=== PATIENT | female | born 1995 ===

== ENCOUNTER 2020-10-01 17:11 | Outpatient (REF) | payer MEDICAID, SELFPAY | END 2020-10-01 17:12 | disposition home or self-care (01) | LOC: HO.LAB 17:11 | PROVIDERS: Visit Provider Internal Medicine | DX: Z20.828 Contact with and (suspected) exposure to other viral communicable diseases (principal) | CPT/HCPCS: C9803; U0003 ==

== ENCOUNTER → 2020-11-07 14:59 | Outpatient (BNVA) | payer MEDICAID, SELFPAY | PROVIDERS: Visit Provider Advanced Practice Midwife | DX: O21.9 Vomiting of pregnancy, unspecified (principal); O99.619 Diseases of the digestive system complicating pregnancy, unspecified trimester; K59.00 Constipation, unspecified; Z3A.00 Weeks of gestation of pregnancy not specified | CPT/HCPCS: 99212 ==

== ENCOUNTER → 2020-11-28 10:12 | Outpatient (BNVA) | payer MEDICAID, SELFPAY | PROVIDERS: Visit Provider Advanced Practice Midwife | DX: Z13.89 Encounter for screening for other disorder (principal) | CPT/HCPCS: 99212 ==

== ENCOUNTER 2020-11-29 | Outpatient (REF) | payer MEDICAID, SELFPAY ==
[2020-11-29 18:04] LABS: MANUAL DIFF FLAG NO
[2020-11-29 18:22] LABS: Basophils Percent Auto 0.2 % (0-2); Eosinophils Absolute Auto 0.1 X10*3/uL (0.0-0.4); Eosinophils Percent Auto 0.6 % (0-4); Hematocrit 34.9 % (37-47); Hemoglobin 11.6 g/dl (12.0-16.0); Imm Gran Abs Auto 0.06 X10*3/uL (0.00-0.03); Imm Gran Pct Auto 0.4 % (0.0-0.4); Lymphocytes Absolute Auto 2.9 X10*3/uL (1.2-4.9); Lymphocytes Percent Auto 21.6 % (20-40); Mean Corpuscular HGB Conc 33.2 g/dl (31.0-35.0); Mean Corpuscular Volume 93.3 fL (80-98); Mean Platelet Volume 9.4 fL (9.4-12.3); Monocytes Absolute Auto 0.6 X10*3/uL (0.1-1.2); Monocytes Percent Auto 4.8 % (2-11); Neutrophils Absolute Auto 9.7 X10*3/uL (2.0-8.3); Neutrophils Percent Auto 72.4 % (45-73); Platelet Count 401 X10*3/uL (160-400); Red Blood Count 3.74 X10*6/uL (4.20-5.50); Red Cell Distribution Width 11.6 % (11.0-16.0); White Blood Count 13.4 X10*3/uL (4.8-10.8)
[2020-11-29 18:42] LABS: Amphetamine Screen Urine Not Detected (Not Detect); Barbiturates, Urine Not Detected (Not Detect); Benzodiazepines Screen Urine Not Detected (Not Detect); Cannabinoid Screen Urine Not Detected (Not Detect); Cocaine Screen Urine Not Detected (Not Detect); Opiate Screen Urine Not Detected (Not Detect); Phencyclidine Screen Urine Not Detected (Not Detect)
[2020-11-30 03:50] LABS: HIV AB/AG Nonreactive (Nonreactive)
[2020-11-30 03:58] LABS: Syphilis Screen Nonreactive (Nonreactive)
[2020-11-30 04:00] LABS: HBsAGNum1 0.14 S/CO (0.00-0.99); Hepatitis B Surface Antigen Negative (Negative); ~HepC Num1 0.08 S/CO (0.00-0.79); ~Hepatitis C Antibody Nonreactive (Nonreactive)
[2020-12-01 21:11] LABS: Rubella IgG Antibody 7.76 Index
== END 2020-11-29 00:01 | disposition home or self-care (01) ==
LOC: HO.LAB
PROVIDERS: Visit Provider Advanced Practice Midwife
DX: Z34.90 Encounter for supervision of normal pregnancy, unspecified, unspecified trimester (principal)
CPT/HCPCS: 80307; 85025; 86762; 86780; 86787; 86803; 87086; 87340; 87389

== ENCOUNTER → 2020-11-29 15:14 | Outpatient (BNVA) | payer MEDICAID, SELFPAY | LOC: CF 16:31 | PROVIDERS: PCP Internal Medicine; Visit Provider Advanced Practice Midwife | DX: O20.0 Threatened abortion (principal) | CPT/HCPCS: 80307; 81003; 85025; 86762; 86787; 87340; 87389; 99212 ==

== ENCOUNTER 2020-11-29 16:28 | Outpatient (REF) | payer MEDICAID, SELFPAY ==
--- NOTE | ~2020-11-29 | US_ITS ---
EXAMINATION: ULTRASOUND PELVIC, COMPLETE CLINICAL INFORMATION: . Threatened . COMPARISON: None. TECHNIQUE: Transvaginal: Used to better visualize pelvic structures Transabdominal: Not adequate for visualization Spectral Doppler and color Doppler exam was utilized. LMP: 10/03/2020. Gestational age by LMP is 8 weeks 1 day. RILEY 07/10/2021 FINDINGS: UTERUS: There is a single intrauterine gestational sac. There is a yolk sac and a pole. heart rate is 79 bpm which is slow. [place]-rump length 0.24 cm. Gestational age by this measurement is 5 weeks 6 days. RILEY 07/26/2021. This measurement is discordant with the date by LMP. The gestational sac appears large for the size of the pole. There are several subchorionic bleeds. These range in thickness from 0.4 to 0.7 cm. Color Doppler there is a focus of hypervascularity adjacent to the endometrial stripe near the lower pole gestational sac, adjacent to the subchorionic bleeds at the lower uterine segment. ADNEXA: Ovarian vascularity:Doppler demonstrates both arterial and venous vascular flow in the right and left ovary. No evidence of ovarian torsion. Right Ovary: 2.7 x 2.1 x 2.3 cm Left Ovary: 2.1 x 1.5 x 1.9 cm Cul-de-sac: No Fluid US/US OB <= 14 weeks fetus IMPRESSION: 1. There is a single intrauterine gestation. 2. There is discordant gestational age measured by this exam by crown-rump length measurement versus dating by LMP. [place]-rump length today measures 0.24 cm correlating to dating of 5 weeks 6 days, RILEY 07/26/2021. Dating by LMP is 8 weeks 1 day RILEY 07/10/2021. 3. Gestational sac appears large for the size of the fetus. 4. heart rate is slow, 79 bpm. 5. Several subchorionic bleeds around the gestational sac. This critical result was discussed with Dr Griffiths on 11/29/2020, 5:44 PM and it was ascertained that the content and urgency of the report was understood at the time of direct communication.
--- NOTE | ~2020-11-29 | US_ITS ---
EXAMINATION: ULTRASOUND PELVIC, COMPLETE CLINICAL INFORMATION: . Threatened . COMPARISON: None. TECHNIQUE: Transvaginal: Used to better visualize pelvic structures Transabdominal: Not adequate for visualization Spectral Doppler and color Doppler exam was utilized. LMP: 10/03/2020. Gestational age by LMP is 8 weeks 1 day. RILEY 07/10/2021 FINDINGS: UTERUS: There is a single intrauterine gestational sac. There is a yolk sac and a pole. heart rate is 79 bpm which is slow. [place]-rump length 0.24 cm. Gestational age by this measurement is 5 weeks 6 days. RILEY 07/26/2021. This measurement is discordant with the date by LMP. The gestational sac appears large for the size of the pole. There are several subchorionic bleeds. These range in thickness from 0.4 to 0.7 cm. Color Doppler there is a focus of hypervascularity adjacent to the endometrial stripe near the lower pole gestational sac, adjacent to the subchorionic bleeds at the lower uterine segment. ADNEXA: Ovarian vascularity:Doppler demonstrates both arterial and venous vascular flow in the right and left ovary. No evidence of ovarian torsion. Right Ovary: 2.7 x 2.1 x 2.3 cm Left Ovary: 2.1 x 1.5 x 1.9 cm Cul-de-sac: No Fluid US/US OB transvaginal IMPRESSION: 1. There is a single intrauterine gestation. 2. There is discordant gestational age measured by this exam by crown-rump length measurement versus dating by LMP. [place]-rump length today measures 0.24 cm correlating to dating of 5 weeks 6 days, RILEY 07/26/2021. Dating by LMP is 8 weeks 1 day RILEY 07/10/2021. 3. Gestational sac appears large for the size of the fetus. 4. heart rate is slow, 79 bpm. 5. Several subchorionic bleeds around the gestational sac. This critical result was discussed with Dr Griffiths on 11/29/2020, 5:44 PM and it was ascertained that the content and urgency of the report was understood at the time of direct communication.
== END 2020-11-29 16:29 | disposition home or self-care (01) ==
LOC: HO.US 16:28
PROVIDERS: PCP Internal Medicine; Visit Provider Advanced Practice Midwife
DX: O20.0 Threatened abortion (principal)
CPT/HCPCS: 76801; 76817

== ENCOUNTER → 2020-11-30 11:24 | Outpatient (BNVA) | payer MEDICAID, SELFPAY | PROVIDERS: PCP Internal Medicine; Visit Provider Advanced Practice Midwife | DX: Z13.89 Encounter for screening for other disorder (principal) | CPT/HCPCS: 99212 ==

== ENCOUNTER 2020-12-04 | Outpatient (REF) | payer MEDICAID, SELFPAY ==
[2020-12-06 15:36] LABS: C. trachomatis RNA TMA NOT DETECTED (NOT DETECTED); N. gonorrhoeae RNA TMA NOT DETECTED (NOT DETECTED)
== END 2020-12-04 00:01 | disposition home or self-care (01) ==
LOC: HO.LAB
PROVIDERS: Visit Provider Obstetrics & Gynecology
DX: O09.899 Supervision of other high risk pregnancies, unspecified trimester (principal); O02.1 Missed abortion; O41.8X90 Other specified disorders of amniotic fluid and membranes, unspecified trimester, not applicable or unspecified; O46.8X9 Other antepartum hemorrhage, unspecified trimester
CPT/HCPCS: 36415; 87491; 87591

== ENCOUNTER 2020-12-04 13:00 | Outpatient (REF) | payer MEDICAID, SELFPAY ==
--- NOTE | ~2020-12-04 | US_ITS ---
EXAMINATION: US OBSTETRICAL FOLLOW UP WITH BIOPHYSICAL PROFILE CLINICAL INFORMATION: Threatened COMPARISON: Previous exam 11/29/2020 TECHNIQUE: Transabdominal and transvaginal first trimester ultrasound was performed. Transvaginal exam was performed for better visualization of the gestational sac. Findings: There is an irregularly-shaped intrauterine gestational sac. There is a yolk sac. [place]-rump length measures 0.23 cm which is decreased from 0.24 cm on 11/29/2020 exam. There is no interval growth. No heart activity is seen. The right ovary measures 3 x 2.5 x 2 cm. There is a 2.1 x 1.5 x 1.4 cm complex right ovarian cyst with low-level internal echoes and an adjacent adnexal or paraovarian 2.7 x 2 x 3.1 cm simple cyst. The left ovary is not seen. There is no fluid in the maternal pelvis. US/US OB transvaginal IMPRESSION: Intrauterine irregularly-shaped gestational sac and yolk sac. pole is slightly decreased in size from previous exam and no heart activity is seen. Findings are consistent with spontaneous .
--- NOTE | ~2020-12-04 | US_ITS ---
EXAMINATION: US OBSTETRICAL FOLLOW UP WITH BIOPHYSICAL PROFILE CLINICAL INFORMATION: Threatened COMPARISON: Previous exam 11/29/2020 TECHNIQUE: Transabdominal and transvaginal first trimester ultrasound was performed. Transvaginal exam was performed for better visualization of the gestational sac. Findings: There is an irregularly-shaped intrauterine gestational sac. There is a yolk sac. [place]-rump length measures 0.23 cm which is decreased from 0.24 cm on 11/29/2020 exam. There is no interval growth. No heart activity is seen. The right ovary measures 3 x 2.5 x 2 cm. There is a 2.1 x 1.5 x 1.4 cm complex right ovarian cyst with low-level internal echoes and an adjacent adnexal or paraovarian 2.7 x 2 x 3.1 cm simple cyst. The left ovary is not seen. There is no fluid in the maternal pelvis. US/US OB follow up IMPRESSION: Intrauterine irregularly-shaped gestational sac and yolk sac. pole is slightly decreased in size from previous exam and no heart activity is seen. Findings are consistent with spontaneous .
== END 2020-12-04 13:01 | disposition home or self-care (01) ==
LOC: HO.US 13:00
PROVIDERS: Visit Provider Advanced Practice Midwife
DX: O46.8X9 Other antepartum hemorrhage, unspecified trimester (principal); O41.8X90 Other specified disorders of amniotic fluid and membranes, unspecified trimester, not applicable or unspecified; O09.899 Supervision of other high risk pregnancies, unspecified trimester
CPT/HCPCS: 76816; 76817; 86850; 86900; 86901; 96372; 99212

== ENCOUNTER 2020-12-19 14:03 | Outpatient (REF) | payer MEDICAID, SELFPAY ==
[2020-12-19 19:46] LABS: HCG Quantitative 1912 mIU/mL
[2020-12-20 10:14] LABS: CT PCR NOT DETECTED (Not Detect.); NG PCR NOT DETECTED (Not Detect.)
== END 2020-12-19 14:04 | disposition home or self-care (01) ==
LOC: HO.LAB 14:03
PROVIDERS: Visit Provider Obstetrics & Gynecology
DX: O02.1 Missed abortion (principal)
CPT/HCPCS: 36415; 84702; 87491; 87591; 99212

== ENCOUNTER 2020-12-19 15:32 | Outpatient (REF) | payer MEDICAID, SELFPAY ==
--- NOTE | ~2020-12-19 | US_ITS ---
EXAMINATION: ULTRASOUND PELVIS COMPLETE CLINICAL INFORMATION: Missed . COMPARISON: Ultrasound OB 12/04/2020 TECHNIQUE: Transabdominal and transvaginal ultrasound of the pelvis is performed. FINDINGS: The uterus is anteverted and anteflexed measuring 10.5 x 4.8 x 6.0 cm. No pole or gestational sac seen. There is complex echogenic material seen in the endometrial canal likely retained products of . There are large clots being passed by the patient as per history. No color flow seen in the endometrium. Endometrial canal measures 1.6 cm thick. Right ovary measures 3.4 x 1.7 x 1.9 cm and volume 5.7 mL. There is a corporal luteal cyst measuring 3.1 x 2.8 x 2.31 cm. Previously right ovary measured 3.0 x 2.5 x 2.0 cm. The left ovary measures 2.7 x 1.5 x 1.7 cm and volume 3.6 mL. US/US transvaginal IMPRESSION: 1. Complex echogenic material seen within the endometrial canal likely sequelae of retained missed products of conception. No gestational sac, pole or any heart beat seen. Thickened endometrium measuring 1.6 cm. 2. Likely small corpus luteal cyst right ovary. The left ovary is unremarkable.
--- NOTE | ~2020-12-19 | US_ITS ---
EXAMINATION: ULTRASOUND PELVIS COMPLETE CLINICAL INFORMATION: Missed . COMPARISON: Ultrasound OB 12/04/2020 TECHNIQUE: Transabdominal and transvaginal ultrasound of the pelvis is performed. FINDINGS: The uterus is anteverted and anteflexed measuring 10.5 x 4.8 x 6.0 cm. No pole or gestational sac seen. There is complex echogenic material seen in the endometrial canal likely retained products of . There are large clots being passed by the patient as per history. No color flow seen in the endometrium. Endometrial canal measures 1.6 cm thick. Right ovary measures 3.4 x 1.7 x 1.9 cm and volume 5.7 mL. There is a corporal luteal cyst measuring 3.1 x 2.8 x 2.31 cm. Previously right ovary measured 3.0 x 2.5 x 2.0 cm. The left ovary measures 2.7 x 1.5 x 1.7 cm and volume 3.6 mL. US/US pelvic complete IMPRESSION: 1. Complex echogenic material seen within the endometrial canal likely sequelae of retained missed products of conception. No gestational sac, pole or any heart beat seen. Thickened endometrium measuring 1.6 cm. 2. Likely small corpus luteal cyst right ovary. The left ovary is unremarkable.
== END 2020-12-19 15:33 | disposition home or self-care (01) ==
LOC: HO.US 15:32
PROVIDERS: Visit Provider Obstetrics & Gynecology
DX: O02.1 Missed abortion (principal)
CPT/HCPCS: 76830; 76856

== ENCOUNTER → 2020-12-20 12:26 | Outpatient (BNVA) | payer MEDICAID, SELFPAY | PROVIDERS: Visit Provider Obstetrics & Gynecology | DX: O02.1 Missed abortion (principal); R93.89 Abnormal findings on diagnostic imaging of other specified body structures | CPT/HCPCS: 99212 ==

== ENCOUNTER 2020-12-21 11:42 | Day surgery (SDC) | payer MEDICAID, SELFPAY ==
[2020-12-21] VITALS (9 sets, daily range): BP systolic 112–130; BP diastolic 60–86; PULSE 50–85; RESP 16–18; TEMP 36.3–36.7; O2SAT 99–100; BMI 37.8
--- NOTE | ~2020-12-21 | US_ITS ---
EXAMINATION: ULTRASOUND OB FOLLOW-UP. CLINICAL INFORMATION: COMPARISON: Ultrasound OB 12/04/2020 TECHNIQUE: US/US OB limited FINDINGS/IMPRESSION:
[2020-12-21 13:03] LABS: Hematocrit 36.4 % (37-47); Hemoglobin 11.8 g/dl (12.0-16.0); Mean Corpuscular HGB Conc 32.4 g/dl (31.0-35.0); Mean Corpuscular Hemoglobin 30.6 pg (27.0-33.0); Mean Corpuscular Volume 94.3 fL (80-98); Mean Platelet Volume 9.2 fL (9.4-12.3); Platelet Count 401 X10*3/uL (160-400); Red Blood Count 3.86 X10*6/uL (4.20-5.50); White Blood Count 9.4 X10*3/uL (4.8-10.8)
--- NOTE | 2020-12-21 13:12 | HO.ANESPROP2 ---
PMFSH Active Problems Active Problems: All Active Problems (Updated 12/20/20 @ 15:52 by Antonio Griffiths MD) Retained products of conception (Acute) Missed ab (Acute) (Acute) Past Medical History Medical History Anxiety Family History Family History Mother Arthritis Fibromyalgia Father Diabetes Hypertension Surgical History Surgical History History of cholecystectomy Social History Social History Household Members: Children Alcohol intake: never Smoking Status: Never smoker Use of substances other than those prescribed or required for medical reasons: No Advance Directives: Yes Advance Directives Information Provided: Yes Advance Directives on File: No Advance Directives Date on File: 12/21/20 Sexual orientation: Straight/Heterosexual Gender identity: female Meds Allergies Allergy/AdvReac Type Severity Reaction Status Date / Time No Known Allergies Allergy Verified 12/21/20 12:40 Exam Exam Date and Time: December 21, 2020 1312 Height,Weight and Vital Signs: Height 4 ft 11 in Weight 84.822 kg Last Vital Signs Temp 98.1 F 12/21/20 12:41 Pulse 70 12/21/20 12:41 Resp 16 12/21/20 12:41 BP 130/67 12/21/20 12:41 Pulse Ox 99 12/21/20 12:41 Airway Mallampati Class: II TM Dist: >3cm Neck ROM: Full Heart: RRR Lungs: CTA
--- NOTE | 2020-12-21 13:42 | MHC.SHP ---
Pre-Procedural Eval Section A The patient is an INPATIENT: No Changes since office visit: No Cold of Flu in the past 2 weeks, No New Medical Problems, No Changes in Medication and No Patient answered all questions The History & Physical has been completed within 30 days and I have reviewed it.: Yes Section B Chief Complaint: Missed , D&C with US guidance in OR Allergies: Allergies Allergy/AdvReac Type Severity Reaction Status Date / Time No Known Allergies Allergy Verified 12/21/20 12:40 Plan Diagnosis/Plan: Unchanged I have reviewed the history and physical and performed a pertinent physical examination on my patient. No changes have occurred unless specified.
[2020-12-21] MEDS: Lactated Ringers 1,000 ML 50 ML IV (14:12)
--- NOTE | 2020-12-21 14:23 | PM.OP ---
Brief Operative Note Date of Service: 12/21/20 Pre-op diagnosis: Missed Ab Post-op diagnosis: same Procedure: Suction D&C Surgeon: Antonio Griffiths MD Anesthesia: MAC Estimated blood loss (mL): 100 Pathology: other (Products of conception) Condition: stable Disposition: PACU
--- NOTE | 2020-12-21 14:26 | P.OP_ITS ---
Operative Note Operative Note Date of Service: 12/21/20 Narrative: Preop diagnosis: Missed AB Operation: suction D and C Postop diagnosis: The same EBL: Minimal Anesthesia: MAC Surgeon: Antonio Griffiths MD, FACOG [employer] Specialist: None Pathology: Products of conception Procedure: The patient was put in a dorsal distal mid position was scrubbed and draped in the usual sterile fashion. A sterile speculum was inserted inside the patient's vagina the anterior lip of the cervix was grasped with single-tooth tenaculum the cervix was dilated up to 7 mm. Under ultrasonographic guidance flexible 7. Suction tip was introduced inside the patient ran cavity till the fundus was hit then turning the suction 360 degrees around products of conception was sucked out toward the uterine cavity. The suction tip was taken out of the patient uterine cavity sharp curettings was followed in 4 quadrants of the uterus till a gritty feeling was felt. The suction tip was reintroduced under ultrasonographic guidance and intrauterine blood was sucked. The suction tip was taken out. Single-tooth tenaculum was removed hemostasis assured using pressure. The patient tolerated the procedure well and was transferred to the PACU in a stable condition.
[2020-12-21] MEDS: fentaNYL citrate/PF 100 MCG/2 ML VIAL 25 MCG IVPUSH ×4 (14:30→14:49)
[2020-12-21] MEDS: oxyCODONE HCl Immed Release 5 MG TABLET PO (15:21)
[2020-12-21] MEDS: Acetaminophen 325 MG TABLET 650 MG PO (15:21)
--- NOTE | 2020-12-21 16:15 | HO.POSTANES ---
Post Anesthesia Evaluation Post Anesthesia Evaluation Vital Signs: Vital Signs Temp Pulse Resp BP Pulse Ox 12/21/20 15:25 55 17 122/68 100 12/21/20 15:10 50 17 124/72 100 12/21/20 14:55 55 17 119/63 100 12/21/20 14:49 17 12/21/20 14:40 60 17 115/67 100 12/21/20 14:35 85 18 120/86 100 12/21/20 14:30 80 17 128/86 100 12/21/20 14:25 97.4 F 60 16 112/60 100 12/21/20 12:41 98.1 F 70 16 130/67 99 Anesthesia: General Mental Status: Awake Pain Control: Satisfactory Nausea/Vomiting: None Hydration: Adequate Anesthesia-Related Issues: No Anes. Related Issues
== END 2020-12-21 15:50 ==
LOC: HO.SSS 11:43
PROVIDERS: PCP Obstetrics & Gynecology; Visit Provider Obstetrics & Gynecology
PROC: (CPT 59820; principal; 2020-12-21 13:40)
DX: O02.1 Missed abortion (principal); Z3A.01 Less than 8 weeks gestation of pregnancy
CPT/HCPCS: 59820; 36415; 76815; 85027; 86850; 86870; 86885; 86900; 88305; J1100; J1885; J2250; J2405; J3010

== ENCOUNTER 2020-12-26 11:15 | Outpatient (REF) | payer MEDICAID, SELFPAY | END 2020-12-26 11:16 | disposition home or self-care (01) | LOC: HO.LAB 11:15 | PROVIDERS: Visit Provider Internal Medicine | DX: Z20.822 Contact with and (suspected) exposure to COVID-19 (principal) | CPT/HCPCS: 36415; C9803; U0003; U0005 ==

== ENCOUNTER → 2021-01-01 14:16 | Outpatient (BNVA) | payer MEDICAID, SELFPAY | PROVIDERS: Visit Provider Obstetrics & Gynecology ==

== ENCOUNTER 2021-01-02 15:06 | Outpatient (REF) | payer MEDICAID, SELFPAY ==
[2021-01-02 16:21] LABS: HCG Quantitative 22 mIU/mL
== END 2021-01-02 15:07 | disposition home or self-care (01) ==
LOC: HO.LAB 15:06
PROVIDERS: Visit Provider Obstetrics & Gynecology
DX: O02.1 Missed abortion (principal); Z78.9 Other specified health status
CPT/HCPCS: 36415; 84702

== ENCOUNTER → 2021-01-03 11:58 | Outpatient (BNVA) | payer MEDICAID, SELFPAY | PROVIDERS: Visit Provider Obstetrics & Gynecology ==

== ENCOUNTER 2021-01-21 14:23 | Outpatient (REF) | payer MEDICAID, SELFPAY ==
[2021-01-21 16:07] LABS: HCG Quantitative 3 mIU/mL
== END 2021-01-21 14:24 | disposition home or self-care (01) ==
LOC: HO.LAB 14:23
PROVIDERS: PCP Family Medicine; Visit Provider Obstetrics & Gynecology
DX: O02.1 Missed abortion (principal)
CPT/HCPCS: 36415; 84702

== ENCOUNTER → 2021-01-22 10:17 | Outpatient (BNVA) | payer MEDICAID, SELFPAY | PROVIDERS: Visit Provider Obstetrics & Gynecology ==

== ENCOUNTER 2021-01-28 12:32 | Outpatient (REF) | payer MEDICAID, SELFPAY ==
[2021-01-28 14:46] LABS: HCG Quantitative < 2 mIU/mL
== END 2021-01-28 12:33 | disposition home or self-care (01) ==
LOC: HO.LAB 12:32
PROVIDERS: Visit Provider Obstetrics & Gynecology
DX: O02.1 Missed abortion (principal)
CPT/HCPCS: 36415; 84702; 86850; 86870; 86885; 86900; 86901

== ENCOUNTER → 2021-01-30 12:34 | Outpatient (BNVA) | payer MEDICAID, SELFPAY | PROVIDERS: Visit Provider Obstetrics & Gynecology ==

== ENCOUNTER 2021-02-20 11:03 | Outpatient (REF) | payer MEDICAID, SELFPAY | END 2021-02-20 11:04 | disposition home or self-care (01) | LOC: HO.LAB 11:03 | PROVIDERS: Visit Provider Internal Medicine | DX: Z20.822 Contact with and (suspected) exposure to COVID-19 (principal) | CPT/HCPCS: C9803; U0003; U0005 ==

== ENCOUNTER 2021-08-12 09:43 | Outpatient (REF) | payer MEDICAID, SELFPAY ==
[2021-08-12 10:16] LABS: COVID-19 Test Negative (Negative)
== END 2021-08-12 09:44 | disposition home or self-care (01) ==
LOC: HO.LAB 09:43
PROVIDERS: Visit Provider Internal Medicine
DX: Z20.822 Contact with and (suspected) exposure to COVID-19 (principal)
CPT/HCPCS: 36415; 87635; C9803

== ENCOUNTER → 2021-10-10 12:03 | Outpatient (BNVA) | payer MEDICAID, SELFPAY | PROVIDERS: PCP Internal Medicine; Referring Provider Internal Medicine; Visit Provider Internal Medicine Gastroenterology | DX: K59.09 Other constipation (principal); E66.9 Obesity, unspecified | CPT/HCPCS: 99202 ==

== ENCOUNTER 2022-02-18 09:08 | Outpatient (REF) | payer MEDICAID, SELFPAY ==
--- NOTE | ~2022-02-18 | XR_ITS ---
EXAMINATION: XR CHEST CLINICAL INFORMATION: Screening for TB COMPARISON: Previous chest x-ray April 2012 TECHNIQUE: 2 views of the chest were obtained. FINDINGS: No significant abnormality is noted involving the heart, lungs, mediastinum, bony thorax or soft tissues. XR/XR chest 2V IMPRESSION: Unremarkable examination.
[2022-02-18 09:58] LABS: MANUAL DIFF FLAG NO
[2022-02-18 10:38] LABS: Basophils Percent Auto 0.3 % (0-2); Eosinophils Absolute Auto 0.1 X10*3/uL (0.0-0.4); Eosinophils Percent Auto 0.7 % (0-4); Hematocrit 37.6 % (37.0-47.0); Hemoglobin 12.5 g/dl (12.0-16.0); Imm Gran Abs Auto 0.02 X10*3/uL (0.00-0.03); Imm Gran Pct Auto 0.3 % (0.0-0.4); Lymphocytes Absolute Auto 1.6 X10*3/uL (1.2-4.9); Lymphocytes Percent Auto 23.1 % (20-40); Mean Corpuscular HGB Conc 33.2 g/dl (31.0-35.0); Mean Corpuscular Hemoglobin 30.8 pg (27.0-33.0); Mean Corpuscular Volume 92.6 fL (80.0-98.0); Mean Platelet Volume 9.4 fL (9.4-12.3); Monocytes Absolute Auto 0.5 X10*3/uL (0.1-1.2); Monocytes Percent Auto 7.6 % (2-11); Neutrophils Absolute Auto 4.6 x10*3/uL (2.0-8.3); Platelet Count 366 X10*3/uL (160-400); Red Blood Count 4.06 X10*6/uL (4.20-5.50); Red Cell Distribution Width 11.4 % (11.0-16.0); White Blood Count 6.7 X10*3/uL (4.8-10.8)
[2022-02-18 11:17] LABS: Ferritin 119 ng/mL (10-122); TSH reflex Free T4 0.61 uIU/mL (0.32-4.0); Vitamin D 25-OH Total 17.3 ng/mL (>30)
[2022-02-18 11:29] LABS: Folate 12.8 ng/mL (> or = 4.0); Vitamin B12 676 pg/mL (200-900)
[2022-02-20 13:45] LABS: Immunoglobulin A 237 mg/dL (47-310)
[2022-02-25 09:11] LABS: Transglutaminase Ab IgG <1.0 U/mL; Transglutaminase IgA <1.0 U/mL
== END 2022-02-18 09:09 | disposition home or self-care (01) ==
LOC: HO.LAB 09:08
PROVIDERS: Absent Provider Internal Medicine Gastroenterology; PCP Internal Medicine; Visit Provider Internal Medicine
DX: Z11.1 Encounter for screening for respiratory tuberculosis (principal); K59.09 Other constipation
CPT/HCPCS: 36415; 71046; 82306; 82607; 82728; 82746; 82784; 84443; 85025; 86364

== ENCOUNTER 2022-05-08 10:07 | Outpatient (REF) | payer MEDICAID, SELFPAY ==
--- NOTE | ~2022-05-08 | XR_ITS ---
EXAMINATION: XR ABDOMEN KUB CLINICAL INDICATION: Constipation. COMPARISON: Abdominal ultrasound 05/18/2019. TECHNIQUE: AP view of the abdomen. FINDINGS: Nonobstructive bowel gas pattern. No significant stool burden. Right upper quadrant surgical clips noted. No acute osseous abnormalities. No significant soft tissue findings. XR/XR KUB IMPRESSION: Nonobstructive bowel gas pattern. No significant stool burden.
== END 2022-05-08 10:08 | disposition home or self-care (01) ==
LOC: HO.XRAY 10:07
PROVIDERS: PCP Internal Medicine; Visit Provider Internal Medicine Gastroenterology
DX: K59.09 Other constipation (principal)
CPT/HCPCS: 74018; 99212

== ENCOUNTER → 2022-07-04 08:02 | Outpatient (BNVA) | payer MEDICAID, SELFPAY | PROVIDERS: Visit Provider Advanced Practice Midwife | DX: N92.6 Irregular menstruation, unspecified (principal) | CPT/HCPCS: 99212 ==

== ENCOUNTER 2022-10-27 14:54 | Outpatient (REF) | payer MEDICAID, SELFPAY ==
[2022-10-27 17:06] LABS: HCG Quantitative 656 mIU/mL
== END 2022-10-27 14:55 | disposition home or self-care (01) ==
LOC: HO.LAB 14:54
PROVIDERS: PCP Internal Medicine; Visit Provider Advanced Practice Midwife
DX: O26.899 Other specified pregnancy related conditions, unspecified trimester (principal); O21.9 Vomiting of pregnancy, unspecified; K59.09 Other constipation; Z32.01 Encounter for pregnancy test, result positive; Z79.899 Other long term (current) drug therapy
CPT/HCPCS: 36415; 81025; 84702; 99212

== ENCOUNTER 2022-10-29 08:03 | Outpatient (REF) | payer MEDICAID, SELFPAY ==
[2022-10-29 09:12] LABS: HCG Quantitative 1490 mIU/mL
== END 2022-10-29 08:04 | disposition home or self-care (01) ==
LOC: HO.LAB 08:03
PROVIDERS: Visit Provider Advanced Practice Midwife
DX: Z34.90 Encounter for supervision of normal pregnancy, unspecified, unspecified trimester (principal)
CPT/HCPCS: 36415; 84702

== ENCOUNTER 2022-11-03 10:01 | Outpatient (REF) | payer MEDICAID, SELFPAY | END 2022-11-03 10:02 | disposition home or self-care (01) | LOC: HO.LNP 10:01 | PROVIDERS: Visit Provider Obstetrics & Gynecology | DX: Z13.89 Encounter for screening for other disorder (principal) ==

== ENCOUNTER 2022-11-03 11:05 | Outpatient (REF) | payer MEDICAID, SELFPAY ==
--- NOTE | ~2022-11-03 | US_ITS ---
EXAMINATION: US OBSTETRICAL ULTRASOUND CLINICAL INFORMATION: Confirm viability. COMPARISON: ultrasound 12/21/2020. LMP: 09/29/2022. Gestational age by maternal dates is 5 weeks 0 days. Estimated date of delivery by maternal dates is 07/06/2023. TECHNIQUE: Post transabdominal and endovaginal scanning was performed. FINDINGS: Gestational sac is present with a yolk sac seen but no pole is identified. Based upon a gestational sac size of 0.99 cm, gestational age would be 5 weeks 5 days. MATERNAL ADNEXA: The right maternal ovary measures 2.8 x 1.2 x 1.2 cm with a 2.1 cm adnexal cyst. The left maternal ovary measures 3.7 x 1.7 x 3.0 cm. There is no significant maternal adnexal mass. No maternal pelvic ascites. US/US OB pelvic and transvaginal IMPRESSION: Gestational sac is present but a pole is not identified at this time. Correlation with beta hCG levels is recommended, as nonvisualization of a pole could be due to an early stage of . Short-term sonographic follow-up and serial beta hCG levels are recommended to assess for development of an intrauterine gestation.
[2022-11-03 14:42] LABS: HCG Quantitative 11378 mIU/mL
[2022-11-03 16:45] LABS: HCG Quantitative 11162 mIU/mL
[2022-11-03 18:27] LABS: CT PCR NOT DETECTED (Not Detect.); NG PCR NOT DETECTED (Not Detect.)
== END 2022-11-03 11:06 | disposition home or self-care (01) ==
LOC: HO.HMGCX 11:05
PROVIDERS: Absent Provider Obstetrics & Gynecology; PCP Internal Medicine; Visit Provider Advanced Practice Midwife
DX: O26.851 Spotting complicating pregnancy, first trimester (principal); O26.891 Other specified pregnancy related conditions, first trimester; Z67.91 Unspecified blood type, Rh negative; Z3A.01 Less than 8 weeks gestation of pregnancy
CPT/HCPCS: 0353U; 36415; 76801; 76817; 84702; 86850; 86900; 96372; 99212; J2790

== ENCOUNTER 2022-11-06 08:44 | Outpatient (REF) | payer MEDICAID, SELFPAY ==
[2022-11-06 09:48] LABS: HCG Quantitative 23925 mIU/mL
== END 2022-11-06 08:45 | disposition home or self-care (01) ==
LOC: HO.LAB 08:44
PROVIDERS: PCP Internal Medicine; Visit Provider Obstetrics & Gynecology
DX: O26.851 Spotting complicating pregnancy, first trimester (principal); Z3A.01 Less than 8 weeks gestation of pregnancy
CPT/HCPCS: 36415; 84702; 99212

== ENCOUNTER 2022-11-13 08:43 | Outpatient (REF) | payer MEDICAID, SELFPAY ==
[2022-11-13 14:24] LABS: CT PCR NOT DETECTED (Not Detect.); NG PCR NOT DETECTED (Not Detect.)
[2022-11-14 10:03] LABS: BV Int Neg Control Negative (Negative); BV Int Pos Control Positive (Positive)
== END 2022-11-13 08:44 | disposition home or self-care (01) ==
LOC: HO.LNP 08:43
PROVIDERS: PCP Internal Medicine; Visit Provider Obstetrics & Gynecology
DX: N76.0 Acute vaginitis (principal); B96.89 Other specified bacterial agents as the cause of diseases classified elsewhere
CPT/HCPCS: 0353U; 87480; 87510; 87660; 99212

== ENCOUNTER 2022-11-20 12:47 | Outpatient (REF) | payer MEDICAID, SELFPAY ==
--- NOTE | ~2022-11-20 | US_ITS ---
EXAMINATION: ULTRASOUND CLINICAL INFORMATION: Size and date. COMPARISON: 11/03/2022. TECHNIQUE: Transabdominal ultrasound was performed. FINDINGS: A gestational sac is present in the uterus with a yolk sac and a pole seen. The fetus was active. A normal heart rate of 165 bpm was noted. [place]-rump length was 1.22 cm corresponding to a gestational age of 7 weeks 3 days with an RILEY of 07/06/2023. Based upon the patient's LMP of 09/29/2023, gestational age and RILEY is identical. The right ovary measures 2.7 x 1.7 x 2.8 cm and contains a 1.9 x 1.4 x 2.0 cm cyst. Left ovary measures 3.5 x 1.8 x 2.1 cm and appears unremarkable. No free fluid present in the cul-de-sac. US/US OB limited IMPRESSION: Single gestation with mean gestational age best estimated at 7 weeks 3 days with an RILEY of 07/06/2023.
== END 2022-11-20 12:48 | disposition home or self-care (01) ==
LOC: HO.HMGCX 12:47
PROVIDERS: PCP Internal Medicine; Visit Provider Obstetrics & Gynecology
DX: Z34.91 Encounter for supervision of normal pregnancy, unspecified, first trimester (principal); Z3A.01 Less than 8 weeks gestation of pregnancy
CPT/HCPCS: 76815

== ENCOUNTER → 2022-11-26 09:39 | Outpatient (BNVA) | payer MEDICAID, SELFPAY | PROVIDERS: PCP Internal Medicine; Visit Provider Obstetrics & Gynecology | DX: Z34.90 Encounter for supervision of normal pregnancy, unspecified, unspecified trimester (principal); Z3A.01 Less than 8 weeks gestation of pregnancy | CPT/HCPCS: 99212 ==

== ENCOUNTER 2023-03-21 14:21 | Emergency (ER) | payer MEDICAID, SELFPAY ==
--- NOTE | ~2023-03-21 | US_ITS ---
EXAMINATION: ULTRASOUND CLINICAL INFORMATION: Severe lower abdominal pain x24 hours COMPARISON: OB ultrasound 11/20/2022 TECHNIQUE: Transabdominal ultrasound was performed. The exam was limited and measurements were not performed. FINDINGS: A single IUP is present in a transverse lie. Cardiac motion was seen and activity was observed. Gestational age calculated from the patient's first ultrasound is 24 weeks 5 days. The placenta is located anteriorly and is marginal, close to the cervix but does not cover the cervix. The cervix measures 6.1 cm in length and is closed. US/US OB limited IMPRESSION: Limited exam demonstrates viability as described above. Low lying marginal placenta without placenta previa.
[2023-03-21 14:23] VITALS: BP 126/66; PULSE 77; RESP 20; TEMP 36.4; O2SAT 100; BMI 40.2
--- NOTE | 2023-03-21 14:27 | ED.GENADULT ---
HPI - General Adult General Chief complaint: Abdominal Pain Stated complaint: nausea Time Seen by Provider: 03/21/23 14:41 Source: patient Mode of arrival: ambulatory Limitations: no limitations History of Present Illness HPI narrative: 28 yo female currently 24 weeks with LMP 09/29/22, history of anxiety, constipation, obesity who presents to the ER for evaluation of epigastric abdominal pain, nausea, decreased appetite and decreased movement for the last 2 days. She states she intermittently has lower abdominal pain/pressure when she walks. No vaginal bleeding or discharge. No fever or chills. She presents today with her 5 yo and 7yo daughters who also have abdominal pains, nausea and vomiting for the last 2 days. She used to come here for her OB care but recently moved to [facility] for her OB care. She did not call them about her pain or decreased movement. She reports prior to the last couple of days she was feeling a lot of movement but that it has decreased significantly in the last 2 days. She is anxious about this because she has history of a miscarriage in the past. She denies and vomiting, diarrhea, RUQ pain, flank pain, urinary symptoms. MD complaint: abdominal pain, decreased movement Onset (ago): day(s) (2) Location: abdomen Radiation: non-radiation Severity: moderate Quality: aching Pain Consistency: constant Relieving factors: none Exacerbating factors: none Associated symptoms: loss of appetite, malaise and nausea/vomiting Treatments prior to arrival: none Related Data Home Medications Medication Instructions Recorded Confirmed rznjvvqsse-wuaryopqsigho-qyvnulru 1 - 2 tab PO Q4H PRN Headache 09/17/22 10/27/22 50 mg-325 mg-40 mg tablet linaclotide 145 mcg capsule 1 cap PO BID 09/17/22 10/27/22 (Linzess) loratadine 10 mg tablet 1 tab PO DAILY PRN allergies 09/17/22 10/27/22 omeprazole 20 mg capsule,delayed 1 cap PO DAILY 09/17/22 10/27/22 release phentermine 37.5 mg tablet 1 tab PO QAM 09/17/22 10/27/22 Previous Rx's Medication Instructions Recorded pyridoxine (vitamin B6) 25 mg 25 mg PO TID #90 tabs 11/07/20 tablet (Vitamin B-6) sennosides 8.6 mg-docusate sodium 1 tab-cap PO BEDTIME #30 tabs 11/29/20 50 mg tablet (Colace 2-In-1) cholecalciferol (vitamin D3) 250 250 mcg PO 2XW 90 days #26 caps 03/17/22 mcg (10,000 unit) capsule lubiprostone 8 mcg capsule 16 mcg PO BID 30 days #120 caps 07/03/22 (Amitiza) bisacodyl 5 mg tablet,delayed 10 mg PO ONCE colon prep 5 days 09/15/22 release (Dulcolax (bisacodyl)) #10 tabs doxylamine succinate 25 mg tablet 25 mg PO BEDTIME PRN sleep #90 tabs 10/27/22 (Unisom (doxylamine)) psyllium husk (with sugar) 3.4 1 tbsp PO DAILY #861 grams 10/27/22 gram/12 gram oral powder (Metamucil (with sugar)) metronidazole 500 mg tablet 500 mg PO BID 7 days #14 tabs 11/13/22 terconazole 0.4 % vaginal cream 1 appful vaginal BEDTIME 7 days 11/13/22 #45 grams Allergies Allergy/AdvReac Type Severity Reaction Status Date / Time No Known Allergies Allergy Verified 03/21/23 14:26 Review of Systems Review of Systems: Yes all other systems are reviewed and are negative [facility] Past Medical History Medical History Anxiety Surgical History History of cholecystectomy Hx of dilation and curettage Family History Family History Mother Arthritis Fibromyalgia Father Diabetes Hypertension Social History Social History Household Members: Children Housing: Apartment Alcohol intake: former Patient Tobacco Use Status: Never used Tobacco Smoked in Last 30 Days: No Use of substances other than those prescribed or required for medical reasons: No Advance Directives: Yes Advance Directives on File: Yes Advance Directives Date on File: 12/21/20 Patient : Yes Sexual orientation: Straight/Heterosexual Gender identity: Female Physical Exam ED Vital Signs: Vital Signs - 24 hr 03/21/23 14:23 03/21/23 15:09 Temperature 97.5 F Pulse Rate 77 97 Respiratory Rate 20 18 Blood Pressure 126/66 123/90 H Pulse Oximetry 100 99 Oxygen Delivery Method Room Air Room Air BMI result Body Mass Index 40.2 Appearance: Alert. Oriented X3. No acute distress. Head: normocephalic, atraumatic. Eyes: Pupils equal, round and reactive to light. ENT: Pharynx normal. No tonsillar swelling or exudate. Neck: Normal inspection. Neck supple. CVS: Normal heart rate and rhythm. Pulses normal. Respiratory: No respiratory distress. Breath sounds normal. Abdomen: Gravid uterus palpable between the umbilicus and xiphoid process, +epigastric tenderness, negative Tsang's sign. normal active +BS x4 Skin: Skin warm and dry. Normal skin color. Normal skin turgor. No rashes. Extremities: No lower extremity edema. No joint swelling. Neuro/psych: Oriented X 3. No motor deficit. No sensory deficit. CN II-XII intact. Normal speech and cognition. Course Course Course Narrative: This is an RME: Additional HPI, ROS, PE not included below will be deferred to primary provider. Patient is a 28yo F currently 24 weeks followed by [facility]. Presents with 2 says of lowerr abdominal pain in suprapubic and epigastric region with associated nausea. Reports she has not felt baby move in 2 days. No vaginal bleeding or discharge, fevers, chills or abdominal trauma, suprapubic pain. PE- Plan labs, ultrasound Reevaluation(s) Reevaluation #1: awaiting call back from [facility] - signed out to Marla OBREGON who will return call from [facility] for transfer Time: 16:23 Consultations Consultation #1: OB - Dr. Griffiths Medical Decision Making Medical Decision Making MDM Narrative: 28 yo female currently 24 weeks presenting with epigastric abdominal pain, nausea, decreased appetite and decreased movement for the last 2 days. FHT 140s. VSS. no vaginal bleeding or contractions case d/w Dr. Griffiths who is recommending transfer to [facility]. patient updated on plan of care UA positive. will defer to [facility] to initiate treatment of choice Differential Diagnosis Differential Diagnoses: The differential diagnosis associated with the presentation includes viral gastroenteritis, gastritis, GERD, UTI, labor, placenta previa, anterior placenta, hever min Admission/Observation Consideration of admission/observation: Escalation of care including admission/observation considered Consult Healthcare Provider Management of the patient was discussed with: Power Line Lineman Dr. Griffiths OB recommending urgent transfer to [facility] Lab Data MDM Lab Attestation statement: I reviewed the patient's lab results. anemia, +UTI 03/21/23 15:39 03/21/23 15:39 Labs: Lab Results 03/21/23 03/21/23 03/21/23 Range/Units 15:39 15:39 15:40 WBC 9.9 (4.8-10.8) X10*3/uL RBC 3.18 L D (4.20-5.50) X10*6/uL Hgb 9.7 L D (12.0-16.0) g/dl Hct 29.9 L D (37.0-47.0) % MCV 94.0 (80.0-98.0) fL MCH 30.5 (27.0-33.0) pg MCHC 32.4 (31.0-35.0) g/dl RDW 12.4 (11.0-16.0) % Plt Count 295 (160-400) X10*3/uL MPV 9.0 L (9.4-12.3) fL Immature Gran % (Auto) 0.8 H (0.0-0.4) % Neut % (Auto) 77.5 H (45-73) % Lymph % (Auto) 16.0 L (20-40) % [place] % (Auto) 5.1 (2-11) % Eos % (Auto) 0.5 (0-4) % Baso % (Auto) 0.1 (0-2) % Lymph # (Auto) 1.6 (1.2-4.9) X10*3/uL [place] # (Auto) 0.5 (0.1-1.2) X10*3/uL Eos # (Auto) 0.1 (0.0-0.4) X10*3/uL Baso # (Auto) 0.0 (0.0-0.2) X10*3/uL Abs Immat Gran (auto) 0.08 H (0.00-0.03) X10*3/uL Absolute Neuts (auto) 7.7 (2.0-8.3) x10*3/uL Absolute Nucleated RBC 0.000 (0.0-0.012) X10*3/uL Nucleated RBC % (auto) 0.0 (0.0-0.2) /100WBC Sodium 138 (135-145) mmol/L Potassium 3.6 (3.3-5.1) mmol/L Chloride 107 (96-108) mmol/L Carbon Dioxide 24 (22-29) mmol/L Anion Gap 11 L (12-20) BUN 6 L (9-16) mg/dL Creatinine 0.51 (0.5-1.4) mg/dL Estim Creat Clear Calc 157.9 Estimated GFR > 60 Random Glucose 79 (60-115) mg/dL Calcium 9.0 (8.4-10.2) mg/dL Magnesium 1.9 (1.6-2.6) mg/dL Total Bilirubin 0.4 (0.0-1.0) mg/dL AST 14 (5-31) U/L ALT 13 (0-31) U/L Alkaline Phosphatase 88 (39-117) U/L Total Protein 6.9 (6.5-8.0) g/dL Albumin 3.3 L (3.5-5.0) g/dL Lipase 8 (8-78) U/L Urine Color Yellow Urine Appearance Clear Urine pH 7.5 (5.0-9.0) Ur Specific [place] <= 1.005 (1.005-1.025) Urine Protein Negative (Neg-Trace) mg/dL Urine Glucose (UA) Negative (Negative) mg/dL Urine Ketones Negative (Negative) mg/dL Urine Blood Negative (Negative) Urine Nitrite Negative (Negative) Ur Leukocyte Esterase Large (3+) H (Negative) Urine RBC 0-2 (0-2) /HPF Urine WBC 11-20 H (0-5) /HPF Ur Squamous Epith Cells 3-5 (0-2) /HPF Urine Bacteria 1+ (None Seen) Hyaline Casts 0-2 (0-2) /LPF Independent Interpretation I performed an independent interpretation of an: Ultrasound Interpretation: US reviewed - good movement, anterior placenta Radiology Impression Discussion of test interpretation with radiology: I have reviewed the radiologist's reading. Radiologist Impression: CLINICAL INFORMATION: Severe lower abdominal pain x24 hours COMPARISON: OB ultrasound 11/20/2022? TECHNIQUE: Transabdominal ultrasound was performed. The exam was limited and measurements were not performed.? FINDINGS: A single IUP is present in a transverse lie. Cardiac motion was seen and activity was observed. Gestational age calculated from the patient's first ultrasound is 24 weeks 5 days. The placenta is located anteriorly and is marginal, close to the cervix but does not cover the cervix. The cervix measures 6.1 cm in length and is closed. US/US OB limited IMPRESSION: Limited exam demonstrates viability as described above. Low lying marginal placenta without placenta previa. External Record Review External record reviewed: Office record, Outpatient record, Prior outpatient labs and Prior outpatient radiology Prescription Management I considered prescription management with: Antibiotic Chronic Conditions Patient?s care impacted by: Other (obesity) Critical Care Time Critical Care Time Critical Care Time: Yes Total Critical Care Time: 36 Attestation: I have personally provided critical care time exclusive of time spent on separately billable procedures. Time includes review of lab data, radiology results, discussion with consultants, and monitoring for potential decompensation. Intervention performed as documented. Discharge Plan Discharge Clinical Impression: Abdominal pain, Decreased movement, Acute UTI Patient Disposition: Xfer Acute [facility] Transfer Details: [facility] Prescriptions: No Action cholecalciferol (vitamin D3) 250 mcg (10,000 unit) capsule 250 mcg PO 2XW 90 Days Qty: 26 1RF lubiprostone [Amitiza] 8 mcg capsule 16 mcg PO BID 30 Days Qty: 120 1RF bisacodyl [Dulcolax (bisacodyl)] 5 mg tablet,delayed release (DR/EC) 10 mg PO ONCE 5 Days Qty: 10 0RF Rx Instructions: Take 2 tablets at 12 pm starting 5 days before colonoscopy phentermine 37.5 mg tablet 1 tab PO QAM hwahmclcpo-cndewnbwkmqep-pguh 50-325-40 mg tablet 1 - 2 tab PO Q4H PRN (Reason: Headache) omeprazole 20 mg capsule,delayed release(DR/EC) 1 cap PO DAILY loratadine 10 mg tablet 1 tab PO DAILY PRN (Reason: allergies) Linzess 145 mcg capsule 1 cap PO BID pyridoxine (vitamin B6) [Vitamin B-6] 25 mg tablet 25 mg PO TID Qty: 90 3RF sennosides-docusate sodium [Colace 2-In-1] 8.6-50 mg tablet 1 tab-cap PO BEDTIME Qty: 30 3RF metronidazole 500 mg tablet 500 mg PO BID 7 Days Qty: 14 0RF terconazole 0.4 % cream 1 appful vaginal BEDTIME 7 Days Qty: 45 0RF Metamucil (with sugar) 3.4 gram/12 gram powder 1 tbsp PO DAILY Qty: 861 1RF Unisom (doxylamine) 25 mg tablet 25 mg PO BEDTIME PRN (Reason: sleep) Qty: 90 0RF
[2023-03-21 15:09] VITALS: BP 123/90; PULSE 97; RESP 18; O2SAT 99
--- NOTE | 2023-03-21 15:11 | PC.NURSE ---
Alert and oriented. language interpreter used to translate. Patient stating her older daughter started with abdominal pain or wed and then her youngest daughter got sick. States she now has abdominal pain, nausea, and a headache. states headache is 19/10 pain. vss
--- NOTE | 2023-03-21 15:48 | PM.OBCN ---
OB Consult Note - [facility] Data Service Date: 03/21/23 Primary Care Provider: Farzana Diaz MD Narrative I was contacted at 15:40 regarding Marylou Snowden who is a 28 year old at 24 weeks of gestation presenting to the ER for evaluation of epigastric abdominal pain, nausea, decreased appetite and decreased movement for the last 2 days associated with intermittent lower abdominal pain/pressure . No vaginal bleeding or discharge. She denies and vomiting, diarrhea, RUQ pain, flank pain, urinary symptoms. Ultrasound done, unofficial reading showed anterior placenta, good movements, cervix closed, no official report available yet OB PMFSH Past Medical History Medical History Anxiety Family History Family History Mother Arthritis Fibromyalgia Father Diabetes Hypertension Surgical History Surgical History History of cholecystectomy Hx of dilation and curettage Social History Social History Household Members: Children Housing: Apartment Alcohol intake: former Patient Tobacco Use Status: Never used Tobacco Smoked in Last 30 Days: No Use of substances other than those prescribed or required for medical reasons: No Advance Directives: Yes Advance Directives on File: Yes Advance Directives Date on File: 12/21/20 Patient : Yes Sexual orientation: Straight/Heterosexual Gender identity: Female Meds Allergies Allergy/AdvReac Type Severity Reaction Status Date / Time No Known Allergies Allergy Verified 03/21/23 14:26 Home Medications Medication Instructions Recorded Confirmed Last Taken Type xqgyvontpi-fuupqazjqucvd-tuxkhteb 1 - 2 tab PO Q4H PRN Headache 09/17/22 10/27/22 Unknown History 50 mg-325 mg-40 mg tablet linaclotide 145 mcg capsule 1 cap PO BID 09/17/22 10/27/22 Unknown History (Linzess) loratadine 10 mg tablet 1 tab PO DAILY PRN allergies 09/17/22 10/27/22 Unknown History omeprazole 20 mg capsule,delayed 1 cap PO DAILY 09/17/22 10/27/22 Unknown History release phentermine 37.5 mg tablet 1 tab PO QAM 09/17/22 10/27/22 Unknown History OB Flowsheet OB Flowsheet & Tools Past Pregnancies Del. Date GA/Weeks Outcome Route Wt Inf Gender Labor Connie Anesthesia Location Provider Complicate 04/26/11 39 live - 6 lb 5 oz Male epidural none 11/03/15 40 live - full term 6 lb 6 oz Female epidural none 08/19/17 38 live - full term 6 lb 7 oz Female epidural none History 5 Elective abortions 0 Para 3 Spontaneous abortions 1 Hx # Term Pregnancies 3 Ectopic pregnancies 0 Hx # Pregnancies 3 Multiple births 0 OB Physical Exam Physical Exam Additional Comments: Reported by DYLAN Ellison: Gravid uterus palpable, +epigastric tenderness, negative Tsang's sign. normal active +BS x4 heart rate 140s OB Consult Results Labs 03/21/23 15:39 03/21/23 15:39 OB - CN: A/P Assessment and Plan (1) Decreased movement: Status: Acute Plan 15:41 Differential diagnosis includes but not limited to: labor, UTI, -induced hypertension/preeclampsia, gastroenteritis, cholelithiasis/cholecystitis and others. Recommended to DYLAN Ellison in the emergency transfer the patient out to [facility] since there is no maternity unit [facility], in an effort to prevent delay in diagnosis and treatment. Time Spent With Patient Time: Total time managing care of this patient today ____ minutes.
[2023-03-21 15:49] LABS: MANUAL DIFF FLAG NO
[2023-03-21 15:50] LABS: Basophils Percent Auto 0.1 % (0-2); Eosinophils Absolute Auto 0.1 X10*3/uL (0.0-0.4); Eosinophils Percent Auto 0.5 % (0-4); Hematocrit 29.9 % (37.0-47.0); Hemoglobin 9.7 g/dl (12.0-16.0); Imm Gran Abs Auto 0.08 X10*3/uL (0.00-0.03); Imm Gran Pct Auto 0.8 % (0.0-0.4); Lymphocytes Absolute Auto 1.6 X10*3/uL (1.2-4.9); Mean Corpuscular HGB Conc 32.4 g/dl (31.0-35.0); Mean Corpuscular Hemoglobin 30.5 pg (27.0-33.0); Monocytes Absolute Auto 0.5 X10*3/uL (0.1-1.2); Monocytes Percent Auto 5.1 % (2-11); Neutrophils Absolute Auto 7.7 x10*3/uL (2.0-8.3); Neutrophils Percent Auto 77.5 % (45-73); Platelet Count 295 X10*3/uL (160-400); Red Blood Count 3.18 X10*6/uL (4.20-5.50); Red Cell Distribution Width 12.4 % (11.0-16.0); White Blood Count 9.9 X10*3/uL (4.8-10.8)
[2023-03-21 15:51] LABS: Appearance Urine Clear; Color Urine Yellow; Glucose Urine UA Negative (Negative); Leukocyte Esterase Urine Large (3+) (Negative); Nitrite Urine Negative (Negative); PH 7.5 (5.0-9.0); Specific Gravity - Urine <= 1.005 (1.005-1.025); UMIC TRIGGER UACC YES; Urine Blood Negative (Negative); Urine Ketones Negative (Negative); Urine Protein Negative (Neg-Trace)
[2023-03-21 16:02] LABS: Bacteria Urine 1+ (None Seen); Hyaline Casts Urine 0-2 /LPF (0-2); RBC Urine 0-2 /HPF (0-2); UACC Culture Trigger YES
[2023-03-21 16:07] LABS: Alanine Aminotransferase 13 U/L (0-31); Albumin Level 3.3 g/dL (3.5-5.0); Alkaline Phosphatase 88 U/L (39-117); Anion Gap 11 (12-20); Aspartate Amino Transferase 14 U/L (5-31); Bilirubin Total 0.4 mg/dL (0.0-1.0); Blood Urea Nitrogen 6 mg/dL (9-16); Carbon Dioxide 24 mmol/L (22-29); Chloride 107 mmol/L (96-108); Creatinine Clr Calc Pharmacy 157.9; Estimated Glomerular Filt Rate > 60; Glucose Random 79 mg/dL (60-115); Lipase 8 U/L (8-78); Magnesium 1.9 mg/dL (1.6-2.6); Potassium 3.6 mmol/L (3.3-5.1); Sodium 138 mmol/L (135-145); Total Protein 6.9 g/dL (6.5-8.0)
--- NOTE | 2023-03-21 16:13 | PC.NURSE ---
Alert and oriented. states left sided 10/10 abdominal pain, states hx of diverticulitits but this is the worst pain he has ever had from it. Denies chest pain or sob, or headache. Denies pain with urination or blood in urine. States pain is only on left side, tender to touch.
--- NOTE | 2023-03-21 16:48 | PC.NURSE ---
Transferred by private car to [facility] for eval. Horticulture Professor reviewed discharge plan with patient who verbalized understanding and stated she knew how to get to [facility].
== END 2023-03-21 16:50 | disposition short-term general hospital (02) ==
PROVIDERS: Physician Assistant; Emergency Provider Emergency Medicine; PCP Internal Medicine
DX: O36.8120 Decreased fetal movements, second trimester, not applicable or unspecified (principal); O23.42 Unspecified infection of urinary tract in pregnancy, second trimester; N39.0 Urinary tract infection, site not specified; O26.892 Other specified pregnancy related conditions, second trimester; R10.13 Epigastric pain; Z3A.24 24 weeks gestation of pregnancy
CPT/HCPCS: 36415; 76815; 80053; 81001; 83690; 83735; 84702; 85025; 87086; 99284; 99285

== ENCOUNTER 2023-09-18 18:36 | Emergency (ER) | payer MEDICAID, SELFPAY ==
--- NOTE | 2023-09-18 19:11 | ED_ITS ---
HPI - General Adult General Chief complaint: Upper Respiratory Symptoms Stated complaint: Fever/weakness in legs Time Seen by Provider: 09/18/23 19:11 Source: patient, family, RN notes reviewed and interpretative dancer Limitations: language barrier History of Present Illness HPI narrative: 28-year-old family presents with her 3 children for evaluation of fever and cough. Patient reports that she has had several days of feeling unwell, generalized weakness and malaise. She reports also a dry nonproductive cough. She reports subjective fevers. No nausea vomiting. She reports that her children, including her 2-month-old who is not here, was recently diagnosed with RSV. Patient states that she is currently . She has been taking Tylenol with minimal relief. She reports she has had this trigger her migraines. She denies any abdominal pain, nausea vomiting. Related Data Home Medications Medication Instructions Recorded Confirmed [id number]-[id number]-[id number] 1 - 2 tab PO Q4H PRN Headache 09/17/22 10/27/22 50 mg-325 mg-40 mg tablet linaclotide 145 mcg capsule 1 cap PO BID 09/17/22 10/27/22 (Linzess) loratadine 10 mg tablet 1 tab PO DAILY PRN allergies 09/17/22 10/27/22 omeprazole 20 mg capsule,delayed 1 cap PO DAILY 09/17/22 10/27/22 release phentermine 37.5 mg tablet 1 tab PO QAM 09/17/22 10/27/22 Previous Rx's Medication Instructions Recorded pyridoxine (vitamin B6) 25 mg 25 mg PO TID #90 tabs 11/07/20 tablet (Vitamin B-6) sennosides 8.6 mg-docusate sodium 1 tab-cap PO BEDTIME #30 tabs 11/29/20 50 mg tablet (Colace 2-In-1) cholecalciferol (vitamin D3) 250 250 mcg PO 2XW 90 days #26 caps 03/17/22 mcg (10,000 unit) capsule lubiprostone 8 mcg capsule 16 mcg (2 x 8 mcg) PO BID 30 days 07/03/22 (Amitiza) #120 caps bisacodyl 5 mg tablet,delayed 10 mg (2 x 5 mg) PO ONCE colon 09/15/22 release (Dulcolax (bisacodyl)) prep 5 days #10 tabs doxylamine succinate 25 mg tablet 25 mg PO BEDTIME PRN sleep #90 tabs 10/27/22 (Unisom (doxylamine)) psyllium husk (with sugar) 3.4 1 tbsp PO DAILY #861 grams 10/27/22 gram/12 gram oral powder (Metamucil (with sugar)) metronidazole 500 mg tablet 500 mg PO BID 7 days #14 tabs 11/13/22 terconazole 0.4 % vaginal cream 1 appful vaginal BEDTIME 7 days 11/13/22 #45 grams ibuprofen 400 mg tablet 400 mg PO Q6H #20 tabs 09/18/23 Allergies Allergy/AdvReac Type Severity Reaction Status Date / Time No Known Allergies Allergy Verified 09/18/23 20:12 Review of Systems Constitutional: Constitutional: Reports body ache(s), Reports chills, Reports fever(s) and Reports headache(s) Eyes: Eyes: Denies change in vision and Denies other (No redness.) ENT: Reports headache(s), Reports nasal congestion, Denies nasal discharge, Denies neck pain and Reports sore throat Cardiovascular: Cardiovascular: Denies chest pain, Denies palpitations, Denies dyspnea, Denies dyspnea on exertion and Denies orthopnea Respiratory: Respiratory: Reports cough, Denies dyspnea and Denies dyspnea on exertion Gastrointestinal: Gastrointestinal: Denies abdominal pain, Denies melena, Denies hematochezia, Denies diarrhea, Denies nausea and Denies vomiting Genitourinary: Genitourinary: Denies dysuria and Denies urinary urgency Musculoskeletal: Musculoskeletal: Denies back pain, Denies muscle weakness, Denies neck pain and Denies numbness Integumentary/Breasts: Skin/Breast: Denies rash Neurologic: Reports headache(s), Denies focal weakness and Denies numbness Psychiatric: Psychiatric: Denies depression Endocrine: Endocrine: Denies palpitations PMFSH Past Medical History Medical History Anxiety Surgical History History of cholecystectomy Hx of dilation and curettage Family History Family History Mother Arthritis Fibromyalgia Father Diabetes Hypertension Social History Social History Household Members: Children Housing: Apartment Alcohol intake: former Patient Tobacco Use Status: Never used Tobacco Advance Directives: Yes Advance Directives Information Provided: No Advance Directives on File: No Advance Directives Date on File: 12/21/20 Sexual orientation: Straight/Heterosexual Gender identity: Female Physical Exam ED Vital Signs: Vital Signs - 24 hr 09/18/23 20:12 Temperature 99.4 F Pulse Rate 106 H Respiratory Rate 18 Blood Pressure 122/72 Pulse Oximetry 98 Oxygen Delivery Method Room Air BMI result Body Mass Index 33.8 Const General: cooperative, alert, awake and Physically active HENMT Other: Pupils equal round reactive to light. Auditory canals are patent with a pearly white TM, without any air-fluid levels or erythema. Nares are patent. No nasal discharge. Oropharynx is moist. There is no erythema or discharge. No evidence of [employer]. No exudate. Speaks full clear sentences. Neck Neck: Yes no lymphadenopathy Resp Auscultation: clear to auscultation bilaterally Cardio Rate: regular rate Rhythm: regular rhythm Skin Rashes: no rashes Course Course Course Narrative: Patient refused the nasal swab. She assumes that she has RSV given that her baby has RSV and her 6-year-old child that she is here with today also has RSV. She will continue symptomatic treatment. She feels comfortable with discharge plan home. No further questions at this time. Medications Administered Discontinued Medications Generic Name Dose Route Start Last Admin Trade Name Freq PRN Reason Stop Dose Admin Acetaminophen 650 mg 09/18/23 19:27 09/18/23 20:20 Acetaminophen 325 Mg Tablet PO 09/18/23 19:28 650 mg ONCE ONE Administration Medical Decision Making Medical Decision Making MDM Narrative: 28-year-old female with subjective fevers and cough, recent contact with family member with RSV. Here with additional family members. Patient is well- appearing and nontoxic. Hemodynamically stable. Check viral swab. Differential Diagnosis Differential Diagnoses: The differential diagnosis associated with the presentation includes RSV COVID-19 Influenza Pneumonia Bronchitis URI Lab Data Labs: Lab Results 09/18/23 Range/Units 19:23 S. pyogenes GrpA MARK Negative (Negative) Discharge Plan Discharge Clinical Impression: URI (upper respiratory infection) Qualifiers: URI type: unspecified viral URI Qualified Code(s): J06.9 - Acute upper respi ratory infection, unspecified Patient Disposition: Home, Self-Care Instructions: Upper Respiratory Infection (ED) Additional Instructions: You may take Tylenol or ibuprofen as directed, available [id number] for any fevers or body aches. Your strep test was negative today. Follow-up with your primary care provider. Call this week to schedule a follow- up appointment. Return to the emergency department if you have any worsening of symptoms, or any concerns. Get well soon! Prescriptions: New ibuprofen 400 mg tablet 400 mg PO Q6H Qty: 20 0RF No Action cholecalciferol (vitamin D3) 250 mcg (10,000 unit) capsule 250 mcg PO 2XW 90 Days Qty: 26 1RF lubiprostone [Amitiza] 8 mcg capsule 16 mcg PO BID 30 Days Qty: 120 1RF bisacodyl [Dulcolax (bisacodyl)] 5 mg tablet,delayed release (DR/EC) 10 mg PO ONCE 5 Days Qty: 10 0RF Rx Instructions: Take 2 tablets at 12 pm starting 5 days before colonoscopy phentermine 37.5 mg tablet 1 tab PO QAM ucmfjoazhk-zlllalhachgdy-qidz 50-325-40 mg tablet 1 - 2 tab PO Q4H PRN (Reason: Headache) omeprazole 20 mg capsule,delayed release(DR/EC) 1 cap PO DAILY loratadine 10 mg tablet 1 tab PO DAILY PRN (Reason: allergies) Linzess 145 mcg capsule 1 cap PO BID pyridoxine (vitamin B6) [Vitamin B-6] 25 mg tablet 25 mg PO TID Qty: 90 3RF sennosides-docusate sodium [Colace 2-In-1] 8.6-50 mg tablet 1 tab-cap PO BEDTIME Qty: 30 3RF metronidazole 500 mg tablet 500 mg PO BID 7 Days Qty: 14 0RF terconazole 0.4 % cream 1 appful vaginal BEDTIME 7 Days Qty: 45 0RF Metamucil (with sugar) 3.4 gram/12 gram powder 1 tbsp PO DAILY Qty: 861 1RF Unisom (doxylamine) 25 mg tablet 25 mg PO BEDTIME PRN (Reason: sleep) Qty: 90 0RF Print Language: S[place]
--- OUTSIDE RECORDS SUMMARY | 2023-09-18 19:54 | XMS_ITS | Continuity of Care Document ---
Author Name Unknown Organization [facility] Address [address] [address]- Care Team Providers Care Claims Coordinator Name Role Phone Lilli Diaz MD, Farzana Feliciano Primary Care Physici an Encounter [facility] [id number] Date(s): 01/16/23 - 02/15/23 [facility] [address] [address] Allergies, Adverse Reactions, Alerts No Known Allergies Medications docusate sodium 100 mg oral capsule 100 mg, 1, capsule, By Mouth, 2 times a day, PRN, # 60 capsule, Refills 3, Tot. Refills 3, Maintenance, for constipation, 02/10/23 18:39:00 EDT, Route to Pharmacy Electronically, [id number], Partial fill upon patient request if the pr... Start Date: 02/10/23 Status: Ordered Dulcolax 5 mg oral enteric coated tablet 1 tablet = 5 mg, By Mouth, Daily, PRN as needed for constipation, # 30 tablet, 0 Refills, Maintenance, 02/10/23 18:40:00 EDT, CR Tablet, [facility] #[id number], Partial fill upon patient requestif the prescription is for a schedule II opioid tariq... Start Date: 02/10/23 Status: Ordered Miconazole 7 vaginal suppository 1 sprays, Vaginally, Daily at bedtime, as directed on package labeling Please provide instructions in libyan, # 7 supp, 0 Refills, Maintenance, 01/23/23 15:40:00 EDT, Suppository, [facility] #[id number], Partial fill upon patient request if t... Start Date: 01/23/23 Status: Ordered Cradle See Instructions, # 1 each, Maintenance, see package for instructions, 07/20/17 18:29:54, Compound Start Date: 07/20/17 Status: Ordered Problem List Condition Confirmation Course Effective Dates Status Health St [facility] Informant Anemia Confirmed Active COVID-19 affecting in first trimester Confirmed 10/04/22 Active Obese class II Confirmed Active Threatened miscarriage in early Confirmed 11/01/22 Active Social History Social History Type Response Smoking Status Former smoker, quit more than 30 days ago;Never; Exposure to Secondhand Smoke: Yes; Other: occasional cigarettes for 2 months, none since ; entered on: 12/02/22 Sex Patient Care team information Care Team Personnel Name: Lilli Diaz MD, Farzana Feliciano Position: [facility] Outreach Member Role: PCP Address: Address: [address] [place] [address] [address] [place] [address]- Care Team Related Persons Name: MERVIN LÓPEZ Address: home [address] [place] [address] Name: MERVIN PARKER Address: home [address] [place] [address] Name: ANNEMARIE TENA Address: home [address] [place] [address]
--- OUTSIDE RECORDS SUMMARY | 2023-09-18 19:54 | XMS_ITS | Continuity of Care Document ---
Author Name Unknown Organization [facility] Address [address] [address]- Care Team Providers Care Face And Fill Packer Name Role Phone Lilli Diaz MD, Farzana Feliciano Primary [facility] Physici [id number] Date(s): 03/23/23 - 04/26/23 [facility] [address] [place] [id number] Attending Physician: Not on Staff, Attending MD Referring Physician: Camila Payne CNM Allergies, Adverse Reactions, Alerts No Known Allergies Immunizations Given and Recorded Vaccine Date Status Refusal Reason tetanus/diphtheria/pertussis, acel(Tdap) 04/13/23 Given Medications docusate sodium 100 mg oral capsule 100 mg, 1, capsule, By Mouth, 2 times a day, PRN, # 60 capsule, Refills 3, Tot. Refills 3, Maintenance, for constipation, 02/10/23 18:39:00 EDT, Route to Pharmacy Electronically, [facility][id number], Partial fill upon patient request if the pr... Start Date: 02/10/23 Status: Ordered Dulcolax 5 mg oral enteric coated tablet 1 tablet = 5 mg, By Mouth, Daily, PRN as needed for constipation, # 30 tablet, 0 Refills, Maintenance, 02/10/23 18:40:00 EDT, CR Tablet, [facility] #[id number], Partial fill upon patient requestif the prescription is for a schedule II opioid tariq... Start Date: 02/10/23 Status: Ordered ferrous sulfate 325 mg oral tablet 1 tablet = 325 mg, By Mouth, Daily, # 90 tablet, 3 Refills, Maintenance, 02/18/23 13:57:00 EDT, [facility] #[id number], Partial fill upon patient request if the prescription is for a schedule IIopioid drug., 150, cm, 02/17/23 11:14:00 EDT, Heigh... Start Date: 02/18/23 Stop Date: 02/13/24 Status: Ordered Flintstones Complete oral tablet, chewable 1 tablet, Chew, 2 times a day, # 180 tablet, 0 Refills, Maintenance, 03/21/23 19:00:00 EDT, [facility] #[id number], Partial fill upon patient request if the prescription is for a schedule II opioid drug., 1 tablet Chew 2 times a day,x90 days, 150... Start Date: 03/21/23 Stop Date: 06/19/23 Status: Ordered fluconazole 150 mg oral tablet 1 tablet = 150 mg, By Mouth, Once, repeat dose if still having symptoms in 72 hours, # 2 tablet, 0 Refills, Soft Stop, 04/13/23 14:12:00 EDT, Tablet, [facility] #[id number], Partial fill upon patient request if the prescription is for a schedule... Start Date: 04/13/23 Status: Ordered Miconazole 7 vaginal cream with applicator 1 application, Vaginally, Daily at bedtime, # 45 Gm, 0 Refills, Maintenance, 02/23/23 12:34:00 EDT,Cream, [facility] #[id number], Partial fill upon patient request if the prescription is for a schedule II opioid drug., 1 application Vaginally Da... Start Date: 02/23/23 Status: Ordered Multivitamin, By Mouth, Daily, 0 Refills, Maintenance, 04/13/23 14:14:00 EDT, Partial fill upon patient request if the prescription is for a schedule II opioid drug. Start Date: 04/13/23 Status: Ordered Cradle See Instructions, # 1 each, Maintenance, see package for instructions, 07/20/17 18:29:54 EDT, Compound Start Date: 07/20/17 Status: Ordered Tylenol 325 mg oral capsule 1 capsule = 325 mg, By Mouth, 3 times a day, 0 Refills, Maintenance, 02/17/23 11:18:00 EDT, Partialfill upon patient request if the prescription is for a schedule II opioid drug. Start Date: 02/17/23 Status: Ordered Tylenol Extra Strength 500 mg oral tablet 2 tablet = 1,000 mg, By Mouth, Every 4 hours, PRN for pain, # 120 tablet, 0 Refills, Maintenance, 04/08/23 12:23:00 EDT, Tablet, [facility] #[id number], Partial fill upon patient request if the prescription is for a schedule II opioid drug., 150,... Start Date: 04/08/23 Status: Ordered ZyrTEC 10 mg oral tablet 1 tablet = 10 mg, By Mouth, Daily, 0 Refills, Maintenance, 02/17/23 11:17:00 EDT, Partial fill uponpatient request if the prescription is for a schedule II opioid drug. Start Date: 02/17/23 Status: Ordered Problem List Condition Confirmation Course Effective Dates Status Health St [facility] Informant Anemia Confirmed Active COVID-19 affecting in first trimester Confirmed 10/04/22 Active Severe obesity Confirmed Active Threatened miscarriage in early Confirmed 11/01/22 Active Social History Social History Type Response Smoking Status Former smoker, quit more than 30 days ago;Never; Exposure to Secondhand Smoke: Yes; Other: occasional cigarettes for 2 months, none since ; entered on: 12/02/22 Sex Patient Care team information Care Team Personnel Name: Farzana Meadows MD Position: [facility] Outreach Member Role: PCP Address: Address: [address] [place] [address] [address] [place] [address]- [place] Care Team Related Persons Name: MERVIN LÓPEZ Address: home [address] [place] [address] Name: MERVIN PARKER Address: home [address] [place] [address] Name: ANNEMARIE TENA Address: home [address] [place] [address]
--- OUTSIDE RECORDS SUMMARY | 2023-09-18 19:54 | XMS_ITS | Continuity of Care Document ---
Author Name Unknown Organization [facility] ter Address [address] [place] [id number]- Care Team Providers Care Cloth Sander Name Role Phone Lilli Diaz MD, Farzana Feliciano Primary Care Physici an Encounter [facility] Date(s): 11/01/22 - 11/01/[address] [address]- Discharge Disposition: A-D/C Home Attending Physician: Marcelle Sanford MD Admitting Physician: Marcelle Sanford MD Referring Physician: Marcelle Sanford MD Allergies, Adverse Reactions, Alerts No Known Allergies Medications Cradle See Instructions, # 1 each, Maintenance, see package for instructions, 07/20/17 18:29:54, Compound Start Date: 07/20/17 Status: Ordered Multivitamins By Mouth, Daily, 0 Refills, Maintenance, 11/01/22 2:41:00 EST, Partial fill upon patient request ifthe prescription is for a schedule II opioid drug. Start Date: 11/01/22 Status: Ordered Zofran 8 mg oral tablet 1 tablet = 8 mg, By Mouth, 2 times a day, 0 Refills, Maintenance, 05/23/15 2:22:05 Start Date: 05/23/15 Status: Ordered Problem List Condition Confirmation Course Effective Dates Status Health [facility] Informant Anemia Confirmed Active COVID-19 affecting in first trimester Confirmed 10/04/22 Active Obese class I Confirmed Active Threatened miscarriage in early Confirmed 11/01/22 Active Procedures Procedure Date Related Diagnosis Body Site Status Cholecystectomy Completed Vital Signs Most recent to oldest [Reference Range]: 1 Weight 75.4 kg (11/01/22 2:15 AM) Oxygen Saturation [94-100 %] 100 % (11/01/22 2:15 AM) Pulse Rate [55-90 bpm] 78 bpm (11/01/22 2:15 AM) Blood Pressure [90-138/55-84 mm Hg] 114/ 68mm Hg (11/01/22 2:15 AM) Respiratory Rate [16-30 br/min] 18 br/mi n (11/01/22 2:15 AM) Temperature [96.8-100.4 DegF] 98.7 DegF (11/01/22 2:15 AM) Mode of Delivery (Oxygen) Room air (11/01/22 2:15 AM) Blood pressure sites Arm, right 1 (11/01/22 2:15 AM) Temperature Route Oral (11/01/22 2:15 AM) Dry Weight 75.4 kg (11/01/22 2:15 AM) Weight Obtained Via Standing scale (11/01/22 2:15 AM) Dry Weight Obtained Via Standing scale (11/01/22 2:15 AM) 1Result Comment: 38cm Social History Social History Type Response Smoking Status Never (less than 100 in lifetime) entered on: 11/01/22 Sex Note * Marcelle Odell RN: PERFORM Event Display: Discharge/Transfer Note Hospital Authored Date: [id number] Nursing Discharge Note Entered On: 11/01/2022 4:20 EST Performed On: 11/01/2022 4:20 EST by Marcelle Odell RN Nursing Discharge Note 2 Discharge Time : 11/01/2022 3:58 EST Discharge Level of Care at Discharge : Home/Retirement/Foster Care Patient Left Unit Via : Ambulatory Patient Accompanied Off Unit with : Other: self DC Instructions Provided & Signed by Pt : Yes Patient Understands D/C Instructions : Yes Verbalized Understanding of D/C Plan By : Patient Patient Instructions Discharge Signed : Yes Did Pt have Specialty Bed or Wound Vac : No Marcelle Odell RN - 11/01/2022 4:20 EST * Elisa Quiroz RN: PERFORM Event Display: Patient Education/Instruction Authored Date: [id number] Inpatient Adult Discharge Instructions [address] [address] Name: DANIEL TENA : 1995 Visit: 11/01/2022 01:58:00 Current Date: 11/01/2022 03:16 Account: [id number] Inpatient Adult Discharge Instructions We would like to thank you for allowing us to assist you with your healthcare needs. The following includes patient education materials and information regarding your injury/illness. Our entire staffstrives to provide an excellent experience for our patients and their families. PLEASE ENSURE YOU FOLLOW-UP PER THE INSTRUCTIONS BELOW! ?? YOUR OPINION IS IMPORTANT TO US! Please complete the survey you may receive by mail or email. Your feedback will be used to make improvements to the healthcare experiences of our patients and their families. Surveys are administered by [employer]. ?? If further treatment with your primary care physician or another doctor is recommended, it is important for you to keep the appointment. Call your primary care physician or return to the Emergency Department immediately if your condition worsens, fails to improve, or new symptoms develop. If you need to find a doctor, you can call [facility] for a referral at [phone] or toll free at [phone] ([phone]) or log in to [email or web address].. ?? You can view and manage your care through the patient portal or by using a health care ruth of your choosing. Call Loop is a website that allows you to securely view your medical information including your hospital discharge summary, office visit summaries, medications and follow-up visits. You can also request appointments, renew medications, and request access to your medical information using a health care ruth of your choosing, or just ask a question. You can enroll at [email or web address] or register during your next office visit. You have been discharged from [facility], Patient Care Unit: [id number]. If you have any questions regarding these instructions after you leave, please call us and we will be happy to assist you. [facility] Your Care Team Attending Physician Marcelle Sanford MD Tests Performed Below is a partial list of the tests performed during your hospitalization. You may have had other tests and procedures not included in this list. Please discuss all test results with your provider. Primary Care Provider Lilli Diaz MD, Farzana Feliciano Advance Directive Health Care Proxy on File No Patient has a Designated Caregiver: No Discharge Vitals Temperature: 98.7 DegF Weight: 75.4 kg Pulse Rate: 78 bpm ?? Respiratory Rate: 18 br/min ?? Systolic Blood Pressure: 114 mm Hg ?? Diastolic Blood Pressure: 68 mm Hg ?? Oxygen Saturation: 100 % ?? Studies Pending All tests and labs ordered during this hospital stay have been completed unless listed below. Please discuss all pending results with your provider listed above in these instructions. ?? No incomplete studies found What to do next Instructions From Your Doctor Discharge Orders Scheduled Follow-Up Appointments Thursday 10:00 AM EST ?? With: Akira WU, Charisma Manning Where: [facility] [address] [place] [id number]- You Need to Schedule the Following Appointments Follow Up with??[facility] When??In 2 days 11/03/2022 EST Why: Thursday thru 8-4 office open Weekends, Holidays, Overnights this number is an answering service. Leave message with service and a provider will call you back Where: [address] [place] [address]- Business (1) Follow Up with??Repeat bloodwork When??In 2 days 11/03/2022 EST Follow Up with??[facility] When??In 2 days 11/03/2022 EST Follow Up with??Repeat ultrasound When??Within Within two weeks Discharge Medications DANIEL TENA :1995 Visit Date:11/01/2022 Medications: Please continue your medications until treatment is completed or stopped by your provider. Medications not listed below should be discontinued. Discuss any questions related to medications with your provider. What How Much When Instructions Next Dose Unchanged Durable Medical Equipment ( Cradle) Seeinstructions see package for instructions ?? Unchanged Multivitamin, ( Multivitamins) Oral Daily Unchanged Ondansetron (Zofran 8 mg oral tablet) 1 tab(s) Oral Twice a day Test Results Below is a partial list of the most recent Laboratory test results done prior to this discharge. You may have had other tests and procedures not included in this list. Please discuss all test resultswith your provider. Allergies (NKA means No Known Allergies) NKA Problems Active Problems??(5) Anemia?? COVID-19 affecting in first trimester?? Obese class I? Threatened miscarriage in early ?? Education Materials Below is the list of Educational Leaflet Providered with your Discharge Instructions. Possible Miscarriage (Threatened )?? : Your First Trimester Changes?? Nutrition During ?? Healthy Eating Habits During ?? Adapting to : First Trimester?? Valuables and Belongings I fully understand and agree that [facility] accepts no responsibility for all my personal property including clothing, toilet articles, radios, jewelry, dentures, hearing aids, rings, money, or any other property that is in my possession or is brought to me after admission. I understand certain valuables may be placed in a hospital safe for a short period of time. I understand that the hospital is not liable for loss or damage due to accident, fire, or other natural occurrence while said property is in the safe. I accept full responsibility for any personal property that I keep with me, and will not hold the hospital responsible in case of loss or disappearance. I acknowledge that i have been encouraged to send valuables and belongings home. ? Other Discharge Information ? Pulmonary Rehab Status?? Pulmonary Rehab Discharge Status?? Respiratory Rate: 18 br/min ? Common Emergency Awareness Tips IS IT A STROKE? Act FAST and Check for these signs: FACE Does the face look uneven? ARM Does one arm drift down? SPEECH Does their speech sound strange? TIME Call at any sign of stroke ?? Heart Attack Signs Chest discomfort: Most heart attacks involve discomfort in the center of the chest and lasts more than a few minutes, or goes away and comes back. It can feel like uncomfortable pressure, squeezing, fullness or pain. Discomfort in upper body: Symptoms can include pain or discomfort in one or both arms, back, neck, jaw or stomach. Shortness of breath: With or without discomfort. Other signs: Breaking out in a cold sweat, nausea, or lightheaded. Remember, MINUTES DO MATTER. If you experience any of these heart attack warning signs, call to get immediate medical attention! ?? Smoking can increase your chances of developing chronic health problems and can cause harmful effects to other family members in your house. If you smoke, you are strongly encouraged to quit. Please call [facility] at [phone] or [phone] ([phone]) or log in to [email or web address] for referrals to smoking cessation programs. ?? The National Suicide Prevention Hotline is available 27/04 if you or someone you know needs to find a reason to keep living. By calling 3-308-436-LynxFit for Google [employer] (8955) you'll be connected to a skilled, trained counselor at a crisis center in your area. INPATIENT DISCHARGE INSTRUCTIONS SIGNATURE PAGE DARINEL DANIEL Location:[facility] Registration Date and Time:11/01/2022 01:58 EST Primary Care Physician: Lilli Diaz MD, Farzana Feliciano, I DANIEL TENA, have received the above patient education materials/instructions and have verbalized understanding. If ambulance or transport services are being used I further acknowledge being given a choice of service. ?? If you need to contact me, please call me at this number: . Patient/Piano Builder Name: Patient/Piano Builder Signature: Relationship to Patient: Witness Name/Signature: Date: * Elisa Quiroz RN: SIGN, SIGN, PERFORM, SIGN, VERIFY, SIGN Event Display: Patient Education Handout Authored Date: * Elisa Quiroz RN: PERFORM Event Display: Patient Education Leaflets Authored Date: Possible Miscarriage (Threatened ) ?? [id number] Posible aborto espont??antoine (amenaza de aborto) Podr??a estar teniendo un aborto espont??antoine. Los signos comunes de un aborto espont??antoine son dolor y sangrado.??Algo de sangrado puede ser normal en los primeros 3??meses del embarazo. Con frecuencia, el dolor y el sangrado desaparecen y usted puede tener un embarazo y un beb?? normales.??[place] un sangrado abundante o dolly muy trixie pueden ser las primeras se??ales de un aborto espont??antoine. Un aborto espont??antoine significa aliza p??rdidainesperada de mosqueda embarazo. En zehra momento, mosqueda proveedor de atenci??n m??dica no sabe si tiene un aborto espont??antoine o si las cosas se solucionar??n y mosqueda embarazo continuar?? de manera normal. Entendemos que esto es emocionalmente dif??cil. Es muy poco lo que podemos decir respecto de la forma en que se siente. [place] debe saber que los abortos espont??neos son algo com??n. Alrededor de 1??o??2 de cada 10??embarazos terminan de zehra modo. Algunos terminan incluso antes deque usted sepa que est?? embarazada. [place] suele suceder por diferentes razones, y, por lo general, nunca se conocen las causas exactas. Es importante que sepa que no es mosqueda culpa. No se debe a que haya hecho algo mal. Tener relaciones sexuales o hacer actividad f??wade no provocan un aborto espont??antoine. Estas actividades suelen ser seguras, a menos que sienta dolor o tenga sangrado, o que mosqueda proveedor de atenci??nm??dica le indique no hacerlas. Incluso las ca??sandhu leves no causan un aborto espont??antoine. Los abortos espont??neos suceden cuando las cosas no son salvador deber??an. No hay zara??n medicamento que pueda prevenir un aborto espont??antoine. Nuevamente, debe entender que en zehra momento no se sabe con seguridad. Puede que siga teniendo algo de sangrado. Pueden ser un manchado suave o parecerse a mosqueda per??odo. Tambi??n puede que despida algo de tejido. Puede que tenga algunos dolly. Por eso, es importante que reciba atenci??n de seguimiento. Cuidados en el hogar Para tener m??s probabilidades que zehra embarazo siga normalmente, debe hacer lo siguiente: ??? Descanse en la cama hasta que el dolor y el sangrado se detengan. ??? No tenga relaciones sexuales hasta que mosqueda proveedor de atenci??n m??dica lo autorice. ??? Use toallitas sanitarias en lugar de tampones. ??? No tome duchas vaginales. ??? No tome aspirina, ibuprofeno ni naproxeno. ??? No tome bebidas alcoh??licas ni bebidas con cafe??na.??Tampoco fume. ?? Atenci??n de seguimiento Programe aliza wes de seguimiento con el proveedor de atenci??n m??dica para la semana pr??xima o seg??n le indiquen. Si le hicieron aliza ecograf??a, la evaluar?? un radi??logo.??Le informar??n de los nuevos resultadosque puedan afectar la atenci??n m??dica que necesita. ?? Cu??ndo llamar al?? 911 Llame al?? 911 si tiene algo de lo siguiente: ??? Dolor gretchen y sangrado muy abundante ??? Aturdimiento o desmayos ??? Frecuencia card??samra acelerada ??? Dificultad para respirar ??? Confusi??n o problemas para despertarse ?? Cu??ndo debe buscar atenci??n m??dica Llame al proveedor de atenci??n m??dica de inmediato si se presenta cualquiera de las siguientes situaciones: ??? Sangrado vaginal o dolor irvin m??s de 3??d??as ??? Sangrado abundante. [place] significa que empapa aliza toallita sanitaria nueva por hora irvin 3??horas. ??? Fiebre de 100.4?F (38?C) o superior, o seg??n le indique el proveedor de atenci??n m??dica ??? Dolor en la parte baja del abdomen que va en aumento ??? Debilidad o mareos ??? Despide cualquier cosa que parezca tejido. Podr??a ser un material s??lido o tipo membrana de color crawley o jamie??curtain fitter. Guarde el tejido en un recipiente limpio y ll??veselo al proveedor de atenci??n m??dica. ?? Last Reviewed Date: 2022 ?? [employer]. Todos los derechos reservados. Esta informaci??n no pretende sustituir la atenci??n m??dica profesional. S??lo mosqueda m??dico puede diagnosticar y tratar un problema de aleisha. ?? * Elisa Quiroz RN: PERFORM Event Display: Patient Education Leaflets Authored Date: [id number] : Your First Trimester Changes ?? [address] : Your First Trimester Changes The first trimester is a time of rapid development for your baby. Because your baby is growing so quickly, it is important that you start a healthy lifestyle right away. By the end of the first trimester, your baby has formed all of its major body organs and weighs just over an ounce. Month 1 (weeks 1 to 4) The placenta (the organ that nourishes your baby) begins to form. The??brain, spinal cord,??heart,??gastrointestinal tract,??and lungs begin to develop. Your baby is about ?? inch long by the end of the first month. Actual size of baby is 1/4 . ?? Month 2 (weeks 5 to 8) All of your baby???s major body organs form. The face, fingers, toes, ears, and eyes appear. By theend of the month, your baby is about 1 inch long. Actual size of baby is 1 . ?? Month 3 (weeks 9 to 12) Your baby can open and close its fists and mouth. The sexual organs begin to form. As the first trimester ends, your baby is about 3 inches long. Actual size of baby is 3 . ?? Last Reviewed Date: 2022 ?? [employer]. All rights reserved. This information is not intended as a substitute for professional medical care. Always follow your healthcare professional's instructions. ?? * Elisa Quiroz RN: PERFORM Event Display: Patient Education Leaflets Authored Date: [id number] Nutrition During ?? [address] La nutrici??n irvin el embarazo Tener un beb?? eddi es algo que depende sobre todo de usted. Lo que usted coma es importante para mosqueda aleisha y la de mosqueda beb??. Irvin el embarazo, probablemente necesitar?? unas 300??calor??as diariasm??s que antes de estar embarazada. Intente comer todos los d??as el n??galen de porciones indicadasaqu?? para cada lamine de alimentos. Adem??s, reduzca el consumo de chantal y de cafe??na. Limite la cantidad de dulces y comidas con alto contenido de grasa.??No fume ni heidi alcohol. Importante: Visite a mosqueda proveedor de atenci??n m??dica con la frecuencia que le indiquen. Si tiene preguntas, no dude en hacerlas. Frutas Verduras Granos y cereales* Grasas y aceites 2 tazas Ejemplos de aliza porci??n igual a aliza taza: 1??manzana mediana 1 naranja mediana 1 banana mediana 1??taza de fruta cortada en trozos 1 taza de jugo 100??% de fruta (pasteurizado) 1/2??taza de frutas secas 2?? o 3 tazas?? Ejemplos de aliza porci??n: 2??tazas de verduras de hoja crudas 1??taza de verduras cortadas crudas o cocinadas 1??taza de jugo 100??% de verduras (pasteurizado) 6 a 8 onzas Ejemplos de aliza porci??n igual a aliza onza: 1 rebanada de bennett 1/2??taza de arroz cocinado 1/2 taza de cereal cocinado 1/2??taza de pasta 1 onza de cereal fr??o 6 a 8 cucharaditas Productos l??cteos Prote??karis L??quidos ?? 3 tazas Ejemplos de aliza porci??n igual a aliza taza: 1 taza de leche 1 taza de yogur 1?onzas de queso natural 2 onzas de queso procesado 5 a 6?? onzas Ejemplos de aliza porci??n igual a aliza onza: 1 huevo 1 onza de carne magra de res, ave o pescado / taza de frijoles cocinados 1??cucharada de mantequilla de cacahuate (man??) 1/2 onza de shelby secos 8 o m??s vasos de 8 onzas Ejemplos: [place] claras o caldo ?? *Nota: Elija granos integrales siempre que sea posible. Nota:??Trate de elegir opciones con bajo contenido en grasa; evite los quesos blandos y la lechesin pasteurizar. Notas:??No coma carne, huevos, pescados ni mariscos crudos o poco cocinados.??Asimismo, ciertostipos de pescado, salvador el tibur??n, el pez cj y la caballa, pueden ser peligrosos irvin el embarazo, por lo que no deber??an comerse.??Evite los perros calientes, los embutidos de carne y los fiambres, a menos que los caliente hasta aliza temperatura que los jose j despedir vapor antes de servirlos.??P??christianne a mosqueda proveedor de atenci??n m??dica que le indique cu??les son las opciones m??s seguras. Suplementos prenatales Un suplemento es aliza pastilla que se leonides diariamente irvin el embarazo. Permite asegurar que la madre reciba la cantidad adecuada de ciertos nutrientes que son importantes para el beb??. Pida a mosqueda proveedor de atenci??n m??dica que la ayude a escoger el m??s adecuado para usted. Entre los nutrientes que son importantes irvin el embarazo se encuentran los siguientes: ? cido f??fernando.??Lo ideal es comenzar a zenaida zehra suplemento un mes antes de comenzar a buscar el embarazo. El ??cido f??fernando ayuda a prevenir ciertos problemas en el beb??. Irvin el embarazo, debe consumir 400??microgramos (mcg) de ??cido f??fernando todos los d??as irvin los primeros 2??o??3??meses despu??s de la concepci??n. Pasado johnny tiempo, necesita 600??mcg para el beb?? que crece y la placenta. ??? Steven, calcio y vitamina??D.??Es posible que tambi??n le aconsejen que tome estos suplementos irvin el embarazo. Ayudar??n a usted y a mosqueda beb?? a mantenerse saludables. T??melos a diferentes horas, ya que el calcio dificulta la absorci??n del steven en el organismo. Si leonides el steven con jugo de naranja, eso ayuda a que se absorba mejor. ?? Last Reviewed Date: 2020 ?? [id number] [employer]. Todos los derechos reservados. Esta informaci??n no pretende sustituir la atenci??n m??dica profesional. S??lo mosqueda m??dico puede diagnosticar y tratar un problema de aleisha. ?? Patient Care team information Care Team Personnel Name: Lilli Diaz MD, Jackie Position: [facility] Outreach Member Role: PCP Address: Address: [address] [place] [address]- [place] Care Team Related Persons Name: RENE, MERVIN Address: home [address] [place] [address] Name: MERVIN PARKER Address: home [address] [place] [address] Name: ANNEMARIE TENA Address: home [address] [place] [address]
--- OUTSIDE RECORDS SUMMARY | 2023-09-18 19:54 | XMS_ITS | Continuity of Care Document ---
Author Name Unknown Organization [facility] Address [address] [address]- Care Team Providers Care Fabric Awning Repairer Name Role Phone Lilli Diaz MD, Farzana Feliciano Primary Care Physici an [facility] [id number] Date(s): 02/17/23 - 03/19/23 [facility] [address] [place] [address] Allergies, Adverse Reactions, Alerts No Known Allergies Medications docusate sodium 100 mg oral capsule 100 mg, 1, capsule, By Mouth, 2 times a day, PRN, # 60 capsule, Refills 3, Tot. Refills 3, Maintenance, for constipation, 02/10/23 18:39:00 EDT, Route to Pharmacy Electronically, [id number], Partial fill upon patient request if the pr... Start Date: 02/10/23 Status: Ordered Dulcolax 5 mg oral enteric coated tablet 1 tablet = 5 mg, By Mouth, Daily, PRN as needed for constipation, # 30 tablet, 0 Refills, Maintenance, 02/10/23 18:40:00 EDT, CR Tablet, [facility] #[id number], Partial fill upon patient requestif the prescription is for a schedule II opioid tariq... Start Date: 02/10/23 Status: Ordered ferrous sulfate 325 mg oral tablet 1 tablet = 325 mg, By Mouth, Daily, # 90 tablet, 3 Refills, Maintenance, 02/18/23 13:57:00 EDT, [facility] #[id number], Partial fill upon patient request if the prescription is for a schedule IIopioid drug., 150, cm, 02/17/23 11:14:00 EDT, Heigh... Start Date: 02/18/23 Stop Date: 02/13/24 Status: Ordered Miconazole 7 vaginal cream with applicator 1 application, Vaginally, Daily at bedtime, # 45 Gm, 0 Refills, Maintenance, 02/23/23 12:34:00 EDT,[id number], Partial fill upon patient request if the prescription is for a schedule II opioid drug., 1 application Vaginally Da... Start Date: 02/23/23 Status: Ordered PNV By Mouth, Daily, 0 Refills, Maintenance, 02/17/23 11:18:00 EDT, Partial fill upon patient request if the prescription is for a schedule II opioid drug. Start Date: 02/17/23 Status: Ordered Cradle See Instructions, # 1 each, Maintenance, see package for instructions, 07/20/17 18:29:54, Compound Start Date: 07/20/17 Status: Ordered Tylenol 325 mg oral capsule 1 capsule = 325 mg, By Mouth, 3 times a day, 0 Refills, Maintenance, 02/17/23 11:18:00 EDT, Partialfill upon patient request if the prescription is for a schedule II opioid drug. Start Date: 02/17/23 Status: Ordered ZyrTEC 10 mg oral tablet [...] Team Personnel Name: Farzana Meadows MD Position: [facility] Outreach Member Role: PCP Address: Address: [address] [place] [address] [address] [place] [address]- Care Team Related Persons Name: MERVIN LÓPEZ Address: home [address] [place] [address] Name: MERVIN PARKER Address: home [address] [place] [address] Name: ANNEMARIE TENA Address: home [address] [place] [address]
--- OUTSIDE RECORDS SUMMARY | 2023-09-18 19:54 | XMS_ITS | Continuity of Care Document ---
Author Name Unknown Organization [facility] Address [address] [address]- Care Team Providers Care Routeman Name Role Phone Lilli Diaz MD, Farzana Feliciano Primary Care Physici [id number] Date(s): 04/13/23 - 08/05/23 [facility] [address] [address] Attending Physician: Not on Staff, Attending MD Admitting Physician: Jesus Jenkins MD Referring Physician: Galina Liao CNM Allergies, Adverse Reactions, Alerts No Known Allergies Immunizations Given and Recorded Vaccine Date Status Refusal Reason tetanus/diphtheria/pertussis, acel(Tdap) 04/13/23 Given Medications docusate sodium 100 mg oral capsule 100 mg, 1, capsule, By Mouth, 2 times a day, PRN, # 60 capsule, Refills 3, Tot. Refills 3, Maintenance, for constipation, 07/02/23 8:43:00 EDT, Route to Pharmacy Electronically, [facility] #[id number], Partial fill upon patient request if the pre... Start Date: 07/02/23 Status: Ordered ferrous sulfate 325 mg oral tablet 1 tablet = 325 mg, By Mouth, Daily, # 90 tablet, 3 Refills, Maintenance, 02/18/23 13:57:00 EDT, [facility] #[id number], Partial fill upon patient request if the prescription is for a schedule IIopioid drug., 150, cm, 02/17/23 11:14:00 EDT, [facility]... Start Date: 02/18/23 Stop Date: 02/13/24 Status: Ordered Flintstones Complete oral tablet, chewable 1 tablet, Chew, 2 times a day, # 180 tablet, 0 Refills, Maintenance, 03/21/23 19:00:00 EDT, [facility] #[id number], Partial fill upon patient request if the prescription is for a schedule II opioid drug., 1 tablet Chew 2 times a day,x90 days, 150... Start Date: 03/21/23 Stop Date: 06/19/23 Status: Ordered ibuprofen 800 mg oral tablet 800 mg, By Mouth, Every 8 hours, PRN, (4-6), may give 400mg per patient preference and re-dose [id number] within 8 hours if needed. Patient should only receive a total of 800mg of Ibuprofen every 8 hours., # 30 tablet, Refills 1, Tot. Refills 1, Hillary... Start Date: 07/02/23 Status: Ordered MiraLax oral powder for reconstitution See Instructions, By Mouth, For constipation: one capful by mouth, every day, titrate up to effect if need be., # 527 Gm, 0 Refills, Maintenance, 07/03/23 9:01:00 EDT, [facility] #[id number], Partial fill upon patient request if the prescription... Start Date: 07/03/23 Status: Ordered Mucinex = 600 mg, By Mouth, Every 12 hours, 0 Refills, Maintenance, 06/30/23 10:27:00 EDT, Partial fill upon patient request if the prescription is for a schedule II opioid drug. Start Date: 06/30/23 Status: Ordered predniSONE 20 mg oral tablet 3 tablet = 60 mg, By Mouth, Daily, # 30 tablet, 0 Refills, Maintenance, 06/30/23 10:26:00 EDT, Tablet, Partial fill upon patient request if the prescription is for a schedule II opioid drug. Start Date: 06/30/23 Stop Date: 07/03/23 Status: Ordered Tylenol Extra Strength 500 mg oral tablet 2 tablet = 1,000 mg, By Mouth, Every 4 hours, PRN for pain, # 120 tablet, 0 Refills, Maintenance, 07/02/23 8:43:00 EDT, Tablet, [facility] #[id number], Partial fill upon patient request if the prescription is for a schedule II opioid drug., 151,... Start Date: 07/02/23 Status: Ordered ZyrTEC 10 mg oral tablet 1 tablet = 10 mg, By Mouth, Daily, 0 Refills, Maintenance, 02/17/23 11:17:00 EDT, Partial fill uponpatient request if the prescription is for a schedule II opioid drug. Start Date: 02/17/23 Status: Ordered Problem List Condition Confirmation Course Effective Dates Status Health St atus Informant Anemia Confirmed Active Chlamydia Confirmed Active Constipation in Confirmed Active Excess weight gain in Confirmed Active History of depression Confirmed Active Uses Jordanian as primary spoken language Confirmed Active Confirmed Active Rh negative status during Confirmed Active Severe obesity Confirmed Active UTI in Confirmed Active Social History Social History Type Response Smoking Status Former smoker, quit more than 30 days ago;Never; Exposure to Secondhand Smoke: Yes; Other: occasional cigarettes for 2 months, none since ; entered on: 12/02/22 Sex Patient Care team information Care Team Personnel Name: Lilli Diaz MD, Farzana Feliciano Position: [facility] Outreach Member Role: PCP Address: Address: [address] [place] [address] [address] [place] [address]- Care Team Related Persons Name: MERVIN LÓPEZ Address: home [address] [place] [address] Name: MERVIN PARKER Address: home [address] [place] [address] Name: DANIEL TENA GIRL Address: [address] Address: home [address] [place] [address] Name: ANNEMARIE TENA Address: home [address] [place] [address]
--- OUTSIDE RECORDS SUMMARY | 2023-09-18 19:54 | XMS_ITS | Continuity of Care Document ---
Author Name Unknown Organization [facility] Address [address] [address]- Care Team Providers Care Cnc Milling Machine Operator Name Role Phone Lilli Diaz MD, Farzana Feliciano Primary Care Physici an [id number] Date(s): 04/13/23 - 07/29/23 [facility] [address] [address] Attending Physician: Not on Staff, Attending MD [...] 07/02/23 8:43:00 EDT, Route to Pharmacy Electronically, [facility] #[id number], Partial fill upon patient request if the pre... Start Date: 07/02/23 Status: Ordered ferrous sulfate 325 mg oral tablet 1 tablet = 325 mg, By Mouth, Daily, # 90 tablet, 3 Refills, Maintenance, 02/18/23 13:57:00 EDT, [facility] #[id number], Partial fill upon patient request if the prescription is for a schedule IIopioid drug., 150, cm, 02/17/23 11:14:00 EDT, [facility]... Start Date: 02/18/23 Stop Date: 02/13/24 Status: Ordered Flintstones Complete oral tablet, chewable 1 tablet, Chew, 2 times a day, # 180 tablet, 0 Refills, Maintenance, 03/21/23 19:00:00 EDT, [facility] #[id number], Partial fill upon patient request if the prescription is for a schedule II opioid drug., 1 tablet Chew 2 times a day,x90 days, 150... Start Date: 03/21/23 Stop Date: 06/19/23 Status: Ordered ibuprofen 800 mg oral tablet 800 mg, By Mouth, Every 8 hours, PRN, (4-6), may give 400mg per patient preference and re-dose [id number] within 8 hours if needed. Patient should [...] Gm, 0 Refills, Maintenance, 07/03/23 9:01:00 EDT, [facility] #[id number], Partial fill upon patient request if the [...] 0 Refills, Maintenance, 07/02/23 8:43:00 EDT, Tablet, [facility] #[id number], Partial fill upon patient request if the [...] Active History of depression Confirmed Active Uses Azerbaijani as primary spoken language Confirmed Active Confirmed [...] Name: Lilli Diaz MD, Farzana Feliciano Position: [facility] Outreach Member Role: PCP Address: Address: [address] [place] [address] [address] [place] [address]- Care Team Related Persons Name: MERVIN LÓPEZ Address: home [address] [place] [address] Name: MERVIN PARKER Address: home [address] [place] [address] Name: DANIEL TENA GIRL Address: [address] Address: home [address] [place] [address] Name: ANNEMARIE TENA Address: home [address] [place] [address]
--- OUTSIDE RECORDS SUMMARY | 2023-09-18 19:54 | XMS_ITS | Continuity of Care Document ---
Author Name Unknown Organization [facility] Address [address] [address]- Care Team Providers Care Track Welder Name Role Phone Lilli Diaz MD, Farzana Feliciano Primary Care Physici [id number] Date(s): 04/08/23 - 05/08/[address] [address] Allergies, Adverse Reactions, Alerts No Known Allergies Immunizations Given and Recorded Vaccine Date Status Refusal Reason tetanus/diphtheria/pertussis, acel(Tdap) 04/13/23 Given Medications docusate sodium 100 mg oral capsule 100 mg, 1, capsule, By Mouth, 2 times a day, PRN, # 60 capsule, Refills 3, Tot. Refills 3, Maintenance, for constipation, 02/10/23 18:39:00 EDT, Route to Pharmacy Electronically, [facility][id number], Partial fill upon patient request if the pr... Start Date: 02/10/23 Status: Ordered ferrous sulfate 325 mg oral tablet 1 tablet = 325 mg, By Mouth, Daily, # 90 tablet, 3 Refills, Maintenance, 02/18/23 13:57:00 EDT, [facility] #[id number], Partial fill upon patient request if the prescription is for a schedule IIopioid drug., 150, cm, 02/17/23 11:14:00 EDT, [facility]... Start Date: 02/18/23 Stop Date: 02/13/24 Status: Ordered Flintstones Complete oral tablet, chewable 1 tablet, Chew, 2 times a day, # 180 tablet, 0 Refills, Maintenance, 03/21/23 19:00:00 EDT, [facility] #[id number], Partial fill upon patient request if the prescription is for a schedule II opioid drug., 1 tablet Chew 2 times a day,x90 days, 150... Start Date: 03/21/23 Stop Date: 06/19/23 Status: Ordered Cradle See Instructions, # 1 each, Maintenance, see package for instructions, 07/20/17 18:29:54 EDT, Compound Start Date: 07/20/17 Status: Ordered Tylenol Extra Strength 500 mg oral tablet 2 tablet = 1,000 mg, By Mouth, Every 4 hours, PRN for pain, # 120 tablet, 0 Refills, Maintenance, 04/08/23 12:23:00 EDT, Tablet, [facility] #[id number], Partial fill upon patient request if the [...] Health St [facility] Informant Anemia Confirmed Active Constipation in Confirmed Active COVID-19 affecting in first trimester Confirmed 10/04/22 Active Excess weight gain in Confirmed Active History of depression Confirmed Active Uses Hungarian as primary spoken language Confirmed Active Confirmed Active Rh negative status during Confirmed Active UTI in Confirmed Active Social History Social History Type Response Smoking Status Former smoker, quit more than 30 days ago;Never; Exposure to Secondhand Smoke: Yes; Other: occasional cigarettes for 2 months, none since ; entered on: 12/02/22 Sex Patient Care team information Care Team Personnel Name: Farzana Meadows MD Position: [facility] Outreach Member Role: PCP Address: Address: [address] [place] [address] [address] [place] [address]- Care Team Related Persons Name: MERVIN LÓPEZ Address: home [address] [place] [address] Name: MERVIN PARKER Address: home [address] [place] [address] Name: ANNEMARIE TENA Address: home [address] [place] [address]
--- OUTSIDE RECORDS SUMMARY | 2023-09-18 19:54 | XMS_ITS | Continuity of Care Document ---
Author Name Unknown Organization [facility] Address [address] [facility] [address] [place] [address]- Care Team Providers Care Heater Operator Name Role Phone Lilli Diaz MD, Farzana Feliciano Primary Care Physici an [facility] [id number] Date(s): 07/01/23 - 09/11/23 [facility] [address] [address]- Attending Physician: Gia Belle CNM Admitting Physician: Gia Belle CNM Referring Physician: Galina Liao CNM Allergies, Adverse Reactions, Alerts No Known Allergies Immunizations Given and Recorded Vaccine Date Status Refusal Reason tetanus/diphtheria/pertussis, acel(Tdap) 04/13/23 Given Problem List Condition Confirmation Course Effective Dates Status Health St at[facility] Informant Uses Latvian as primary spoken language Confirmed Active Encounter for visit Confirmed Active Severe obesity Confirmed Active Social History Social History Type Response Smoking Status Former smoker, quit more than 30 days ago entered on: 09/10/23 Sex Patient Care team information Care Team Personnel Name: Farzana Meadows MD Position: [facility] Outreach Member Role: PCP Address: Address: [address] [place] [address] [address] [place] [address]- Care Team Related Persons Name: MERVIN LÓPEZ Address: home [address] [place] [address] Name: MERVIN PARKER Address: home [address] [place] [address] Name: CHRISTOPHER PITTS Address: [address] Address: home [address] [place] [address] [place] Name: ANNEMARIE TENA Address: home [address] [place] [address]
--- OUTSIDE RECORDS SUMMARY | 2023-09-18 19:54 | XMS_ITS | Continuity of Care Document ---
Author Name Unknown Organization [facility] Address [address] [address]- Care Team Providers Care Meal Cook Name Role Phone Lilli Diaz MD, Farzana Feliciano Primary [facility]ici [id number] Date(s): 07/01/23 - 08/08/23 [facility] and [facility] [address] [address]- Attending Physician: Not on Staff, Attending MD Referring Physician: Galina Liao CNM Allergies, Adverse Reactions, Alerts No Known Allergies Immunizations Given and Recorded Vaccine Date Status Refusal Reason tetanus/diphtheria/pertussis, acel(Tdap) 04/13/23 Given Medications docusate sodium 100 mg oral capsule 100 mg, 1, capsule, By Mouth, 2 times a day, PRN, # 60 capsule, Refills 3, Tot. Refills 3, Maintenance, for constipation, 07/02/23 8:43:00 EDT, Route to Pharmacy Electronically, [facility] #[id number], Partial fill upon patient request if the pre... Start Date: 07/02/23 Status: Ordered ferrous sulfate 325 mg oral tablet 1 tablet = 325 mg, By Mouth, Daily, # 90 tablet, 3 Refills, Maintenance, 02/18/23 13:57:00 EDT, [facility] #[id number], Partial fill upon patient request if the prescription is for a schedule IIopioid drug., 150, cm, 02/17/23 11:14:00 EDT, [facility]... Start Date: 02/18/23 Stop Date: 02/13/24 Status: Ordered Flintstones Complete oral tablet, chewable 1 tablet, Chew, 2 times a day, # 180 tablet, 0 Refills, Maintenance, 03/21/23 19:00:00 EDT, [facility] #[id number], Partial fill upon patient request if the prescription is for a schedule II opioid drug., 1 tablet Chew 2 times a day,x90 days, 150... Start Date: 03/21/23 Stop Date: 06/19/23 Status: Ordered ibuprofen 800 mg oral tablet 800 mg, By Mouth, Every 8 hours, PRN, (4-6), may give 400mg per patient preference and re-dose [id number] within 8 hours if needed. Patient should [...] Gm, 0 Refills, Maintenance, 07/03/23 9:01:00 EDT, [facility] #[id number], Partial fill upon patient request if the [...] 0 Refills, Maintenance, 07/02/23 8:43:00 EDT, Tablet, [facility] #[id number], Partial fill upon patient request if the [...] Active History of depression Confirmed Active Uses Colombian as primary spoken language Confirmed Active Confirmed [...] Name: Lilli Diaz MD, Farzana Feliciano Position: [facility] Outreach Member Role: PCP Address: Address: [address] [place] [address] [address] [place] [address]- [place] Care Team Related Persons Name: MERVIN LÓPEZ Address: home [address] [place] [address] Name: MERVIN PARKER Address: home [address] [place] [address] Name: DANIEL TENA GIRL Address: [address] Address: home [address] [address] Name: ANNEMARIE TENA Address: home [address] [place] [address]
--- OUTSIDE RECORDS SUMMARY | 2023-09-18 19:54 | XMS_ITS | Continuity of Care Document ---
Author Name Unknown Organization [facility] Address [address] [address]- Care Team Providers Care Catcher Helper Name Role Phone Lilli Diaz MD, Farzana Feliciano Primary [facility]ici [id number] Date(s): 06/24/23 - 07/24/23 [facility] [address] [place] [address] Allergies, Adverse Reactions, Alerts No Known Allergies Immunizations Given and Recorded Vaccine Date Status Refusal Reason tetanus/diphtheria/pertussis, acel(Tdap) 04/13/23 Given Medications docusate sodium 100 mg oral capsule 100 mg, 1, capsule, By Mouth, 2 times a day, PRN, # 60 capsule, Refills 3, Tot. Refills 3, Maintenance, for constipation, 07/02/23 8:43:00 EDT, Route to Pharmacy Electronically, [facility] #[id number], Partial fill upon patient request if the pre... Start Date: 07/02/23 Status: Ordered ferrous sulfate 325 mg oral tablet 1 tablet = 325 mg, By Mouth, Daily, # 90 tablet, 3 Refills, Maintenance, 02/18/23 13:57:00 EDT, [facility] #[id number], Partial fill upon patient request if the prescription is for a schedule IIopioid drug., 150, cm, 02/17/23 11:14:00 EDT, [facility]... Start Date: 02/18/23 Stop Date: 02/13/24 Status: Ordered Flintstones Complete oral tablet, chewable 1 tablet, Chew, 2 times a day, # 180 tablet, 0 Refills, Maintenance, 03/21/23 19:00:00 EDT, [facility] #[id number], Partial fill upon patient request if the prescription is for a schedule II opioid drug., 1 tablet Chew 2 times a day,x90 days, 150... Start Date: 03/21/23 Stop Date: 06/19/23 Status: Ordered ibuprofen 800 mg oral tablet 800 mg, By Mouth, Every 8 hours, PRN, (4-6), may give 400mg per patient preference and re-dose [id number] within 8 hours if needed. Patient should [...] Gm, 0 Refills, Maintenance, 07/03/23 9:01:00 EDT, [facility] #[id number], Partial fill upon patient request if the [...] 0 Refills, Maintenance, 07/02/23 8:43:00 EDT, Tablet, [facility] #[id number], Partial fill upon patient request if the [...] Active History of depression Confirmed Active Uses Uruguayan as primary spoken language Confirmed Active Confirmed [...] Name: Lilli Diaz MD, Farzana Feliciano Position: [facility] Outreach Member Role: PCP Address: Address: [address] [place] [address] [address] [place] [address]- Care Team Related Persons Name: MERVIN LÓPEZ Address: home [address] [place] [address] Name: MERVIN PARKER Address: home [address] [place] [address] Name: DANIEL TENA GIRL Address: [address] Address: home [address] [place] [address] Name: ANNEMARIE TENA Address: home [address] [place] [address]
--- OUTSIDE RECORDS SUMMARY | 2023-09-18 19:54 | XMS_ITS | Continuity of Care Document ---
Author Name Unknown Organization [facility] Address [address] [address]- Care Team Providers Care Dedicated Truck Driver Name Role Phone Farzana Meadows MD Primary [facility] Physici [id number] Date(s): 01/06/23 - 02/05/23 [facility] [address] [address]- Allergies, Adverse Reactions, Alerts No Known Allergies Medications Miconazole 7 vaginal suppository 1 sprays, Vaginally, Daily at bedtime, as directed on package labeling Please provide instructions in tongan, # 7 supp, 0 Refills, Maintenance, 01/23/23 15:40:00 EDT, Suppository, [facility] #[id number], Partial fill upon patient request if t... [...] Team Personnel Name: Farzana Meadows MD Position: [facility] Outreach Member Role: PCP Address: Address: [address] [place] [address] [address] [place] [address]- Care Team Related Persons Name: MERVIN LÓPEZ Address: home [address] [place] [address] Name: MERVIN PARKER Address: home [address] [place] [address] Name: ANNEMARIE TENA Address: home [address] [place] [address]
--- OUTSIDE RECORDS SUMMARY | 2023-09-18 19:54 | XMS_ITS | Continuity of Care Document ---
Author Name Unknown Organization [facility] Address [address] [address]- Care Team Providers Care Egg Producer Name Role Phone Lilli Diaz MD, Farzana Feliciano Primary Care Physici an [place] [facility] [place](s): 12/10/22 - 01/09/23 [facility] [address] [address]- Allergies, Adverse Reactions, Alerts No Known Allergies Medications PNV Plus oral tablet 1 tablet, By Mouth, Daily, # 90 tablet, 3 Refills, Maintenance, 12/02/22 12:56:00 EST, [facility] #[id number], Partial fill upon patient request if the prescription is for a schedule II opioid drug., 1 tablet By Mouth Daily, 150, cm, 12/02/22 10:... Start Date: 12/02/22 Status: Ordered Cradle See Instructions, # 1 each, Maintenance, see package for instructions, 07/20/17 18:29:54, Compound Start Date: 07/20/17 Status: Ordered Multivitamins By Mouth, Daily, 0 Refills, Maintenance, 11/01/22 2:41:00 EST, Partial fill upon patient request ifthe prescription is for a schedule II opioid drug. Start Date: 11/01/22 Status: Ordered Senna 8.6 mg oral tablet 1 or 2 tablets, By Mouth, Daily at bedtime, PRN, # 60 tablet, Refills 1, Tot. Refills 1, Maintenance, Constipation, 12/24/22 14:30:00 EDT, Route to Pharmacy Electronically, [facility] #[id number] Tablet, Partial fill upon patient request if the p... Start Date: 3/22/23 Status: Ordered Problem List Condition Confirmation Course [...] Name: Lilli Diaz MD, Farzana Feliciano Position: [facility] Outreach Member Role: PCP Address: Address: [address] [place] [address] [address] [place] [address]- Care Team Related Persons Name: MERVIN LÓPEZ Address: home [address] [place] [address] Name: MERVIN PARKER Address: home [address] [place] [address] Name: ANNEMARIE TENA Address: home [address] [place] [address]
--- OUTSIDE RECORDS SUMMARY | 2023-09-18 19:54 | XMS_ITS | Continuity of Care Document ---
Author Name Unknown Organization [facility] Address [address] [place] [address], [address] [place] [address]- Care Team Providers Care Radio Communication Coordinator Name Role Phone Lilli Diaz MD, Farzana Feliciano Primary Care Physici [id number] Date[facility]s): 02/17/23 - 02/24/23 [facility] Andreiakyrie Garciamobile [facility]ums [facility] [address] [facility], [address] [place] [address]- Attending Physician: Shea Watson CNM Allergies, Adverse Reactions, Alerts No Known Allergies Medications docusate sodium 100 mg oral capsule 100 mg, 1, capsule, By Mouth, 2 times a day, PRN, # 60 capsule, Refills 3, Tot. Refills 3, Maintenance, for constipation, 02/10/23 18:39:00 EDT, Route to Pharmacy Electronically, [facility]#[id number], Partial fill upon patient request if the pr... Start Date: 02/10/23 Status: Ordered Dulcolax 5 mg oral enteric coated tablet 1 tablet = 5 mg, By Mouth, Daily, PRN as needed for constipation, # 30 tablet, 0 Refills, Maintenance, 02/10/23 18:40:00 EDT, CR Tablet, [facility] #[id number], Partial fill upon patient requestif the prescription is for a schedule II opioid tariq... Start Date: 02/10/23 Status: Ordered ferrous sulfate 325 mg oral tablet 1 tablet = 325 mg, By Mouth, Daily, # 90 tablet, 3 Refills, Maintenance, 02/18/23 13:57:00 EDT, [facility] #[id number], Partial fill upon patient request if the prescription is for a schedule IIopioid drug., 150, cm, 02/17/23 11:14:00 EDT, Heigh... Start Date: 02/18/23 Stop Date: 02/13/24 Status: Ordered Miconazole 7 vaginal cream with applicator 1 application, Vaginally, Daily at bedtime, # 45 Gm, 0 Refills, Maintenance, 02/23/23 12:34:00 EDT,Cream, [facility] #[id number], Partial fill upon patient request if the [...] none since ; entered on: 12/02/22 Sex Radiology * Event Display: [facility] Standard Anatomy Survey, Lvl 1 * Event Display: [facility] Standard Anatomy Survey, Lvl 1 Authored Date: [id number] OBSTETRICS REPORT PATIENT INFO: CMRN: [id number] BMRN: [id number] : [birth year] (28 yrs)(F) Name: DANIEL TENA Visit Date: 02/17/2023 11:00 am PERFORMED BY: Performed By: Jeanne Miles RDMS Attending: Myra Palomo MD Referred By: MAGO Watson CNM Location: [address] INDICATIONS: M - BMI O99.21_ E66.01 EVALUATION: Num Of Fetuses: 1 Heart Rate(bpm): 135 Cardiac Activity: Present Presentation: Cephalic Placenta: Anterior P. Cord Insertion: Normal Amniotic Fluid ARIANA FV: Within normal limits Comment: A cork molder was available during this study. BIOMETRY: BPD: 49.6 mm G.Age: 21w 0d HC: 177.3 mm G.Age: 20w 1d AC: 145.7 mm G.Age: 19w 6d FL: 33.2 mm G.Age: 20w 3d HUM: 34 mm G.Age: 21w 4d CER: 21.9 mm G.Age: 20w 6d NFT: 3.5 mm LV: 6.5 mm CM: 5.7 mm CI: 78.32 % 70 - 86 FL/HC: 18.7 % 16.8 - 19.8 HC/AC: 1.22 1.09 - 1.39 FL/BPD: 66.9 % FL/AC: 22.8 % 20 - 24 Est. FW: 336 gm 0 lb 12 oz GESTATIONAL AGE: LMP: 20w 2d Date: 09/28/22 RILEY: 07/05/23 U/S Today: 20w 3d RILEY: 07/04/23 Best: 20w 2d Det. By: LMP (09/28/22) RILEY: 07/05/23 TARGETED ANATOMY: Central Nervous System Calvarium/Cranial V.: No anomalies seen Intracranial Carol: No anomalies seen Cavum: No anomalies seen Lateral Ventricles: No anomalies seen Choroid Plexus: No anomalies seen Cereb./Vermis: No anomalies seen Cisterna Magna: No anomalies seen Midline Falx: No anomalies seen Spine Cervical: No anomalies seen Thoracic: No anomalies seen Lumbar: No anomalies seen Sacral: No anomalies seen Head/Neck Lips: NOT WELL SEEN Neck: No anomalies seen Nuchal Fold: No anomalies seen Palate: NOT WELL SEEN Profile: NOT WELL SEEN Orbits/Eyes: Normal but LIMITED Thorax Lungs: No anomalies seen 4 Chamber View: Normal but LIMITED Cardiac Rhythm: No anomalies seen Rt Outflow Tract: No anomalies seen Lt Outflow Tract: No anomalies seen Aortic Arch: NOT WELL SEEN Ductal Arch: NOT WELL SEEN SVC: No anomalies seen Cardiac [place]: No anomalies seen Diaphragm: Normal but LIMITED 3 Vessel View: No anomalies seen IVC: No anomalies seen Abdomen Ventral Wall: No anomalies seen Cord Insertion: No anomalies seen (into placenta) Stomach: No anomalies seen Liver: No anomalies seen Lt Kidney: No anomalies seen Rt Kidney: No anomalies seen Bladder: No anomalies seen Bowel: No anomalies seen Extremities Lt Humerus: No anomalies seen Rt Humerus: No anomalies seen Lt Forearm: No anomalies seen Rt Forearm: No anomalies seen Lt Hand: seen Rt Hand: seen Lt Femur: No anomalies seen Rt Femur: No anomalies seen Lt Lower Leg: No anomalies seen Rt Lower Leg: No anomalies seen Lt Foot: No anomalies seen Rt Foot: No anomalies seen Other Umbilical Cord: 3-vessel CERVIX UTERUS ADNEXA: Cervix Length: 6.6 cm. Appears closed Adnexa Not well seen. Comment Vaginal scanning was done. COMMENTS: The patient had low risk NIPT genetic screening results. The exam was limited due to maternal habitus and position. Unremarkable anatomy as noted above. RECOMMENDATIONS: Follow-up U/S in 4 weeks for better imaging of the anatomy. Not scheduled. Myra Palomo MD Electronically Signed Final Report 02/17/2023 11:30 am * Event Display: [facility] Standard Anatomy Survey, Lvl 1 Authored Date: Please click on pdf link to open report Patient Care team information Care Team Personnel Name: Lilli Diaz MD, Farzana Feliciano Position: [facility] Outreach Member Role: PCP Address: Address: [address] [place] [address] [address] [place] [address]- Care Team Related Persons Name: MERVIN LÓPEZ Address: home [address] [place] [address] Name: MERVIN PARKER Address: home [address] [place] [address] Name: ANNEMARIE TENA Address: home [address] [place] [address]
--- OUTSIDE RECORDS SUMMARY | 2023-09-18 19:55 | XMS_ITS | Continuity of Care Document ---
Author Name Unknown Organization [facility] Address [address] [address]- Care Team Providers Care Stock Replenisher Name Role Phone Lilli Diaz MD, Farzana Feliciano Primary [facility] Physici [id number]/23 [facility] [address] [address] Attending Physician: Not on Staff, Attending MD Referring Physician: Fatou Shankar CNM Allergies, Adverse Reactions, Alerts No Known Allergies Medications docusate sodium 100 mg oral capsule 100 mg, 1, capsule, By Mouth, 2 times a day, PRN, # 60 capsule, Refills 3, Tot. Refills 3, Maintenance, for constipation, 02/10/23 18:39:00 EDT, Route to Pharmacy Electronically, [facility]#[id number], Partial fill upon patient request if the pr... Start Date: 02/10/23 Status: Ordered Dulcolax 5 mg oral enteric coated tablet 1 tablet = 5 mg, By Mouth, Daily, PRN as needed for constipation, # 30 tablet, 0 Refills, Maintenance, 02/10/23 18:40:00 EDT, CR Tablet, [facility] #[id number], Partial fill upon patient requestif the prescription is for a schedule II opioid tariq... Start Date: 02/10/23 Status: Ordered ferrous sulfate 325 mg oral tablet 1 tablet = 325 mg, By Mouth, Daily, # 90 tablet, 3 Refills, Maintenance, 02/18/23 13:57:00 EDT, [facility] #[id number], Partial fill upon patient request if the prescription is for a schedule IIopioid drug., 150, cm, 02/17/23 11:14:00 EDT, Heigh... Start Date: 02/18/23 Stop Date: 02/13/24 Status: Ordered Flintstones Complete oral tablet, chewable 1 tablet, Chew, 2 times a day, # 180 tablet, 0 Refills, Maintenance, 03/21/23 19:00:00 EDT, [facility] #[id number], Partial fill upon patient request if the prescription is for a schedule II opioid drug., 1 tablet Chew 2 times a day,x90 days, 150... Start Date: 03/21/23 Stop Date: 06/19/23 Status: Ordered Miconazole 7 vaginal cream with applicator 1 application, Vaginally, Daily at bedtime, # 45 Gm, 0 Refills, Maintenance, 02/23/23 12:34:00 EDT,Cream, [facility] #[id number], Partial fill upon patient request if the prescription is for a schedule II opioid drug., 1 application Vaginally Da... Start Date: 02/23/23 Status: Ordered MiraLax oral powder for reconstitution = 17 Gm, By Mouth, Daily, for 10 days, dissolve in water before taking, # 255 Gm, 0 Refills, Acute 03/31/23 18:53:00 EDT, 03/21/23 18:53:00 EDT, REC Powder, [facility] #[id number], Partial fill upon patient request if the prescription is for a sc... Start Date: 03/21/23 Stop Date: 03/31/23 Status: Ordered Cradle See Instructions, # 1 [...] Name: Lilli Diaz MD, Farzana Feliciano Position: [facility] Outreach Member Role: PCP Address: Address: [address] [place] [address] [address] [place] [address]- Care Team Related Persons Name: MERVIN LÓPEZ Address: home [address] [address] Name: MERVIN PARKER Address: home [address] [address] Name: ANNEMARIE TENA Address: home [address] [place] [address]
--- OUTSIDE RECORDS SUMMARY | 2023-09-18 19:55 | XMS_ITS | Continuity of Care Document ---
Author Name Unknown Organization [facility] Address [address] [place] [address], 4t [place] [address]- Care Team Providers Care Security Business Analyst Name Role Phone Lilli Diaz MD, Farzana Feliciano Primary Care Physici an [id number] Date(s): 06/22/23 - 07/22/23 [facility] [address] [facility], 4th [address] [place], [place] [address] Attending Physician: David Blackwood Admitting Physician: David Blackwood Referring Physician: AdmtrDavid Allergies, Adverse Reactions, Alerts No Known Allergies Immunizations Given and Recorded Vaccine Date Status Refusal Reason tetanus/diphtheria/pertussis, acel(Tdap) 04/13/23 Given Medications docusate sodium 100 mg oral capsule 100 mg, 1, capsule, By Mouth, 2 times a day, PRN, # 60 capsule, Refills 3, Tot. Refills 3, Maintenance, for constipation, 07/02/23 8:43:00 EDT, Route to Pharmacy Electronically, [facility] #[id number], Partial fill upon patient request if the pre... Start Date: 07/02/23 Status: Ordered ferrous sulfate 325 mg oral tablet 1 tablet = 325 mg, By Mouth, Daily, # 90 tablet, 3 Refills, Maintenance, 02/18/23 13:57:00 EDT, [facility] #[id number], Partial fill upon patient request if the prescription is for a schedule IIopioid drug., 150, cm, 02/17/23 11:14:00 EDT, [facility]... Start Date: 02/18/23 Stop Date: 02/13/24 Status: Ordered Flintstones Complete oral tablet, chewable 1 tablet, Chew, 2 times a day, # 180 tablet, 0 Refills, Maintenance, 03/21/23 19:00:00 EDT, [facility] #[id number], Partial fill upon patient request if the prescription is for a schedule II opioid drug., 1 tablet Chew 2 times a day,x90 days, 150... Start Date: 03/21/23 Stop Date: 06/19/23 Status: Ordered ibuprofen 800 mg oral tablet 800 mg, By Mouth, Every 8 hours, PRN, (4-6), may give 400mg per patient preference and re-dose [id number] within 8 hours if needed. Patient should [...] Gm, 0 Refills, Maintenance, 07/03/23 9:01:00 EDT, [facility] #[id number], Partial fill upon patient request if the [...] 0 Refills, Maintenance, 07/02/23 8:43:00 EDT, Tablet, [facility] #[id number], Partial fill upon patient request if the [...] Active History of depression Confirmed Active Uses Botswanan as primary spoken language Confirmed Active Confirmed [...] Name: Lilli Diaz MD, Farzana Feliciano Position: [facility] Outreach Member Role: PCP Address: Address: [address] [place] [address] [address] [place] [address]- Care Team Related Persons Name: MERVIN LÓPEZ Address: home [address] [place] [address] Name: MERVIN PARKER Address: home [address] [place] [address] Name: DANIEL TENA GIRL Address: [address] Address: home [address] [place] [address] [place] [address] Name: ANNEMARIE TENA Address: home [address] [place] [address]
--- OUTSIDE RECORDS SUMMARY | 2023-09-18 19:55 | XMS_ITS | Continuity of Care Document ---
Author Name Unknown Organization [facility] Address [address] [place] [address], 4t [place] [address]- Care Team Providers Care Cookie Mixer Helper Name Role Phone Lilli Diaz MD, Farzana Feliciano Primary Care Physici an [facility] [id number] Date(s): 03/16/23 - 03/23/23 [facility] [address] [facility], [address] [place] [address]- Attending Physician: Ellen Wong MD Referring Physician: Fatou Shankar CNM Allergies, Adverse Reactions, Alerts No Known Allergies Medications Bactrim DS 800 mg-160 mg oral tablet 1 tablet, By Mouth, 2 times a day, for 3 days, # 6 tablet, 0 Refills, Acute 03/24/23 18:59:00 EDT, 03/21/23 18:59:00 EDT, Tablet, [facility] #[id number], Partial fill upon patient request if theprescription is for a schedule II opioid drug., 1 t... Start Date: 03/21/23 Stop Date: 03/24/23 Status: Ordered docusate sodium 100 mg oral capsule 100 mg, 1, capsule, By Mouth, 2 times a day, PRN, # 60 capsule, Refills 3, Tot. Refills 3, Maintenance, for constipation, 02/10/23 18:39:00 EDT, Route to Pharmacy Electronically, [facility][id number], Partial fill upon patient request if the pr... Start Date: 02/10/23 Status: Ordered Dulcolax 5 mg oral enteric coated tablet 1 tablet = 5 mg, By Mouth, Daily, PRN as needed for constipation, # 30 tablet, 0 Refills, Maintenance, 02/10/23 18:40:00 EDT, CR Tablet, [facility] #[id number], Partial fill upon patient requestif the prescription is for a schedule II opioid tariq... Start Date: 02/10/23 Status: Ordered ferrous sulfate 325 mg oral tablet 1 tablet = 325 mg, By Mouth, Daily, # 90 tablet, 3 Refills, Maintenance, 02/18/23 13:57:00 EDT, [facility] #[id number], Partial fill upon patient request if the prescription is for a schedule IIopioid drug., 150, cm, 02/17/23 11:14:00 EDT, Heigh... Start Date: 02/18/23 Stop Date: 02/13/24 Status: Ordered Flintstones Complete oral tablet, chewable 1 tablet, Chew, 2 times a day, # 180 tablet, 0 Refills, Maintenance, 03/21/23 19:00:00 EDT, [facility] #[id number], Partial fill upon patient request if the prescription is for a schedule II opioid drug., 1 tablet Chew 2 times a day,x90 days, 150... Start Date: 03/21/23 Stop Date: 06/19/23 Status: Ordered Miconazole 7 vaginal cream with applicator 1 application, Vaginally, Daily at bedtime, # 45 Gm, 0 Refills, Maintenance, 02/23/23 12:34:00 EDT,Cream, [facility] #[id number], Partial fill upon patient request if the prescription is for a schedule II opioid drug., 1 application Vaginally Da... Start Date: 02/23/23 Status: Ordered MiraLax oral powder for reconstitution = 17 Gm, By Mouth, Daily, for 10 days, dissolve in water before taking, # 255 Gm, 0 Refills, Acute 03/31/23 18:53:00 EDT, 03/21/23 18:53:00 EDT, REC Powder, [facility] #[id number], Partial fill upon patient request if the [...] on: 12/02/22 Sex Radiology * Event Display: PDC Follow up Anatomy * Event Display: PDC Follow up Anatomy Authored Date: [id number] OBSTETRICS REPORT PATIENT INFO: CMRN: [id number] BMRN: [id number] : [birth year] (28 yrs)(F) Name: DANIEL TENA Visit Date: 03/16/2023 11:46 am PERFORMED BY: Performed By: Liza Barton RDMS Attending: Ellen Wong MD Referred By: MAGO Shankar CNM Location: [address] INDICATIONS: Excess weight gain in O26.00 Follow-up anatomy Z36.2 EVALUATION: Num Of Fetuses: 1 Heart Rate(bpm): 141 Cardiac Activity: Present Presentation: Cephalic Placenta: Anterior Amniotic Fluid ARIANA FV: Within normal limits BIOMETRY: BPD: 60.5 mm G.Age: 24w 4d 62 % HC: 226.3 mm G.Age: 24w 5d 51 % AC: 196 mm G.Age: 24w 2d 45 % FL: 45.3 mm G.Age: 25w 0d 65 % CI: 72.33 % 70 - 86 FL/HC: 20.0 % 18.7 - 20.9 HC/AC: 1.15 1.05 - 1.21 FL/BPD: 74.9 % 71 - 87 FL/AC: 23.1 % 20 - 24 Est. FW: 713 gm 1 lb 9 oz 62 % GESTATIONAL AGE: LMP: 24w 1d Date: 09/28/22 RILEY: 07/05/23 U/S Today: 24w 5d RILEY: 07/01/23 Best: 24w 1d Det. By: LMP (09/28/22) RILEY: 07/05/23 TARGETED ANATOMY: Central Nervous System Cavum: No anomalies seen Lateral Ventricles: No anomalies seen Head/Neck Lips: No anomalies seen Palate: NOT WELL SEEN Profile: NOT WELL SEEN Orbits/Eyes: Normal but LIMITED Thorax 4 Chamber View: No anomalies seen Aortic Arch: No anomalies seen Ductal Arch: No anomalies seen Diaphragm: No anomalies seen CERVIX UTERUS ADNEXA: Cervix Appears closed COMMENTS: Imaging remains limited due to position. Follow up is limited but appears normal. Given this is the 2nd attempt at anatomy and late gestational age, further scans are not likely to be diagnostic. exam of the infant is recommended. Ellen Wong MD Electronically Signed Final Report 03/16/2023 02:54 pm * Event Display: PDC Follow up Anatomy Authored Date: [id number] Please click on pdf link to open report Patient Care team information Care Team Personnel Name: Lilli Diaz MD, Farzana Feliciano Position: [facility] Outreach Member Role: PCP Address: Address: [address] [place] [address] [address] [place] [address]- [place] Care Team Related Persons Name: MERVIN LÓPEZ Address: home [address] [place] [address] Name: MERVIN PARKER Address: home [address] [place] [address] Name: ANNEMARIE TENA Address: home [address] [place] [address]
--- OUTSIDE RECORDS SUMMARY | 2023-09-18 19:55 | XMS_ITS | Continuity of Care Document ---
Author Name Unknown Organization [facility] ter Address [address] [place] [id number]- Care Team Providers Care Law Office Assistant Name Role Phone Lilli Diaz MD, Farzana Feliciano Primary Care Physici an Encounter [facility] ACCT R [id number] Date(s): 06/30/23 - 07/03/[address] [address]- Discharge Disposition: A-D/C Home Attending Physician: Andrew Germain DO Admitting Physician: Andrew Germain DO Referring Physician: Gia Belle CNM Allergies, Adverse Reactions, Alerts No Known Allergies Immunizations Given and Recorded Vaccine Date Status Refusal Reason tetanus/diphtheria/pertussis, acel(Tdap) 04/13/23 Given Medications Acetaminophen Tablet 650 mg, Tablet, By Mouth, Every 4 hours, PRN for Pain , Mild, (1-3), may give 325mg per patient preference and re-dose with 325mg within 4 hours, if needed. Patient should only receive a total of 650mg of Acetaminophen every 4 hours., Routine, 07/01... Start Date: 07/01/23 Stop Date: 07/03/23 Status: Discontinued docusate sodium 100 mg oral capsule 100 mg, 1, capsule, By Mouth, 2 times a day, PRN, # 60 capsule, Refills 3, Tot. Refills 3, Maintenance, for constipation, 07/02/23 8:43:00 EDT, Route to Pharmacy Electronically, [facility] #[id number], Partial fill upon patient request if the pre... Start Date: 07/02/23 Status: Ordered ferrous sulfate 325 mg oral tablet 1 tablet = 325 mg, By Mouth, Daily, # 90 tablet, 3 Refills, Maintenance, 02/18/23 13:57:00 EDT, [facility] #[id number], Partial fill upon patient request if the prescription is for a schedule IIopioid drug., 150, cm, 02/17/23 11:14:00 EDT, Heigh... Start Date: 02/18/23 Stop Date: 02/13/24 Status: Ordered Flintstones Complete oral tablet, chewable 1 tablet, Chew, 2 times a day, # 180 tablet, 0 Refills, Maintenance, 03/21/23 19:00:00 EDT, [facility] #[id number], Partial fill upon patient request if the prescription is for a schedule II opioid drug., 1 tablet Chew 2 times a day,x90 days, 150... Start Date: 03/21/23 Stop Date: 06/19/23 Status: Ordered ibuprofen 800 mg oral tablet 800 mg, By Mouth, Every 8 hours, PRN, (4-6), may give 400mg per patient preference and re-dose [id number] within 8 hours if needed. Patient should [...] Gm, 0 Refills, Maintenance, 07/03/23 9:01:00 EDT, [facility] #[id number], Partial fill upon patient request if the [...] 0 Refills, Maintenance, 07/02/23 8:43:00 EDT, Tablet, [facility] #[id number], Partial fill upon patient request if the [...] Active History of depression Confirmed Active Uses Comoran as primary spoken language Confirmed Active Confirmed Active Rh negative status during Confirmed Active Severe obesity Confirmed Active UTI in Confirmed Active Vital Signs Most recent to oldest [Reference Range]: 1 2 3 Height 151 cm (07/03/23 8:44 AM) 151 cm (07/03/23 12:00 AM) 151 cm (07/02/23 12:05 AM) Weight 96.2 kg (06/30/23 9:29 AM) Oxygen Saturation [94-100 %] 99 % (07/03/23 12:00 AM) 99 % (07/02/23 12:05 AM) 96 % (07/01/23 5:31 AM) Pulse Rate [55-90 bpm] 80 bpm (07/03/23 8:44 AM) 84 bpm (07/03/23 12:00 AM) 79 bpm (07/02/23 12:05 AM) Body Mass Index [18.5-24.99 kg/m2] 42.19 kg/m2 *>HHI* (06/30/23 9:29 AM) Blood Pressure [90-138/55-84 mm Hg] 128/69mm Hg (07/03/23 8:44 AM) 127/58mm Hg (07/03/23 12:00 AM) 122/70mm Hg (07/02/23 4:30 PM) Respiratory Rate [16-30 br/min] 18 br/min (07/03/23 8:44 AM) 18 br/min (07/03/23 12:00 AM) 18 br/min (07/02/23 11:42 PM) Temperature [96.8-100.4 DegF] 97.6 DegF (07/03/23 8:44 AM) 98.2 DegF (07/03/23 12:00 AM) 98.2 DegF (07/02/23 4:30 PM) Mode of Delivery (Oxygen) Room air (07/03/23 12:00 AM) Room air (07/02/23 7:30 AM) Room air (07/02/23 12:05 AM) Blood pressure sites Arm, left (07/03/23 8:44 AM) Arm, right (07/02/23 4:30 PM) Arm, left (07/01/23 3:37 PM) Temperature Route Oral (07/03/23 8:44 AM) Oral (07/03/23 12:00 AM) Oral (07/02/23 4:30 PM) Dry Weight 96.2 kg (06/30/23 9:29 AM) Weight Obtained Via Patient/family state d (06/30/23 9:29 AM) Dry Weight Obtained Via Patient/family s tated (06/30/23 9:29 AM) Social History Social History Type Response Smoking Status Former smoker, quit more than 30 days ago;Never; Exposure to Secondhand Smoke: Yes; Other: occasional cigarettes for 2 months, none since ; entered on: 12/02/22 Sex History and physical note * Rivas WU, Jeannine Wilson: PERFORM Event Display: History and Physical Hospital Authored Date: Patient: ??DANIEL TENA ? Age:??28 Years?Sex:??Female?:??1995?? OB Reason for Admission OB Reason for Admission Reason for admission: Induction of labor Reason for Induction: Elective Method of Induction: Cervical Arguello Inpatient, Misoprostol LMP/EGA/RILEY Gestational Age (EGA) and RILEY? * Note: EGA calculated as of 06/30/2023 ?? RILEY:??07/06/2023?EGA*:??39 weeks 1 day ? History?(3,0,1,3)?Method:??Last Menstrual Period??(09/29/2022) History of Present Illness Daniel is a 28 year old Comoran speaking female @ 39.1wks that presents to L&D for elective IOL. Quibly shot examiner used for admission. She is accompanied by her friend, Zee She is feeling irregular contractions, denies any lof, vb. reports +fm. This is her first induction. History of 3 . Her is complicated by mild anemia (taking iron daily); covid in ; depression (nomeds has therapist); UTI in ; and recent positive chlamydia (06/24) with treatment. Pt is GBS+, A neg Planning IUD Having a girl! Planning ? Review of Systems ?Constitutional??- neg ?Endocrine??- neg ?Breast??- neg ?Resp??- Neg ?Cardio??- Neg ?Urinary??- no dysuria, frequency, odor, hematuria ?Hazardous Waste Remover??- no vaginal discharge, no itching, no odor, no lesions ?GI??- no nausea, no diarrhea, no vomiting, no pain ?Neuro??- neg, no headaches ?Psych??- +depression, no anxiety Physical Exam Vitals & Measurements T:??99.1?F?? HR:??82??(Peripheral)?? RR:??18?? BP:??115/62?? HT:??151??cm?? WT:??96.2??kg?? BMI:??42.19?? Constitutional?? Appearance: Normal affect.?? Neurological/Psychiatric?? Orientation: Time, Place, Person.?? Affect: Normal.?? Heart Normal. RRR. Lungs Normal. CTA. Lymphatic?? Lymphatic: Normal exam.?? Skin?? Skin: Normal exam.?? Abdomen/GI?? Gravid.?? Obese.?? Not Tender.?? No Masses.?? EFW: 3100 Gynecologic?? External Genitalia: no lesions Urethral meatus: Normal exam.?? Urethra: normal to palpation.?? Vagina: Normal exam, normal support, no lesions, no discharge.?? SVE - 1/50%/-4/ballottable/vtx OB Assessment Baby A Baseline:135 Baseline Description:Normal, 110-160 bpm Baseline Variability:Moderate variability Accelerations:Present Deceleration:None Activity:Present Uterine Number of Contractions per 10 minutes1 Monitor Mode, UterineExternal Cervical Cervical Dilatation1 cm Assessment/Plan Encounter for induction of labor (Z34.90):?? @ 39.1wks for elective IOL for unstable lie Direct admit to L&D See orders - IV, cbc and hold Continuous monitoring PCN for GBS + PGY1 notified of admission Discussed with pt IOL process, which may take several days before pt gets into active labor and hasthe baby. Reviewed options for cervical ripening including po miso, arguello bulb insertion - pt amendable to both. If no active labor following cervical ripening would recommend Pitocin. ?? 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 Anemia (D64.9):??Taking iron daily H&H on admission ?? COVID-19 affecting in first trimester (O98.511):??Be aware; normal anatomy u/s (though limited) 05/19 growth US ordered wnl, 35%tile ?? Chlamydia (A74.9):??06/25 - Dx'd on culture [facility] 06/24, neg 06/10 - UPI w/ FOB 06/17. Rx for Azithro 1g - pt completed treatment.??TRISTAN given to FOB. Discussed eye ointment for baby CONFIDENTIAL??- pt does not want this to be discussed in labor when family present. ?? History of depression (Z86.59):??No medications, has therapist Monitor ?? Rh negative status during (O26.899):??Rhogam given in Feb; reason for pos screen. Rhogam @ 28wks given 04/13 ?? Uses Comoran as primary spoken language (Z78.9):??brick paver as needed ?? OB History History?(3,0,1,3)? # 1 ?Baby 1 ?Outcome Date:??04/26/2011?Outcome or Result:??Vaginal ?Gest Age:??Fullterm ? Outcome:??Live ? Sex:??Male?Wt:?2892 g ?Hospital:??[facility] ?? # 2 ?Baby 1 ?Outcome Date:??11/03/2015?Outcome or Result:??Vaginal ?Gest Age:??Fullterm ? Outcome:??Live ? Sex:??Female?Wt:?2863 g ?Hospital:??[facility] ?? # 3 ?Baby 1 ?Outcome Date:??08/19/2017?Outcome or Result:??Vaginal ?Gest Age:??Fullterm ? Outcome:??Live ? Sex:??Female?Wt:?2920 g ?Hospital:??[facility] ?? # 4 ?Baby 1 ?Outcome Date:??2019 ?Outcome or Result:??Spontaneous ?Gest Age:??Unknown ? Outcome:? Sex:??-- Labs Labs Labs & Tests Antibody Screen: Negative (04/13/23) Blood Type: A Negative (11/01/22) Chlamydia Trachomatis Amplified Probe: POSITIVE Abnormal (06/24/23) Creatinine-Blood: 0.6 mg/dL (11/01/22) Glucose 50 Gm, +60 Minutes: 118 mg/dL (04/13/23) Hct:??30.5 %??Low (05/11/23) Hemoglobinopathy Interpretation: Normal hemoglobins, with anemia. (12/11/22) Hepatitis B Surface Antigen: NEGATIVE (12/11/22) Hepatitis C Ab: NEGATIVE (12/11/22) Hgb:??10 Gm/dL??Low (05/11/23) HIV 4th Generation Ab-Ag Result: NEGATIVE (12/11/22) RPR Titer Result: NOT INDICATED (04/13/23) Rubella IgG Ab: POSITIVE (12/11/22) Syphilis Screen by OTF: NEGATIVE (04/13/23) Urine Culture: Urine Culture (06/10/23) Problem List Active Active Problem List Anemia: (Medical) Chlamydia: (Medical) Constipation in : (Medical) COVID-19 affecting in first trimester: (Medical) (10/04/22) Encounter for induction of labor: (Medical) Excess weight gain in : (Medical) GBS carrier: (Medical) History of depression: (Medical) : (Obstetric) (09/27/22) : (Medical) Rh negative status during : (Medical) Severe obesity: (Medical) Uses Comoran as primary spoken language: (Medical) UTI in : (Medical) Procedure/Surgical History Cholecystectomy Home Medications Acetaminophen: 1,000 mg = 2 tablet, By Mouth, Every 4 hours, PRN (for pain) Cetirizine: 10 mg = 1 tablet, By Mouth, Daily Docusate: 100 mg = 1 capsule, By Mouth, 2 times a day, PRN (for constipation) Durable Medical Equipment: See Instructions, see package for instructions Ferrous Sulfate: 325 mg = 1 tablet, By Mouth, Daily Guaifenesin: 600 mg, By Mouth, Every 12 hours Multivitamin With Iron: 1 tablet, Chew, 2 times a day PredniSONE: 60 mg = 3 tablet, By Mouth, Daily Allergies NKA Social History Alcohol Use: Past. Alcohol use in household: No. Other: occasional use prior to being aware of . Electronic Cigarette/Vaping Electronic Cigarette Use: Never. 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 Exercise Self assessment: Excellent condition. Home/Environment Living situation: Home/Independent. Lives with: Children, no pets. Nutrition/Health Diet: Regular. Sexual Sexually involved in last 6 months: Yes. Gender identity: Identifies as female. Substance Abuse Use: Past. Type: Marijuana. Substance abuse in household: No. Other: MJ use prior to . Tobacco Use: Former smoker, quit more than 30 days ago. Other: occasional cigarettes for 2 months, none since . Smokeless tobacco use: Never. Exposure to Secondhand Smoke: Yes. Family History Mother: Rheumatic fever Father: Cardiovascular disease Sister: Gestational diabetes Mat. Grandmother: High cholesterol; Hypertension Mat. Grandfather: Diabetes mellitus; High cholesterol; Hypertension Pat. Grandmother: Hypertension Plan OB Plan Circumcision Plan: None (06/30/23) Contraceptives: Post placental IUD (06/30/23) Labor Coping Mechanisms: Epidural, No pharmacological interventions (06/30/23) Patient Requests: baby is a girl; mom for labor, maybe father of baby18 undecided on pedi (06/30/23) Hospital Progress note * Chris RIVERA, Kathy: PERFORM, SIGN, VERIFY Event Display: Progress Note Hospital Authored Date: [id number] Patient: DANIEL TENA Age: 28 years Sex: Female : 1995 Associated Diagnoses: None Author: Kathy Perez RN Assume patient care at change of shift. Patient alert and oriented x4, ambulating in room ad marianna. Pt assessment lungs clear bilateral, bowel sounds active x4, reports last bowel movement on 07/01, taking 100mg Colace and Senna. Patient voiding without difficulty, using tucks for ruben care. Fundus isfirm -1, scant bleeding no clots noted. Eating and drinking well. Patient reports pain is under controlled with current pain medication regime, per MAR. independently, with assistance when needed. Seen by . Will continue to monitor, call nunez at reach. * Keshawn WU, Galina Archer: PERFORM Event Display: Progress Note Hospital Authored Date: [id number] Patient: ??DANIEL TENA ? Age:??28 Years?Sex:??Female?:??1995?? LMP/EGA/RILEY Gestational Age (EGA) and RILEY? * Note: EGA calculated as of 07/01/2023 ?? RILEY:??07/06/2023?EGA*:??39 weeks 2 days ? History?(3,0,1,3)?Method:??Last Menstrual Period??(09/29/2022) Subjective Feeling vaginal pressure with contractions prior to SROM, better now. Contraction pain gone after epidural placement. OB Assessment Baby A Baseline:130 Baseline Description:Normal, 110-160 bpm Baseline Variability:Moderate variability Accelerations:Present Deceleration:Early Activity:Present Membranes ROM Date, Time:07/01/2023 01:25 EDT Amniotic Fluid Amount:Small Amniotic Fluid Color/Description:Blood tinged Membrane Status:SROM Uterine Number of Contractions per 10 minutes5 Monitor Mode, UterineExternal Cervical Cervical Dilatation6 cm Cervical Nlgrzgokeq65% Station-3 Physical Exam Vitals & Measurements T:??97.8?F?? HR:??99??(Monitored)?? RR:??20?? BP:??99/54?? SpO2:??99%?? HT:??151??cm?? WT:??96.2??kg?? BMI:??42.19?? Assessment/Plan Encounter for induction of labor (Z34.90):?? @ 39.1wks for elective IOL for unstable lie Continuous monitoring PCN for GBS + s/p misoprostol & 60cc arguello Cat 1 FHR tracing Angelita 4-5 in 10 with Pitocin infusing at 8mU/min SROM clear blood tinged fluid Reassuring maternal/ status Comfortable s/p epidural placement. Continue Pitocin and increase per protocol. Reassess in 2-3hrs,sooner prn. ?? 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 Anemia (D64.9):??Taking iron daily H&H on admission - 10.2/31.9 ?? Chlamydia (A74.9):??06/25 - Dx'd on culture in [facility] 06/24, neg 06/10 - UPI w/ FOB 06/17. Rx for Azithro 1g - pt completed treatment.??TRISTAN given to FOB. Discussed eye ointment for baby CONFIDENTIAL??- pt does not want this to be discussed in labor when family present. ?? History of depression (Z86.59):??No medications, has therapist Monitor ?? Rh negative status during (O26.899):??Rhogam given in Nov; reason for pos screen. Rhogam @ 28wks given 04/13 ?? Uses Comoran as primary spoken language (Z78.9):??brick paver as needed ?? OB History History?(3,0,1,3)? # 1 ?Baby 1 ?Outcome Date:??04/26/2011?Outcome or Result:??Vaginal ?Gest Age:??Fullterm ? Outcome:??Live ? Sex:??Male?Wt:?2892 g ?Hospital:??[facility] ?? # 2 ?Baby 1 ?Outcome Date:??11/03/2015?Outcome or Result:??Vaginal ?Gest Age:??Fullterm ? Outcome:??Live ? Sex:??Female?Wt:?2863 g ?Hospital:??[facility] ?? # 3 ?Baby 1 ?Outcome Date:??08/19/2017?Outcome or Result:??Vaginal ?Gest Age:??Fullterm ? Outcome:??Live ? Sex:??Female?Wt:?2920 g ?Hospital:??[facility] ?? # 4 ?Baby 1 ?Outcome Date:??2020 ?Outcome or Result:??Spontaneous ?Gest Age:??Unknown ? Outcome:? Sex:??-- Active Problem List Active Problem List Anemia: (Medical) Chlamydia: (Medical) Constipation in : (Medical) COVID-19 affecting in first trimester: (Medical) (10/04/22) Encounter for induction of labor: (Medical) Excess weight gain in : (Medical) GBS carrier: (Medical) History of depression: (Medical) : (Obstetric) (09/27/22) : (Medical) Rh negative status during : (Medical) Severe obesity: (Medical) Uses Comoran as primary spoken language: (Medical) UTI in : (Medical) Medications Medications (4) Active SCHEDULED: (1) Penicillin G Potassium 3 Million Units / 50 mL D5%W (Penicillin G POT IVPB) ??3 million_units 50 mL, IVPB, Every 4 hours CONTINUOUS: (2) Lactated Ringers (1000 mL) Cont IV 1,000 mL (Lactated Ringers 1,000 mL) ??1,000 mL, IV Infusion, 125 mL/hr Oxytocin 30 units / 500 mL IV Premix 30 units (Oxytocin 30 units in 500 mL Premix IV 30 units) ??30units 500 mL, IV Infusion, 2 mL/hr PRN: (1) Ondansetron 2mg/mL Inj (2mL Vial) (Ondansetron Inj) ??4 mg, IV Push, Every 6 hours * Galina Liao CNM: PERFORM Event Display: Progress Note Hospital Authored Date: [id number] Patient: ??CARY TENACHERYLE ? Age:??28 Years?Sex:??Female?:??1995?? LMP/EGA/RILEY Gestational Age (EGA) and RILEY? * Note: EGA calculated as of 06/30/2023 ?? RILEY:??07/06/2023?EGA*:??39 weeks 1 day ? History?(3,0,1,3)?Method:??Last Menstrual Period??(09/29/2022) Subjective Contractions very strong. Nitrous not helping. Requesting epidural. OB Assessment Baby A Baseline:135 Baseline Description:Normal, 110-160 bpm Baseline Variability:Moderate variability Accelerations:Present 2 or more Deceleration:None Activity:Present Membrane Status:Intact Uterine Number of Contractions per 10 minutes5 Monitor Mode, UterineExternal Cervical Cervical Dilatation6 cm Cervical Tjjinmxrmk53% Station-4 Physical Exam Vitals & Measurements T:??97.8?F?? HR:??76??(Monitored)?? RR:??20?? BP:??119/77?? SpO2:??100%?? HT:??151??cm?? WT:??96.2??kg?? BMI:??42.19?? Assessment/Plan Encounter for induction of labor (Z34.90):?? @ 39.1wks for elective IOL for unstable lie Continuous monitoring PCN for GBS + s/p misoprostol & 60cc arguello Cat 1 FHR tracing Angelita 4-5 in 10 with Pitocin infusing at 8mU/min Reassuring maternal/ status Nitrous no longer helping with pain. Plan epidural for pain management Pitocin halved for epidural placement; increase per protocol and??encourage rest when comfortable. Reassess in 2-3hrs, sooner prn. ?? 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 Anemia (D64.9):??Taking iron daily H&H on admission - 10.2/31.9 ?? Chlamydia (A74.9):??06/25 - Dx'd on culture in [facility] 06/24, neg 06/10 - UPI w/ FOB 06/17. Rx for Azithro 1g - pt completed treatment.??TRISTAN given to FOB. Discussed eye ointment for baby CONFIDENTIAL??- pt does not want this to be discussed in labor when family present. ?? History of depression (Z86.59):??No medications, has therapist Monitor ?? Rh negative status during (O26.899):??Rhogam given in Feb; reason for pos screen. Rhogam @ 28wks given 04/13 ?? Uses Comoran as primary spoken language (Z78.9):??brick paver as needed ?? OB History History?(3,0,1,3)? # 1 ?Baby 1 ?Outcome Date:??04/26/2011?Outcome or Result:??Vaginal ?Gest Age:??Fullterm ? Outcome:??Live ? Sex:??Male?Wt:?2892 g ?Hospital:??[facility] ?? # 2 ?Baby 1 ?Outcome Date:??11/03/2015?Outcome or Result:??Vaginal ?Gest Age:??Fullterm ? Outcome:??Live ? Sex:??Female?Wt:?2863 g ?Hospital:??[facility] ?? # 3 ?Baby 1 ?Outcome Date:??08/19/2017?Outcome or Result:??Vaginal ?Gest Age:??Fullterm ? Outcome:??Live ? Sex:??Female?Wt:?2920 g ?Hospital:??[facility] ?? # 4 ?Baby 1 ?Outcome Date:??2019 ?Outcome or Result:??Spontaneous ?Gest Age:??Unknown ? Outcome:? Sex:??-- Active Problem List Active Problem List Anemia: (Medical) Chlamydia: (Medical) Constipation in : (Medical) COVID-19 affecting in first trimester: (Medical) (10/04/22) Encounter for induction of labor: (Medical) Excess weight gain in : (Medical) GBS carrier: (Medical) History of depression: (Medical) : (Obstetric) (09/27/22) : (Medical) Rh negative status during : (Medical) Severe obesity: (Medical) Uses Comoran as primary spoken language: (Medical) UTI in : (Medical) Medications Medications (4) Active SCHEDULED: (1) Penicillin G Potassium 3 Million Units / 50 mL D5%W (Penicillin G POT IVPB) ??3 million_units 50 mL, IVPB, Every 4 hours CONTINUOUS: (2) Lactated Ringers (1000 mL) Cont IV 1,000 mL (Lactated Ringers 1,000 mL) ??1,000 mL, IV Infusion, 125 mL/hr Oxytocin 30 units / 500 mL IV Premix 30 units (Oxytocin 30 units in 500 mL Premix IV 30 units) ??30units 500 mL, IV Infusion, 2 mL/hr PRN: (1) Ondansetron 2mg/mL Inj (2mL Vial) (Ondansetron Inj) ??4 mg, IV Push, Every 6 hours Note * Lauren Santacruz RN: PERFORM Event Display: Discharge/Transfer Note Hospital Authored Date: [id number] Nursing Discharge Note Entered On: 07/03/2023 13:17 EDT Performed On: 07/03/2023 13:16 EDT by Lauren Santacruz RN Nursing Discharge Note 2 Discharge Time : 07/03/2023 13:15 EDT Discharge Level of Care at Discharge : Home/Long Term/Foster Care Marketing Ambassador Utilized : Yes AMA Form Signed : No Patient Left Unit Via : Ambulatory Patient Accompanied Off Unit with : Other: presybeterian friend DC Instructions Provided & Signed by Pt : Yes Patient Understands D/C Instructions : Yes Verbalized Understanding of D/C Plan By : Patient Patient Instructions Discharge Signed : Yes Discharge Comments : [facility] #[id number], #[id number] Did Pt have Specialty Bed or Wound Vac : No Lauren Santacruz RN - 07/03/2023 13:16 EDT * Lauren Santacruz RN: PERFORM Event Display: Patient Education/Instruction Authored Date: [id number] Inpatient Adult Discharge Instructions [address] [address] Name: DANIEL TENA : 1995 Visit: 06/30/2023 08:50:00 Current Date: 07/03/2023 11:12 Account: [id number] Inpatient Adult Discharge Instructions We would like [...] and their families. Surveys are administered by [employer] ?? If further treatment with your primary care physician or another doctor is recommended, it is important for you to keep the appointment. Call your primary care physician or return to the Emergency Department immediately if your condition worsens, fails to improve, or new symptoms develop. If you need to find a doctor, you can call [facility] ([facility]) for a referral at [phone] or toll free at [phone] ([phone]) or log in to [email or web address].. ?? [facility], in keeping with [facility] guidance, no longer requires face masks for staff, patientsor visitors in most situations. Similiar to time spent indoors at other locations, there is the chance that you were exposed to repiratory viruses during your time with us (such as flu or COVID-19). If you develop symptoms concerning for a viral respiratory infection, please seek testing (and treatment if indicated) from your medical provider or home test kit. ?? You can view and manage your care through the patient portal or by using a health care ruth of your choosing. [employer] is a website that allows you to securely view your medical information including your hospital discharge summary, office visit summaries, medications and follow-up visits. You can also request appointments, renew medications, and request access to your medical information using a health care ruth of your choosing, or just ask a question. You can enroll at [email or web address] or register during your next office visit. You have been discharged from [facility], Patient Care Unit: [facility]. If you have any questions regarding these instructions after you leave, please call us and we will be happy to assist you. [facility] Your Care Team Attending Physician Andrew Germain DO Discharging Providers Rafa WU, Travis Fagan Reason for Admission Induction of labor Your Diagnosis History of depression Rh negative status during Uses Comoran as primary spoken language care following vaginal delivery Tests Performed Below is a partial list of the tests performed during your hospitalization. You may have had other tests and procedures not included in this list. Please discuss all test results with your provider. CBC Primary Care Provider Lilli Diaz MD, Farzana Feliciano Advance Directive Health Care Proxy on File Yes - Health Care Proxy Discharge Vitals Temperature: 97.6 DegF Height: 151 cm Pulse Rate: 80 bpm Weight: 96.2 kg Respiratory Rate: 18 br/min Body Mass Index:??42.19 kg/m2??Critical Systolic Blood Pressure: 128 mm Hg Body surface area: 2.01 Diastolic Blood Pressure: 69 mm Hg ?? Oxygen Saturation: 99 % ?? Studies Pending All tests and labs ordered during this hospital stay have been completed unless listed below. Please discuss all pending results with your provider listed above in these instructions. ?? COVID-19 (2019 Novel Coronavirus) PCR Hold Lavender Tube (BB) Hold Lavender Tube (BB) What to do next Instructions From Your Doctor Discharge Orders Instructions from your Care Team Instrucciones de cuido de ab para la nueva geo?y el beb? [Discharge Care Instructions for the New Mom and Baby]?? [place] un momento para leer estas instrucciones?tiles antes de salir del hospital. Garcia enfermera responder?cualquier pregunta que pueda tener con mucho gusto. Tambi??n puede encontrar esta y m??s informaci??n en el folleto p??rpura??Formando aliza riddhi, la Gu??a de nuevos comienzos de [employer] y la Gu??a para servicios de consulta de lactancia,??entregados a usted despu??s del nacimiento de garcia beb??. Tambi??n puede llamar a nuestras estaciones de enfermeras si tiene m??s preguntas. [place] [facility]???s: Primer piso ([phone]), emma piso ([phone]).?? Llame a garcia m??dico si tiene cualquier pregunta o preocupaci??n antes de garcia pr??xima wes.?? Para recibir ayuda continua, por favor jose j clic a Me gusta en nuestra p??ambar [facility]???s [facility] [employer] en Facebook y [employer]??base a nuestro bolet??n de noticias por correo electr??kristine en??[email or web address]. Se le enviar??n noticias e informaci??n hasta que garcia beb?cumpla sunny a??os.?? Instrucciones para la nueva madre?? [Instructions for the New Mother]?? Actividad:?? [Activity:]?? Michelle las pr??ximas 2 semanas en casa - no levante objetos pesados, evite subir escaleras innecesariamente y no conduzca (especialmente si est?tomando medicamentos que le puedan causar apoorva??o o siente que no wild dormido lo suficiente).?? Michelle las pr??ximas 4 a 6 semanas - no utilice tampones, no se jose j irrigaci??n vaginal, no tengarelaciones sexuales.?? Use garcia botella perineal para enjuagar garcia perineo hasta que se detenga garcia flujo vaginal. Si tiene puntos de sutura en garcia trasero, generalmente se disuelven en 7 o 10 d??as. Apl??quese Tucks o pa??os de hamamelis hasta que el dolor haya pasado. Use el ba??o en casa cada 3 a 4 horas, enju??guese y cambie sully toallas sanitarias.?? Las duchas tibias se sienten muy lenore para los m??sculos, espaldas y traseros adoloridos.?? Ejercicio:?? [Exercise:]?? Caminar es la mejor forma de ejercicio. Espere hasta garcia wes de seguimiento con garcia m??dico de 4 a 6semanas antes de participar en actividades m??s extenuantes.?? Dieta:?? [Diet:]?? Cherelle suficientes l??quidos para evitar el estre??imiento y ayudar a garcia recuperaci??n.?? Coma suficientes alimentos ricos en steven salvador la carne linda, cereales enriquecidos con steven salvador Total y Cream of Wheat, pasas, ciruelas, hojas verdes y espinacas. Estos le ayudar??n a subir garcia recuento sangu??antoine ya que todas las mujeres pierden algo de reyna despu??s del parto. Tambi??n, a??ada alimentos ricos en vitamina C salvador las fresas, chinas/naranjas, papayas, col rizada y pimientos.?? Contin??e tomando sully vitaminas prenatales si est?amamantando. Si no est?amamantando, siga las instrucciones de garcia m??dico. Si le recetaron suplementos de steven salvador sulfato de steven, es importante continuar usando estos hasta que garcia m??dico o partera le indique que pare.?? Cuidado de los senos para madres lactantes?? [Breast Care for Nursing Mothers:]?? Use un sost??n de maternidad c??modo y firme. No se recomienda un sost??n con aros.?? Extraiga gotas de leche materna y p??selas sobre sully pezones y areola (myranda bobby??n) antes y despu??s de cada alimentaci??n para proteger y sanar la piel sensitiva y despu??s, seque sully pezones al aire. Si est?sintiendo alg??n dolor, puede comprar cremas para el pez??n salvador [employer] o [employer]. Util??amrita de la siguiente manera: termine garcia sesi??n de alimentaci??n o bombeo, extr??igase el calostro sobre garcia pez??n y d??jelo secar al aire. Aplique la crema al pez??n y areola. Util??amrita en mik??as cantidades para obtener mejores resultados.?? Si est?teniendo dificultad para lograr que el beb?se pegue al seno debido a la hinchaz??n de la areola, intente aplicar presi??n con sully dedos por un par de minutos por encima y por debajo del pez??n y, mueva sully dedos hacia afuera, ablandando el?eduarda y empujando la hinchaz??n hacia afuera.Esta t??cnica es conocida salvador ablandamiento de presi??n inversa. Para demostraciones de esta y otras t??cnicas salvador la t??cnica de Expresi??n de mano de Summers ( Summers Hand Expression ), por favor refi??rase a la secci??n de recursos de la Gu??a de servicios de consulta de lactancia materna que recibi?de parte de los servicios de lactancia.?? Puede que experimente congesti??n la primera vez que llegue garcia leche, generalmente entre 3 a 5 d??as despu??s del parto. Sully senos pueden volverse sensibles e hinchados. Las compresas fr??as funcionan muy lenore para ayudar con las molestias y reducir la hinchaz??n. Mejorar?en un par de d??as. Contin??e amamantando a garcia beb?frecuentemente.?? Llame al Servicio de consulta de lactancia materna del [facility] m??dico de [facility] [phone], oprima 1 para programar aliza wes ambulatoria u oprima 3 y aliza consultora le devolver?garcia llamada johnny mismo d??a o al siguiente si llama despu??s de las 3 p. m.?? Cuidado de los senos para madres que alimentan con biber??n?? [Breast Care for Bottle Feeding Mothers:]?? Puede ocurrir congesti??n michelle la primera semana postparto. Sully senos pueden volverse duros y muy sensibles. Aliza compresa fresca de hojas de col aditya, crudas y limpias aplicada a los senos y cambiada seg??n las hojas se marchitan wild demostrado ser?til para muchas mujeres. Las bolsas de hieloo bolsas de guisantes congelados tambi??n trabajan lenore para aliviar las molestias. La sensibilidadsolo durar?un par de d??as.?? Mant??ngase de espaldas hacia el agua mientras se ducha para reducir la estimulaci??n de los senos.?? Utilice un sost??n ajustado, por ejemplo, un sost??n deportivo.? Manejo del dolor:?? [Pain Management:]?? Los calambres despu??s del parto son comunes y aumentan en fuerza con cada beb?que tenga. Si siente calambres dolorosos y no es al??rgica al acetaminofeno (Tylenol) o ibuprofeno (Motrin), puede continuar tomando estos medicamentos salvador lo hizo en el hospital. El ibuprofeno tambi??n ayuda con los dolly de espalda despu??s de las anestesias epidurales, los dolly perineales despu??s de un parto vaginal y dolly moderados en la incisi??n despu??s de aliza rossana??eduarda o cirug??a de ligadura de trompas.?? Si siente distensi??n de gases, especialmente despu??s de aliza cirug??a, puede zenaida un medicamento sin receta llamado simeticona. T??mese estas tabletas masticables 4 veces al d??a seg??n sea necesario e indicado en las instrucciones. Siga movi??ndose. Caminar o mecerse en aliza silla ayudar?a pasa r el gas. T?de jengibre hecho con gerald dannielle calentado (en vez de agua) y aliza bolsa de t??, agitado para disolver la carbonataci??n (burbujas) es aliza bebida?til para aliviar un est??mila gaseoso.?? Se??ales de advertencia de un problema que debe notificar a garcia doctor o partera:?? [Warning Signs of a Problem to Notify Your Doctor or Pricing Strategist of:]?? Sangrado vaginal abundante?es cuando??empapa aliza toalla sanitaria cada hora??con reyna linda brillante.?? Co??gulos de sangres del philip??o de un huevo o mayores.?? Aliza incisi??n que no michele.?? Aliza temperatura mayor o igual al 100.4?F (38?C), especialmente si est?acompa??ada por cualquiera de los siguientes s??ntomas?dolor al orinar, orina frecuente; dolor gretchen de espalda joanna costado, dolor en el abdomen bajo con un mal olor del flujo vaginal, aliza myranda linda, dura y caliente en garcia seno.?? Dolor de amisha gretchen que no desaparece despu??s de zenaida acetaminofeno o ibuprofeno.?? Un dolor de amisha que cambia garcia vista, esto incluye el lynn manchas o borroso.?? Dolor al lado derecho de la parte superior del abdomen a lo mary de la caja tor??cica.?? Dolor en sully piernas que es c??lido y sensible al tacto.?? Los s??ntomas de la depresi??n postparto pueden incluir?perdida de inter??s en garcia beb??, sentirse propensa al llanto, dificultad para concentrarse, p??rdida de peso sin apetito, agotamiento, sentirse abrumada o ansiosa, desesperaci??n, pensamientos de lastimarse a usted misma o garcia beb??. Estos s??ntomas son importantes y deben ser discutidos con garcia doctor o partera. La depresi??n postparto puede desarrollarse con el tiempo y necesita atenci??n m??dica inmediata. No sufra en silencio. Tanto en el folleto de??Formando aliza riddhi??salvador en la??Gu??a de nuevos comienzos de [facility]??hay unaherramienta de detecci??n utilizada para identificar a las mujeres en riesgo, llamada la Escala de Edimburgo, la cual usted ya dorothy?en la oficina antes del parto y otra vez michelle garcia estad??a en el hospital. Verifique con garcia m??dico de sunny a cuatro semanas despu??s de garcia parto y antes de garcia wes de postparto, tome esta prueba y comparta sully resultados con garcia m??dico. Aseg??rese de mencionar cu alquier puntuaci??n de 10 o m??s.?? Muchas mujeres e incluso, algunas parejas, pueden sentir la tristeza del beb?o baby blues . [place] es un estado de sentimientos abrumadores y de llanto. Molestias por el parto, cambios hormonales, cansancio, cambios a garcia cuerpo y estilo de kevin son algunas de las cosas que contribuyen a las altasy bajas a las cuales se enfrentan los nuevos padres. No tenga miedo en pedirle ayuda a garcia maggie, riddhi o amigos en la casa para poder descansar o tener algunos minutos para usted. Los blues pasar??n r??pidamente.?? Seguridad personal:?? [Personal Safety:]?? Toda persona tiene derecho a sentirse hernandez en garcia casa y a vivir hussein de da??os f??sicos o emocionales. Si wild sufrido abuso f??sico o mental en garcia casa, no est?caroline. Hay ayuda. Por favor llame ala l??beth de ayuda al o al programa [facility] ms [phone].?? Scheduled Follow-Up Appointments 2022 9:30 AM EDT ?? Where: [facility] Non [address] [address]- Status: Pending Thursday 1:10 PM EDT ?? With: Fatou Shankar CNM Where: [facility] Non [address] [address]- Status: Pending Thursday 1:30 PM EST ?? With: Gia Belle CNM Where: [facility] Non [address] [address]- Status: Pending Discharge Medications DANIEL TENA :1995 Visit Date:06/30/2023 Medications: Please continue your medications until treatment is completed or stopped by your provider. Medications not listed below should be discontinued. Discuss any questions related to medications with your provider. What How Much When Instructions Next Dose New Ibuprofen (ibuprofen 800 mg oral tablet) 800 Milligram Oral Every 8 hours as needed for Pain , Moderate Refills: 1 (4-6), may give 400mg per patient preference and re-dose with 400mg within 8 hours if needed. ?? Patient should only receive a total of 800mg of Ibuprofen every 8 hours. ?? Pickup at [facility] #04014 anytime after 1pm New Polyethylene Glycol 3350 (MiraLax oral powder for reconstitution) See instructions For constipation: one capful by mouth, every day, titrate up to effect if need be. ?? Pickup at [facility] #[id number] Unchanged Acetaminophen (Tylenol Extra Strength 500 mg oral tablet) 2 tab(s) Oral Every 4 hours as needed for for pain Pickup at [facility] #[id number] anytime Unchanged Cetirizine (ZyrTEC 10 mg oral tablet) 1 tab(s) Oral Daily Unchanged Docusate (docusate sodium 100 mg oral capsule) 1 capsule Oral Twice a day as needed for for constipation Pickup at [facility] #[id number] Unchanged Ferrous Sulfate (ferrous sulfate 325 mg oral tablet) 1 tab(s) Oral Daily Duration: 90 Days Unchanged Guaifenesin (Mucinex) 600 Milligram Oral Every 12 hours Unchanged Multivitamin With Iron (Flintstones Complete oral tablet, chewable) 1 tab(s) Chew Twice a day Duration: 90 Days Unchanged PredniSONE (predniSONE 20 mg oral tablet) 3 tab(s) Oral Daily Duration: 3 Days Pharmacy Information [facility] #[id number]: [address] [place], [place] [id number] [phone] ?? What How Much When Comments Stop Taking Durable Medical Equipment ( Cradle) See instructions see package for instructions ?? Test Results Below is a partial list of the most recent Laboratory test results done prior to this discharge. You may have had other tests and procedures not included in this list. Please discuss all test resultswith your provider. Bleed Screening - Negative (07/01/2023) RHIG Available - PT (07/01/2023) RHIG Candidacy Screen - Patient is a candidate for RhIG. Place order (07/01/2023) RHIG LOT # - [id number] (07/01/2023) CBC (06/30/2023) ???WBC - 13.6 k/mm3???RBC - 3.39 m/mm3???Hgb - 10.2 Gm/dL???Hct - 31.9 %???MCV - 94.1 femtoliters???MCH - 30.1 pg???MCHC - 32.0 g/dL???Platelet Count - 302 k/mm3???RDW-SD - 43.8 femtoliters???MPV - 9.3 femtoliters???Nucleated RBC (Automated) - 0.0 #/100 WBC'S???Abs. NRBC - 0.0 k/mm3 Allergies (NKA means No Known Allergies) NKA Problems Active Problems??(11) Anemia?? Chlamydia?? Constipation in ?? Excess weight gain in ?? History of depression? Rh negative status during ?? Severe obesity?? Uses Comoran as primary spoken language?? UTI in ?? Education Materials Below is the list of Educational Leaflet Providered with your Discharge Instructions. Valuables and Belongings I fully understand and agree that [facility] accepts no responsibility for all my personal [...] encouraged to send valuables and belongings home. ?? Review of Valuable and Belonging List: With patient Date for Pt to Sign Valuables/Belongings: 07/01/23 06:02:00 ?? Other Discharge Information ? Pulmonary Rehab Status?? [...] are strongly encouraged to quit. Please call [facility] at [phone] or [phone] Social ([phone]) or log in to [email or web address] for referrals to smoking cessation programs. ?? 955 Suicide & Crisis Lifeline is available 27/04 if you or someone you know needs to find a reason to keep living. By calling 695 you'll be connected to a skilled, trained counselor at a crisis center in your area. INPATIENT DISCHARGE INSTRUCTIONS SIGNATURE PAGE DANIEL TENA Location:[facility] Registration Date and Time:06/30/2023 08:50 EDT Primary Care Physician: Lilli Diaz MD, Farzana Feliciano, Attending Physician: Andrew Germain DO, I DANIEL TENA, have received the above patient education materials/instructions and have verbalized understanding. If ambulance or transport services are being used I further acknowledge being given a choice of service. ?? If you need to contact me, please call me at this number: . Patient/Checker In Name: Patient/Checker In Signature: Relationship to Patient: Witness Name/Signature: Date: * Camille Quezada RN: PERFORM Event Display: Care Team Progress Note Authored Date: [id number] Patient: ??DANIEL TENA ? Age:??28 Years?Sex:??Female?:??1995?? Subjective Patient reports she breastfed her other 3 children. She states baby has been latching well on both breasts since delivery and she can feel a strong tug when baby is nursing. She is starting to feel sore and requests nipple cream. She would like assistance obtaining a new insurance issued breast pump. Assessment/Plan consult on PPD#1 w/ 28y/o mother of 39w2d baby girl delivered vaginally. brick paver used for entirety of consult. Baby attempting to latch on R breast in cradle hold at time of consult. Female friend at the bedside explains she is here to help with as well. Deep, asymmetric latch noted. Intermittent swallows audible. Pt declines latching assistance at the time stating she is comfortable with and that her friend is here to assist her as well. ?? Sore nipple care reviewed: Applying colostrum/milk at end of feeding Air drying nipples Use of Lanolin cream - sample tube given Deep asymmetric latch Breaking oral??suction at end of feeding to prevent further soreness ?? secured a new Medela breast pump through insurance and delivered to pt. Consultation reference guide given to mother with contact information for services and ongoing support as needed.? OB Summary : 5 Parity: 3 . Baby A - Weight: 3.268 kg Baby A - Date, Time of : 07/01/23 03:21:00 Baby A - Gender: Female Baby A - Complications: Meconium stained fluid EGA at Documented Date, Time: 39W 2D Weight at Delivery Baby A - Delivery Type: Vaginal Delivery Complications: None OB History History?(3,0,1,3)? # 1 ?Baby 1 ?Outcome Date:??04/26/2011?Outcome or Result:??Vaginal ?Gest Age:??Fullterm ? Outcome:??Live ? Sex:??Male?Wt:?2892 g ?Hospital:??[facility] ?? # 2 ?Baby 1 ?Outcome Date:??11/03/2015?Outcome or Result:??Vaginal ?Gest Age:??Fullterm ? Outcome:??Live ? Sex:??Female?Wt:?2863 g ?Hospital:??[facility] ?? # 3 ?Baby 1 ?Outcome Date:??08/19/2017?Outcome or Result:??Vaginal ?Gest Age:??Fullterm ? Outcome:??Live ? Sex:??Female?Wt:?2920 g ?Hospital:??[facility] ?? # 4 ?Baby 1 ?Outcome Date:??2019 ?Outcome or Result:??Spontaneous ?Gest Age:??Unknown ? Outcome:? Sex:??-- Active Problem List Active Problem List Anemia: (Medical) Chlamydia: (Medical) Constipation in : (Medical) Excess weight gain in : (Medical) History of depression: (Medical) : (Obstetric) (09/27/22) : (Medical) Rh negative status during : (Medical) Severe obesity: (Medical) Uses Comoran as primary spoken language: (Medical) UTI in : (Medical) Home Medications Acetaminophen: 1,000 mg = 2 tablet, By Mouth, Every 4 hours, PRN (for pain) Cetirizine: 10 mg = 1 tablet, By Mouth, Daily Docusate: 100 mg = 1 capsule, By Mouth, 2 times a day, PRN (for constipation) Ferrous Sulfate: 325 mg = 1 tablet, By Mouth, Daily Guaifenesin: 600 mg, By Mouth, Every 12 hours Ibuprofen: 800 mg, By Mouth, Every 8 hours, PRN (Pain , Moderate), (4-6), may give 400mg per patient preference and re-dose with 400mg within 8 hours if needed. ?? Patient should only receive a totalof 800mg of Ibuprofen every 8 hours. Multivitamin With Iron: 1 tablet, Chew, 2 times a day PredniSONE: 60 mg = 3 tablet, By Mouth, Daily Medications Medications (7) Active SCHEDULED: (1) RhoGAM (RhoGAM Inj) ??300 mcg, Intramuscular, Once CONTINUOUS: (1) Lactated Ringers (1000 mL) Cont IV 1,000 mL (Lactated Ringers 1,000 mL) ??1,000 mL, IV Infusion, 125 mL/hr PRN: (5) Acetaminophen 325 mg Tablet (Acetaminophen Tablet) ??650 mg, By Mouth, Every 4 hours Docusate Sodium 100 mg Capsule (Colace sodium 100 mg oral capsule) ??100 mg 1 capsule, By Mouth, 2 times a day Ibuprofen 800 mg Tablet (Ibuprofen Tablet) ??800 mg, By Mouth, Every 8 hours Ondansetron 2mg/mL Inj (2mL Vial) (Ondansetron Inj) ??4 mg, IV Push, Every 6 hours Senna Tablet (Senna 8.6 mg oral tablet) ??8.6 mg 1 tablet, By Mouth, Daily * Travis Craig CNM: MODIFY, PERFORM Event Display: Discharge/Transfer Note Hospital Authored Date: [id number] Patient: ??DANIEL TENA ? Age:??28 Years?Sex:??Female?:??1995?? Admit Date Admission Date: 06/30/2023 Discharge Date 07/02/2023 OB Reason for Admission OB Reason for Admission Reason for admission: Induction of labor Reason for Induction: Elective Method of Induction: Cervical Arguello Inpatient, Misoprostol Hospital Course Daniel reports feeling tired and experiencing some cramping and feeling that her labia is still swollen.?? She reports not receiving ice for her perineum.?? She has been up and ambulating today but mostly resting.?? The experience of an induction was much different to coming in in labor.?? She reports some back soreness where the epidural was placed.?? Offered early discharge but patient declined desires to go home tomorrow.?? Doing well overall except for constipation. OBN Hospital Course Pt was admitted on??06/30/2023 for an elective IOL, Misoprostol and arguello bulb, and progressed appropriately. She delivered vaginally on??07/01/2023?? over an intact perineum. Her was complicated by anemia, depression, and RH negative status. Her course was unremarkable. She is meeting all PP milestones and feels ready to be discharged today.??Plan for discharge is routine.? Subjective: Feeling??well overall after??vaginal delivery. Some cramping, but gets cramping relief from ibuprofen and tylenol. Reports moderate pain of perineum and is using peribottle to good effect. Denies??dizziness, lightheadedness. Lochia diminishing and no large clots - ?? like a heavy period .Voiding and ambulating without difficulty;??Has not had??a??BM since before. Denies LE pain, warmth, redness, swelling. well with some supplementation; Denies nipple cracking/bleeding,??some engorgement. Denies overwhelming feelings of depression/anxiety.??Will have??support from family at home. Planning??IUD??for PP BCM. Objective/Physical Exam on Day of Discharge Vitals & Measurements T:??97.7?F?? HR:??79??(Peripheral)?? RR:??18?? BP:??117/69?? SpO2:??99%?? HT:??151??cm?? WT:??96.2??kg?? BMI:??42.19?? Constitutional: -Normal affect Breast: -WNL Abdomen: -Soft, nontender, nondistended -Fundus firm, midline, -2 Perineum: -intact, no edema -mild lochia rubra Extremities: -no swelling, no tenderness ? Assessment/Plan/Discharge Diagnosis care following vaginal delivery (Z39.2):?? day 2 follow normal SVB. Meeting milestones. Normal exam Desires IUD at [facility] Reviewed discharge instructions, including normal involution, warning signs, signs of PPD, and how/when to contact CNM or seek medical attention. Follow up at routine outpatient visit in 3weeks. Appointment card given. Discharge home today. ?? Anemia (D64.9):??Taking iron daily H&H on admission - 10.2/31.9 Ferrous sulfate recommended PP ?? History of depression (Z86.59):??No medications, has therapist Monitor Nurse visit to follow up requested on 07/09 ?? Rh negative status during (O26.899):??Rhogam given in Fe; reason for pos screen. Rhogam @ 28wks given 04/13 Given in house ?? Uses Comoran as primary spoken language (Z78.9):??brick paver as needed ?? Care: depression increased risk Future Appointments 2022 9:30 AM EDT ?? Where: [facility] Non [address] [address]- Status: Pending Thursday 1:10 PM EDT ?? With: Fatou Shankar CNM Where: [facility] Non [address] [address]- Status: Pending Thursday 1:30 PM EST ?? With: Gia Belle CNM Where: [facility] Non [address] [address]- Status: Pending Delivery Summary Delivery Summary Maternal Information ??Labor Information ?Baby A ?Labor Onset Methods: ??Induced ?Induction Methods: ??Cervical Arguello Inpatient, Misoprostol, Pitocin ??Delivery Information ?Gestational Age at Delivery: ??39W 2D ?Anesthesia OB: ??Epidural ??07/01/23 05:33:04, Epidural ??07/01/23 01:03:28 ?Obstetrical Laceration: ??Perineum intact ?Delivery Complications: ??None ?Blood Loss(ml): ??300 mL ? Baby A ??Delivery Information ?Delivery Type: ??Vaginal ?Date, Time of : ??07/01/23 03:21:00 ? Position: ??Supine ?Foot of bed removed: ??No ?Delayed Cord Clamping: ??Yes ?Placenta Delivery Date/Time: ??07/01/23 03:30:00 ?Placenta Delivery Method: ??Spontaneous ?Placenta Appearance: ??Normal ?Placenta to Pathology: ??No ??Care Team ?Delivery CNM: ??Keshawn GUADALUPEM, Galina Saenzette ?personal vehicle advisor #1: ??Levar RIVERA, Avis ?personal vehicle advisor #2: ??Telma RIVERA, Cortney ?Commuter Pilot: ??Radha Falcon MD ?Anesthesiology Attending: ??Flaca David GARCÍA ?Time NICU Team Called: ??07/01/23 03:15:00 ??Labor Information ?ROM Date, Time: ??07/01/23 01:25:00 ?ROM to Delivery Total Time: ??116 min ? monitoring: ??External monitor ?? Information ? Outcome: ??Live ? Position: ??Occiput anterior ? Weight: ??3.268 kg ? Score 1 minute: ??8 ? Score 5 minute: ??9 ? Score 10 minute: ??9 ?Transferred To: ?? Care area with Family ?Umbilical Cord Description: ??3 vessel cord ? Complications: ??None ?Gender: ??Female ? Procedures Performed Epidural Vaginal delivery ?? Discharge Medications ???Acetaminophen (Tylenol Extra Strength 500 mg oral tablet)???Cetirizine (ZyrTEC 10 mg oral tablet)???Docusate (docusate sodium 100 mg oral capsule)???Ferrous Sulfate (ferrous sulfate 325 mg oral tablet)???Guaifenesin (Mucinex)???Ibuprofen (ibuprofen 800 mg oral tablet)???Multivitamin With Iron (Flintstones Complete oral tablet, chewable)???PredniSONE (predniSONE 20 mg oral tablet) Stop taking these medications ???Durable Medical Equipment ( [employer]) Immunizations during Hospitalization Vaccine Date Status tetanus/diphtheria/pertussis, acel(Tdap) 04/13/2023 Given Contraception IUD at visit ? Feeding Method No Results Lab Results Hematology Event Name?? Event Result?? Date/Time?? WBC 13.6 k/mm3??High 06/30/23 12:49:00 RBC 3.39 m/mm3??Low 06/30/23 12:49:00 Hgb 10.2 Gm/dL??Low 06/30/23 12:49:00 Hct 31.9 %??Low 06/30/23 12:49:00 MCV 94.1 femtoliters 06/30/23 12:49:00 MCH 30.1 pg 06/30/23 12:49:00 MCHC 32 g/dL??Low 06/30/23 12:49:00 Platelet Count 302 k/mm3 06/30/23 12:49:00 RDW-SD 43.8 femtoliters 06/30/23 12:49:00 MPV 9.3 femtoliters??Low 06/30/23 12:49:00 Nucleated RBC (Automated) 0 #/100 WBC'S 06/30/23 12:49:00 Abs. NRBC 0 k/mm3 06/30/23 12:49:00 ? Blood Bank Event Name?? Event Result?? Date/Time?? RHIG Candidacy Screen Patient is a candidate for RhIG. Place order 07/01/23 15:09:02 Bleed Screening Negative 07/01/23 15:08:26 RHIG LOT # [id number] 07/01/23 15:08:48 RHIG Available IS 07/01/23 15:08:48 ? * Travis Craig CNM: PERFORM Event Display: Discharge/Transfer Note Hospital Authored Date: Patient desired to stay another night instead of an early discharge.?? Today she reports feeling much better and prepared to be discharged home.?? She reports pain has subsided, eating and drinking well.?? Lower back pain is mild.?? Bleeding is minimal and she is well except for shallow latch causing some nipple excoriation.?? Assisted with latch, good supply noted.?? Rx's sent to pharmacy. Patient Care team information Care Team Personnel Name: Farzana Meadows MD Position: [facility] Outreach Member Role: PCP Address: Address: [address] [place] [address] [address] [place] [address]- Name: Noam RIVERA, Lauren Position: [facility] OB RN Member Role: Patient Care Provider Care Team Related Persons Name: MERVIN LÓPEZ Address: home [address] [place] [address] Name: MERVIN PARKER Address: home [address] [place] [address] Name: DANIEL TENA GIRL Address: [id number] Address: home [address] [place] [address] [place] [address] Name: ANNEMARIE TENA Address: [address] [place] [address]
--- OUTSIDE RECORDS SUMMARY | 2023-09-18 19:55 | XMS_ITS | Continuity of Care Document ---
Author Name Unknown Organization [facility] ter Address [address] [place] [id number]- Care Team Providers Care [employer] Officer Name Role Phone Lilli Diaz MD, Farzana Feliciano Primary Care Physici an Encounter [facility] [place] Date(s): 06/24/23 - 06/24/[address] [address]- Discharge Disposition: A-D/C Home Attending Physician: Cheo Castillo MD Admitting Physician: Cheo Castillo MD Referring Physician: Cheo Castillo MD Allergies, Adverse Reactions, Alerts No Known Allergies Immunizations Given and Recorded Vaccine Date Status Refusal Reason tetanus/diphtheria/pertussis, acel(Tdap) 04/13/23 Given Medications docusate sodium 100 mg oral capsule 100 mg, 1, capsule, By Mouth, 2 times a day, PRN, # 60 capsule, Refills 3, Tot. Refills 3, Maintenance, for constipation, 06/10/23 12:40:00 EDT, Route to Pharmacy Electronically, [id number], Partial fill upon patient request if the pr... Start Date: 06/10/23 Status: Ordered ferrous sulfate 325 mg oral tablet 1 tablet = 325 mg, By Mouth, Daily, # 90 tablet, 3 Refills, Maintenance, 02/18/23 13:57:00 EDT, [id number], Partial fill upon patient request if the prescription is for a schedule IIopioid drug., 150, cm, 02/17/23 11:14:00 EDT, [facility]... Start Date: 02/18/23 Stop Date: 02/13/24 Status: Ordered Flintstones Complete oral tablet, chewable 1 tablet, Chew, 2 times a day, # 180 tablet, 0 Refills, Maintenance, 03/21/23 19:00:00 EDT, [facility] #[id number], Partial fill upon patient request if the prescription is for a schedule II opioid drug., 1 tablet Chew 2 times a day,x90 days, 150... Start Date: 03/21/23 Stop Date: 06/19/23 Status: Ordered Cradle See Instructions, # 1 each, Maintenance, see package for instructions, 07/20/17 18:29:54 EDT, Compound Start Date: 07/20/17 Status: Ordered terconazole topical 0.8% cream 1 application, Vaginally, Daily at bedtime, for 3 days, # 20 Gm, 0 Refills, Acute 06/27/23 13:20:00EDT, 06/24/23 13:20:00 EDT, Cream, [facility] #[id number], Partial fill upon patient request if the prescription is for a schedule II opioid drug.... Start Date: 06/24/23 Stop Date: 06/27/23 Status: Ordered Tylenol Extra Strength 500 mg oral tablet 2 tablet = 1,000 mg, By Mouth, Every 4 hours, PRN for pain, # 120 tablet, 0 Refills, Maintenance, 04/08/23 12:23:00 EDT, Tablet, [facility] #[id number], Partial fill upon patient request if the [...] Active History of depression Confirmed Active Uses Italian as primary spoken language Confirmed Active Confirmed Active Rh negative status during Confirmed Active Severe obesity Confirmed Active UTI in Confirmed Active Vital Signs Most recent to oldest [Reference Range]: 1 Weight 96.1 kg (06/24/23 12:02 PM) Oxygen Saturation [94-100 %] 100 % (06/24/23 12:02 PM) Blood Pressure [90-138/55-84 mm Hg] 130/ 69mm Hg (06/24/23 12:02 PM) Respiratory Rate [16-30 br/min] 18 br/mi n (06/24/23 12:02 PM) Temperature [96.8-100.4 DegF] 96.1 DegF *L* (06/24/23 12:02 PM) Blood pressure sites Arm, left (06/24/23 12:02 PM) Temperature Route Oral (06/24/23 12:02 PM) Dry Weight 96.1 kg (06/24/23 12:02 PM) Weight Obtained Via Standing scale (06/24/23 12:02 PM) Dry Weight Obtained Via Standing scale (06/24/23 12:02 PM) Social History Social History Type Response Smoking Status Former smoker, quit more than 30 days ago;Never; Exposure to Secondhand Smoke: Yes; Other: occasional cigarettes for 2 months, none since ; entered on: 12/02/22 Sex History and physical note * Galina Liao CNM: PERFORM Event Display: History and Physical Hospital Authored Date: Patient: ??JER TENA ? Age:??28 Years?Sex:??Female?:??1995?? OB Reason for Admission OB Reason for Admission?? No qualifying data available. LMP/EGA/RILEY Gestational Age (EGA) and RILEY? * Note: EGA calculated as of 06/24/2023 ?? RILEY:??07/06/2023?EGA*:??38 weeks 2 days ? History?(3,0,1,3)?Method:??Last Menstrual Period??(09/29/2022) History of Present Illness Jer presents to [facility] with complaints of irregular but painful contractions, as well as yellowish discharge and vaginal irritation. Has been having??irregular contractions for days, but feels??they are more uncomfortable today and sometimes cause pain??in her vagina. They are worse when she is wa lking and better when she rests. She is not sure how far apart they are.??Denies vaginal bleeding or LOF. Baby is moving well. Review of Systems Constitutional??- neg Resp??- Neg Cardio??- Neg Urinary??- no dysuria, frequency, odor, hematuria [employer]??- yellowish vaginal discharge, vaginal discomfort, no pain, no bleedning GI??- no nausea, diarrhea, vomiting, pain Neuro??- neg, no headaches Psych??- neg OB-Denies LOF or bleeding. +FM Physical Exam Vitals & Measurements T:??96.1?F?? HR:??84??(Monitored)?? RR:??18?? BP:??130/69?? SpO2:??100%?? WT:??96.1??kg?? Constitutional Appearance:??Normal affect.?? Respiratory:??WNL, clear to auscultation Cardiovascular:??WNL, RRR, no murmurs auscultated?? Abdomen/GI:??Normal Exam.?Fundus firm: Soft, not Tender.?Obese.?Not Tender.?No Masses.?? Skin:??Normal exam.?? Neurological/Psychiatric:??Normal Exam ?Orientation: Time, Place, Person.?Affect: Normal.? OB/Pelvic Exam? presentation: vertex ?Confirmed by: eloise ? Est Weight: 3000g ?Pelvis size: WNL, adequate ?Pelvic Exm: WNL ?Vulva: WNL, no lesions ?Vagina:??thick white/light??yellow adherent??discharge ?cervical dilation/effacement/station: 1/50/-4 ?cervical position: mid ?cervical consistency: soft ?membrane status: intact ?pooling: neg ?? Wet prep: +yeast, no clue cells, no trich ? NST: ? Baseline: 140 ?Variability_moderate ?Accels_Present ?Decels_Absent ?Contractions: irregular, 0-1 in 10, mild ?Category 1 ?Reactive NST?? OB Assessment Baby A Baseline:140 Baseline Description:Normal, 110-160 bpm Baseline Variability:Moderate variability Accelerations:Present 2 or more Deceleration:None Activity:Present Membrane Status:Intact Uterine Number of Contractions per 10 minutes1 Monitor Mode, UterinePalpation, External Cervical Cervical Dilatation1 cm Cervical Desfkfwhho71% Station-4 Assessment/Plan False labor (O47.9):?? at term False labor Reactive NST, rare contractions Reassuring maternal/ status Reviewed s/sx of false vs early vs active labor, warning signs, how/when to call CNM or return to [facility] for evaluation Has IOL scheduled 06/29 @ 8pm. Reports 06/28 or 06/27 would be better for childcare purposes. CNM willpass on to keep patient in mind if sooner appointments become available. Discharged home ambulatory. ?? Vaginal yeast infection (B37.31):??Yeast present on wet prep Rx'd terazol 3 rather than 7 day due to impending delivery ?? OB History History?(3,0,1,3)? # 1 ?Baby 1 ?Outcome Date:??04/26/2011?Outcome or Result:??Vaginal ?Gest Age:??Fullterm ? Outcome:??Live ? Sex:??Male?Wt:?2892 g ?Hospital:??[facility] ?? # 2 ?Baby 1 ?Outcome Date:??11/03/2015?Outcome or Result:??Vaginal ?Gest Age:??Fullterm ? Outcome:??Live ? Sex:??Female?Wt:?2863 g ?Hospital:??[facility] ?? # 3 ?Baby 1 ?Outcome Date:??08/19/2017?Outcome or Result:??Vaginal ?Gest Age:??Fullterm ? Outcome:??Live ? Sex:??Female?Wt:?2920 g ?Hospital:??[facility] ?? # 4 ?Baby 1 ?Outcome Date:??2019 ?Outcome or Result:??Spontaneous ?Gest Age:??Unknown ? Outcome:? Sex:??-- Labs Labs Labs & Tests Antibody Screen: Negative (04/13/23) Blood Type: A Negative (11/01/22) Chlamydia Trachomatis Amplified Probe: NEGATIVE (06/10/23) Creatinine-Blood: 0.6 mg/dL (11/01/22) Glucose 50 Gm, [...] List Active Active Problem List Anemia: (Medical) Constipation in : (Medical) COVID-19 affecting in first trimester: (Medical) (10/04/22) Excess weight gain in : (Medical) History of depression: (Medical) : (Obstetric) (09/27/22) : (Medical) Rh negative status during : (Medical) Severe obesity: (Medical) Uses Italian as primary spoken language: (Medical) UTI in [...] mg = 1 tablet, By Mouth, Daily Multivitamin With Iron: 1 tablet, Chew, 2 times a day Terconazole Topical: 1 application, Vaginally, Daily at bedtime Allergies NKA Social History Alcohol Use: Past. [...] High cholesterol; Hypertension Pat. Grandmother: Hypertension Plan No Data Found Note * Enid Hoffmann RN: PERFORM Event Display: Discharge/Transfer Note Hospital Authored Date: Nursing Discharge Note Entered On: 06/24/2023 13:17 EDT Performed On: 06/24/2023 13:17 EDT by Enid Hoffmann RN Nursing Discharge Note 2 Discharge Time : 06/24/2023 13:17 EDT Discharge Level of Care at Discharge : Home/Long-Term/Foster Care Patient Left Unit Via : Ambulatory Patient Accompanied Off Unit with : Other: Discharged home ambulatory with son DC Instructions Provided & Signed by Pt : Yes Patient Understands D/C Instructions : Yes Patient Instructions Discharge Signed : Yes Did Pt have Specialty Bed or Wound Vac : No Enid Hoffmann RN - 06/24/2023 13:17 EDT * Enid Hoffmann RN: PERFORM Event Display: Patient Education/Instruction Authored Date: [id number] Inpatient Adult Discharge Instructions [address] [address] Name: JER TENA : 1995 Visit: 06/24/2023 11:43:00 Current Date: 06/24/2023 13:14 Account: [id number] Inpatient Adult Discharge Instructions We would like [...] and their families. Surveys are administered by [employer], [employer]. ?? If further treatment with your primary care physician or another doctor is recommended, it is important for you to keep the appointment. Call your primary care physician or return to the Emergency Department immediately if your condition worsens, fails to improve, or new symptoms develop. If you need to find a doctor, you can call [facility] [employer] for a referral at [phone] or toll free at [phone] Cooler ([phone]) or log in to [email or web address].. ?? [facility], in keeping with [facility] guidance, no longer requires face masks for [...] a health care ruth of your choosing. [employer] is a website that allows you to securely view your medical information including your hospital discharge summary, office visit summaries, medications and follow-up visits. You can also request appointments, renew medications, and request access to your medical information using a health care ruth of your choosing, or just ask a question. You can enroll at [email or web address] or register during your next office visit. You have been discharged from [facility], Patient Care Unit: [facility]. If you have any questions regarding these instructions after you leave, please call us and we will be happy to assist you. [facility] Your Care Team Attending Physician Cheo aCstillo MD Tests Performed Below is a partial list of the tests performed during your hospitalization. You may have had other tests and procedures not included in this list. Please discuss all test results with your provider. Primary Care Provider Farzana Meadows MD Advance Directive Health Care Proxy on File No Discharge Vitals Temperature:??96.1 DegF??Low Weight: 96.1 kg Respiratory Rate: 18 br/min ?? Systolic Blood Pressure: 130 mm Hg ?? Diastolic Blood Pressure: 69 mm Hg ?? Oxygen Saturation: 100 % ?? Studies Pending All tests and labs ordered during this hospital stay have been completed unless listed below. Please discuss all pending results with your provider listed above in these instructions. ?? Chlamydia/N. Gonorrhoeae TMA (NAAT) What to do next Instructions From Your Doctor Discharge Orders Scheduled Follow-Up Appointments Thursday 10:00 AM EDT ?? With: Jeannine Hathaway CNM Where: [facility] [employer] [address] [place] [address]- Status: Pending You Need to Schedule the Following Appointments Follow Up with??Galina Liao CNM Why: Call POD C, Labor and delivery prior to induction Where: [address] [place] [address] [place] [address]- Discharge Medications JER TENA :1995 Visit Date:06/24/2023 Medications: Please continue your medications until treatment is completed or stopped by your provider. Medications not listed below should be discontinued. Discuss any questions related to medications with your provider. What How Much When Instructions Next Dose Unchanged Acetaminophen (Tylenol Extra Strength 500 mg oral tablet) 2 tab(s) Oral Every 4 hours as needed for for pain Unchanged Cetirizine (ZyrTEC 10 mg oral tablet) 1 tab(s) Oral Daily Unchanged Docusate (docusate sodium 100 mg oral capsule) 1 capsule Oral Twice a day as needed for for constipation Unchanged Durable Medical Equipment ( Cradle) See instructions see package for instructions ?? Unchanged Ferrous Sulfate (ferrous sulfate 325 mg oral tablet) 1 tab(s) Oral Daily Duration: 90 Days Unchanged Multivitamin With Iron (Flintstones Complete oral tablet, chewable) 1 tab(s) Chew Twice a day Duration: 90 Days Test Results Below is a partial list of the most recent Laboratory test results done prior to this discharge. You may have had other tests and procedures not included in this list. Please discuss all test resultswith your provider. Allergies (NKA means No Known Allergies) NKA Problems Active Problems??(11) Anemia?? Constipation in ?? COVID-19 affecting in first trimester?? Excess weight gain in ?? History of depression? Rh negative status during ?? Severe obesity?? Uses Italian as primary spoken language?? UTI in ?? Education Materials Below is the list of Educational Leaflet Providered with your Discharge Instructions. Kick Counts?? Labor Induction?? Recognizing Labor?? Valuables and Belongings I fully understand and agree that [facility] accepts no responsibility for all my [...] are strongly encouraged to quit. Please call [facility] at [phone] or [phone] Cooler ([phone]) or log in to [email or web address] for referrals to smoking cessation programs. ?? 471 Suicide & Crisis Lifeline is available 27/04 if you or someone you know needs to find a reason to keep living. By calling 877 you'll be connected to a skilled, trained counselor at a crisis center in your area. INPATIENT DISCHARGE INSTRUCTIONS SIGNATURE PAGE JER TENA Location:[facility] Registration Date and Time:06/24/2023 11:43 EDT Primary Care Physician: Farzana Meadows MD, Attending Physician: Cheo Castillo MD, I JER TENA, have received the above patient education materials/instructions and have verbalized understanding. If ambulance or transport services are being used I further acknowledge being given a choice of service. ?? If you need to contact me, please call me at this number: . Patient/Human Resources Recruiter Name: Patient/Human Resources Recruiter Signature: Relationship to Patient: Witness Name/Signature: Date: * Enid Hoffmann RN: PERFORM Event Display: Patient Education Leaflets Authored Date: [id number] Rai Dunbar ?? [id number] Conteo de patadas Es normal que le preocupe la aleisha de garcia beb??. Para saber si el beb?? est?? lenore, aliza de las cosasque puede hacer es anotar los movimientos del beb?? aliza vez al d??a. A esto se le llama conteo de patadas. ??Recuerde llevar josé anotaciones del conteo de patadas del beb?? a todas las citas con garcia proveedor de atenci??n m??dica. C??mo contar las patadas de garcia beb?? Cuente el tiempo que le lleva sentir 10??patadas, ondeos, vuelcos o giros. Lo ideal es que sienta al menos 10??movimientos en 2??horas. Es probable que sienta 10??movimientos en menos tiempo. A partir de las 28??semanas, cuente los movimientos del beb?? todos los d??as. Siga las instrucciones sobre conteo de patadas que le d?? garcia proveedor de atenci??n m??dica. Aqu?? tiene algunos consejos para contar las patadas de garcia beb??: ??? Escoja aliza hora cuando el beb?? est?? activo, salvador por ejemplo despu??s de aliza comida.? Si??ntese c??modamente o acu??stese de lado.? La primera vez que el beb?? se mueva, anote la hora.? Cuente cada movimiento hasta que el beb?? se haya movido?? 10??veces. Gentry puede llevar entre 20??minutos y 2??horas.? Si cuando termina la segunda hora no siente 10??patadas, espere unas horas. Luego vuelva a intentarlo. ??? Trate de hacer esto a la misma hora todos los d??as. ?? Cu??ndo llamar a garcia proveedor de atenci??n m??dica Llame?? de inmediato??a garcia proveedor de atenci??n m??dica en los siguientes casos: ??? Hace un par de series de conteo de patadas en el d??a y el beb?? se mueve menos de?? 10??veces en 2??horas. ??? El beb?? se mueve con rin menos frecuencia que en d??as anteriores. ??? No wild sentido movimientos del beb?? en todo el d??a. ?? Last Reviewed Date: 2020 ?? [id number] [employer]. Todos los derechos reservados. Esta informaci??n no pretende sustituir la atenci??n m??dica profesional. S??lo garcia m??dico puede diagnosticar y tratar un problema de aleisha. ?? * Enid Hoffmann RN: PERFORM Event Display: Patient Education Leaflets Authored Date: [id number] Labor Induction ?? [address] Inducci??n del parto La inducci??n del parto es aliza forma de iniciar el trabajo de parto. Erma procedimiento puede proteger garcia aleisha y la del beb??. Motivos para inducir el parto El proveedor de atenci??n m??dica puede decidir que se debe inducir el parto si continuar el embarazo conlleva un riesgo para la aleisha de la madre o del beb??. Estas afecciones incluyen lo siguiente: ??? Preeclampsia ??? Crecimiento insuficiente ??? Poco l??quido amni??pastor ??? Infecci??n de las membranas (corioamnionitis) ??? Rotura de la bolsa de karthik ??? Determinadas enfermedades, salvador la diabetes La inducci??n del parto tambi??n podr??a hacerse despu??s de las 39??semanas por motivos no m??dicos, por ejemplo si la madre vive lejos del hospital. ?? Maneras de inducir el parto El proveedor de atenci??n m??dica puede inducir el parto con 1 o m??s de los siguientes m??todos: ??? Prostaglandina.??Es un medicamento que puede administrarse en forma de pastilla, c??psula o supositorio vaginal. Se usa para ablandar, hacer m??s hu y abrir (dilatar) el temi uterino. Gentry se denomina maduraci??n cervical. Garcia proveedor de atenci??n m??dica tambi??n puede usar aliza sonda de Mendoza o un cat??ter de globo doble. La sonda se coloca en el temi uterino para abrirlo. Gentry hace que se liberen prostaglandinas naturales. ??? Pitocin (oxitocina). Es un medicamento que garcia proveedor de atenci??n m??dica le inyecta a mary??s de aliza v??a intravenosa. Es posible que la reciba unas 4? ?a??24 horas despu??s de la prostaglandina. La oxitocina ayuda a iniciar las contracciones. Se administra siempre en el hospital. ??? Rotura de la membrana. Es un procedimiento en el que garcia proveedorde atenci??n m??dica utiliza un mik??o instrumento para romper la bolsa de karthik. Se hace con mayor frecuencia en mujeres que gutiérrez dado a charlotte anteriormente. Se hace siempre en el hospital. El cuellouterino tiene que estar lo suficientemente dilatado antes de realizar erma procedimiento. Adem??s, la amisha del beb?? debe estar hacia abajo y cerca del temi uterino.? Riesgos de la inducci??n del parto Si se induce el parto, puede tener mayor riesgo de lo siguiente: ??? Tener aliza rossana??eduarda, maria del carmen puedehaber menos posibilidades si es el primer parto ??? Aliza infecci??n ??? Hospitalizaci??n m??s prolongada ??? Rotura uterina (en casos poco frecuentes) ??? Muerte (muy poco frecuente) ?? Lo que debe esperar Es posible que le administren la prostaglandina en el hospital o en garcia casa. Es necesario hacer unamonitorizaci??n despu??s de que el beb?? se ubique. Los dem??s m??todos para inducir el parto se realizan en el hospital. Tendr?? que permanecer hospitalizada hasta cameron dado a charlotte. Es posible que garcia proveedor de atenci??n m??dica le conecte monitores al abdomen. Sirven para medir las contracciones y garantizar que el beb?? no tenga zara??n problema. Sin importar la manera en la que se induzca el parto, hay varios factores que podr??an afectar el tiempo que transcurre hasta que da a charlotte. Estos incluyen el tiempo que el temi uterino tarda en abrirse y volverse m??s hu, y cu??ndo comienzan las contracciones. ?? Tenga paciencia Aunque la inducci??n del parto inicia el proceso, es posible que tenga que esperar. Las mujeres quetienen un parto inducido suelen mesfin a charlotte aproximadamente en un d??a. [place] algunas pueden tardar hasta varios d??as. ?? Last Reviewed Date: 2020 ?? 9865-1920 [employer]. Todos los derechos reservados. Esta informaci??n no pretende sustituir la atenci??n m??dica profesional. S??lo garcia m??dico puede diagnosticar y tratar un problema de aleisha. ?? * Enid Hoffmann RN: PERFORM Event Display: Patient Education Leaflets Authored Date: [id number] Recognizing Labor ?? [address] C??mo reconocer los s??ntomas del trabajo de parto El comienzo del trabajo de parto es el inicio del alumbramiento. Empezar?? a sentir contracciones trixie. Es decir, los m??sculos del ??tero se contraer??n para ayudar a empujar al beb?? hacia afuera michelle el parto. S??, es probable que haya empezado el trabajo de parto?? Signos del trabajo de parto: ??? Las contracciones son cada vez m??s trixie y m??s dolorosas, y nom??s d??will. Nicolás vez las sienta en todo el ??tero. ??? Las contracciones son regulares. Gentry quiere decir que las siente m??s o menos cada 5??a??10??minutos. Y la frecuencia entre ellas es cada vezmenor. ??? Le sale de la vagina un l??quido crawley o sanguinolento. ??? Siente que el beb?? wild desce ndido hacia la pelvis.? Se le rompe la donita. Puede ser aliza p??rdida repentina y abundante, olenta y wolf de un l??quido calixto de la vagina. ?? Probablemente no sea el trabajo de parto?? Signos de un falso trabajo de parto: ??? Las contracciones no son regulares ni trixie. ??? Siente las contracciones solo en la parte baja del ??tero. ??? Las contracciones desaparecen cuando camina o cambia de posici??n. ??? Las contracciones desaparecen despu??s de zenaida l??quidos. ?? Cu??ndo llamar a garcia proveedor de atenci??n m??dica Llame inmediatamente al proveedor de atenci??n m??dica o la cl??shayy si nota algo de lo siguiente: ??? Pierde l??quido de la vagina, con o sin contracciones. ??? Sangrado abundante salvador para necesitar aliza toalla sanitaria. ??? No siente que el beb?? se mueve tanto salvador antes. ?? Nota: Las contracciones se miden de dos maneras: ??? La duraci??n de cada contracci??n desde que empieza hasta que termina. ??? Cu??nto tiempo pasa entre aliza contracci??n y otra , es decir el tiempo entre el comienzo de aliza contracci??n y el comienzo de la siguiente. ?? Last Reviewed Date: 2020 ?? 0822-3066 [employer]. Todos los derechos reservados. Esta informaci??n no pretende sustituir la atenci??n m??dica profesional. S??lo garcia m??dico puede diagnosticar y tratar un problema de aleisha. ?? Patient Care team information Care Team Personnel Name: Farzana Meadows MD Position: [facility] Outreach Member Role: PCP Address: Address: [address] [place] [address] [address] [place] [address]- Care Team Related Persons Name: MERVIN LÓPEZ Address: home [address] [place] [address] Name: MERVIN PARKER Address: home [address] [place] [address] Name: ANNEMARIE TENA Address: home [address] [place] [address]
--- OUTSIDE RECORDS SUMMARY | 2023-09-18 19:55 | XMS_ITS | Continuity of Care Document ---
Author Name Unknown Organization [facility] Address [address] [address]- Care Team Providers Care Cargo Checker Name Role Phone Lilli Diaz MD, Farzana Feliciano Primary Care Physici [id number] Date(s): 04/14/23 - 08/12/23 [facility] [address] [address]- Attending Physician: Not on Staff, Attending MD [...] 07/02/23 8:43:00 EDT, Route to Pharmacy Electronically, [facility] #[id number], Partial fill upon patient request if the pre... Start Date: 07/02/23 Status: Ordered ferrous sulfate 325 mg oral tablet 1 tablet = 325 mg, By Mouth, Daily, # 90 tablet, 3 Refills, Maintenance, 02/18/23 13:57:00 EDT, [facility] #[id number], Partial fill upon patient request if the prescription is for a schedule IIopioid drug., 150, cm, 02/17/23 11:14:00 EDT, [facility]... Start Date: 02/18/23 Stop Date: 02/13/24 Status: Ordered Flintstones Complete oral tablet, chewable 1 tablet, Chew, 2 times a day, # 180 tablet, 0 Refills, Maintenance, 03/21/23 19:00:00 EDT, [facility] #[id number], Partial fill upon patient request if the prescription is for a schedule II opioid drug., 1 tablet Chew 2 times a day,x90 days, 150... Start Date: 03/21/23 Stop Date: 06/19/23 Status: Ordered ibuprofen 800 mg oral tablet 800 mg, By Mouth, Every 8 hours, PRN, (4-6), may give 400mg per patient preference and re-dose [id number] within 8 hours if needed. Patient should [...] Gm, 0 Refills, Maintenance, 07/03/23 9:01:00 EDT, [facility] #[id number], Partial fill upon patient request if the [...] 0 Refills, Maintenance, 07/02/23 8:43:00 EDT, Tablet, [facility] #[id number], Partial fill upon patient request if the [...] Active History of depression Confirmed Active Uses Indian as primary spoken language Confirmed Active Confirmed [...] Name: Lilli Diaz MD, Farzana Feliciano Position: [facility] Outreach Member Role: PCP Address: Address: [address] [place] [address] [address] [place] [address]- Care Team Related Persons Name: MERVIN LÓPEZ Address: home [address] [place] [address] Name: MERVIN PARKER Address: home [address] [place] [address] Name: DANIEL TENA GIRL Address: [address] Address: home [address] [place] [address] Name: ANNEMARIE TENA Address: home [address] [place] [address]
--- OUTSIDE RECORDS SUMMARY | 2023-09-18 19:55 | XMS_ITS | Continuity of Care Document ---
Author Name Unknown Organization [facility] Address [address] [address]- Care Team Providers Care Cookie Padder Name Role Phone Lilli Diaz MD, Farzana Feliciano Primary Care Physici an [facility] Date(s): 12/12/22 - 01/11/23 [facility] [address] [address]- Allergies, Adverse Reactions, Alerts No Known Allergies Medications PNV Plus oral tablet 1 tablet, By Mouth, Daily, # 90 tablet, 3 Refills, Maintenance, 12/02/22 12:56:00 EST, [facility] #[id number], Partial fill upon patient request if the [...] 12/24/22 14:30:00 EDT, Route to Pharmacy Electronically, [facility] #[id number] Tablet, Partial fill upon patient request if the p... Start Date: 12/24/22 Status: Ordered Problem List Condition Confirmation Course [...] Team Personnel Name: Farzana Meadows MD Position: [facility] Outreach Member Role: PCP Address: Address: [address] [place] [address] [address] [place] [address]- Care Team Related Persons Name: MERVIN LÓPEZ Address: home [address] [place] [address] Name: MERVIN PARKER Address: home [address] [place] [address] Name: ANNEMARIE TENA Address: home [address] [place] [address]
--- OUTSIDE RECORDS SUMMARY | 2023-09-18 19:55 | XMS_ITS | Continuity of Care Document ---
Author Name Unknown Organization [facility] Address [address] [address]- Care Team Providers Care Wage And Salary Administrator Name Role Phone Lilli Diaz MD, Farzana Feliciano Primary Care Physici an Encounter [facility] Date(s): 02/10/23 - 03/12/23 [facility] [address] [address] Allergies, Adverse Reactions, Alerts No Known Allergies Medications docusate sodium 100 mg oral capsule 100 mg, 1, capsule, By Mouth, 2 times a day, PRN, # 60 capsule, Refills 3, Tot. Refills 3, Maintenance, for constipation, 02/10/23 18:39:00 EDT, Route to Pharmacy Electronically, [facility]#[id number], Partial fill upon patient request if the pr... Start Date: 02/10/23 Status: Ordered Dulcolax 5 mg oral enteric coated tablet 1 tablet = 5 mg, By Mouth, Daily, PRN as needed for constipation, # 30 tablet, 0 Refills, Maintenance, 02/10/23 18:40:00 EDT, CR Tablet, [facility] #[id number], Partial fill upon patient requestif the prescription is for a schedule II opioid tariq... Start Date: 02/10/23 Status: Ordered ferrous sulfate 325 mg oral tablet 1 tablet = 325 mg, By Mouth, Daily, # 90 tablet, 3 Refills, Maintenance, 02/18/23 13:57:00 EDT, [facility] #[id number], Partial fill upon patient request if the prescription is for a schedule IIopioid drug., 150, cm, 02/17/23 11:14:00 EDT, [facility]... Start Date: 02/18/23 Stop Date: 02/13/24 Status: Ordered Miconazole 7 vaginal cream with applicator 1 application, Vaginally, Daily at bedtime, # 45 Gm, 0 Refills, Maintenance, 02/23/23 12:34:00 EDT,Cream, [id number], Partial fill upon patient request if the [...] Team Personnel Name: Farzana Meadows MD Position: [facility] Outreach Member Role: PCP Address: Address: [address] [place] [address] [address] [place] [address]- Care Team Related Persons Name: RENE, MERVIN Address: home [address] [place] [address] [address] [place] [address] Name: MERVIN PARKER Address: home [address] [place] [address] Name: ANNEMARIE TENA Address: home [address] [place] [address]
--- OUTSIDE RECORDS SUMMARY | 2023-09-18 19:55 | XMS_ITS | Continuity of Care Document ---
Author Name Unknown Organization [facility] Address [address] [place] [address]- Care Team Providers Care Under Cutter Name Role Phone Lilli Diaz MD, Farzana Feliciano Primary Care Physici an Encounter [facility] Date(s): 11/01/22 - 11/01/[address] [address]- Discharge Disposition: [facility] Attending Physician: Marito Campa MD Admitting Physician: Marito Campa MD Referring Physician: Not on Staff, Referring MD Allergies, Adverse Reactions, Alerts No Known [...] Threatened miscarriage in early Confirmed 11/01/22 Active Vital Signs Most recent to oldest [Reference Range]: 1 2 Oxygen Saturation [94-100 %] 100 % (11/01/22 12:28 AM) 100 % (11/01/22 12:19 AM) Pulse Rate [55-90 bpm] 80 bpm (11/01/22 12:28 AM) 99 bpm *H* (1/28/23 12:19 AM) Blood Pressure [90-138/55-84 mm Hg] 120/ 75mm Hg (11/01/22 12:28 AM) Respiratory Rate [16-30 br/min] 16 br/mi n (11/01/22 12:28 AM) 18 br/min (11/01/22 12:19 AM) Temperature [96.8-100.4 DegF] 98.1 DegF (11/01/22 12:28 AM) Mode of Delivery (Oxygen) Room air (11/01/22 12:28 AM) Room air (11/01/22 12:19 AM) Blood pressure sites Arm, left (11/01/22 12:28 AM) Temperature Route Oral (11/01/22 12:28 AM) Social History Social History Type Response Smoking Status Never (less than 100 in lifetime) entered on: 11/01/22 Sex Patient Care team information Care Team Personnel Name: Lilli Diaz MD, Farzana Feliciano Position: [facility] Outreach Member Role: PCP Address: Address: [address] [place] [address] [address] [place] [address]- Care Team Related Persons Name: MERVIN LÓPEZ Address: home [address] [place] [address] Name: MERVIN PARKER Address: home [address] [place] [address] Name: ANNEMARIE TENA Address: home [address] [place] [address]
--- OUTSIDE RECORDS SUMMARY | 2023-09-18 19:55 | XMS_ITS | Continuity of Care Document ---
Author Name Unknown Organization [facility] Address [address] [place] [address], [address] [place] [address]- Care Team Providers Care Glaze Supervisor Name Role Phone Lilli Diaz MD, Farzana Feliciano Primary Care Physici an Encounter [facility] [id number] Date(s): 06/15/23 - 06/22/23 [facility] [address] [facility], 4th [place] [address]- Attending Physician: Yanique Morales MD Referring Physician: Gia Belle CNM Allergies, Adverse Reactions, Alerts No Known Allergies Immunizations Given and Recorded Vaccine Date Status Refusal Reason tetanus/diphtheria/pertussis, acel(Tdap) 04/13/23 Given Medications docusate sodium 100 mg oral capsule 100 mg, 1, capsule, By Mouth, 2 times a day, PRN, # 60 capsule, Refills 3, Tot. Refills 3, Maintenance, for constipation, 06/10/23 12:40:00 EDT, Route to Pharmacy Electronically, [facility][id number], Partial fill upon patient request if the pr... Start Date: 06/10/23 Status: Ordered ferrous sulfate 325 mg oral tablet 1 tablet = 325 mg, By Mouth, Daily, # 90 tablet, 3 Refills, Maintenance, 02/18/23 13:57:00 EDT, [facility] #[id number], Partial fill upon patient request if the prescription is for a schedule IIopioid drug., 150, cm, 02/17/23 11:14:00 EDT, [facility]... Start Date: 02/18/23 Stop Date: 02/13/24 Status: Ordered Flintstones Complete oral tablet, chewable 1 tablet, Chew, 2 times a day, # 180 tablet, 0 Refills, Maintenance, 03/21/23 19:00:00 EDT, [facility] #[id number], Partial fill upon patient request if the [...] 0 Refills, Maintenance, 04/08/23 12:23:00 EDT, Tablet, [facility] #[id number], Partial fill upon patient request if the [...] Team Personnel Name: Farzana Meadows MD Position: [facility] Outreach Member Role: PCP Address: Address: [address] [place] [address] [address] [place] [address]- Care Team Related Persons Name: MERVIN LÓPEZ Address: home [address] [place] [address] Name: MERVIN PARKER Address: home [address] [address] Name: ANNEMARIE TENA Address: home [address] [place] [address]
--- OUTSIDE RECORDS SUMMARY | 2023-09-18 19:55 | XMS_ITS | Continuity of Care Document ---
Author Name Unknown Organization [facility] Address [address] [address]- Care Team Providers Care Ball Point Splitter Name Role Phone Farzana Meadows MD Primary Care Physici an [facility] [id number] Date(s): 01/09/23 - 02/08/23 [facility] [address] [address]- Allergies, Adverse Reactions, Alerts No Known Allergies Medications Miconazole 7 vaginal suppository 1 sprays, Vaginally, Daily at bedtime, as directed on package labeling Please provide instructions in solomon islander, # 7 supp, 0 Refills, Maintenance, 01/23/23 15:40:00 EDT, Suppository, [facility] #[id number], Partial fill upon patient request if t... [...] S Outreach Member Role: PCP Address: Address: [address] [place] [address] [address] [place] [address]- Care Team Related Persons Name: MERVIN LÓPEZ Address: home [address] [place] [address] Name: MERVIN PARKER Address: home [address] [place] [address] Name: ANNEMARIE TENA Address: home [address] [place] [address]
--- OUTSIDE RECORDS SUMMARY | 2023-09-18 19:55 | XMS_ITS | Continuity of Care Document ---
Author Name Unknown Organization [facility] Address [address] [address]- Care Team Providers Care Screwhead Stoner And Polisher Name Role Phone Lilli Diaz MD, Farzana Feliciano Primary Care Physici an [id number] Date(s): 06/17/23 - 07/23/23 [facility] [address] [address] Attending Physician: Gia Belle CNM Admitting Physician: Gia Belle CNM Referring Physician: Gia Belle CNM Allergies, Adverse Reactions, Alerts No Known Allergies Immunizations Given and Recorded Vaccine Date Status Refusal Reason tetanus/diphtheria/pertussis, acel(Tdap) 04/13/23 Given Medications docusate sodium 100 mg oral capsule 100 mg, 1, capsule, By Mouth, 2 times a day, PRN, # 60 capsule, Refills 3, Tot. Refills 3, Maintenance, for constipation, 07/02/23 8:43:00 EDT, Route to Pharmacy Electronically, [facility] #[id number], Partial fill upon patient request if the pre... Start Date: 07/02/23 Status: Ordered ferrous sulfate 325 mg oral tablet 1 tablet = 325 mg, By Mouth, Daily, # 90 tablet, 3 Refills, Maintenance, 02/18/23 13:57:00 EDT, [facility] #[id number], Partial fill upon patient request if the prescription is for a schedule IIopioid drug., 150, cm, 02/17/23 11:14:00 EDT, [facility]... Start Date: 02/18/23 Stop Date: 02/13/24 Status: Ordered Flintstones Complete oral tablet, chewable 1 tablet, Chew, 2 times a day, # 180 tablet, 0 Refills, Maintenance, 03/21/23 19:00:00 EDT, [facility] #[id number], Partial fill upon patient request if the prescription is for a schedule II opioid drug., 1 tablet Chew 2 times a day,x90 days, 150... Start Date: 03/21/23 Stop Date: 06/19/23 Status: Ordered ibuprofen 800 mg oral tablet 800 mg, By Mouth, Every 8 hours, PRN, (4-6), may give 400mg per patient preference and re-dose [id number] within 8 hours if needed. Patient should [...] Gm, 0 Refills, Maintenance, 07/03/23 9:01:00 EDT, [facility] #[id number], Partial fill upon patient request if the [...] 0 Refills, Maintenance, 07/02/23 8:43:00 EDT, Tablet, [facility] #[id number], Partial fill upon patient request if the [...] Active History of depression Confirmed Active Uses South African as primary spoken language Confirmed Active Confirmed [...] Name: Lilli Diaz MD, Farzana Feliciano Position: [facility] Outreach Member Role: PCP Address: Address: [address] [place] [address] [address] [place] [address]- Care Team Related Persons Name: MERVIN LÓPEZ Address: home [address] [place] [address] Name: MERVIN PARKER Address: home [address] [place] [address] Name: DANIEL TENA GIRL Address: [address] Address: home [address] [place] [address] Name: ANNEMARIE TENA Address: home [address] [place] [address]
--- OUTSIDE RECORDS SUMMARY | 2023-09-18 19:55 | XMS_ITS | Continuity of Care Document ---
Author Name Unknown Organization [facility] Address [address] [address]- Care Team Providers Care Rotary Shear Cutter Name Role Phone Lilli Diaz MD, Farzana Feliciano Primary Care Physici an Encounter [facility] Date(s): 01/26/23 - 02/25/23 [facility] [address] [address] Allergies, Adverse Reactions, Alerts No Known Allergies Medications docusate sodium 100 mg oral capsule 100 mg, 1, capsule, By Mouth, 2 times a day, PRN, # 60 capsule, Refills 3, Tot. Refills 3, Maintenance, for constipation, 02/10/23 18:39:00 EDT, Route to Pharmacy Electronically, [facility][id number], Partial fill upon patient request if the pr... Start Date: 02/10/23 Status: Ordered Dulcolax 5 mg oral enteric coated tablet 1 tablet = 5 mg, By Mouth, Daily, PRN as needed for constipation, # 30 tablet, 0 Refills, Maintenance, 02/10/23 18:40:00 EDT, CR Tablet, [facility] #[id number], Partial fill upon patient requestif the prescription is for a schedule II opioid tariq... Start Date: 02/10/23 Status: Ordered ferrous sulfate 325 mg oral tablet 1 tablet = 325 mg, By Mouth, Daily, # 90 tablet, 3 Refills, Maintenance, 02/18/23 13:57:00 EDT, [facility] #[id number], Partial fill upon patient request if the prescription is for a schedule IIopioid drug., 150, cm, 02/17/23 11:14:00 EDT, [facility]... Start Date: 02/18/23 Stop Date: 02/13/24 Status: Ordered Miconazole 7 vaginal cream with applicator 1 application, Vaginally, Daily at bedtime, # 45 Gm, 0 Refills, Maintenance, 02/23/23 12:34:00 EDT,[id number], Partial fill upon patient request if the [...] Team Personnel Name: Farzana Meadows MD Position: [facility] Outreach Member Role: PCP Address: Address: [address] [place] [address] [address] [place] [address]- Care Team Related Persons Name: RENEMERVIN DAY Address: home [address] [place] [address] Name: MERVIN PARKER Address: home [address] [place] [address] Name: ANNEMARIE TENA Address: home [address] [place] [address]
--- OUTSIDE RECORDS SUMMARY | 2023-09-18 19:55 | XMS_ITS | Continuity of Care Document ---
Author Name Unknown Organization [facility] ter Address [address] [place] [address]- Care Team Providers Care Bpo Specialist Name Role Phone Lilli Diaz MD, Farzana Feliciano Primary Care Physici an Encounter [facility] Date(s): 05/31/23 - 05/31/[address] [address] Discharge Disposition: A-D/C Home Attending Physician: Bonita Georges DO Admitting Physician: Bonita Georges DO Referring Physician: Bonita Georges DO Allergies, Adverse Reactions, Alerts No Known Allergies Immunizations Given and Recorded Vaccine Date Status Refusal Reason tetanus/diphtheria/pertussis, acel(Tdap) 04/13/23 Given Medications docusate sodium 100 mg oral capsule 100 mg, 1, capsule, By Mouth, 2 times a day, PRN, # 60 capsule, Refills 3, Tot. Refills 3, Maintenance, for constipation, 02/10/23 18:39:00 EDT, Route to Pharmacy Electronically, [id number], Partial fill upon patient request if the pr... Start Date: 02/10/23 Status: Ordered ferrous sulfate 325 mg oral tablet 1 tablet = 325 mg, By Mouth, Daily, # 90 tablet, 3 Refills, Maintenance, 02/18/23 13:57:00 EDT, [facility] #[id number], Partial fill upon patient request if the prescription is for a schedule IIopioid drug., 150, cm, 02/17/23 11:14:00 EDT, [facility]... Start Date: 02/18/23 Stop Date: 02/13/24 Status: Ordered Flintstones Complete oral tablet, chewable 1 tablet, Chew, 2 times a day, # 180 tablet, 0 Refills, Maintenance, 03/21/23 19:00:00 EDT, [facility] #[id number], Partial fill upon patient request if the prescription is for a schedule II opioid drug., 1 tablet Chew 2 times a day,x90 days, 150... Start Date: 03/21/23 Stop Date: 06/19/23 Status: Ordered Cradle See Instructions, # 1 each, Maintenance, see package for instructions, 07/20/17 18:29:54 EDT, Compound Start Date: 07/20/17 Status: Ordered terconazole topical 0.4% cream 1 application, Vaginally, Daily at bedtime, for 7 days, # 45 Gm, 0 Refills, Acute 06/04/23 10:46:00EDT, 05/28/23 10:46:00 EDT, Cream, [facility] #[id number], Partial fill upon patient request if the prescription is for a schedule II opioid drug.... Start Date: 05/28/23 Stop Date: 06/04/23 Status: Ordered Tylenol Extra Strength 500 mg oral tablet 2 tablet = 1,000 mg, By Mouth, Every 4 hours, PRN for pain, # 120 tablet, 0 Refills, Maintenance, 04/08/23 12:23:00 EDT, Tablet, [facility] #[id number], Partial fill upon patient request if the [...] Active History of depression Confirmed Active Uses Yakut as primary spoken language Confirmed Active Confirmed Active Rh negative status during Confirmed Active Severe obesity Confirmed Active UTI in Confirmed Active Vital Signs Most recent to oldest [Reference Range]: 1 Weight 93.5 kg (05/31/23 5:25 PM) Oxygen Saturation [94-100 %] 96 % (05/31/23 5:38 PM) Blood Pressure [90-138/55-84 mm Hg] 120/ 79mm Hg (05/31/23 5:38 PM) Respiratory Rate [16-30 br/min] 18 br/mi n (05/31/23 5:38 PM) Temperature [96.8-100.4 DegF] 98.2 DegF (05/31/23 5:25 PM) Mode of Delivery (Oxygen) Room air (05/31/23 5:38 PM) Blood pressure sites Arm, right (05/31/23 5:38 PM) Temperature Route Oral (05/31/23 5:25 PM) Dry Weight 93.5 kg (05/31/23 5:25 PM) Weight Obtained Via Standing scale (05/31/23 5:25 PM) Dry Weight Obtained Via Standing scale (05/31/23 5:25 PM) Social History Social History Type Response Smoking Status Former smoker, quit more than 30 days ago;Never; Exposure to Secondhand Smoke: Yes; Other: occasional cigarettes for 2 months, none since ; entered on: 12/02/22 Sex Note * Liliana Bui RN: PERFORM Event Display: Discharge/Transfer Note Hospital Authored Date: Nursing Discharge Note Entered On: 05/31/2023 18:20 EDT Performed On: 05/31/2023 18:20 EDT by Liliana Bui RN Nursing Discharge Note 2 Discharge Time : 05/31/2023 18:20 EDT Discharge Level of Care at Discharge : Home/Half-Way/Foster Care Patient Left Unit Via : Ambulatory Patient Accompanied Off Unit with : Other: alone DC Instructions Provided & Signed by Pt : Yes Patient Understands D/C Instructions : Yes Patient Instructions Discharge Signed : Yes Did Pt have Specialty Bed or Wound Vac : No Liliana Bui RN - 05/31/2023 18:20 EDT * Liliana Bui RN: PERFORM Event Display: Patient Education/Instruction Authored Date: [id number] Inpatient Adult Discharge Instructions [address] [id number] Name: DANIEL TENA : 1995 Visit: 05/31/2023 17:14:00 Current Date: 05/31/2023 18:16 Account: [id number] Inpatient Adult Discharge Instructions We would like [...] and their families. Surveys are administered by [employer]. ?? If further treatment with your primary care physician or another doctor is recommended, it is important for you to keep the appointment. Call your primary care physician or return to the Emergency Department immediately if your condition worsens, fails to improve, or new symptoms develop. If you need to find a doctor, you can call [facility] for a referral at [phone] or toll free at [phone] ([phone]) or log in to [email or web address] ?? You can view and manage your care through the patient portal or by using a health care ruth of your choosing. [employer] is a website that allows you to securely view your medical information including your hospital discharge summary, office visit summaries, medications and follow-up visits. You can also request appointments, renew medications, and request access to your medical information using a health care ruth of your choosing, or just ask a question. You can enroll at [email or web address] or register during your next office visit. You have been discharged from [facility], Patient Care Unit: [id number]. If you have any questions regarding these instructions after you leave, please call us and we will be happy to assist you. [facility] Your Care Team Attending Physician Bonita Georges DO Tests Performed Below is a partial list of the tests performed during your hospitalization. You may have had other tests and procedures not included in this list. Please discuss all test results with your provider. Primary Care Provider Lilli Diaz MD, Farzana Feliciano Advance Directive Health Care Proxy on File No Discharge Vitals Temperature: 98.2 DegF Weight: 93.5 kg Respiratory Rate: 18 br/min ?? Systolic Blood Pressure: 120 mm Hg ?? Diastolic Blood Pressure: 79 mm Hg ?? Oxygen Saturation: 96 % ?? Studies Pending All tests and labs ordered during this hospital stay have been completed unless listed below. Please discuss all pending results with your provider listed above in these instructions. ?? No incomplete studies found What to do next Instructions From Your Doctor Discharge Orders Scheduled Follow-Up Appointments Thursday 2:50 PM EDT ?? With: Kendell WU, Nikki Fine Head Where: [facility] [employer] [place] [place] [address]- Status: Pending Thursday 10:00 AM EDT ?? With: Gia Belle CNM Where: [facility] [employer] [place] [place] [address]- Status: Pending Thursday 10:00 AM EDT ?? With: Ravin WU Angelita Gastelum Where: [facility] [employer] Non [address] [address]- Status: Pending Thursday 10:00 AM EDT ?? With: Jeannine Hathaway CNM Where: [facility] [employer] Non [address] [address]- Status: Pending Thursday 10:00 AM EDT ?? With: Gladis Gardner CNM Where: [facility] [employer] Non [address] [address]- Status: Pending Thursday 10:00 AM EDT ?? With: Valarie Mercedes CNM Where: [facility] [employer] [place] [place] [address]- Status: Pending Discharge Medications DANIEL TENA :1995 Visit Date:05/31/2023 Medications: Please continue your medications until treatment [...] Twice a day Duration: 90 Days Unchanged Terconazole Topical (terconazole topical 0.4% cream) 1 ruth Vaginally Daily at Bedtime Duration: 7 Days Test Results Below is a partial [...] negative status during ?? Severe obesity?? Uses Yakut as primary spoken language?? UTI in ?? Education Materials Below is the list of Educational Leaflet Providered with your Discharge Instructions. Kick Counts?? Common Discomforts During ?? Back Pain During ?? Valuables and Belongings I fully understand and agree that [facility] accepts no responsibility for all my personal [...] are strongly encouraged to quit. Please call [facility] [employer] at [phone] or [phone] ([phone]) or log in to [email or web address] for referrals to smoking cessation programs. ?? 616 Suicide & Crisis Lifeline is available 27/04 if you or someone you know needs to find a reason to keep living. By calling 498 you'll be connected to a skilled, trained counselor at a crisis center in your area. INPATIENT DISCHARGE INSTRUCTIONS SIGNATURE PAGE DARINEL DANIEL Location:[facility] Registration Date and Time:05/31/2023 17:14 EDT Primary Care Physician: Farzana Meadows MD, Attending Physician: Bonita Georges DO, I DANIEL TENA, have received the above patient education materials/instructions and have verbalized understanding. If ambulance or transport services are being used I further acknowledge being given a choice of service. ?? If you need to contact me, please call me at this number: . Patient/Mortgage Funder Name: Patient/Mortgage Funder Signature: Relationship to Patient: Witness Name/Signature: Date: * Liliana Bui RN: PERFORM Event Display: Patient Education Leaflets Authored Date: [id number] Rai Dunbar ?? [id number] Conteo de patadas Es normal que le [...] que el beb?? se haya movido?? 10??veces. Bonanza puede llevar entre 20??minutos y 2??horas.? Si [...] d??a. ?? Last Reviewed Date: 2020 ?? [id number] [employer]. Todos los derechos reservados. Esta informaci??n no pretende sustituir la atenci??n m??dica profesional. S??lo garcia m??dico puede diagnosticar y tratar un problema de aleisha. ?? * CowlitzLiliana Escalona RN: PERFORM Event Display: Patient Education Leaflets Authored Date: [id number] Common Discomforts During ?? [id number] Molestias comunes irvin el embarazo Los s??ntomas de molestias debido al embarazo karyn??an de aliza wandy a otra. A continuaci??n, se enumeran algunas molestias comunes. Sin embargo, cada futura geo?? puede llegar a experimentar s??ntomasdiferentes o no: ??? N??useas y v??miguelina. Alrededor de la mitad de las mujeres embarazadas experimentan n??useas y a veces v??miguelina irvin el primer trimestre. Bonanza tambi??n se conoce salvador malestar matutino , ya que los s??ntomas son m??s trixie irvin la ma??bernardo. Algunas mujeres pueden tener n??useas y v??miguelina a lo mary del embarazo. El malestar matutino puede deberse a cambios en niveles hormonales irvin el embarazo. El malestar matutino parece agravarse con el estr??s, viajes y ciertos alimentos, salvador comidas picantes o grasosas. Ingerir mik??as porciones de comida varias veces al d??a puede ayudar a disminuir los s??ntomas. Aliza dieta moody en prote??karis y carbohidratos complejos (salvador bennett integral, pastas, bananas y vegetales de hojas verdes) tambi??n puede ayudar a disminuir las n??useas. Si el v??miguelina es grave y hace que la wandy pierda l??quidos y peso, puede tratarse de uncuadro llamado hiperemesis grav??dica . La hiperemesis puede ocasionar deshidrataci??n y requerir internaci??n para administrarle l??quidos y nutrientes en forma intravenosa. Informe a garcia proveedor de atenci??n m??dica u obstetra en magdiel de que presente v??miguelina y n??useas constantes o graves. ??? F atiga. Broseley el organismo se sobreexige para proporcionarle al feto un ambiente nutritivo, no hay dori de que aliza embarazada suele sentirse cansada. Irvin el primer trimestre, el volumen de reyna yotros l??quidos aumentan a medida que garcia organismo se adapta al embarazo. A veces, la anemia es unacausa subyacente de la fatiga. La anemia es aliza reducci??n en la capacidad de transporte de ox??shaun por parte de los gl??bulos rojos. Generalmente se debe a los bajos niveles de steven. Para verificar la existencia de anemia, se realiza un simple an??lisis de reyna irvin aliza visita . ??? Hemorroides. Debido al aumento en la presi??n del recto y perineo, el volumen sangu??antoine elevado yla ab probabilidad de estre??imiento a medida que progresa el embarazo, las hemorroides son comunes irvin la etapa final del embarazo. Evitar el estre??imiento y el estr??s puede ayudar a prevenir las hemorroides. Siempre consulte con garcia proveedor de atenci??n m??dica u obstetra antes de utilizar cualquier medicamento para tratar esta enfermedad. ??? Venas varicosas. Las venas varicosas (venas hinchadas y moradas) son comunes en las piernas y alrededor del orificio de la vagina irvin la ??ltima etapa del embarazo. En la mayor??a de los casos, las venas varicosas se producen por la presi??n incrementada en las piernas y las venas p??lvicas. Tambi??n por el mayor volumen de reyna. ??? Acidez e indigesti??n. La acidez y la indigesti??n, ocasionadas por la presi??n sobre los intestinosy el est??mila (que empujan los contenidos del est??mila de vuelta hacia el es??fago) pueden prevenirse o reducirse ingiriendo porciones m??s mik??as de comida irvin el d??a y evitando recostarseinmediatamente despu??s de comer. ??? Enc??as sangrantes. Las enc??as pueden volverse m??s esponjosas a medida que el flujo de reyna aumenta irvin el embarazo. Bonanza f??cilmente provoca garcia sangrado. Aliza embarazada debe continuar con garcia cuidado dental y de enc??as normal, e ir al dentista para chequeos regulares. Erma s??ntoma usualmente desaparece luego del embarazo. ??? Pica. La pica es un tipo poco com??n de antojo de comer sustancias no alimenticias, salvador alessandro, arcilla o carb??n. El antojo puede indicar aliza deficiencia nutricional. ??? Hinchaz??n/retenci??n de l??quidos. La hinchaz??n leve es com??n irvin el embarazo, pricila aliza hinchaz??n grave que persiste puede ser signo de preeclampsia (cuadro anormal producido por la hipertensi??n). Recostarse del lado mony, levantar las piernas y usar medias de soporte y zapatos c??modos puede ayudar a aliviar la hinchaz??n. Aseg??resede informar a garcia proveedor de atenci??n m??dica u obstetra sobre la hinchaz??n repentina, especialmente en las dunia o la key, o sobre un aumento r??pido de peso. ??? Cambios en la piel. Debido a mod ificaciones en los niveles hormonales, que incluye hormonas que estimulan la pigmentaci??n de la piel, pueden aparecer manchas marrones en la key, frente y/o mejillas. A esto se lo suele denominar m??scara del embarazo o cloasma . Suele desaparecer luego de mesfin a charlotte. La utilizaci??n de protector solar cuando se encuentra afuera puede reducir la cantidad de manchas. La pigmentaci??n tambi??n puede aumentar en el tejido que rodea los pezones, llamado areola . Adem??s, frecuentemente apareceuna l??beth oscura debajo de la mitad del abdomen. Pueden oscurecerse las pecas y pueden crecer los lunares. ??? Estr??as. Pueden aparecer estr??as rosadas en el est??mila, los senos, los muslos o lasnalgas. Las estr??as generalmente se producen por un r??pido aumento de peso. Las marcas suelen desaparecer despu??s del embarazo. ??? Candidiasis vaginal. Debido a cambios hormonales y al aumento desecreciones vaginales, tambi??n conocido salvador leucorrea, aliza wandy embarazada es m??s propensa a contraer candidiasis vaginal. La candidiasis vaginal se caracteriza por aliza secreci??n abundante y galo expulsada por la vagina y acompa??ada de picaz??n. La candidiasis vaginal es altamente tratable.Siempre consulte a garcia proveedor de atenci??n m??dica u obstetra antes de zenaida cualquier medicamento para esta infecci??n. ??? Congesti??n o hemorragias nasales. Irvin el embarazo, la capa que cubre las v??as respiratorias recibe mayor cantidad de reyna, lo que las vuelve m??s congestionadas. Esta congesti??n puede causar congesti??n nasal o hemorragias nasales. Adem??s, mik??os vasos sangu??neos que se encuentran en la nariz pueden da??arse f??cilmente debido al aumento en el volumen de reyna, lo que provoca las hemorragias nasales. ??? Estre??imiento. El aumento de presi??n por el embarazo en el recto y los intestinos puede interferir con la digesti??n y posteriores evacuaciones intestinales. Asimismo, los cambios hormonales pueden disminuir la digesti??n de la comida en el organismo. El aumento de l??quidos, el ejercicio regular y el aumento de fibra en garcia dieta son algunas de las formas para prevenir el estre??imiento. Siempre consulte a garcia proveedor de atenci??n m??dica u obstetra antes de zenaida cualquier medicamento para esta afecci??n. ??? Dolor de espalda. A medida quela wandy aumenta de peso, garcia equilibrio cambia, y garcia centro de gravedad se empuja hacia adelante, lo que tensiona garcia espalda. Las articulaciones p??lvicas que comienzan a soltarse para la preparaci??n del parto tambi??n contribuyen a esta tensi??n. La postura adecuada y las t??cnicas de levantamiento apropiadas a lo mary del embarazo pueden ayudar a reducir la tensi??n en la espalda. ??? Mareos.Los mareos irvin el embarazo son s??ntomas comunes, que pueden producirse por: o Presi??n arterial baja debido a la compresi??n de las arterias principales por parte del ??tero o Bajo nivel de az??car en reyna o Bajo nivel de steven o R??pidamente pasar de estar sentada a estar figueroa o Deshidrataci??n Para prevenir lesiones por ca??sandhu irvin episodios de mareo, aliza embarazada deber??a pararse lentamente y sostenerse de las hagan y otras estructuras estables para obtener soporte y balance. ??? Dolly de amisha. Los cambios hormonales pueden ocasionar dolly de amisha irvin el embarazo, especialmente irvin el primer trimestre. El reposo, la nutrici??n adecuada y el consumo apropiado de l??quidos puede ayudar a aliviar los dolly de amisha. Siempre consulte a garcia proveedor de atenci??n m??dica u obstetra antes de zenaida cualquier medicamento para esta afecci??n. Si presenta un dolor de amisha muy gretchen o que no se aga, inf??rmeselo a garcia proveedor de atenci??n m??dica. Podr??a ser un signo de preeclampsia. Last Reviewed Date: 2020 ?? [id number] [employer]. Todos los derechos reservados. Esta informaci??n no pretende sustituir la atenci??n m??dica profesional. S??lo garcia m??dico puede diagnosticar y tratar un problema de aleisha. ?? * [place] Liliana RIVERA: PERFORM Event Display: Patient Education Leaflets Authored Date: [id number] Back Pain During ?? [address] El dolor de espalda irvin el embarazo A medida que el cuerpo cambia irvin el embarazo, la espalda debe trabajar de nuevas maneras; estaadaptaci??n puede resultar dolorosa si la espalda no est?? preparada. El dolor de espalda se debe amuchas causas. Los cambios f??sicos del cuerpo pueden sobrecargar la espalda y los m??sculos que laapoyan. Adem??s, el nivel de hormonas (sustancias qu??micas que transportan mensajes por todo el cue rpo) aumenta irvin el embarazo, afectando la interacci??n de los m??sculos y las articulaciones. Todos estos cambios pueden provocar dolor. Garcia espalda La columna vertebral, que es la sherif de huesos que atraviesa verticalmente la espalda, tiene sunny curvas: la cervical, la tor??cica y la lumbar. Estas curvas apoyan el cuerpo y ayudan a mantener el equilibrio. Los m??sculos de la espalda y el abdomen refuerzan y sostienen la columna vertebral; los m??sculos de las nalgas, la pelvis y los muslos trabajan junto con la columna para permitir que christel se tuerza, se doble y levante objetos. ?? Garcia espalda dura nte el embarazo Los cambios que se producen en el cuerpo irvin el embarazo afectan la espalda y la postura (es decir, la posici??n que el cuerpo adopta). La forma y el philip??o del cuerpo cambian, obligando a los m??sculos a trabajar m??s ayo. A medida que el cuerpo se prepara para el parto, la acci??n de las hormonas afloja los m??sculos, los ligamentos y las articulaciones de la pelvis; todo esto puede provocar dolor. Estos cambios pueden hacer que usted adopte aliza avel postura (se coloque en posiciones que sobrecargan la espalda) la cual, con el tiempo, suele ocasionar dolly de espalda. ?? Last Reviewed Date: 2020 ?? [id number] [employer]. Todos los derechos reservados. Esta informaci??n no pretende sustituir la atenci??n m??dica profesional. S??lo garcia m??dico puede diagnosticar y tratar un problema de aleisha. ?? Patient Care team information Care Team Personnel Name: Farzana Meadows MD Position: [facility] Outreach Member Role: PCP Address: Address: [address] [place] [address] [address] [place] [address]- Care Team Related Persons Name: RENE, MERVIN Address: home [address] [place] [place] [address] Name: MERVIN PARKER Address: home [address] [place] [address] Name: ANNEMARIE TENA Address: home [address] [place] [address]
--- OUTSIDE RECORDS SUMMARY | 2023-09-18 19:55 | XMS_ITS | Continuity of Care Document ---
Author Name Unknown Organization [facility] Address [address] [place] [address]- Care Team Providers Care Supervisor Motor Vehicle Assembly Name Role Phone Lilli Diaz MD, Farzana Feliciano Primary Care Physici an Encounter [facility] Date(s): 04/30/22 - 06/05/22 [facility] [address] [address] Attending Physician: Harleen Bills MD Admitting Physician: Harleen Bills MD Referring Physician: Xochilt GARCÍA , Verónica Calles Allergies, Adverse Reactions, Alerts No Known Allergies Medications Cradle See Instructions, # 1 each, Maintenance, see package for instructions, 07/20/17 18:29:54, Compound Start Date: 07/20/17 Status: Ordered Zofran 8 mg oral tablet 1 tablet = 8 mg, By Mouth, 2 times a day, 0 Refills, Maintenance, 05/23/15 2:22:05 Start Date: 05/23/15 Status: Ordered Care Team Personnel Name: Farzana Meadows MD Address: [address] [place] [address] [address] [place], [place] [address]
--- OUTSIDE RECORDS SUMMARY | 2023-09-18 19:55 | XMS_ITS | Continuity of Care Document ---
Author Name Unknown Organization [facility] Address [address] [address]- Care Team Providers Care Vending Machine Technician Name Role Phone Lilli Diaz MD, Farzana Feliciano Primary Care Physici an Encounter [facility] Date(s): 01/23/23 - 02/22/23 [facility] [address] [address] Allergies, Adverse Reactions, Alerts No Known Allergies Medications docusate sodium 100 mg oral capsule 100 mg, 1, capsule, By Mouth, 2 times a day, PRN, # 60 capsule, Refills 3, Tot. Refills 3, Maintenance, for constipation, 02/10/23 18:39:00 EDT, Route to Pharmacy Electronically, [facility][id number], Partial fill upon patient request if the pr... Start Date: 02/10/23 Status: Ordered Dulcolax 5 mg oral enteric coated tablet 1 tablet = 5 mg, By Mouth, Daily, PRN as needed for constipation, # 30 tablet, 0 Refills, Maintenance, 02/10/23 18:40:00 EDT, CR Tablet, [facility] #[id number], Partial fill upon patient requestif the prescription is for a schedule II opioid tariq... Start Date: 02/10/23 Status: Ordered ferrous sulfate 325 mg oral tablet 1 tablet = 325 mg, By Mouth, Daily, # 90 tablet, 3 Refills, Maintenance, 02/18/23 13:57:00 EDT, [facility] #[id number], Partial fill upon patient request if the prescription is for a schedule IIopioid drug., 150, cm, 02/17/23 11:14:00 EDT, [facility]... Start Date: 02/18/23 Stop Date: 02/13/24 Status: Ordered PNV By Mouth, Daily, 0 [...] Team Personnel Name: Farzana Meadows MD Position: [facility] Outreach Member Role: PCP Address: Address: [address] [place] [address] [address] [place] [address]- Care Team Related Persons Name: MERVIN LÓPEZ Address: home [address] [place] [address] Name: MERVIN PARKER Address: home [address] [place] [address] Name: ANNEMARIE TENA Address: home [address] [place] [address]
--- OUTSIDE RECORDS SUMMARY | 2023-09-18 19:55 | XMS_ITS | Continuity of Care Document ---
Author Name Unknown Organization [facility] Address [address] [address]- Care Team Providers Care Computer System Validation Specialist Name Role Phone Lilli Diaz MD, Farzana Feliciano Primary Care Physici an Encounter [facility] [place] Date(s): 12/11/22 - 01/10/23 [facility] [address] [address]- Allergies, Adverse Reactions, Alerts No Known Allergies Medications PNV Plus oral tablet 1 tablet, By Mouth, Daily, # 90 tablet, 3 Refills, Maintenance, 12/02/22 12:56:00 EST, [facility] #[id number], Partial fill upon patient request if the [...] 12/24/22 14:30:00 EDT, Route to Pharmacy Electronically, [facility] #[id number] Tablet, Partial fill upon patient request if [...] Team Personnel Name: Farzana Meadows MD Position: [facility] Outreach Member Role: PCP Address: Address: [address] [place] [address] [address] [place] [address]- Care Team Related Persons Name: MERVIN LÓPEZ Address: home [address] [place] [address] Name: MERVIN PARKER Address: home [address] [place] [address] Name: ANNEMARIE TENA Address: home [address] [place] [address]
--- OUTSIDE RECORDS SUMMARY | 2023-09-18 19:55 | XMS_ITS | Continuity of Care Document ---
Author Name Unknown Organization [facility] Address [address] [address]- Care Team Providers Care Candy Depositing Machine Operator Name Role Phone Lilli Diaz MD, Farzana Feliciano Primary Care Physici an [id number] Date(s[facility] 03/30/23 - 04/29/23 [facility] [address] [address] Allergies, Adverse Reactions, Alerts No Known Allergies Immunizations Given and Recorded Vaccine Date Status Refusal Reason tetanus/diphtheria/pertussis, acel(Tdap) 04/13/23 Given Medications docusate sodium 100 mg oral capsule 100 mg, 1, capsule, By Mouth, 2 times a day, PRN, # 60 capsule, Refills 3, Tot. Refills 3, Maintenance, for constipation, 02/10/23 18:39:00 EDT, Route to Pharmacy Electronically, [facility]#[id number], Partial fill upon patient request if the pr... Start Date: 02/10/23 Status: Ordered ferrous sulfate 325 mg oral tablet 1 tablet = 325 mg, By Mouth, Daily, # 90 tablet, 3 Refills, Maintenance, 02/18/23 13:57:00 EDT, [facility] #[id number], Partial fill upon patient request if the prescription is for a schedule IIopioid drug., 150, cm, 02/17/23 11:14:00 EDT, Karina... Start Date: 02/18/23 Stop Date: 02/13/24 Status: Ordered Flintstones Complete oral tablet, chewable 1 tablet, Chew, 2 times a day, # 180 tablet, 0 Refills, Maintenance, 03/21/23 19:00:00 EDT, [facility] #[id number], Partial fill upon patient request if the [...] 0 Refills, Maintenance, 04/08/23 12:23:00 EDT, Tablet, [facility] #[id number], Partial fill upon patient request if the [...] Active History of depression Confirmed Active Uses Occitan as primary spoken language Confirmed Active Confirmed [...] Team Personnel Name: Farzana Meadows MD Position: [facility] Outreach Member Role: PCP Address: Address: [address] [place] [address] [address] [place] [address]- Care Team Related Persons Name: MERVIN LÓPEZ Address: home [address] [place] [address] Name: MERVIN PARKER Address: home [address] [place] [address] Name: ANNEMARIE TENA Address: home [address] [place] [address]
--- OUTSIDE RECORDS SUMMARY | 2023-09-18 19:55 | XMS_ITS | Continuity of Care Document ---
Author Name Unknown Organization [facility] Address [address] [place] [address]- Care Team Providers Care Autism Motor Specialist Name Role Phone Farzana Meadows MD Primary Care Physici an Encounter [facility] [place] Date(s): 07/01/22 - 07/31/22 [facility] [address] [address] Attending Physician: David Blackwood Admitting Physician: David [...] Effective Dates Status Health St atus Informant Obese class I Confirmed Active Patient Care team information Personnel Name: Farzana Meadows MD Address: Address: [address] [place] [address] [address] [place] [id number]
--- OUTSIDE RECORDS SUMMARY | 2023-09-18 19:55 | XMS_ITS | Continuity of Care Document ---
Author Name Unknown Organization [facility] Address [address] [address]- Care Team Providers Care Claims Adjuster Name Role Phone Lilli Diaz MD, Farzana Feliciano Primary [facility] Physici [id number] - 08/21/23 [facility] [address] [address]- Attending Physician: Fatou Shankar CNM Admitting Physician: Fatou Shankar CNM Referring Physician: Galina Laio CNM Allergies, Adverse Reactions, Alerts No Known Allergies Immunizations Given and Recorded Vaccine Date Status Refusal Reason tetanus/diphtheria/pertussis, acel(Tdap) 04/13/23 Given Medications docusate sodium 100 mg oral capsule 100 mg, 1, capsule, By Mouth, 2 times a day, PRN, # 60 capsule, Refills 3, Tot. Refills 3, Maintenance, for constipation, 07/02/23 8:43:00 EDT, Route to Pharmacy Electronically, [facility] #[id number], Partial fill upon patient request if the pre... Start Date: 07/02/23 Status: Ordered ferrous sulfate 325 mg oral tablet 1 tablet = 325 mg, By Mouth, Daily, # 90 tablet, 3 Refills, Maintenance, 02/18/23 13:57:00 EDT, [facility] #[id number], Partial fill upon patient request if the prescription is for a schedule IIopioid drug., 150, cm, 02/17/23 11:14:00 EDT, [facility]... Start Date: 02/18/23 Stop Date: 02/13/24 Status: Ordered Flintstones Complete oral tablet, chewable 1 tablet, Chew, 2 times a day, # 180 tablet, 0 Refills, Maintenance, 03/21/23 19:00:00 EDT, [facility] #[id number], Partial fill upon patient request if the prescription is for a schedule II opioid drug., 1 tablet Chew 2 times a day,x90 days, 150... Start Date: 03/21/23 Stop Date: 06/19/23 Status: Ordered ibuprofen 800 mg oral tablet 800 mg, By Mouth, Every 8 hours, PRN, (4-6), may give 400mg per patient preference and re-dose [id number] within 8 hours if needed. Patient should [...] Gm, 0 Refills, Maintenance, 07/03/23 9:01:00 EDT, [facility] #[id number], Partial fill upon patient request if the [...] 0 Refills, Maintenance, 07/02/23 8:43:00 EDT, Tablet, [facility] #[id number], Partial fill upon patient request if the [...] Active History of depression Confirmed Active Uses Omani as primary spoken language Confirmed Active Confirmed [...] Name: Lilli Diaz MD, Farzana Feliciano Position: [facility] Outreach Member Role: PCP Address: Address: [address] [place] [address] [address] [place] [address]- Care Team Related Persons Name: MERVIN LÓPEZ Address: home [address] [place] [address] Name: MERVIN PARKER Address: home [address] [place] [address] Name: CHRISTOPHER PITTS Address: [address] Address: home [address] [place] [address] Name: ANNEMARIE TENA Address: home [address] [place] [address]
--- OUTSIDE RECORDS SUMMARY | 2023-09-18 19:55 | XMS_ITS | Continuity of Care Document ---
Author Name Unknown Organization [facility] Address [address] [address]- Care Team Providers Care Make Up Operator Helper Name Role Phone Lilli Diaz MD, Farzana Feliciano Primary Care Physici an Encounter [facility] [place] Date(s): 11/21/22 - 12/21/22 [facility] [address] [address] Allergies, Adverse Reactions, Alerts No Known Allergies Medications ondansetron 8 mg oral tablet 1 tablet = 8 mg, By Mouth, 2 times a day, PRN Nausea & Vomiting, # 10 tablet, 0 Refills, Acute 12/24/22 11:59:00 EDT, 12/02/22 11:58:00 EST, Tablet, [facility] #[id number], Partial fill uponpatient request if the prescription is for a schedule I... Start Date: 12/02/22 Stop Date: 12/24/22 Status: Ordered PNV Plus oral tablet 1 tablet, By Mouth, Daily, # 90 tablet, 3 Refills, Maintenance, 12/02/22 12:56:00 EST, [facility] #[id number], Partial fill upon patient request if the [...] opioid drug. Start Date: 11/01/22 Status: Ordered Problem List Condition Confirmation Course [...] Team Personnel Name: Farzana Meadows MD Position: [facility] Outreach Member Role: PCP Address: Address: [address] [place] [address] [address] [place] [address]- Care Team Related Persons Name: MERVIN LÓPEZ Address: home [address] [address] Name: MERVIN PARKER Address: home [address] [place] [address] Name: ANNEMARIE TENA Address: home [address] [place] [address]
--- OUTSIDE RECORDS SUMMARY | 2023-09-18 19:55 | XMS_ITS | Continuity of Care Document ---
Author Name Unknown Organization [facility] [employer] To Get Approved [facility] Address [address] [place] [address], [address] [place] [address]- Care Team Providers Care Server Cashier Name Role Phone Lilli Diaz MD, Farzana Feliciano Primary Care Physici an Encounter [facility] [id number] Date(s): 03/16/23 - 04/15/23 [facility] Andreiakyrie GarciaEasiest Credit Card To Get Approved [facility] [address] [facility], [address] [place], [place] [address] Attending Physician: David Blackwood Admitting Physician: David Blackwood Referring Physician: David Blackwood Allergies, Adverse Reactions, Alerts No Known Allergies Immunizations Given and Recorded Vaccine Date Status Refusal Reason tetanus/diphtheria/pertussis, acel(Tdap) 04/13/23 Given Medications docusate sodium 100 mg oral capsule 100 mg, 1, capsule, By Mouth, 2 times a day, PRN, # 60 capsule, Refills 3, Tot. Refills 3, Maintenance, for constipation, 02/10/23 18:39:00 EDT, Route to Pharmacy Electronically, [facility]#[id number], Partial fill upon patient request if the pr... Start Date: 02/10/23 Status: Ordered Dulcolax 5 mg oral enteric coated tablet 1 tablet = 5 mg, By Mouth, Daily, PRN as needed for constipation, # 30 tablet, 0 Refills, Maintenance, 02/10/23 18:40:00 EDT, CR Tablet, [facility] #[id number], Partial fill upon patient requestif the prescription is for a schedule II opioid tariq... Start Date: 02/10/23 Status: Ordered ferrous sulfate 325 mg oral tablet 1 tablet = 325 mg, By Mouth, Daily, # 90 tablet, 3 Refills, Maintenance, 02/18/23 13:57:00 EDT, [facility] #[id number], Partial fill upon patient request if the prescription is for a schedule IIopioid drug., 150, cm, 02/17/23 11:14:00 EDT, Heigh... Start Date: 02/18/23 Stop Date: 02/13/24 Status: Ordered Flintstones Complete oral tablet, chewable 1 tablet, Chew, 2 times a day, # 180 tablet, 0 Refills, Maintenance, 03/21/23 19:00:00 EDT, [facility] #[id number], Partial fill upon patient request if the [...] Refills, Soft Stop, 04/13/23 14:12:00 EDT, Tablet, [facility] #[id number], Partial fill upon patient request if the prescription is for a schedule... Start Date: 04/13/23 Status: Ordered Miconazole 7 vaginal cream with applicator 1 application, Vaginally, Daily at bedtime, # 45 Gm, 0 Refills, Maintenance, 02/23/23 12:34:00 EDT,Cream, [facility] #[id number], Partial fill upon patient request if the [...] 0 Refills, Maintenance, 04/08/23 12:23:00 EDT, Tablet, [facility] #[id number], Partial fill upon patient request if the [...] Team Personnel Name: Farzana Meadows MD Position: [facility] Outreach Member Role: PCP Address: Address: [address] [place] [address] [address] [place] [address]- Care Team Related Persons Name: MERVIN LÓPEZ Address: home [address] [place] [address] Name: MERVIN PARKER Address: home [address] [place] [address] Name: ANNEMARIE TENA Address: home [address] [place] [address]
--- OUTSIDE RECORDS SUMMARY | 2023-09-18 19:55 | XMS_ITS | Continuity of Care Document ---
Author Name Unknown Organization [facility] Address [address] [place] [address], [address] [place] [address]- Care Team Providers Care Filling Machine Set Up Mechanic Name Role Phone Lilli Diaz MD, Farzana Feliciano Primary Care Physici an Encounter [facility] [id number] Date(s): 06/15/23 - 07/24/23 [facility] Andreiakyrie Garciadepicts [employer] [address] [facility], [address] [place], [place] [address] Attending Physician: Gia Belle CNM Allergies, Adverse Reactions, Alerts No Known Allergies Immunizations Given and Recorded Vaccine Date Status Refusal Reason tetanus/diphtheria/pertussis, acel(Tdap) 04/13/23 Given Medications docusate sodium 100 mg oral capsule 100 mg, 1, capsule, By Mouth, 2 times a day, PRN, # 60 capsule, Refills 3, Tot. Refills 3, Maintenance, for constipation, 07/02/23 8:43:00 EDT, Route to Pharmacy Electronically, [facility] #[id number], Partial fill upon patient request if the pre... Start Date: 07/02/23 Status: Ordered ferrous sulfate 325 mg oral tablet 1 tablet = 325 mg, By Mouth, Daily, # 90 tablet, 3 Refills, Maintenance, 02/18/23 13:57:00 EDT, [facility] #[id number], Partial fill upon patient request if the prescription is for a schedule IIopioid drug., 150, cm, 02/17/23 11:14:00 EDT, Heigh... Start Date: 02/18/23 Stop Date: 02/13/24 Status: Ordered Flintstones Complete oral tablet, chewable 1 tablet, Chew, 2 times a day, # 180 tablet, 0 Refills, Maintenance, 03/21/23 19:00:00 EDT, [facility] #[id number], Partial fill upon patient request if the prescription is for a schedule II opioid drug., 1 tablet Chew 2 times a day,x90 days, 150... Start Date: 03/21/23 Stop Date: 06/19/23 Status: Ordered ibuprofen 800 mg oral tablet 800 mg, By Mouth, Every 8 hours, PRN, (4-6), may give 400mg per patient preference and re-dose [id number] within 8 hours if needed. Patient should [...] Gm, 0 Refills, Maintenance, 07/03/23 9:01:00 EDT, [facility] #[id number], Partial fill upon patient request if the [...] 0 Refills, Maintenance, 07/02/23 8:43:00 EDT, Tablet, [facility] #[id number], Partial fill upon patient request if the [...] Active History of depression Confirmed Active Uses Welsh as primary spoken language Confirmed Active Confirmed [...] Name: Lilli Diaz MD, Farzana Feliciano Position: [facility] Outreach Member Role: PCP Address: Address: [address] [place] [address] [address] [place] [address]- Care Team Related Persons Name: MERVIN LÓPEZ Address: home [address] [place] [address] Name: MERVIN PARKER Address: home [address] [place] [address] Name: DANIEL TENA GIRL Address: [address] Address: home [address] [place] [address] Name: ANNEMARIE TENA Address: home [address] [place] [address]
--- OUTSIDE RECORDS SUMMARY | 2023-09-18 19:55 | XMS_ITS | Continuity of Care Document ---
Author Name Unknown Organization [facility] Address [address] [address]- Care Team Providers Care Saxophone Assembler Name Role Phone Lilli Diaz MD, Farzana Feliciano [id number] Date(s): 02/23/23 - 03/25/[address] [address] Allergies, Adverse Reactions, Alerts No Known Allergies Medications docusate sodium 100 mg oral capsule 100 mg, 1, capsule, By Mouth, 2 times a day, PRN, # 60 capsule, Refills 3, Tot. Refills 3, Maintenance, for constipation, 02/10/23 18:39:00 EDT, Route to Pharmacy Electronically, [facility][id number], Partial fill upon patient request if the pr... Start Date: 02/10/23 Status: Ordered Dulcolax 5 mg oral enteric coated tablet 1 tablet = 5 mg, By Mouth, Daily, PRN as needed for constipation, # 30 tablet, 0 Refills, Maintenance, 02/10/23 18:40:00 EDT, CR Tablet, [facility] #[id number], Partial fill upon patient requestif the prescription is for a schedule II opioid tariq... Start Date: 02/10/23 Status: Ordered ferrous sulfate 325 mg oral tablet 1 tablet = 325 mg, By Mouth, Daily, # 90 tablet, 3 Refills, Maintenance, 02/18/23 13:57:00 EDT, [facility] #[id number], Partial fill upon patient request if the prescription is for a schedule IIopioid drug., 150, cm, 02/17/23 11:14:00 EDT, Heigh... Start Date: 02/18/23 Stop Date: 02/13/24 Status: Ordered Flintstones Complete oral tablet, chewable 1 tablet, Chew, 2 times a day, # 180 tablet, 0 Refills, Maintenance, 03/21/23 19:00:00 EDT, [facility] #[id number], Partial fill upon patient request if the prescription is for a schedule II opioid drug., 1 tablet Chew 2 times a day,x90 days, 150... Start Date: 03/21/23 Stop Date: 06/19/23 Status: Ordered Miconazole 7 vaginal cream with applicator 1 application, Vaginally, Daily at bedtime, # 45 Gm, 0 Refills, Maintenance, 02/23/23 12:34:00 EDT,Cream, [facility] #[id number], Partial fill upon patient request if the prescription is for a schedule II opioid drug., 1 application Vaginally Da... Start Date: 02/23/23 Status: Ordered MiraLax oral powder for reconstitution = 17 Gm, By Mouth, Daily, for 10 days, dissolve in water before taking, # 255 Gm, 0 Refills, Acute 03/31/23 18:53:00 EDT, 03/21/23 18:53:00 EDT, REC Powder, [facility] #[id number], Partial fill upon patient request if the [...] Team Personnel Name: Farzana Meadows MD Position: [facility] Outreach Member Role: PCP Address: Address: [address] [place] [address] [address] [place] [address]- Care Team Related Persons Name: MERVIN LÓPEZ Address: home [address] [address] Name: MERVIN PARKER Address: home [address] [facility] [address] [place] [address] Name: ANNEMARIE TENA Address: home [address] [place] [address]
--- OUTSIDE RECORDS SUMMARY | 2023-09-18 19:55 | XMS_ITS | Continuity of Care Document ---
Author Name Unknown Organization [facility] Address [address] [place] [address], [address] [place] [address]- Care Team Providers Care Research Animal Facility Supervisor Name Role Phone Lilli Diaz MD, Farzana Feliciano Primary Care Physici an [id number] Date(s): 06/22/23 - 06/29/23 [facility] [address] [facility], [address] [place] [address]- Attending Physician: Ellen Wong MD Referring Physician: Angelita Alicia CNM Allergies, Adverse Reactions, Alerts No Known Allergies Immunizations Given and Recorded Vaccine Date Status Refusal Reason tetanus/diphtheria/pertussis, acel(Tdap) 04/13/23 Given Medications azithromycin 500 mg oral tablet 2 tablet = 1,000 mg, By Mouth, Once, # 2 tablet, 1 Refills, Soft Stop, 06/25/23 19:47:00 EDT, Tablet, [id number], Partial fill upon patient request if the prescription is for a schedule II opioid drug., 150, cm, 06/22/23 10:56:00 EDT,... Start Date: 06/25/23 Status: Ordered docusate sodium 100 mg oral capsule 100 mg, 1, capsule, By Mouth, 2 times a day, PRN, # 60 capsule, Refills 3, Tot. Refills 3, Maintenance, for constipation, 06/10/23 12:40:00 EDT, Route to Pharmacy Electronically, [id number], Partial fill upon patient request if the pr... Start Date: 06/10/23 Status: Ordered ferrous sulfate 325 mg oral tablet 1 tablet = 325 mg, By Mouth, Daily, # 90 tablet, 3 Refills, Maintenance, 02/18/23 13:57:00 EDT, [facility] #[id number], Partial fill upon patient request if the prescription is for a schedule IIopioid drug., 150, cm, 02/17/23 11:14:00 EDT, Heigh... Start Date: 02/18/23 Stop Date: 02/13/24 Status: Ordered Flintstones Complete oral tablet, chewable 1 tablet, Chew, 2 times a day, # 180 tablet, 0 Refills, Maintenance, 03/21/23 19:00:00 EDT, [facility] #[id number], Partial fill upon patient request if the [...] 0 Refills, Maintenance, 04/08/23 12:23:00 EDT, Tablet, [facility] #[id number], Partial fill upon patient request if the [...] Chlamydia Confirmed Active Constipation in Confirmed Active COVID-19 affecting in first trimester Confirmed 10/04/22 Active Excess weight gain in Confirmed Active History of depression Confirmed Active Uses Iranian as primary spoken language Confirmed Active Confirmed Active Rh negative status during Confirmed Active Severe obesity Confirmed Active UTI in Confirmed Active Social History Social History Type Response Smoking Status Former smoker, quit more than 30 days ago;Never; Exposure to Secondhand Smoke: Yes; Other: occasional cigarettes for 2 months, none since ; entered on: 12/02/22 Sex Radiology * Event Display: PDC Limited Presentation * Event Display: PDC Limited Presentation Authored Date: [id number] OBSTETRICS REPORT PATIENT INFO: CMRN: [id number] BMRN: [id number] : [birth year] (28 yrs)(F) Name: DANIEL TENA Visit Date: 06/22/2023 10:48 am PERFORMED BY: Performed By: Liza Barton RDMS Attending: Casper Barros MD Referred By: Gladis GUADALUPE Location: [address] INDICATIONS: Transverse or oblique presentation O32.2XX0 M - BMI O99.21_ E66.01 VITAL SIGNS: Height: 4'11 EVALUATION: Num Of Fetuses: 1 Heart 131 Rate(bpm): Cardiac Activity: Present Presentation: Cephalic Placenta: Anterior Amniotic Fluid ARIANA FV: Within normal limits ARIANA Sum(cm) Largest Pocket(cm) 12.7 6.4 RUQ(cm) RLQ(cm) LUQ(cm) LLQ(cm) 6.4 2.6 2.5 1.2 Comment: Active movements seen. BIOMETRY: OB HISTORY: Blood Type: A- : 5 Term: 3 Livin GESTATIONAL AGE: LMP: 38w 1d Date: 09/28/22 RILEY: 07/05/23 Best: 38w 1d Det. LMP (09/28/22) RILEY: 07/05/23 By: CERVIX UTERUS ADNEXA: Cervix Not well seen COMMENTS: The fetus is cephalic. Casper Barros MD Electronically Signed Final Report 06/22/2023 11:07 am * Event Display: PDC Limited Presentation Authored Date: Please click on pdf link to open report Patient Care team information Care Team Personnel Name: Lilli Diaz MD, Farzana Feliciano Position: [facility] Outreach Member Role: PCP Address: Address: [address] [place] [address] [address] [place] [address]- Care Team Related Persons Name: MERVIN LÓPEZ Address: home [address] [place] [address] Name: MERVIN PARKER Address: home [address] [place] [address] Name: ANNEMARIE TENA Address: home [address] [place] [address]
[2023-09-18 19:59] LABS: IDNOW Serial# 58CA691E; Strep A Nucleic Acid Negative (Negative)
--- NOTE | 2023-09-18 20:00 | MHC.EDTECH ---
Patient refused to have a SARS/FLU/RSV obtained,Georgette RIVERA was made aware
[2023-09-18 20:12] VITALS: BP 122/72; PULSE 106; RESP 18; TEMP 37.4; O2SAT 98; BMI 33.8
[2023-09-18] MEDS: Acetaminophen 325 MG TABLET 650 MG PO (20:20)
== END 2023-09-18 21:15 | disposition home or self-care (01) ==
PROVIDERS: Physician Assistant Medical; Emergency Provider Emergency Medicine; PCP Internal Medicine
DX: J06.9 Acute upper respiratory infection, unspecified (principal); R50.9 Fever, unspecified; R05.9 Cough, unspecified
CPT/HCPCS: 87651; 99283

== ENCOUNTER 2023-11-04 12:37 | Outpatient (REF) | payer MEDICAID, SELFPAY ==
[2023-11-04 14:09] LABS: Alanine Aminotransferase 21 U/L (0-31); Albumin Level 4.3 g/dL (3.5-5.0); Alkaline Phosphatase 116 U/L (39-117); Anion Gap 14 (12-20); Aspartate Amino Transferase 14 U/L (5-31); Bilirubin Total 0.4 mg/dL (0.0-1.0); Blood Urea Nitrogen 11 mg/dL (9-16); Calcium 9.7 mg/dL (8.4-10.2); Carbon Dioxide 24 mmol/L (22-29); Chloride 106 mmol/L (96-108); Estimated Glomerular Filt Rate > 60; Glucose Random 98 mg/dL (60-115); Potassium 3.6 mmol/L (3.3-5.1); Sodium 140 mmol/L (135-145); Total Protein 8.6 g/dL (6.5-8.0)
[2023-11-04 14:25] LABS: HCG Quantitative < 2 mIU/mL
[2023-11-05 16:48] LABS: Prolactin 7.8 ng/mL
== END 2023-11-04 12:38 | disposition home or self-care (01) ==
LOC: HO.HHCL 12:37
PROVIDERS: Visit Provider Family Medicine
DX: N92.6 Irregular menstruation, unspecified (principal)
CPT/HCPCS: 36415; 80053; 84146; 84443; 84702

== ENCOUNTER → 2023-11-26 13:46 | Outpatient (BNVA) | payer MEDICAID, SELFPAY | PROVIDERS: PCP Internal Medicine; Visit Provider Physician Assistant ==

== ENCOUNTER 2023-12-21 08:00 | Outpatient (AMB) | payer MEDICAID, SELFPAY ==
--- NOTE | 2023-12-21 13:12 | MHC.OFFVISWM ---
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* Allergies No Known Allergies Allergy (Verified 12/21/23 13:17) Medication List - Last Reconciled 12/21/23 by Danny Lynch MD bisacodyl (Dulcolax (bisacodyl)) 10 mg (2 x 5 mg) PO ONCE 5 days nmymcfedis-vrcrbltsjapaw-sjwe 50-325-40 mg 1 - 2 tabs PO Q4H PRN cholecalciferol (vitamin D3) 250 mcg PO 2XW 90 days ibuprofen 400 mg PO Q6H linaclotide (Linzess) 1 cap PO BID loratadine 1 tab PO DAILY PRN omeprazole 1 cap PO DAILY pyridoxine (vitamin B6) (Vitamin B-6) 25 mg PO TID terconazole 0.4% 1 appful vaginal BEDTIME 7 days HPI [employer] 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* HPI Details Start time: 1pm, End time: 2.10pm ?I spent 60 minutes speaking with the patient on the phone plus an additional 10 minutes reviewing and updating records for a total of 70 minutes HPI Comments History of Present Illness Details Previous weight loss efforts: OTC pills, self diets and exercise Wakes up: 5am, Sleeps: 10pm Breakfast: skips Lunch: 12pm (chicken, salad, rice, beans) Dinner: 5pm (as lunch) Snacks: fruits Exercise: has a treadmill and a stationary bike Fluids: [place]bal[place] and [place] Tea, Coffee/soda/juice/ETOH: none PFSH Medical History (Updated 12/21/23 @ 14:12 by Danny Lynch MD) Constipation Migraines GERD (gastroesophageal reflux disease) Morbid obesity Anxiety Surgical History (System 11/05/23 @ 12:57 by Orly Quintanilla) Hx of dilation and curettage History of cholecystectomy Family History Mother Arthritis Fibromyalgia Father Diabetes Hypertension Social History (System 11/05/23 @ 12:57 by Orly Quintanilla) Household Members: Children Housing: Apartment Alcohol intake: former Patient Tobacco Use Status: Never used Tobacco Advance Directives Date on File: 12/21/20 Sexual orientation: Straight/Heterosexual Gender identity: Female Female Reproductive History Menstrual Age of Menarche: 11 Assessment & Plan Assessment & Plan (1) Morbid obesity: Code(s): E66.01 - Morbid (severe) obesity due to excess calories Plan: 1.? Plan for lap sleeve gastrectomy. If diaphragmatic or ventral hernias are present at time of surgery, these will be repaired laparoscopically as well. Risks and complications were discussed in detail including possible conversion to an open procedure, anastomotic leak, bleeding requiring transfusion, small bowel obstruction, , DVT and pulmonary embolism, cardiac, or pulmonary complications, as mcfp complications such as anastomotic ulcer, insufficient weight loss and vitamin deficiencies. I emphasized the importance of close follow-up, adherence to instructions and good communication. 2. Nutritional counseling. Start with 2 CELEBRATE REBUILD protein (buy at hospital[facility] gift [facility]) shakes (HALF scoop EACH in 8oz low fat unsweetened almond milk each) at 6am-8am and 9am-11am, 2 protein bars (CELEBRATE protein bars, buy at [facility] [employer] [facility]) at 12pm-2pm and 3-5pm, dinner at 6pm (8 forks of protein and 8 forks of salad/vegetables) AND one more CELEBRATE REBUILD protein shake (HALF scoop in 8oz almond milk) after dinner at 9pm-11pm. So you do 3 protein shakes, 2 protein bars and one meal per day. Meal to include lean meat (beef, fish, pork, turkey, chicken), or palestinian yogurt, or egg whites, or beans with a salad with olive oil and fruits (berries, pears, apples, kiwi). Avoid salt, breads, potatoes, rice, pasta, desserts. 3. Each shake would be drunk slowly, like coffee in a period of 2 hours. 4. Cut each bar in 4 pieces and eat each piece in 30min ?to make each bar last 2 hours. 5. I emphasized the importance of measuring accurately the food portion and measure it when serving the food in plate 6. The meal portions include 8 full-size forks of meat and 8 full-size forks of salad. You always eat the meat portion but you can replace up to 4 forks for salad/vegetables with rice, potatoes or pasta, or a fruit ?if you like. The less you do it the better weight loss will be. 7. One full-size fork is what it can be scooped on the fork without falling aside and not what can be bit with the fork. Use regular forks like those you find in a typical restaurant. 8. ?Please send me weight measurements as soon as possible and then once a week. Always include your diet and exercise plan. 9. Start treadmill with a speed of 3.0 and the maximum manual incline. Burn 150 calories per work-out daily 10. Also start stationary bike at a resistance level of 4.0 Increase level by 1.0 every 3 min to a max level of 10.0. Stay at this level for 3 min and then return to level 4.0 and repeat same steps until 200 calories are burned. Goal is to burn 2000 calories per week on exercise between the treadmill and stationary bike, which means either 300 calories daily, or 400 calories 5 days per week, or 500 calories 4 days per week, or 650 calories 3 days per week. 11. It is important of avoiding and for at least 18 months postoperatively and has been discussed at the infosession. 12. Goal is to lose at least 1.5-2lbs per week 13. Goal to lose 10% of your weight before surgery, which is about 20lbs. Ultimate weight goal: 178lbs before surgery 14. Please follow the diet plan exactly without any change. If you don't like something about the plan or you feel hungry you need to communicate with me so I can help you revise the plan. You should not change the plan yourself. Orders: Orders Insulin Today E66.01 - Morbid (severe) obesity due to excess calories Complete Blood Count Auto Diff Today E66.01 - Morbid (severe) obesity due to excess calories Lipid Panel Today E66.01 - Morbid (severe) obesity due to excess calories IRON PROFILE Today E66.01 - Morbid (severe) obesity due to excess calories Vitamin B1 Today E66.01 - Morbid (severe) obesity due to excess calories TSH reflex Free T4 Today E66.01 - Morbid (severe) obesity due to excess calories US abdomen comp w elastography Today E66.01 - Morbid (severe) obesity due to excess calories XR chest 2V Today E66.01 - Morbid (severe) obesity due to excess calories ECG 12 lead EKG Today E66.01 - Morbid (severe) obesity due to excess calories FL upper GI w air Today E66.01 - Morbid (severe) obesity due to excess calories Hemoglobin A1c Today E66.01 - Morbid (severe) obesity due to excess calories H Pylori Breath Test Today E66.01 - Morbid (severe) obesity due to excess calories Comprehensive Met. Panel Today E66.01 - Morbid (severe) obesity due to excess calories Vitamin B12 and Folate Today E66.01 - Morbid (severe) obesity due to excess calories Zinc Today E66.01 - Morbid (severe) obesity due to excess calories C Reactive Protein Today E66.01 - Morbid (severe) obesity due to excess calories Vitamin A Today E66.01 - Morbid (severe) obesity due to excess calories Ferritin Today E66.01 - Morbid (severe) obesity due to excess calories Vitamin D 25-OH Total Today E66.01 - Morbid (severe) obesity due to excess calories Referrals Behavioral Health Referral E66.01 - Morbid (severe) obesity due to excess calories Nutrition/Dietitian Referral E66.01 - Morbid (severe) obesity due to excess calories Telehealth Telehealth Location of provider rendering services: practice address Location of patient: address on file Patient Identification confirmed using: Name, : Yes Telehealth method: voice only Patient verbally consented to treatment: Yes Patient verbally consented to billing insurance company: Yes Patient informed of any privacy concerns related to visit: Yes Minutes spent on Phone/Video with Pt.: 70 Coding Level of Care Code Tele Est Pt Level 5 (03271) Diagnoses Morbid obesity E66.01 Time Spent (min) 70 Comment With a [place] Islander speaking cut off tender glass
[2023-12-21 13:15] VITALS: BMI 40.0
== END 2023-12-21 14:12 | disposition home or self-care (01) ==
LOC: HO.HBS 08:00
PROVIDERS: PCP Internal Medicine; Visit Provider Surgery
DX: E66.01 Morbid (severe) obesity due to excess calories (principal); Z68.41 Body mass index [BMI] 40.0-44.9, adult
CPT/HCPCS: 99215

== ENCOUNTER → 2023-12-21 08:00 | Outpatient (BNVA) | payer MEDICAID, SELFPAY | PROVIDERS: PCP Internal Medicine; Visit Provider Surgery ==

== ENCOUNTER 2024-02-09 08:26 | Outpatient (REF) | payer MEDICAID, SELFPAY ==
[2024-02-09 08:54] LABS: MANUAL DIFF FLAG NO
[2024-02-09 09:12] LABS: Basophils Percent Auto 0.2 % (0-2); Eosinophils Absolute Auto 0.1 X10*3/uL (0.0-0.4); Eosinophils Percent Auto 0.9 % (0-4); Hematocrit 38.2 % (37.0-47.0); Hemoglobin 12.6 g/dl (12.0-16.0); Imm Gran Abs Auto 0.06 X10*3/uL (0.00-0.03); Imm Gran Pct Auto 0.6 % (0.0-0.4); Lymphocytes Absolute Auto 2.2 X10*3/uL (1.2-4.9); Lymphocytes Percent Auto 22.4 % (20-40); Mean Corpuscular Hemoglobin 30.6 pg (27.0-33.0); Mean Corpuscular Volume 92.7 fL (80.0-98.0); Mean Platelet Volume 9.2 fL (9.4-12.3); Monocytes Absolute Auto 0.6 X10*3/uL (0.1-1.2); Monocytes Percent Auto 6.4 % (2-11); Neutrophils Absolute Auto 6.9 x10*3/uL (2.0-8.3); Neutrophils Percent Auto 69.5 % (45-73); Platelet Count 431 X10*3/uL (160-400); Red Blood Count 4.12 X10*6/uL (4.20-5.50); Red Cell Distribution Width 12.5 % (11.0-16.0); White Blood Count 9.9 X10*3/uL (4.8-10.8)
[2024-02-09 09:20] LABS: Estimated Average Glucose 100 mg/dL; Hemoglobin A1c % 5.1 % (<6.0)
[2024-02-09 09:53] LABS: Alanine Aminotransferase 32 U/L (0-31); Albumin Level 4.1 g/dL (3.5-5.0); Alkaline Phosphatase 112 U/L (39-117); Anion Gap 13 (12-20); Aspartate Amino Transferase 17 U/L (5-31); Bilirubin Total 0.5 mg/dL (0.0-1.0); Blood Urea Nitrogen 21 mg/dL (9-16); C Reactive Protein 1.04 mg/dL (< or = 0.50); Calcium 9.8 mg/dL (8.4-10.2); Carbon Dioxide 23 mmol/L (22-29); Chloride 106 mmol/L (96-108); Cholesterol 223 mg/dL (<200); Estimated Glomerular Filt Rate > 60; Glucose Random 98 mg/dL (60-115); HDL Cholesterol 44 mg/dL (>40); Iron 78 mcg/dL (30-160); LDL Cholesterol Calculated 159 mg/dL (<100); Percent Iron Saturation 22 % (15-50); Potassium 4.3 mmol/L (3.3-5.1); Sodium 138 mmol/L (135-145); Total Iron Binding Capacity 361 mcg/dL (228-428); Total Protein 8.2 g/dL (6.5-8.0); Triglycerides 100 mg/dL (<150); Unsaturated Iron Binding 283 ug/dL
[2024-02-09 10:12] LABS: Ferritin 96 ng/mL (10-122); Insulin 12 uU/mL (2-29); TSH reflex Free T4 1.16 uIU/mL (0.32-4.0)
[2024-02-09 10:55] LABS: Folate 6.4 ng/mL (> or = 4.0); Vitamin B12 614 pg/mL (200-900)
[2024-02-12 01:14] LABS: Zinc 59 mcg/dL (60-130)
[2024-02-13 09:58] LABS: Vitamin B1 11 nmol/L (8-30)
[2024-02-14 01:28] LABS: Vitamin A 43 mcg/dL (38-98)
== END 2024-02-09 08:27 | disposition home or self-care (01) ==
LOC: HO.LAB 08:26
PROVIDERS: Absent Provider Family Medicine; PCP Family Medicine; Visit Provider Surgery
DX: E66.01 Morbid (severe) obesity due to excess calories (principal)
CPT/HCPCS: 36415; 80053; 80061; 82306; 82607; 82728; 82746; 83036; 83525; 83540; 84425; 84443; 84590; 84630; 85025; 86140

== ENCOUNTER 2024-02-17 08:27 | Outpatient (REF) | payer MEDICAID, SELFPAY ==
--- NOTE | ~2024-02-17 | XR_ITS ---
EXAMINATION: XR CHEST CLINICAL INFORMATION: Obesity. COMPARISON: Chest radiograph dated 02/18/2022. TECHNIQUE: 2 views of the chest were obtained. FINDINGS: The heart is normal in size. The lungs are clear. Pleural spaces are clear. No pneumothorax. No acute osseous abnormality. There are cholecystectomy clips. XR/XR chest 2V IMPRESSION: No acute cardiopulmonary disease.
--- NOTE | ~2024-02-17 | FL_ITS ---
EXAMINATION: XR FLUOROSCOPY UPPER GI WITH AIR CLINICAL INFORMATION: Preop evaluation prior to bariatric surgery COMPARISON: None TECHNIQUE: Fluoroscopic air contrast upper GI examination was performed utilizing standard techniques with thin and thick barium and effervescent granules. Numerous spot images were obtained. FINDINGS: Dual and single contrast images of the esophagus demonstrate normal caliber, contour, and mucosal pattern. No evidence of stricture, mass, or ulcerations identified. Esophageal peristalsis was normal. A very small type I hiatal hernia is present. No significant gastroesophageal reflux was seen during the course of the examination and on reflux views. Dual contrast and single contrast images of the stomach demonstrated normal contour and mucosal pattern without evidence of mass, ulceration, or other abnormality. Contrast freely passed into the gastric antrum and duodenal bulb without delay. Single and air-contrast images of the duodenal bulb demonstrate no abnormality. The duodenal sweep has a normal appearance, course, and mucosal fold appearance. No malrotation. The imaged proximal jejunum has a normal fold pattern and caliber. FLUOROSCOPY TIME: 3 minutes 22 seconds Number of Spot Images: 10 Number of Cine: 12 DOSE AREA PRODUCT: 2494 uGy-m2 (microgray-meter squared) FL/FL upper GI w air IMPRESSION: 1. Very small type I hiatal hernia, otherwise, unremarkable upper GI series This procedure was performed by Dustin Jules PA-C, and supervised by Dr. Morgan
== END 2024-02-17 08:28 | disposition home or self-care (01) ==
LOC: HO.XRAY 08:27
PROVIDERS: PCP Family Medicine; Visit Provider Surgery
DX: E66.01 Morbid (severe) obesity due to excess calories (principal)
CPT/HCPCS: 71046; 74246

== ENCOUNTER → 2024-02-17 08:31 | Outpatient (BNV) | payer MEDICAID, SELFPAY | PROVIDERS: PCP Family Medicine; Visit Provider Physician Assistant Surgical | DX: E66.01 Morbid (severe) obesity due to excess calories (principal); Z01.818 Encounter for other preprocedural examination | CPT/HCPCS: 74246 ==

== ENCOUNTER 2024-03-09 09:15 | Outpatient (AMB) | payer OTHER, SELFPAY ==
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
== END 2024-03-09 10:00 | disposition home or self-care (01) ==
LOC: HO.HBST 09:15
PROVIDERS: PCP Family Medicine; Visit Provider Counselor Mental Health
DX: F33.9 Major depressive disorder, recurrent, unspecified (principal)
CPT/HCPCS: 90791

== ENCOUNTER → 2024-03-09 09:15 | Outpatient (BNVA) | payer MEDICAID, SELFPAY | PROVIDERS: PCP Family Medicine; Visit Provider Counselor Mental Health ==

== ENCOUNTER 2024-03-19 19:49 | Emergency (ER) | payer MEDICAID, SELFPAY ==
--- NOTE | ~2024-03-19 | XR_ITS ---
EXAMINATION: XR CHEST CLINICAL INFORMATION: cough COMPARISON: Chest radiograph 02/18/2022 TECHNIQUE: PA and lateral views of the chest were obtained. FINDINGS: The lungs are hypoexpanded with associated bibasilar streaky opacities. No focal consolidation, pleural effusion, pulmonary edema pneumothorax. Cardiomediastinal silhouette is within normal limits for technique and unchanged. No acute osseous abnormality. XR/XR chest 2V IMPRESSION: 1. No acute pulmonary disease. 2. Low lung volumes with bibasilar atelectasis.
[2024-03-19 19:51] VITALS: BP 130/71; PULSE 89; RESP 17; TEMP 36.7; O2SAT 99; BMI 37.3
--- NOTE | 2024-03-19 20:36 | ED_ITS ---
HPI - URI/Sore Throat General Chief Complaint: Upper Respiratory Symptoms Stated Complaint: headache,dizzy Time Seen by Provider: 03/19/24 20:16 Source: patient Mode of arrival: ambulatory Limitations: no limitations History of Present Illness ED Provider: Daniella Bay PA-C HPI Narrative: 29-year-old female with a history of migraines, GERD, obesity, constipation, who presents to the ER for evaluation 2-3 days of frontal headache, sinus pressure, nasal congestion, cough, bilateral ear pain and congestion. MD elicited complaint: cough, nasal congestion and sinus pain Pertinent past history: seasonal allergies Onset (ago): day(s) Consistency: progressively worsening Severity: moderate Description of mucous: clear and watery Exacerbating factors: nothing Relieving factors: nothing Associated symptoms: headache, nasal congestion and cough Treatments prior to arrival: none Related Data Home Medications ?Medication ?Instructions ?Recorded ?Confirmed noentixfna-laefhpqmgjggi-oznzezws 1 - 2 tab PO Q4H PRN Headache 09/17/22 12/21/23 50 mg-325 mg-40 mg tablet linaclotide 145 mcg capsule 1 cap PO BID 09/17/22 12/21/23 (Linzess) loratadine 10 mg tablet 1 tab PO DAILY PRN allergies 09/17/22 12/21/23 omeprazole 20 mg capsule,delayed 1 cap PO DAILY 09/17/22 12/21/23 release Previous Rx's ?Medication ?Instructions ?Recorded pyridoxine (vitamin B6) 25 mg 25 mg PO TID #90 tabs 11/07/20 tablet (Vitamin B-6) cholecalciferol (vitamin D3) 250 250 mcg PO 2XW 90 days #26 caps 03/17/22 mcg (10,000 unit) capsule bisacodyl 5 mg tablet,delayed 10 mg (2 x 5 mg) PO ONCE colon 09/15/22 release (Dulcolax (bisacodyl)) prep 5 days #10 tabs terconazole 0.4 % vaginal cream 1 appful vaginal BEDTIME 7 days 11/13/22 #45 grams ibuprofen 400 mg tablet 400 mg PO Q6H #20 tabs 09/18/23 amoxicillin 875 mg-potassium 1 tab PO BID #14 tabs 03/19/24 clavulanate 125 mg tablet benzonatate 100 mg capsule 100 mg PO TID PRN cough #20 caps 03/19/24 cetirizine 10 mg capsule (Zyrtec) 10 mg PO DAILY #30 caps 03/19/24 fluticasone propionate 50 1 spray intranasal BID #16 grams 03/19/24 mcg/actuation nasal spray,suspension (Flonase Allergy Relief) Allergies Allergy/AdvReac Type Severity Reaction Status Date / Time No Known Allergies Allergy Verified 03/19/24 19:56 Review of Systems Review of Systems: Yes all other systems are reviewed and are negative [facility] Past Medical History Medical History (Updated 03/20/24 @ 00:01 by Lico Garay) Constipation Migraines GERD (gastroesophageal reflux disease) Morbid obesity Anxiety Surgical History (System 11/05/23 @ 12:57 by Orly Quintanilla) Hx of dilation and curettage History of cholecystectomy Family History Family History Mother Arthritis Fibromyalgia Father Diabetes Hypertension Social History Social History (System 11/05/23 @ 12:57 by Orly Quintanilla) Household Members: Children Housing: Apartment Alcohol intake: former Patient Tobacco Use Status: Never used Tobacco Advance Directives: No Advance Directives Information Provided: No Advance Directives Date on File: 12/21/20 Do you have a plan to hurt others: No Plan Sexual orientation: Straight/Heterosexual Gender identity: Female Physical Exam Vital Signs: Vital Signs: Last Vital Signs Temp 98.2 F 03/19/24 21:04 Pulse 73 03/19/24 21:04 Resp 16 03/19/24 21:04 BP 137/79 03/19/24 21:04 Pulse Ox 96 03/19/24 21:04 O2 Del Method Room Air 03/19/24 21:04 BMI result Body Mass Index 37.3 Appearance: Alert. Oriented X3. No acute distress. Head: normocephalic, atraumatic. Eyes: Pupils equal, round and reactive to light. ENT: Pharynx normal. No tonsillar swelling or exudate. TMs w/ bilateral effusions, no erythema or bulging. maxillary sinus tenderness bilaterally Neck: Normal inspection. Neck supple. CVS: Normal heart rate and rhythm. Pulses normal. Respiratory: No respiratory distress. Breath sounds normal. Abdomen: Soft and nontender. +BS x4 Skin: Skin warm and dry. Normal skin color. Normal skin turgor. No rashes. Extremities: No lower extremity edema. No joint swelling. Neuro/psych: Oriented X 3. No motor deficit. No sensory deficit. CN II-XII intact. Normal speech and cognition. Medications Administered Discontinued Medications Generic Name Dose Route Start Last Admin Trade Name Lynnette PRN Reason Stop Dose Admin Amoxicillin/Clavulanate Potassium 875 mg 03/19/24 20:43 03/19/24 20:50 Amoxicillin/Potassium Clav 875 Mg Tablet PO 03/19/24 20:44 875 mg ONCE ONE Administration Ibuprofen 600 mg 03/19/24 20:43 03/19/24 20:51 Ibuprofen 600 Mg Tablet PO 03/19/24 20:44 Not Given ONCE ONE Ketorolac Tromethamine 30 mg 03/19/24 20:55 03/19/24 20:59 Ketorolac Tromethamine 30 Mg/Ml Vial IM 03/19/24 20:56 30 mg ONCE ONE Administration Ondansetron HCl 4 mg 03/19/24 20:43 03/19/24 20:50 Ondansetron Odt 4 Mg Tab.Rapdis TRANSLINGU 03/19/24 20:44 4 mg ONCE ONE Administration Medical Decision Making Medical Decision Making [facility] Narrative: 29 yo female presenting for evaluation of cough, ear pain, headache for 2-3 days. afebrile on arrival. nontoxic appearing in no distress. sinus tenderness on exam. covid and flu are negative today. cxr without PNA. will plan to start abx for sinusitis and add medication for seasonal allergies. stable for discharge home. Differential Diagnosis Differential Diagnoses: The differential diagnosis associated with the presentation includes strep, covid, flu, rsv, other viral syndrome, bronchitis, pneumonia, sinusitis, allergies Lab Data [facility] Lab Attestation statement: I reviewed the patient's lab results. Labs: Lab Results 03/19/24 Range/Units 20:13 COVID-19 (OSBALDO) Negative (Negative) COVID-19 Clin Com See Note Influenza Type A (MARK) Negative (Negative) Influenza Type B (MARK) Negative (Negative) Influenza A & B Note See Note Independent Interpretation I performed an independent interpretation of an: Plain X-Ray Interpretation: no focal opacity in cxr to suggest pna Radiology Impression Discussion of test interpretation with radiology: I have reviewed the radiologist's reading. Radiologist Impression: EXAMINATION: XR CHEST CLINICAL INFORMATION: cough COMPARISON: Chest radiograph 02/18/2022 TECHNIQUE: PA and lateral views of the chest were obtained. FINDINGS: The lungs are hypoexpanded with associated bibasilar streaky opacities. No focal consolidation, pleural effusion, pulmonary edema pneumothorax. Cardiomediastinal silhouette is within normal limits for technique and unchanged. No acute osseous abnormality. XR/XR chest 2V IMPRESSION: 1. No acute pulmonary disease. 2. Low lung volumes with bibasilar atelectasis. Independent Historian Clinical information obtained from an independent historian. History obtained from or confirmed by: Other (son) External Record Review External record reviewed: Outpatient record, Prior outpatient labs and Prior outpatient radiology Prescription Management I considered prescription management with: Pain Medication and Antibiotic Chronic Conditions Patient?s care impacted by: Other (migraines) Critical Care Time Critical Care Time Critical Care Time: No Discharge Plan Discharge Clinical Impression: Sinusitis Patient Disposition: Home, Self-Care Instructions: Sinusitis (ED) Additional Instructions: Your chest x-ray showed no evidence pneumonia. You tested negative for COVID and influenza Take the prescribed antibiotics as directed, complete the entire course and do not miss any doses Take the prescribed medication as directed for seasonal allergies. Rest and drink plenty of fluids. Take Motrin and Tylenol as needed for headaches. Follow-up with your doctor. If you develop new or worsening symptoms call 911 or come back to the ER for further evaluation. Prescriptions: New amoxicillin-pot clavulanate 875-125 mg tablet 1 tab PO BID Qty: 14 0RF benzonatate 100 mg capsule 100 mg PO TID PRN (Reason: cough) Qty: 20 0RF fluticasone propionate [Flonase Allergy Relief] 50 mcg/actuation spray,suspension 1 spray intranasal BID Qty: 16 0RF Rx Instructions: administer into each nostril Zyrtec 10 mg capsule 10 mg PO DAILY Qty: 30 0RF No Action cholecalciferol (vitamin D3) 250 mcg (10,000 unit) capsule 250 mcg PO 2XW 90 Days Qty: 26 1RF bisacodyl [Dulcolax (bisacodyl)] 5 mg tablet,delayed release (DR/EC) 10 mg PO ONCE 5 Days Qty: 10 0RF Rx Instructions: Take 2 tablets at 12 pm starting 5 days before colonoscopy mijvcctxhk-gaplcscsifuyu-pkrq 50-325-40 mg tablet 1 - 2 tab PO Q4H PRN (Reason: Headache) omeprazole 20 mg capsule,delayed release(DR/EC) 1 cap PO DAILY loratadine 10 mg tablet 1 tab PO DAILY PRN (Reason: allergies) Linzess 145 mcg capsule 1 cap PO BID ibuprofen 400 mg tablet 400 mg PO Q6H Qty: 20 0RF pyridoxine (vitamin B6) [Vitamin B-6] 25 mg tablet 25 mg PO TID Qty: 90 3RF terconazole 0.4 % cream 1 appful vaginal BEDTIME 7 Days Qty: 45 0RF Referrals: Farzana Meadows MD [Primary Care Provider] - Interventions: ED Discharge Assessment Last Done: 03/19/24 21:04 Discharge Date/Time: 03/19/24 21:00 Print Language: Irish
[2024-03-19 20:46] LABS: COVID-19 Test Negative (Negative); IDNOW Serial# 08D9AD1C; IDNOW Serial# 152EDE1D; Influenza A Negative (Negative); Influenza B2 Negative (Negative)
[2024-03-19] MEDS: Ondansetron ODT 4 MG TAB.RAPDIS TRANSLINGU (20:50)
[2024-03-19] MEDS: Amoxicillin/Potassium Clav 875 MG TABLET PO (20:50)
[2024-03-19] MEDS: Ketorolac Tromethamine 30 MG/ML VIAL IM (20:59)
[2024-03-19 21:00] VITALS: BP 137/79; PULSE 73; RESP 16; TEMP 36.8; O2SAT 96
[2024-03-19 21:04] VITALS: BP 137/79; PULSE 73; RESP 16; TEMP 36.8; O2SAT 96
== END 2024-03-19 21:00 | disposition home or self-care (01) ==
PROVIDERS: Physician Assistant; Emergency Provider Emergency Medicine; PCP Internal Medicine
DX: J32.9 Chronic sinusitis, unspecified (principal); R05.9 Cough, unspecified; Z11.52 Encounter for screening for COVID-19
CPT/HCPCS: 71046; 87502; 87635; 96372; 99284; J1885

== ENCOUNTER 2024-03-30 10:09 | Outpatient (REF) | payer MEDICAID, SELFPAY ==
--- NOTE | ~2024-03-30 | US_ITS ---
EXAMINATION: US COMPLETE ABDOMEN WITH LIVER ELASTOGRAPHY CLINICAL INFORMATION: Obesity. COMPARISON: None available. TECHNIQUE: Real-time imaging of the abdominal viscera. Noninvasive ultrasound liver fibrosis assessment is performed using Caremlla ElastPQ point quantification shear wave elastography (2D-SWE) with a C5-2 MHz transducer. Multiple elastography samples are obtained. FINDINGS: PANCREAS: Normal. The visualized pancreatic head and body are normal in appearance. The remainder of the pancreas is obscured from visualization by the overlying bowel gas. ABDOMINAL AORTA: The proximal, middle, and distal aortic segments are normal in caliber. INFERIOR VENA CAVA: Visualized portions are normal. LIVER: Normal. The liver demonstrates normal size, contour and echogenicity. No focal lesion or intrahepatic biliary duct dilatation. The right lobe measures 15.9 cm in length. The left lobe measures 11.0 cm in length. Portal flow is towards the liver (hepatopetal). Shear wave liver elastography median stiffness is 1.90 m/s (reference: normal median stiffness is 1.3 m/s or less). IQR/median stiffness to assess sampling precision is 0.06 (reference: good quality data set is IQR/median stiffness of 0.15 or less). GALLBLADDER: Surgically absent. COMMON BILE DUCT: Normal in caliber measuring 0.3 cm in diameter. RIGHT KIDNEY: Normal. No hydronephrosis. No renal calculi or focal parenchymal lesions. The kidney measures 10.8 cm in maximum dimension. LEFT KIDNEY: At the interpolar aspect, a 3 mm nonobstructing calculus is seen. No hydronephrosis. No renal calculi or focal parenchymal lesions. The kidney measures 10.8 cm in maximum dimension. SPLEEN: Normal. The spleen measures 9.0 cm in maximum dimension. FREE FLUID: None. US/US abdomen comp w elastography IMPRESSION: 1. Liver elastography: Measurements are suggestive of compensated advanced chronic liver disease but need further test for confirmation. 2. A 3 mm nonobstructing left renal calculus is seen. 3. The gallbladder is surgically absent. REFERENCE: Society of Radiologists in Ultrasound Liver Stiffness Thresholds (2019): LIVER STIFFNESS THRESHOLDS: *Liver Stiffness equal or less than 1.3 m/s: High probability of being normal. *Liver Stiffness less than 1.7 m/s: In the absence of other known clinical signs, rules out compensated advanced chronic liver disease. *Liver Stiffness 1.7-2.1 m/s: Suggestive of compensated advanced chronic liver disease but need further test for confirmation. *Liver Stiffness over 2.1 m/s: Rules in compensated advanced chronic liver disease. *Liver Stiffness over 2.4 m/s: Suggestive of clinically significant portal hypertension. QUALITY OF DATA SET: *IQR/Median value equal or less than 0.15 implies a quality data set. *IQR/Median value over 0.15 implies a poor quality data set. SIGNIFICANT CHANGE FROM PRIOR EXAM: Significant change if liver stiffness measurement is 10% or greater from prior exam. OTHER CONSIDERATIONS: The stage of liver fibrosis may be overestimated in the setting of acute hepatitis, liver inflammation, elevated liver function tests, hepatic vascular congestion, obstructive cholestasis, non-fasting state, and infiltrative diseases such as amyloidosis and lymphoma. In some patients with NAFLD, the liver stiffness thresholds for compensated advanced chronic liver disease may be lower. In causes other than viral hepatitis and NAFLD, liver stiffness thresholds are not well established.
== END 2024-03-30 10:10 | disposition home or self-care (01) ==
LOC: HO.US 10:09
PROVIDERS: PCP Internal Medicine; Visit Provider Surgery
DX: E66.01 Morbid (severe) obesity due to excess calories (principal)
CPT/HCPCS: 76700; 76981

== ENCOUNTER 2024-04-14 16:21 | Outpatient (REF) | payer MEDICAID, SELFPAY ==
[2024-04-14 16:46] LABS: Appearance Urine Clear; Color Urine Yellow; Glucose Urine UA Negative (Negative); Leukocyte Esterase Urine Small (1+) (Negative); Nitrite Urine Negative (Negative); PH 5.5 (5.0-9.0); Specific Gravity - Urine <= 1.005 (1.005-1.025); UMIC TRIGGER UACC YES; Urine Blood Large (3+) (Negative); Urine Ketones Negative (Negative); Urine Protein Trace mg/dL (Neg-Trace)
[2024-04-14 17:06] LABS: Bacteria Urine None Seen (None Seen); Hyaline Casts Urine 0-2 /LPF (0-2); Squamous Epithelial Cell Urine 0-2 /HPF (0-2); UACC Culture Trigger YES
[2024-04-14 18:20] LABS: Bacterial Vaginosis PCR POSITIVE (Negative); Candida Group PCR DETECTED (Not Detect); Candida glab krusei PCR NOT DETECTED (Not Detect); Trichomonas vaginalis PCR NOT DETECTED (Not Detect)
[2024-04-14 18:54] LABS: CT PCR NOT DETECTED (Not Detect.); NG PCR NOT DETECTED (Not Detect.)
== END 2024-04-14 16:22 | disposition home or self-care (01) ==
LOC: HO.HHCLNP 16:21
PROVIDERS: Visit Provider Student in an Organized Health Care Education/Training Program
DX: R30.9 Painful micturition, unspecified (principal)
CPT/HCPCS: 0352U; 81001; 87086; 87491; 87591

== ENCOUNTER 2024-06-02 13:16 | Outpatient (AMB) | payer MEDICAID, SELFPAY ==
--- NOTE | 2024-06-02 13:36 | A.OFFVIS_ITS ---
Vital Signs 06/02/24 13:38 Height 5 ft Weight 200 lb BMI 39.1 BP 123/70 Blood Pressure Location Lt brachial Position Sitting Pulse 95 Intake Visit Reasons: Constipation Intake Note: Patient follow up for constipation. Patient cc: abdominal pain/bloating, acid reflex, constipation and some swallowing difficulty. Adjunct Spanish Instructor Required: Yes Adjunct Spanish Instructor Name: [facility] Accompanied by: Self / Same As Patient Allergies No Known Allergies Allergy (Verified 06/02/24 13:36) Medication List - Last Reconciled 06/02/24 by Surya Chavira MD benzonatate 100 mg PO TID PRN triocskjcx-pqautbyjypoyu-kaui 50-325-40 mg 1 - 2 tabs PO Q4H PRN cetirizine (Zyrtec) 10 mg PO DAILY fluticasone propionate 50 mcg/actuation (Flonase Allergy Relief) 1 spray intranasal BID ibuprofen 400 mg PO Q6H linaclotide (Linzess) 1 cap PO BID loratadine 1 tab PO DAILY PRN omeprazole 1 cap PO DAILY pyridoxine (vitamin B6) (Vitamin B-6) 25 mg PO TID terconazole 0.4% 1 appful vaginal BEDTIME 7 days zinc gluconate 10 mg PO DAILY HPI HPI Constipation: Details: GI clinic visit for this 27 YF for follow up of chronic constipation. Patient cc: constipation with rectum pain, nauseas, abdominal pain/bloating, GERD come and go. Denies any other GI issues. Pt was last seen in 05/2022 and advised to schedule a Colonoscopy TODAY'S VISIT: TELEPHONE FUNERAL GREETER: William Kearney # [id number] Patient cc: abdominal pain/bloating, acid reflex, constipation and some swallowing difficulty. Pt is accompanied by her an daughter I am having a bad pain in the stomach and have to push down Has bad constipation and has a BM every 1-2 weeks Taking Linzess daily for constipation. PAST VISIT: I am not doing that good. Taking 2 pills at night for constipation. Also having some stomach ache She could have a BM the following day in the past. Now she is not having a BM the next day and worried that her body is getting used to the medication. She has changed her diet to help with wt loss. Complains of rectal pain and concerned about hemorrhoids. Denies rectal bleeding. Pt advised to schedule a colonoscopy Complains of constipation since childhood. Has a BM once a week or longer. Notes some rectal pain - when she tries to have a BM the poop wants to come out and it does not Has tried taking Miralax twice a day and some pills that her PCP prescribed and nothing works. Using Detox and Cleanse Colon for 2 months at night and has been helping a lot. Evaluated at age 11 yrs and was told her bowel was swollen. Notes some heartburn and denies dysphagia. Denies change in apetite. Weight fluctuates by 10 -20 lbs from 197. Looses 5 lbs over a week to 2 and regains weight very quickly. Family hx - ? great grand father of colon cancer at age 70. Multiple family members have issues with constipation. Pt is goind through a divorce and has 3 children - 10, 5 & 4 yrs. 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 Denes smoking or ETOH or drugs PFSH Medical History (Updated 06/02/24 @ 14:36 by Surya Chavira MD) Constipation Migraines GERD (gastroesophageal reflux disease) Morbid obesity Anxiety Surgical History Hx of dilation and curettage History of cholecystectomy Family History Mother Arthritis Fibromyalgia Father Diabetes Hypertension Social History Household Members: Children Both parents involved: Yes Housing: Apartment Alcohol intake: former Patient Tobacco Use Status: Never used Tobacco Advance Directives Date on File: 12/21/20 Sexual orientation: Straight/Heterosexual Gender identity: Female Female Reproductive History Menstrual Age of Menarche: 11 Review of Systems Const All systems reviewed & are unremarkable except as noted in HPI and below Physical Exam Vital Signs: Last Vital Signs Pulse 95 06/02/24 13:38 BP 123/70 06/02/24 13:38 BMI result Body Mass Index 39.1 Const General: healthy appearing and no acute distress Nutritional Appearance: obese Orientation/consciousness: patient oriented x3 Limitations: language barrier HEENT Head: Yes normal to inspection Ears: hearing grossly normal bilaterally Eyes Sclerae: sclerae normal Pupils: Equal, round and reactive pupils present Neck Neck: Yes normal visual inspection Chest Chest palpation & inspection: normal inspection of the chest Resp Effort & Inspection: normal respiratory effort Auscultation: clear to auscultation bilaterally Cardio Palpation: normal PMI Rate: regular rate Rhythm: regular rhythm Heart sounds: S1 normal heart sound present, S2 normal heart sound present and no murmurs GI Palpation (GI): Soft to palpation, nontender and No hepatosplenomegaly present Auscultation: normal bowel sounds Rectal Exam - Female: deferred Skin General skin exam: no rashes or lesions noted Neuro General: patient oriented x3, gait normal and moves all extremities Cranial nerves: Yes Equal, round and reactive pupils present Psych Appearance: grossly normal Mental Status: mental status grossly normal Assessment & Plan Assessment & Plan (1) Chronic constipation: Code(s): K59.09 - Other constipation Category: Medical (2) Morbid obesity: Code(s): E66.01 - Morbid (severe) obesity due to excess calories Category: Medical (3) GERD (gastroesophageal reflux disease): Code(s): K21.9 - Gastro-esophageal reflux disease without esophagitis Category: Medical (4) Upper abdominal pain: Code(s): R10.10 - Upper abdominal pain, unspecified Category: Medical Plan GI clinic visit for this 29 YF for FU of chronic constipation. Complains of constipation since childhood and has a BM once a week or longer. Symptoms are suggestive of outlet delay Has tried taking Miralax twice a day and some pills that her PCP prescribed and nothing works. Using Detox and Cleanse Colon for 2 months at night and has been helping a lot. Multiple family members have issues with constipation. Dose of Linzess increased from 145 mcg to 290 mcg daily FU in 3 weeks - fu appt scheduled on 07/07/24 Colonoscopy will be scheduled once pt is on a good bowel regimen for constipation. FU in 3-4 weeks Orders: Orders XR KUB 06/02/24 K59.09 - Other constipation Complete Blood Count Auto Diff 06/02/24 R10.10 - Upper abdominal pain, unspecified Comprehensive Met. Panel 06/02/24 R10.10 - Upper abdominal pain, unspecified Lipase 06/02/24 R10.10 - Upper abdominal pain, unspecified Medications: New polyethylene glycol 3350 (Miralax) 17 grams PO BID 1,020 grams 1RF 30 days Changed From linaclotide 1 cap PO BID To linaclotide (Linzess) 290 mcg (2 x 145 mcg) PO QAM 60 caps 1RF 30 days From omeprazole 1 cap PO DAILY R10.10 - Upper abdominal pain, unspecified To omeprazole 20 mg PO BID 60 caps 3RF 30 days R10.10 - Upper abdominal pain, unspecified Coding Level of Care Code Est Pt Level 4 (45868) Diagnoses Chronic constipation K59.09 Morbid obesity E66.01 GERD (gastroesophageal reflux disease) K21.9 Upper abdominal pain R10.10 Time Spent (min) 22
[2024-06-02 13:38] VITALS: BP 123/70; PULSE 95; BMI 39.1
== END 2024-06-02 14:57 | disposition home or self-care (01) ==
PROVIDERS: PCP Family Medicine; Visit Provider Internal Medicine Gastroenterology
DX: K59.09 Other constipation (principal); E66.01 Morbid (severe) obesity due to excess calories; K21.9 Gastro-esophageal reflux disease without esophagitis; R10.10 Upper abdominal pain, unspecified
CPT/HCPCS: 99214

== ENCOUNTER → 2024-06-02 13:16 | Outpatient (BNVA) | payer MEDICAID, SELFPAY | PROVIDERS: PCP Family Medicine; Visit Provider Internal Medicine Gastroenterology | DX: K59.09 Other constipation (principal); K21.9 Gastro-esophageal reflux disease without esophagitis; R10.10 Upper abdominal pain, unspecified; E66.01 Morbid (severe) obesity due to excess calories; Z68.39 Body mass index [BMI] 39.0-39.9, adult | CPT/HCPCS: 99212 ==

== ENCOUNTER 2024-06-14 17:41 | Outpatient (REF) | payer MEDICAID, SELFPAY | END 2024-06-14 17:42 | disposition home or self-care (01) | LOC: HO.HHCLNP 17:41 | PROVIDERS: Visit Provider Emergency Medicine | DX: J01.10 Acute frontal sinusitis, unspecified (principal) | CPT/HCPCS: 87070 ==

== ENCOUNTER 2024-06-22 05:48 | Emergency (ER) | payer MEDICAID, SELFPAY ==
--- NOTE | 2024-06-22 | ECG_ITS ---
Test Reason : ABD PAIN Blood Pressure : / mmHG Vent. Rate : 079 BPM Atrial Rate : 079 BPM P-R Int : 170 ms QRS Dur : 084 ms QT Int : 354 ms P-R-T Axes : 027 005 010 degrees QTc Int : 405 ms Normal sinus rhythm Minimal voltage criteria for LVH, may be normal variant ( R in aVL ) Borderline ECG When compared with ECG of 21-OCT-2017 16:26, No significant change was found Referred By: Generic ED Physician Electronically Signed By:WARREN ADORNO
[2024-06-22 06:03] VITALS: BP 120/73; PULSE 78; RESP 18; TEMP 36.9; O2SAT 98; BMI 41.4
[2024-06-22 06:37] LABS: Hematocrit 37.9 % (37.0-47.0); Hemoglobin 12.6 g/dl (12.0-16.0); Mean Corpuscular HGB Conc 33.2 g/dl (31.0-35.0); Mean Corpuscular Hemoglobin 30.6 pg (27.0-33.0); Mean Platelet Volume 8.8 fL (9.4-12.3); Platelet Count 409 X10*3/uL (160-400); Red Blood Count 4.12 X10*6/uL (4.20-5.50); White Blood Count 11.4 X10*3/uL (4.8-10.8)
[2024-06-22 06:41] LABS: Appearance Urine Cloudy; Color Urine Yellow; Glucose Urine UA Negative (Negative); Leukocyte Esterase Urine Moderate (2+) (Negative); Nitrite Urine Negative (Negative); Specific Gravity - Urine 1.025 (1.005-1.025); UMIC TRIGGER UACC YES; Urine Blood Negative (Negative); Urine Ketones Negative (Negative); Urine Protein Negative (Neg-Trace)
--- NOTE | 2024-06-22 06:41 | ED.GENADULT ---
HPI - General Adult General Chief complaint: Abdominal Pain Stated complaint: gen med Time Seen by Provider: 06/22/24 06:39 Source: patient and human relations manager (all interactions with this patient were facilitated with an [facility] [place] Mode of arrival: ambulatory Limitations: language barrier (all interactions with this patient were facilitated with an [facility] [place] History of Present Illness ED Provider: Marla Garcia PA-C HPI narrative: Patient is a 29 year old assigned female at with a history of chronic constipation and gastritis presenting to the emergency department today with continued epigastric pain and intermittent lower abdominal pain. Patient states that she is chronically having epigastric pain that GI has not been treating for her and now she is getting intermittent lower abdominal pain. Patient denies any dizziness, lightheadedness, nausea, vomiting, fever, chills, blurry vision, double vision, loss of vision, chest pain, difficulty breathing, shortness of breath, back pain, night sweats, pain with urination, increased urinary frequency, increased urinary urgency, blood in her urine or stool, syncope or a near syncopal episode, recent trauma or falls, bowel incontinence, bladder incontinence, or any other complaints at this time. Relieving factors: none Exacerbating factors: none Associated symptoms: denies other symptoms Treatments prior to arrival: none Related Data Home Medications ?Medication ?Instructions ?Recorded ?Confirmed gusckbjcsu-yadwzrrzyurcv-zzdcuszc 1 - 2 tab PO Q4H PRN Headache 09/17/22 06/02/24 50 mg-325 mg-40 mg tablet loratadine 10 mg tablet 1 tab PO DAILY PRN allergies 09/17/22 06/02/24 Previous Rx's ?Medication ?Instructions ?Recorded pyridoxine (vitamin B6) 25 mg 25 mg PO TID #90 tabs 11/07/20 tablet (Vitamin B-6) terconazole 0.4 % vaginal cream 1 appful vaginal BEDTIME 7 days 11/13/22 #45 grams ibuprofen 400 mg tablet 400 mg PO Q6H #20 tabs 09/18/23 benzonatate 100 mg capsule 100 mg PO TID PRN cough #20 caps 03/19/24 cetirizine 10 mg capsule (Zyrtec) 10 mg PO DAILY #30 caps 03/19/24 fluticasone propionate 50 1 spray intranasal BID #16 grams 03/19/24 mcg/actuation nasal spray,suspension (Flonase Allergy Relief) zinc gluconate 10 mg lozenges 10 mg PO DAILY #100 ea 04/05/24 linaclotide 145 mcg capsule 290 mcg (2 x 145 mcg) PO QAM 30 06/02/24 (Linzess) days #60 caps omeprazole 20 mg capsule,delayed 20 mg PO BID 30 days #60 caps 06/02/24 release polyethylene glycol 3350 17 17 g PO BID 30 days #1,020 grams 06/02/24 gram/dose oral powder (Miralax) cefuroxime axetil 250 mg tablet 250 mg PO BID 7 days #14 tabs 06/22/24 sucralfate 100 mg/mL oral 5 ml PO QID #414 mL 06/22/24 suspension (Carafate) Allergies Allergy/AdvReac Type Severity Reaction Status Date / Time No Known Allergies Allergy Verified 06/22/24 06:08 Review of Systems Constitutional: Constitutional: Reports no additional constitutional complaints, Denies chills, Denies fever(s) and Denies night sweats Eyes: Eyes: Reports no additional eye complaints, Denies blurry vision, Denies change in vision, Denies diplopia, Denies eye discharge, Denies loss of vision and Denies eye pain ENT: Denies dizziness Cardiovascular: Cardiovascular: Reports no additional cardiovascular complaints, Denies chest pain, Denies lightheadedness, Denies Loss of Consciousness and Denies dyspnea Respiratory: Respiratory: Reports no additional respiratory complaints and Denies dyspnea Gastrointestinal: Gastrointestinal: Reports no additional gastrointestinal complaints, Reports abdominal pain, Denies melena, Denies hematochezia, Denies change in bowel habits and Denies change in stool character Genitourinary: Genitourinary: Denies hematuria, Denies urinary frequency, Denies dysuria, Denies urinary incontinence, Denies urinary hesitancy and Denies urinary urgency Musculoskeletal: Musculoskeletal: Reports no additional musculoskeletal complaints, Denies numbness and Denies tingling Neurologic: Denies dizziness, Denies loss of vision, Denies numbness and Denies tingling Psychiatric: Psychiatric: Reports no additional psychiatric complaints Endocrine: Endocrine: Reports no additional endocrine complaints Hematologic/Lymphatic: Hematologic/Lymphatic: Reports no additional hematologic/lymphatic complaints Allergic/Immunologic: Allergic/Immunologic: Reports no additional allergic/immunologic complaints PMFSH Past Medical History Attestation statement: The following information was validated with the patient. Source: old records reviewed and nursing notes reviewed Medical History Constipation Migraines GERD (gastroesophageal reflux disease) Morbid obesity Anxiety Surgical History Hx of dilation and curettage History of cholecystectomy Family History Family History Mother Arthritis Fibromyalgia Father Diabetes Hypertension Social History Social History Household Members: Children Housing: Apartment Alcohol intake: former Patient Tobacco Use Status: Never used Tobacco Advance Directives: No Advance Directives Information Provided: No Advance Directives Date on File: 12/21/20 Do you have a plan to hurt others: No Plan Sexual orientation: Straight/Heterosexual Gender identity: Female Physical Exam ED Vital Signs: Vital Signs - 24 hr 06/22/24 06:03 Temperature 98.4 F Pulse Rate 78 Respiratory Rate 18 Blood Pressure 120/73 Pulse Oximetry 98 Oxygen Delivery Method Room Air BMI result Body Mass Index 41.4 Const General: cooperative, no acute distress, alert and awake Nutritional Appearance: well nourished Orientation/consciousness: patient oriented x3 Limitations: no limitations HENMT Head: Yes normal to inspection and Yes atraumatic Ears: hearing grossly normal bilaterally and external ears normal General nose exam: Normal external nose present, no nasal discharge noted and no epistaxis Face and sinus: Yes normal facial exam, No abrasion and No laceration Mouth: Normal oral and palatal mucosa present, no drooling and no muffled voice Eyes General: appearance normal, both eyes and all related structures Periorbital: periorbital findings normal Eyelids: Yes eyelids normal Conjunctivae: conjunctivae normal Pupils: Equal, round and reactive pupils present EOM: EOMs intact bilaterally Neck Neck: Yes normal visual inspection, Yes full ROM and Yes no lymphadenopathy Chest Chest palpation & inspection: normal inspection of the chest Resp Effort & Inspection: normal respiratory effort and able to speak in complete sentences GI Inspection: Yes normal to inspection Neuro General: patient oriented x3 and moves all extremities Cranial nerves: Yes Equal, round and reactive pupils present Cognition (Neuro): normal cognition Extrem General: Yes normal to inspection, Yes full ROM and Yes capillary refill normal Psych Appearance: grossly normal Mental Status: mental status grossly normal Affect: normal affect Attitude: cooperative Thought process: Normal thought process present Thought content: Normal thought content present Insight: Good insight present (Psych) Medical Decision Making Medical Decision Making [facility] Narrative: Patient is a 29 year old assigned female at with a history of chronic constipation and gastritis presenting to the emergency department today with continued epigastric pain and intermittent lower abdominal pain. Patient's physical exam was unremarkable. Patient's blood work was unremarkable. Patient's urine showed an acute UTI. Patient's EKG was unremarkable. I explained my physical exam findings as well as all test results to the patient. I answered all questions asked by the patient. I stressed the importance of the patient taking her medication as directed (either prescribed or as the over the counter packaging recommends). I stressed the importance of the patient following up with her primary care provider and with her GI specialist. I stressed the importance of the patient returning to the emergency department immediately if her symptoms were to worsen or if she were to develop any dizziness, shortness of breath, difficulty breathing, chest pain, blurry vision, loss of vision, nausea, vomiting, abdominal pain, fever, chills, back pain, or any other complaints. Patient verbalized agreement and understanding with this treatment plan and discharge. Differential Diagnosis Differential Diagnoses: The differential diagnosis associated with the presentation includes UTI Gastritis Epigastric pain Admission/Observation Consideration of admission/observation: Escalation of care including admission/observation considered Patient would have been admitted to the hospital had her work up had any findings where hospital admission was appropriate and her clinical presentation warranted hospital admission. Lab Data [facility] Lab Attestation statement: I reviewed the patient's lab results. My interpretation of these results are in the [facility] Rationale portion of this note. 06/22/24 06:26 06/22/24 06:26 Labs: Lab Results 06/22/24 Range/Units 06:26 WBC 11.4 H (4.8-10.8) X10*3/uL RBC 4.12 L (4.20-5.50) X10*6/uL Hgb 12.6 (12.0-16.0) g/dl Hct 37.9 (37.0-47.0) % MCV 92.0 (80.0-98.0) fL MCH 30.6 (27.0-33.0) pg MCHC 33.2 (31.0-35.0) g/dl RDW 12.0 (11.0-16.0) % Plt Count 409 H (160-400) X10*3/uL MPV 8.8 L (9.4-12.3) fL Absolute Nucleated RBC 0.000 (0.0-0.012) X10*3/uL Nucleated RBC % (auto) 0.0 (0.0-0.2) /100WBC Sodium 140 (135-145) mmol/L Potassium 4.1 (3.3-5.1) mmol/L Chloride 108 (96-108) mmol/L Carbon Dioxide 24 (22-29) mmol/L Anion Gap 12 (12-20) BUN 9 (9-16) mg/dL Creatinine 0.62 (0.5-1.4) mg/dL Estim Creat Clear Calc 131.0 Estimated GFR > 60 Random Glucose 88 (60-115) mg/dL Calcium 9.1 D (8.4-10.2) mg/dL Total Bilirubin 0.3 (0.0-1.0) mg/dL AST 18 (5-31) U/L ALT 36 H (0-31) U/L Alkaline Phosphatase 105 (39-117) U/L Total Protein 7.3 (6.5-8.0) g/dL Albumin 3.7 (3.5-5.0) g/dL Lipase 23 (8-78) U/L Urine Color Yellow Urine Appearance Cloudy Urine pH 6.0 (5.0-9.0) Ur Specific [place] 1.025 (1.005-1.025) Urine Protein Negative (Neg-Trace) mg/dL Urine Glucose (UA) Negative (Negative) mg/dL Urine Ketones Negative (Negative) mg/dL Urine Blood Negative (Negative) Urine Nitrite Negative (Negative) Ur Leukocyte Esterase Moderate (2+) H (Negative) Urine RBC 0-2 (0-2) /HPF Urine WBC >50 H (0-5) /HPF Ur Squamous Epith Cells 11-20 (0-2) /HPF Urine Bacteria 1+ (None Seen) Hyaline Casts 0-2 (0-2) /LPF Independent Interpretation I performed an independent interpretation of an: EKG Interpretation: Vent. Rate: 079 BPM Atrial Rate: 079 BPM P-R Int: 170 ms QRS Dur: 084 ms QT Int: 354 ms P-R-T Axes: 027 005 010 degrees QTc Int: 405 ms Normal sinus rhythm Minimal voltage criteria for LVH, may be normal variant (R in aVL) When compared with ECG of 21-OCT-2017 16:26, No significant change was found DD/ 0611 Prescription Management I considered prescription management with: Antibiotic (patient prescribed an antibiotic for UTI) Discharge Plan Discharge Clinical Impression: Chronic epigastric pain, UTI (urinary tract infection) Patient Disposition: Home, Self-Care Instructions: Urinary Tract Infection in Women (DC), Epigastric Pain (ED) Additional Instructions: Follow up with your primary care provider and your GI specialist. Return to the emergency department immediately if your symptoms worsen or if you develop any dizziness, shortness of breath, difficulty breathing, chest pain, blurry vision, loss of vision, nausea, vomiting, abdominal pain, fever, chills, back pain, or any other complaints. Realice un seguimiento con mosqueda m?dico de cabecera y mosqueda especialista gastrointestinal. Acuda inmediatamente al servicio de urgencias si josé s?ntomas empeoran o si presenta mareos, falta de aliento, dificultad para respirar, dolor tor?cico, visi?n borrosa, p?rdida de visi?n, n?useas, v?mitos, dolor abdominal, fiebre, escalofr?os, dolor de espalda o cualquier otra molestia. Prescriptions: New sucralfate [Carafate] 100 mg/mL suspension 5 ml PO QID Qty: 414 0RF Rx Instructions: swish in mouth and swallow; use after food/drink cefuroxime axetil 250 mg tablet 250 mg PO BID 7 Days Qty: 14 0RF No Action zinc gluconate 10 mg lozenge 10 mg PO DAILY Qty: 100 0RF ikkbhxmalm-givvmrspggmtq-yybl 50-325-40 mg tablet 1 - 2 tab PO Q4H PRN (Reason: Headache) loratadine 10 mg tablet 1 tab PO DAILY PRN (Reason: allergies) benzonatate 100 mg capsule 100 mg PO TID PRN (Reason: cough) Qty: 20 0RF fluticasone propionate [Flonase Allergy Relief] 50 mcg/actuation spray,suspension 1 spray intranasal BID Qty: 16 0RF Rx Instructions: administer into each nostril Zyrtec 10 mg capsule 10 mg PO DAILY Qty: 30 0RF ibuprofen 400 mg tablet 400 mg PO Q6H Qty: 20 0RF pyridoxine (vitamin B6) [Vitamin B-6] 25 mg tablet 25 mg PO TID Qty: 90 3RF terconazole 0.4 % cream 1 appful vaginal BEDTIME 7 Days Qty: 45 0RF omeprazole 20 mg capsule,delayed release(DR/EC) 20 mg PO BID 30 Days Qty: 60 3RF Linzess 145 mcg capsule 290 mcg PO QAM 30 Days Qty: 60 1RF polyethylene glycol 3350 [Miralax] 17 gram/dose powder 17 g PO BID 30 Days Qty: 1020 1RF Referrals: [facility],Counts Include 234 Beds At [facility] [Primary Care Provider] - Stand Alone Forms: Work/School Release Print Language: Eritrean
[2024-06-22 06:46] LABS: Bacteria Urine 1+ (None Seen); Hyaline Casts Urine 0-2 /LPF (0-2); RBC Urine 0-2 /HPF (0-2); UACC Culture Trigger YES; WBC Urine >50 /HPF (0-5)
[2024-06-22 06:52] LABS: Alanine Aminotransferase 36 U/L (0-31); Albumin Level 3.7 g/dL (3.5-5.0); Alkaline Phosphatase 105 U/L (39-117); Anion Gap 12 (12-20); Aspartate Amino Transferase 18 U/L (5-31); Bilirubin Total 0.3 mg/dL (0.0-1.0); Blood Urea Nitrogen 9 mg/dL (9-16); Calcium 9.1 mg/dL (8.4-10.2); Carbon Dioxide 24 mmol/L (22-29); Chloride 108 mmol/L (96-108); Estimated Glomerular Filt Rate > 60; Glucose Random 88 mg/dL (60-115); Lipase 23 U/L (8-78); Potassium 4.1 mmol/L (3.3-5.1); Sodium 140 mmol/L (135-145); Total Protein 7.3 g/dL (6.5-8.0)
[2024-06-22 07:22] VITALS: BP 122/79; PULSE 74; RESP 16; TEMP 36.7; O2SAT 98
[2024-06-22] MEDS: cefuroxime axetiL 250 MG TABLET PO (07:34)
[2024-06-22] MEDS: Sucralfate Oral Suspension 1 GM/10 ML ORAL.SUSP PO (07:34)
== END 2024-06-22 07:41 | disposition home or self-care (01) ==
PROVIDERS: Emergency Provider Emergency Medicine
DX: R10.13 Epigastric pain (principal); N39.0 Urinary tract infection, site not specified; R94.31 Abnormal electrocardiogram [ECG] [EKG]; Z79.899 Other long term (current) drug therapy
CPT/HCPCS: 36415; 80053; 81001; 83690; 85027; 87086; 93005; 99283

== ENCOUNTER 2024-06-27 09:22 | Outpatient (REF) | payer MEDICAID, SELFPAY ==
[2024-06-27 09:48] LABS: MANUAL DIFF FLAG NO
[2024-06-27 10:13] LABS: Basophils Percent Auto 0.2 % (0-2); Eosinophils Absolute Auto 0.1 X10*3/uL (0.0-0.4); Eosinophils Percent Auto 0.5 % (0-4); Hematocrit 38.2 % (37.0-47.0); Hemoglobin 12.4 g/dl (12.0-16.0); Imm Gran Abs Auto 0.05 X10*3/uL (0.00-0.03); Imm Gran Pct Auto 0.5 % (0.0-0.4); Lymphocytes Absolute Auto 1.8 X10*3/uL (1.2-4.9); Mean Corpuscular HGB Conc 32.5 g/dl (31.0-35.0); Mean Corpuscular Hemoglobin 30.4 pg (27.0-33.0); Mean Corpuscular Volume 93.6 fL (80.0-98.0); Mean Platelet Volume 9.3 fL (9.4-12.3); Monocytes Absolute Auto 0.5 X10*3/uL (0.1-1.2); Monocytes Percent Auto 4.3 % (2-11); Neutrophils Absolute Auto 8.7 x10*3/uL (2.0-8.3); Neutrophils Percent Auto 78.5 % (45-73); Platelet Count 415 X10*3/uL (160-400); Red Blood Count 4.08 X10*6/uL (4.20-5.50); Red Cell Distribution Width 12.3 % (11.0-16.0); White Blood Count 11.1 X10*3/uL (4.8-10.8)
[2024-06-27 10:56] LABS: Alanine Aminotransferase 53 U/L (0-31); Alkaline Phosphatase 109 U/L (39-117); Anion Gap 11 (12-20); Aspartate Amino Transferase 22 U/L (5-31); Bilirubin Total 0.4 mg/dL (0.0-1.0); Blood Urea Nitrogen 9 mg/dL (9-16); Calcium 9.2 mg/dL (8.4-10.2); Carbon Dioxide 24 mmol/L (22-29); Chloride 108 mmol/L (96-108); Estimated Glomerular Filt Rate > 60; Glucose Random 80 mg/dL (60-115); Potassium 4.2 mmol/L (3.3-5.1); Sodium 139 mmol/L (135-145); Total Protein 7.9 g/dL (6.5-8.0)
[2024-06-27 11:03] LABS: Alanine Aminotransferase 53 U/L (0-31); Alkaline Phosphatase 109 U/L (39-117); Anion Gap 12 (12-20); Aspartate Amino Transferase 21 U/L (5-31); Bilirubin Total 0.4 mg/dL (0.0-1.0); Blood Urea Nitrogen 9 mg/dL (9-16); Calcium 9.3 mg/dL (8.4-10.2); Carbon Dioxide 23 mmol/L (22-29); Chloride 108 mmol/L (96-108); Estimated Glomerular Filt Rate > 60; Glucose Random 81 mg/dL (60-115); Lipase 17 U/L (8-78); Potassium 4.2 mmol/L (3.3-5.1); Sodium 139 mmol/L (135-145); Total Protein 7.8 g/dL (6.5-8.0)
[2024-06-27 11:22] LABS: TSH reflex Free T4 1.03 uIU/mL (0.32-4.0)
[2024-06-28 12:34] LABS: HCG Tumor Marker <5 mIU/mL
[2024-06-28 18:33] LABS: Follicle Stimulating Hormone 4.8 mIU/mL; Prolactin 6.6 ng/mL
[2024-07-05 13:43] LABS: Androstenedione 91 ng/dL
== END 2024-06-27 09:23 | disposition home or self-care (01) ==
LOC: HO.LAB 09:22
PROVIDERS: Internal Medicine Gastroenterology; PCP Family Medicine; Visit Provider Family Medicine
DX: N92.6 Irregular menstruation, unspecified (principal); E28.2 Polycystic ovarian syndrome; R10.10 Upper abdominal pain, unspecified
CPT/HCPCS: 36415; 80053; 82157; 83001; 83498; 83690; 84146; 84443; 84702; 85025

== ENCOUNTER 2024-07-26 13:00 | Outpatient (REF) | payer MEDICAID, SELFPAY | END 2024-07-26 13:01 | disposition home or self-care (01) | LOC: HO.XRAY 13:00 | PROVIDERS: PCP Internal Medicine; Visit Provider Internal Medicine Gastroenterology | DX: K59.09 Other constipation (principal); K21.9 Gastro-esophageal reflux disease without esophagitis; E55.9 Vitamin D deficiency, unspecified; R10.10 Upper abdominal pain, unspecified | CPT/HCPCS: 74018 ==

== ENCOUNTER 2024-07-26 13:00 | Outpatient (AMB) | payer MEDICAID, SELFPAY ==
--- NOTE | 2024-07-26 13:10 | MHC.OFFVIS ---
Vital Signs 07/26/24 13:13 Height 4 ft 11 in Weight 190 lb BMI 38.4 BP 122/72 Blood Pressure Location Lt brachial Position Sitting Pulse 72 Intake Visit Reasons: follow up Intake Note: Patient follow up for chronic constipation and lab results. Patient cc: she did not do the KUB order in the last visit. Tobacco Dipper Required: Yes Tobacco Dipper Name: [facility] [place] [facility] Accompanied by: Self / Same As Patient Allergies No Known Allergies Allergy (Verified 08/23/24 10:50) Medication List - Last Reconciled 07/26/24 by Surya Chavira MD benzonatate 100 mg PO TID PRN jvlaqixqve-tgvqdofvairky-xmoo 50-325-40 mg 1 - 2 tabs PO Q4H PRN cefuroxime axetil 250 mg PO BID 7 days cetirizine (Zyrtec) 10 mg PO DAILY fluticasone propionate 50 mcg/actuation (Flonase Allergy Relief) 1 spray intranasal BID ibuprofen 400 mg PO Q6H linaclotide (Linzess) 290 mcg (2 x 145 mcg) PO QAM 30 days loratadine 1 tab PO DAILY PRN omeprazole 20 mg PO BID 30 days polyethylene glycol 3350 (Miralax) 17 grams PO BID 30 days pyridoxine (vitamin B6) (Vitamin B-6) 25 mg PO TID sucralfate (Carafate) 5 mL PO QID terconazole 0.4% 1 appful vaginal BEDTIME 7 days zinc gluconate 10 mg PO DAILY HPI HPI follow up: Details: GI clinic visit for this 29 YF for follow up of chronic constipation. Patient cc: constipation with rectum pain, nauseas, abdominal pain/bloating, GERD come and go. Denies any other GI issues. Pt was last seen in 05/2022 and advised to schedule a Colonoscopy TODAY'S VISIT: TELEPHONE SPECIAL LIBRARY LIBRARIAN: William Kearney # [id number] Doing so so Constipation is bad - only has a BM after taking medication Taking Linzess and has a BM - has a BM 2-3 days after she takes the Linzess. Dad diagnosed with Colon cancer a few months ago in his 50's Had surgery and having chemo PAST VISIT: Patient follow up for chronic constipation and lab results. Patient cc: she did not do the KUB order in the last visit. Patient cc: abdominal pain/bloating, acid reflex, constipation and some swallowing difficulty. Pt is accompanied by her an daughter I am having a bad pain in the stomach and have to push down Has bad constipation and has a BM every 1-2 weeks Taking Linzess daily for constipation. I am not doing that good. Taking 2 pills at night for constipation. Also having some stomach ache She could have a BM the following day in the past. Now she is not having a BM the next day and worried that her body is getting used to the medication. She has changed her diet to help with wt loss. Complains of rectal pain and concerned about hemorrhoids. Denies rectal bleeding. Pt advised to schedule a colonoscopy Complains of constipation since childhood. Has a BM once a week or longer. Notes some rectal pain - when she tries to have a BM the poop wants to come out and it does not Has tried taking Miralax twice a day and some pills that her PCP prescribed and nothing works. Using Detox and Cleanse Colon for 2 months at night and has been helping a lot. Evaluated at age 11 yrs and was told her bowel was swollen. Notes some heartburn and denies dysphagia. Denies change in apetite. Weight fluctuates by 10 -20 lbs from 197. Looses 5 lbs over a week to 2 and regains weight very quickly. Family hx - ? great grand father of colon cancer at age 70. Multiple family members have issues with constipation. Pt is goind through a divorce and has 3 children - 10, 5 & 4 yrs. 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 Denes smoking or ETOH or drugs PFSH Medical History (Updated 08/25/24 @ 13:49 by Angelita Bui CNM) Constipation Migraines GERD (gastroesophageal reflux disease) Morbid obesity Anxiety Surgical History (Updated 11/01/24 @ 12:35 by Farzana Perez) Hx of colonoscopy Hx of dilation and curettage History of cholecystectomy Family History Mother Arthritis Fibromyalgia Father Diabetes Hypertension Social History Household Members: Children Both parents involved: Yes Housing: Apartment Are you a primary long term care pharmacist to a significant other at home: No Do you presently have visiting nurse or other home services: No Alcohol intake: former Patient Tobacco Use Status: Never used Tobacco Advance Directives Date on File: 12/21/20 Sexual orientation: Straight/Heterosexual Gender identity: Female Female Reproductive History Menstrual Age of Menarche: 11 Review of Systems Const All systems reviewed & are unremarkable except as noted in HPI and below Physical Exam Vital Signs: Last Vital Signs Pulse 72 07/26/24 13:13 BP 122/72 07/26/24 13:13 BMI result Body Mass Index 38.4 Const General: healthy appearing and no acute distress Nutritional Appearance: obese Orientation/consciousness: patient oriented x3 Limitations: language barrier HEENT Head: Yes normal to inspection Ears: hearing grossly normal bilaterally Eyes Sclerae: sclerae normal Pupils: Equal, round and reactive pupils present Neck Neck: Yes normal visual inspection Chest Chest palpation & inspection: normal inspection of the chest Resp Effort & Inspection: normal respiratory effort Auscultation: clear to auscultation bilaterally Cardio Palpation: normal PMI Rate: regular rate Rhythm: regular rhythm Heart sounds: S1 normal heart sound present, S2 normal heart sound present and no murmurs GI Palpation (GI): Soft to palpation, nontender and No hepatosplenomegaly present Auscultation: normal bowel sounds Rectal Exam - Female: deferred Skin General skin exam: no rashes or lesions noted Neuro General: patient oriented x3, gait normal and moves all extremities Cranial nerves: Yes Equal, round and reactive pupils present Psych Appearance: grossly normal Mental Status: mental status grossly normal Assessment & Plan Assessment & Plan (1) Chronic constipation: Code(s): K59.09 - Other constipation Category: Medical (2) GERD (gastroesophageal reflux disease): Code(s): K21.9 - Gastro-esophageal reflux disease without esophagitis Category: Medical (3) Constipation: Code(s): K59.00 - Constipation, unspecified Category: Medical (4) Vitamin D deficiency: Code(s): E55.9 - Vitamin D deficiency, unspecified Category: Medical (5) Upper abdominal pain: Code(s): R10.10 - Upper abdominal pain, unspecified Category: Medical (6) Family history of colon cancer in father: Code(s): Z80.0 - Family history of malignant neoplasm of digestive organs Category: Medical Plan 29 YF for FU of chronic constipation. Complains of constipation since childhood and has a BM once a week or longer. Symptoms are suggestive of outlet delay Has tried taking Miralax twice a day and some pills that her PCP prescribed and nothing works. Using Detox and Cleanse Colon for 2 months at night and has been helping a lot. Multiple family members have issues with constipation. Dose of Linzess increased from 145 mcg to 290 mcg daily FU in 3 weeks - fu appt scheduled on 07/07/24 Colonoscopy will be scheduled once pt is on a good bowel regimen for constipation. 07/26/24 Taking Linzess and has a BM - has a BM 2-3 days after she takes the Linzess. Pt advised to schedule a colonoscopy (family hx of colon cancer - her Dad was recently diagnosed with colon cancer). Advised to switch fro Linzess to Lubiprostone 24 mcg twice a day FU in 3 months Medications: New lubiprostone (Amitiza) Failed linzess 24 mcg PO BID 60 caps 1RF 30 days K59.09 - Other constipation bisacodyl (Dulcolax (bisacodyl)) Take 2 tablets at 12 pm daily starting 5 days before colonoscopy appt 10 mg (2 x 5 mg) PO ONCE 10 tabs 0RF 5 days K59.00 - Constipation, unspecified, Z80.0 - Family history of malignant neoplasm of digestive organs polyethylene glycol 3350 (Miralax) Mix Miralax with 64 oz(8 cups) of Crystal light. Take 2 tablets of Dulcolax qt 12 pm. Wait to have your 1st bowel movement, then begin drinking Miralax. Drink a glass of Miralax every 10-15 minutes until you are finished. You will drink at least another 4 cups of clear liquid of your choice over the next 2 hours. Please drink as many clear liquids as possible You may have clear liquids up to four hours before your procedure 17 grams PO DAILY 238 grams 0RF 1 day Coding Level of Care Code Est Pt Level 4 (97316) Diagnoses Chronic constipation K59.09 GERD (gastroesophageal reflux disease) K21.9 Constipation K59.00 Vitamin D deficiency E55.9 Upper abdominal pain R10.10 Family history of colon cancer in father Z80.0 Time Spent (min) 24
[2024-07-26 13:13] VITALS: BP 122/72; PULSE 72; BMI 38.4
== END 2024-07-26 13:53 | disposition home or self-care (01) ==
PROVIDERS: PCP Family Medicine; Visit Provider Internal Medicine Gastroenterology
DX: K59.09 Other constipation (principal); K21.9 Gastro-esophageal reflux disease without esophagitis; K59.00 Constipation, unspecified; E55.9 Vitamin D deficiency, unspecified; R10.10 Upper abdominal pain, unspecified; Z80.0 Family history of malignant neoplasm of digestive organs
CPT/HCPCS: 99499

== ENCOUNTER 2024-08-02 11:36 | Day surgery (SDC) | payer MEDICAID, SELFPAY ==
--- NOTE | 2024-08-01 12:10 | P.CONAN_ITS ---
Documented by User: Marcelle Gomez NP 08/01/24 12:11 HPI - Anesthesia Eval Consult details Narrative: 29yo F for Colonoscopy PMFSH Active Problems Active Problems: All Active Problems Family history of colon cancer in father (Acute) Upper abdominal pain (Acute) Zinc deficiency (Acute) Vitamin D deficiency (Acute) Constipation (Acute) Migraines (Acute) GERD (gastroesophageal reflux disease) (Acute) Morbid obesity (Acute) Bacterial vaginosis (Acute) Rh negative status during (Acute) Spotting in first trimester (Acute) Nausea and vomiting during (Acute) (Acute) Missed ab (Acute) Retained products of conception (Acute) Emergency contraception (Acute) Family planning advice (Acute) Chronic constipation (Acute) Obesity (Acute) Past Medical History Medical History Constipation Migraines GERD (gastroesophageal reflux disease) Morbid obesity Anxiety Family History Family History Mother Arthritis Fibromyalgia Father Diabetes Hypertension Surgical History Surgical History Hx of dilation and curettage History of cholecystectomy Social History Social History Household Members: Children Housing: Apartment Are you a primary customer care specialist to a significant other at home: No Do you presently have visiting nurse or other home services: No Alcohol intake: former Patient Tobacco Use Status: Never used Tobacco Have you been hit, kicked, punched, or otherwise hurt by someone within the past year? If so, by whom?: No Are you DNR?: No Advance Directives: No Advance Directives Information Provided: Yes Advance Directives Date on File: 12/21/20 Recently lost weight without trying: No Nutrition Risks: No Nutritional Risk FDLMP: beginning of month Sexual orientation: Straight/Heterosexual Gender identity: Female Meds Allergies Allergy/AdvReac Type Severity Reaction Status Date / Time No Known Allergies Allergy Verified 08/02/24 12:41 Home Medications ?Medication ?Instructions ?Recorded ?Confirmed ?Last Taken ?Type echjujolwu-ezhoavmnlnrxa-wknhryad 1 - 2 tab PO Q4H PRN Headache 09/17/22 07/26/24 Unknown History 50 mg-325 mg-40 mg tablet Exam Pertinent Lab Results Pertinent Lab Results: Laboratory Tests 06/27/24 09:46 WBC 11.1 H Hgb 12.4 Hct 38.2 Plt Count 415 H Sodium 139 Potassium 4.2 Chloride 108 Carbon Dioxide 23 BUN 9 Creatinine 0.60 Narrative Narrative: EKG 06/2024 Vent. Rate : 079 BPM Atrial Rate : 079 BPM P-R Int : 170 ms QRS Dur : 084 ms QT Int : 354 ms P-R-T Axes : 027 005 010 degrees QTc Int : 405 ms Normal sinus rhythm Minimal voltage criteria for LVH, may be normal variant ( R in aVL ) Borderline ECG When compared with ECG of 21-OCT-2017 16:26, No significant change was found Assessment and Plan Assessment Anesthesia Assessment: Chart Reviewed Documented by User: Neetu Zamudio MD 08/02/24 14:07 [facility] Past Medical History Medical History Constipation Migraines GERD (gastroesophageal reflux disease) Morbid obesity Anxiety Family History Family History Mother Arthritis Fibromyalgia Father Diabetes Hypertension Family history of problems with anesthesia: No Surgical History Surgical History Hx of dilation and curettage History of cholecystectomy History of Problems with Anesthesia: No Social History Social History Household Members: Children Housing: Apartment Are you a primary customer care specialist to a significant other at home: No Do you presently have visiting nurse or other home services: No Alcohol intake: former Patient Tobacco Use Status: Never used Tobacco Have you been hit, kicked, punched, or otherwise hurt by someone within the past year? If so, by whom?: No Are you DNR?: No Advance Directives: No Advance Directives Information Provided: Yes Advance Directives Date on File: 12/21/20 Recently lost weight without trying: No Nutrition Risks: No Nutritional Risk FDLMP: beginning of month Sexual orientation: Straight/Heterosexual Gender identity: Female Meds Allergies Allergy/AdvReac Type Severity Reaction Status Date / Time No Known Allergies Allergy Verified 08/02/24 12:41 Home Medications ?Medication ?Instructions ?Recorded ?Confirmed ?Last Taken ?Type qvnsqwvlbz-mtfyejeljivqx-dntjmxiq 1 - 2 tab PO Q4H PRN Headache 09/17/22 07/26/24 Unknown History 50 mg-325 mg-40 mg tablet Exam Height,Weight and Vital Signs: Height 4 ft 11 in Weight 86.183 kg Vital Signs Temp Pulse Resp BP Pulse Ox O2 Del Method 08/02/24 13:11 98.0 F 91 18 126/79 100 Room Air Pertinent Lab Results Pertinent Lab Results: Laboratory Tests 06/27/24 09:46 WBC 11.1 H Hgb 12.4 Hct 38.2 Plt Count 415 H Sodium 139 Potassium 4.2 Chloride 108 Carbon Dioxide 23 BUN 9 Creatinine 0.60 Lab Results 08/02/24 Range/Units 12:20 Urine Test NEGATIVE (NEGATIVE) Narrative Narrative: EKG 06/2024 Vent. Rate : 079 BPM Atrial Rate : 079 BPM P-R Int : 170 ms QRS Dur : 084 ms QT Int : 354 ms P-R-T Axes : 027 005 010 degrees QTc Int : 405 ms Normal sinus rhythm Minimal voltage criteria for LVH, may be normal variant ( R in aVL ) Borderline ECG When compared with ECG of 21-OCT-2017 16:26, No significant change was found Airway Mallampati Class: II TM Dist: >3cm Neck ROM: Full Loose/Missing/Broken Teeth: No Heart: RRR Lungs: CTAB Assessment and Plan Assessment Anesthesia Assessment: Anesthesia Plan Discussed and Chart Reviewed Final Anesthetic Review Family History of Problems with Anesthesia: No History of Problems with Anesthesia: No NPO: Yes ASA Class: III Final Preanesthetic Review: No Changes in Pt Med Stat, Meds/Allgs Chart Revie thu, Consent Obtained/Reviewed and Anes Risks/Benef Reviewed Patient Risk: Intermediate Procedure Risk: Low Assessment/Block/Sedation in SS: Assess/Block/Sedation-SS Anesthetic Plan Anesthetic Plan: TIVA Disposition: Standard PACU
--- OUTSIDE RECORDS SUMMARY | 2024-08-02 11:39 | XMS_ITS | Continuity of Care Document ---
Author Organization [facility] Address [address] [address]- Care Team Providers Care Test Operator Name Role Phone Lilli Diaz MD, Farzana Feliciano Primary Care Physici an Encounter [facility] Date(s): 10/28/23 - 11/27/23 [facility] and [facility] [address] [address] Attending Physician: David Blackwood Admitting Physician: David Blackwood Referring Physician: AdmDavid max Allergies, Adverse Reactions, Alerts No Known Allergies Immunizations Given and Recorded Vaccine Date Status Refusal Reason tetanus/diphtheria/pertussis, acel(Tdap) 04/13/23 Given Medications Laisha 30 mg oral tablet 1 tablet = 30 mg, By Mouth, Once, # 1 tablet, 0 Refills, Soft Stop, 09/29/23 9:35:00 EST, Tablet, [facility][id number], Partial fill upon patient request if the prescription is for a schedule II opioid drug., 151, cm, 09/10/23 15:26:00 EST, Hei... Start Date: 09/29/23 Status: Ordered Vitamin D3 1000 intl units oral capsule 1 capsule = 25 mcg, By Mouth, Daily, # 30 capsule, 0 Refills, Maintenance, 09/29/23 10:15:00 EST, Capsule, [facility] #[id number], Partial fill upon patient request if the prescription is for a schedule II opioid drug., 151, cm, 09/10/23 15:26:00... Start Date: 09/29/23 Status: Ordered Problem List Condition Confirmation Course Effective Dates Status Health St atus Informant Uses Angolan as primary spoken language Confirmed Active Encounter for visit Confirmed Active Severe obesity Confirmed Active Social History Social History Type Response Smoking Status Former smoker, quit more than 30 days ago entered on: 09/10/23 Sex Patient Care team information Care Team Personnel Name: Farzana Meadows MD Position: [facility] Outreach Member Role: PCP Address: Address: [address] [place] [address] [address] [place] [address]- Care Team Related Persons Name: MERVIN LÓPEZ Address: home [address] [place] [address] Name: MERVIN PARKER Address: [address] [place] [address] Name: CHRISTOPHER PITTS Address: [address] Address: home [address] [place] [address] Name: ANNEMARIE TENA Address: home [address] [place] [address]
--- OUTSIDE RECORDS SUMMARY | 2024-08-02 11:39 | XMS_ITS | Continuity of Care Document ---
Author Organization [facility] Address [address] [address]- Care Team Providers Care Steward/[employer] D[employer] Car Name Role Phone Lilli Diaz MD, Farzana Feliciano Primary Care Physici an [place] [facility] Date(s): 09/10/23 - 11/27/23 [facility] [address] [place] [address] Attending Physician: Not on Staff, Attending MD Referring Physician: Rivas WU, Jeannine Wilson Allergies, Adverse Reactions, Alerts No Known Allergies Immunizations Given and Recorded Vaccine Date Status Refusal Reason tetanus/diphtheria/pertussis, acel(Tdap) 04/13/23 Given Medications Laisha 30 mg oral tablet 1 tablet = 30 mg, By Mouth, Once, # 1 tablet, 0 Refills, Soft Stop, 09/29/23 9:35:00 EST, Tablet, [facility][id number], Partial fill upon patient request if the prescription is for a schedule II opioid drug., 151, cm, 09/10/23 15:26:00 EST, Hei... Start Date: 09/29/23 Status: Ordered Vitamin D3 1000 intl units oral capsule 1 capsule = 25 mcg, By Mouth, Daily, # 30 capsule, 0 Refills, Maintenance, 09/29/23 10:15:00 EST, Capsule, [facility] #[id number], Partial fill upon patient request if the prescription is for a schedule II opioid drug., 151, cm, 09/10/23 15:26:00... Start Date: 09/29/23 Status: Ordered Problem List Condition Confirmation Course Effective Dates Status Health St atus Informant Uses German as primary spoken language Confirmed Active Encounter for visit Confirmed Active Severe obesity Confirmed Active Social History Social History Type Response Smoking Status Former smoker, quit more than 30 days ago entered on: 09/10/23 Sex Patient Care team information Care Team Personnel Name: Lilli Diaz MD, Farzana Feliciano Position: [facility] Outreach Member Role: PCP Address: Address: [address] [place] [address] [address] [place] [address]- Care Team Related Persons Name: MERVIN LÓPEZ Address: home [address] [place] [address] Name: MERVIN PARKER Address: home [address] [place] [address] Name: CHRISTOPHER PITTS Address: [address] Address: home [address] [place] [address] Name: ANNEMARIE TENA Address: home [address] [place] [address]
--- OUTSIDE RECORDS SUMMARY | 2024-08-02 11:40 | XMS_ITS | Continuity of Care Document ---
Author Organization [facility] Address [address] [address]- Care Team Providers Care Clinical Research Coordinator Name Role Phone Lilli Diaz MD, Farzana Feliciano Primary Care Physici an [place] [facility] [place] 08/19/23 - 09/18/23 [facility] [address] [address]- Allergies, Adverse Reactions, Alerts No Known Allergies Immunizations Given and Recorded Vaccine Date Status Refusal Reason tetanus/diphtheria/pertussis, acel(Tdap) 04/13/23 Given Problem List Condition Confirmation Course Effective Dates Status Health St atus Informant Uses Indian as primary spoken language Confirmed Active Encounter for visit Confirmed Active Severe obesity Confirmed Active Social History Social History Type Response Smoking Status Former smoker, quit more than 30 days ago entered on: 09/10/23 Sex Patient Care team information Care Team Personnel Name: Lilli Diaz MD, Farzana Feliciano Position: [facility] Outreach Member Role: PCP Address: Address: [address] [place] [address] Care Team Related Persons Name: MERVIN LÓPEZ Address: home [address] [place] [address] Name: MERVIN PARKER Address: home [address] [place] [address] Name: CHRISTOPHER PITTS Address: [address] Address: home [address] [place] [address] Name: ANNEMARIE TENA Address: home [address] [place] [address]
--- OUTSIDE RECORDS SUMMARY | 2024-08-02 11:40 | XMS_ITS | Continuity of Care Document ---
Author Organization [facility] Address [address] [address]- Care Team Providers Care Tenterer Name Role Phone Lilli Diaz MD, Farzana Feliciano Primary Care Physici an [place] [facility] Date(s): 09/16/23 - 10/16/23 [facility] [address] [address] Attending Physician: David Blackwood Admitting Physician: David Blackwood Referring Physician: David Blackwood Allergies, Adverse Reactions, Alerts No Known Allergies Immunizations Given and Recorded Vaccine Date Status Refusal Reason tetanus/diphtheria/pertussis, acel(Tdap) 04/13/23 Given Medications Laisha 30 mg oral tablet 1 tablet = 30 mg, By Mouth, Once, # 1 tablet, 0 Refills, Soft Stop, 09/29/23 9:35:00 EST, Tablet, [facility] #[id number], Partial fill upon patient request if the prescription is for a schedule II opioid drug., 151, cm, 09/10/23 15:26:00 EST, Hei... Start Date: 09/29/23 Status: Ordered Vitamin D3 1000 intl units oral capsule 1 capsule = 25 mcg, By Mouth, Daily, # 30 capsule, 0 Refills, Maintenance, 09/29/23 10:15:00 EST, Capsule, [facility] #[id number], Partial fill upon patient request if the prescription is for a schedule II opioid drug., 151, cm, 09/10/23 15:26:00... Start Date: 09/29/23 Status: Ordered Problem List Condition Confirmation Course Effective Dates Status Health St atus Informant Uses Equatorial Guinean as primary spoken language Confirmed Active Encounter for visit Confirmed Active Severe obesity Confirmed Active Social History Social History Type Response Smoking Status Former smoker, quit more than 30 days ago entered on: 09/10/23 Sex Patient Care team information Care Team Personnel Name: Lilli Diaz MD, Farzana Feliciano Position: [facility] Outreach Member Role: PCP Address: Address: [address] [place] [address] [address] [place] [address]- Care Team Related Persons Name: MERVIN LÓPEZ Address: home [address] [place] [address] Name: MERVIN PARKER Address: home [address] [place] [address] Name: CHRISTOPHER PITTS Address: [address] Address: home [address] [place] [address] Name: ANNEMARIE TENA Address: home [address] [place] [address]
--- OUTSIDE RECORDS SUMMARY | 2024-08-02 11:41 | XMS_ITS | Continuity of Care Document ---
Author Organization [facility] Address [address] [address]- Care Team Providers Care Student Outreach Coordinator Name Role Phone Lilli Diaz MD, Farzana Feliciano Primary [facility] Physici [id number]14[facility] - [facility] [address] [address]- Attending Physician: Not on Staff, Attending MD Referring Physician: Rivas WU, Jeannine Wilson Allergies, Adverse Reactions, Alerts No Known Allergies Immunizations Given and Recorded Vaccine Date Status Refusal Reason tetanus/diphtheria/pertussis, acel(Tdap) 04/13/23 Given Medications Laisha 30 mg oral tablet 1 tablet = 30 mg, By Mouth, Once, # 1 tablet, 0 Refills, Soft Stop, 09/29/23 9:35:00 EST, Tablet, [facility] #[id number], Partial fill upon patient request if the prescription is for a schedule II opioid drug., 151, cm, 09/10/23 15:26:00 EST, Hei... Start Date: 09/29/23 Status: Ordered Vitamin D3 1000 intl units oral capsule 1 capsule = 25 mcg, By Mouth, Daily, # 30 capsule, 0 Refills, Maintenance, 09/29/23 10:15:00 EST, Capsule, [facility][id number], Partial fill upon patient request if the prescription is for a schedule II opioid drug., 151, cm, 09/10/23 15:26:00... Start Date: 09/29/23 Status: Ordered Problem List Condition Confirmation Course Effective Dates Status Health St atus Informant Uses North Korean as primary spoken language Confirmed Active Encounter for visit Confirmed Active Severe obesity Confirmed Active Social History Social History Type Response Smoking Status Former smoker, quit more than 30 days ago entered on: 09/10/23 Sex Patient Care team information Care Team Personnel Name: Lilli Diaz MD, Farzana Feliciano Position: [facility] Outreach Member Role: PCP Address: Address: [address] [place] [address]- Care Team Related Persons Name: MERVIN LÓPEZ Address: home [address] [place] [address] Name: MERVIN PARKER Address: home [address] [place] [address] Name: CHRISTOPHER PITTS Address: [address] Address: home [address] [place] [address] Name: ANNEMARIE TENA Address: home [address] [place] [address]
--- OUTSIDE RECORDS SUMMARY | 2024-08-02 11:41 | XMS_ITS | Continuity of Care Document ---
Author Organization [facility] Address [address] [address]- Care Team Providers Care Smoked Meat Preparer Name Role Phone Lilli Diaz MD, Farzana Feliciano Primary Care Physici an [id number]/15/23 - 10/16/23 [facility] [address] [address]- Attending Physician: Not on Staff, Attending MD Referring Physician: Rivas WU, Jeannine Wilson Allergies, Adverse Reactions, Alerts No Known Allergies Immunizations Given and Recorded Vaccine Date Status Refusal Reason tetanus/diphtheria/pertussis, acel(Tdap) 04/13/23 Given Medications Laisha 30 mg oral tablet 1 tablet = 30 mg, By Mouth, Once, # 1 tablet, 0 Refills, Soft Stop, 09/29/23 9:35:00 EST, Tablet, [facility] #[id number], Partial fill upon patient request if the prescription is for a schedule II opioid drug., 151, cm, 09/10/23 15:26:00 EST, Hei... Start Date: 09/29/23 Status: Ordered Vitamin D3 1000 intl units oral capsule 1 capsule = 25 mcg, By Mouth, Daily, # 30 capsule, 0 Refills, Maintenance, 09/29/23 10:15:00 EST, Capsule, [facility][id number], Partial fill upon patient request if the prescription is for a schedule II opioid drug., 151, cm, 09/10/23 15:26:00... Start Date: 09/29/23 Status: Ordered Problem List Condition Confirmation Course Effective Dates Status Health St atus Informant Uses Prydeinig as primary spoken language Confirmed Active Encounter for visit Confirmed Active Severe obesity Confirmed Active Social History Social History Type Response Smoking Status Former smoker, quit more than 30 days ago entered on: 09/10/23 Sex Patient Care team information Care Team Personnel Name: Lilli Diaz MD, Farzana Feliciano Position: [facility] Outreach Member Role: PCP Address: Address: [address] [place] [address]- Care Team Related Persons Name: MERVIN LÓPEZ Address: home [address] [place] [address] Name: MERVIN PARKER Address: home [address] [place] [address] Name: CHRISTOPHER PITTS Address: [address] Address: home [address] [place] [address] Name: ANNEMARIE TENA Address: home [address] [place] [address]
--- OUTSIDE RECORDS SUMMARY | 2024-08-02 11:41 | XMS_ITS | Continuity of Care Document ---
Author Organization [facility] Address [address] [address]- Care Team Providers Care Game Technician Name Role Phone Lilli Diaz MD, Farzana Feliciano Primary Care Physici an [id number] Date(s): 10/12/23 - 11/11/23 [facility] [address] [place] [address] Allergies, Adverse Reactions, Alerts No Known Allergies Immunizations Given and Recorded Vaccine Date Status Refusal Reason tetanus/diphtheria/pertussis, acel(Tdap) 04/13/23 Given Medications Laisha 30 mg oral tablet 1 tablet = 30 mg, By Mouth, Once, # 1 tablet, 0 Refills, Soft Stop, 09/29/23 9:35:00 EST, Tablet, [facility] #[id number], Partial fill upon patient request if the prescription is for a schedule II opioid drug., 151, cm, 09/10/23 15:26:00 EST, Hei... Start Date: 09/29/23 Status: Ordered Vitamin D3 1000 intl units oral capsule 1 capsule = 25 mcg, By Mouth, Daily, # 30 capsule, 0 Refills, Maintenance, 09/29/23 10:15:00 EST, Capsule, [facility] #[id number], Partial fill upon patient request if the prescription is for a schedule II opioid drug., 151, cm, 09/10/23 15:26:00... Start Date: 09/29/23 Status: Ordered Problem List Condition Confirmation Course Effective Dates Status Health St atus Informant Uses Puerto Rican as primary spoken language Confirmed Active Encounter for visit Confirmed Active Severe obesity Confirmed Active Social History Social History Type Response Smoking Status Former smoker, quit more than 30 days ago entered on: 09/10/23 Sex Patient Care team information Care Team Personnel Name: Lilli Diaz MD, Farzana Feliciano Position: [facility] Outreach Member Role: PCP Address: Address: [address] [place] [address] [address] [place] [address]- Care Team Related Persons Name: MERVIN LÓPEZ Address: home [address] [place] [address] Name: MERVIN PARKER Address: home [address] [place] [address] Name: CHRISTOPHER PITTS Address: [address] Address: home [address] [place] [address] Name: ANNEMARIE TENA Address: home [address] [place] [address]
[2024-08-02 12:28] VITALS: BMI 38.4
[2024-08-02] MEDS: Lactated Ringers 1,000 ML 100 ML IVCONT (12:44)
[2024-08-02 12:50] LABS: UPreg QC Valid YES; Urine Pregnancy NEGATIVE (NEGATIVE)
[2024-08-02 13:11] VITALS: BP 126/79; PULSE 91; RESP 18; TEMP 36.7; O2SAT 100
--- NOTE | 2024-08-02 14:27 | MHC.SHP ---
Pre-Procedural Eval Section A - 24 Hr Update-Section A only Date of Service: 08/02/24 The patient is an INPATIENT: No Changes since office visit: Yes Patient answered all questions; No Cold of Flu in the past 2 weeks, No New Medical Problems and No Changes in Medication The patient has been examined within 24 hours of the surgical procedure. The History & Physical has been completed within 30 days and I have reviewed it.: Yes Section B - Complete if H&P > 30 days Chief Complaint: Other constipation Allergies: Allergies Allergy/AdvReac Type Severity Reaction Status Date / Time No Known Allergies Allergy Verified 08/02/24 12:41 Exam Surgical H&P Exam: Normal: Heart, Normal: Lungs, Normal: Extremities and Normal: Abdomen Plan Diagnosis/Plan: Change (proceed with colonoscopy) I have reviewed the history and physical and performed a pertinent physical examination on my patient. No changes have occurred unless specified. Time Spent With Patient Time: Total time managing care of this patient today ____ minutes.
--- NOTE | 2024-08-02 14:39 | PC.NURSE ---
report given to yolanda lacey rn at this time.
[2024-08-02 15:45] VITALS: BP 102/60; PULSE 89; RESP 20; TEMP 36.1; O2SAT 100
--- NOTE | 2024-08-02 15:46 | HO.OPN-COLON ---
Colonoscopy Operative Note Operative Note Date of Service: 08/02/24 Narrative: COLONOSCOPY TILL CECUM WITH BIOPSIES Pre-op diagnosis: Chronic constipation, Family history of colon cancer (Dad). Post-op diagnosis:? hemorrhoids Endoscopist:? Surya Chavira MD Anesthesia:?MAC Consent: Indications for the procedure and potential complications of bleeding, perforation, reaction to medications and missed diagnosis were discussed with the patient and informed consent was obtained. Instrument: Olympus PCF H 190 L variable stiffness pediatric colonoscope Monitoring: Vital signs and clinical assessment, intermittent blood pressure monitoring, continuous EKG monitoring, Pulse oximetry and Carbon Dioxide monitoring were done throughout the procedure. Please see anesthesia flowsheet. Colon withdrawl time was 18 minutes. Procedure: The patient was placed in the left lateral decubitis position and pre-procedure medications were administered. After a digital rectal examination of the ano-rectum, the video colonoscope was inserted into the rectum and advanced through the colon to the cecum. The colonoscope was slowly withdrawn in a retrograde panoramic fashion and the colon mucosa was carefully examined including a retroflexed view of the rectum. Findings and interventions are described below. Procedure Difficulty: without difficulty Findings: Terminal Ileum: Not evaluated Cecum: Normal Ascending Colon: Normal Transverse Colon: Normal Descending Colon: Normal Sigmoid Colon: Normal Rectum: Normal Ano-rectum: Small non-bleeding internal hemorrhoids Colon preparation: Good after copious irrigation. Henniker Bowel Preparation Scale Right colon; 2 Transverse colon: 2 Left colon; 2 (0 = Unprepared colon segment with mucosa not seen due to solid stool that cannot be cleared. 1 = Portion of mucosa of the colon segment seen, but other areas of the colon segment not well seen due to staining, residual stool and/or opaque liquid. 2 = Minor amount of residual staining, small fragments of stool and/or opaque liquid, but mucosa of colon segment seen well. 3 = Entire mucosa of colon segment seen well with no residual staining, small fragments of stool or opaque liquid) Impression and Post Procedure Diagnosis: Colonoscopy Findings: No polyps were detected Random biopsies were obtained from right and left colon to check for microscopic colitis. small hemorrhoids on retroflexed exam. Plan: I will send a letter with biopsy results. Pt to schedule a FU appointment with Dr Chavira Repeat Colonoscopy in 10 years. Above findings were reviewed with the patient and relevant handouts were given and the discharge area. BIOPSIES SHOWED: A. Colon, right, biopsy: Melanosis coli; otherwise colonic mucosa within normal limits; negative for microscopic colitis. B. Colon, left, biopsy: Melanosis coli; otherwise colonic mucosa within normal limits; negative for microscopic colitis. Letter sent to the patient advising repeat colonoscopy in 10 years. Patient was placed on the colonoscopy recall list.
[2024-08-02 16:00] VITALS: BP 112/69; PULSE 83; RESP 18; O2SAT 99
[2024-08-02 16:15] VITALS: BP 126/67; PULSE 74; RESP 18; TEMP 36.1; O2SAT 99
== END 2024-08-02 16:36 | disposition home or self-care (01) ==
PROVIDERS: Nurse Practitioner; PCP Internal Medicine; Visit Provider Internal Medicine Gastroenterology
PROC: 0DJD8ZZ Inspection of Lower Intestinal Tract, Via Natural or Artificial Opening Endoscopic (ICD-10-PCS; CPT 45378; principal; 2024-08-02 14:30)
DX: K59.09 Other constipation (principal); Z80.0 Family history of malignant neoplasm of digestive organs; K63.89 Other specified diseases of intestine; K64.8 Other hemorrhoids; K21.9 Gastro-esophageal reflux disease without esophagitis; R10.10 Upper abdominal pain, unspecified; E55.9 Vitamin D deficiency, unspecified; E66.01 Morbid (severe) obesity due to excess calories; Z68.38 Body mass index [BMI] 38.0-38.9, adult; F41.9 Anxiety disorder, unspecified; G43.909 Migraine, unspecified, not intractable, without status migrainosus; Z79.1 Long term (current) use of non-steroidal anti-inflammatories (NSAID); Z79.899 Other long term (current) drug therapy; Z79.51 Long term (current) use of inhaled steroids
CPT/HCPCS: 45380; 81025; 88305; J2003; J2704

== ENCOUNTER → 2024-08-02 11:36 | Outpatient (BNV) | payer MEDICAID, SELFPAY | PROVIDERS: PCP Internal Medicine; Visit Provider Internal Medicine Gastroenterology | DX: K59.04 Chronic idiopathic constipation (principal); Z80.0 Family history of malignant neoplasm of digestive organs; K64.8 Other hemorrhoids; K63.89 Other specified diseases of intestine | CPT/HCPCS: 45380 ==

== ENCOUNTER 2024-08-22 13:47 | Outpatient (AMB) | payer MEDICAID, SELFPAY ==
--- NOTE | 2024-08-22 13:49 | A.OFFVIS_ITS ---
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 Information Interpreted: clinical only Block Saw Operator: Block Saw Operator Present Allergies No Known Allergies Allergy (Verified 08/22/24 14:00) Medication List - Last Reconciled 08/22/24 by Angelita Bui CNM licsqlmayv-prerzpatpzgwk-mfjg 50-325-40 mg 1 - 2 tabs PO Q4H PRN ibuprofen 400 mg PO Q6H linaclotide (Linzess) 290 mcg (2 x 145 mcg) PO QAM 30 days lubiprostone (Amitiza) 24 mcg PO BID 30 days omeprazole 20 mg PO BID 30 days pyridoxine (vitamin B6) (Vitamin B-6) 25 mg PO TID Is last menstrual period known: Yes Last menstrual period: 08/04/24 HPI HPI 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 She says she gained a lot weight so checked her blood sugar times but she did not have . She does not know when she had Pap smear last. She is not sexually active with she says the father of her children is with somebody else. If she became sexually active she condoms she has a use plan B a few times as well past something happened a condom break. She says she has used it as much as 3 times in the calendar year at the most. She has not been with anybody in a while but she is open to checking for infection, and would like lab work done she sees her primary care provider at the [facility] here on [facility]. She gets regular periods they are not too bad in last 3-4 days her last 1 was August 04.. She has her 1-year-old here with her very vocal about her needs, and at does her best to distract her and get her to play. [facility] Medical History Constipation Migraines GERD (gastroesophageal reflux disease) Morbid obesity Anxiety Surgical History Hx of dilation and curettage History of cholecystectomy Family History Mother Arthritis Fibromyalgia Father Diabetes Hypertension Social History Household Members: Children Housing: Apartment Are you a primary career development coordinator to a significant other at home: No Do you presently have visiting nurse or other home services: No Alcohol intake: former Patient Tobacco Use Status: Never used Tobacco Advance Directives Date on File: 12/21/20 Sexual orientation: Straight/Heterosexual Gender identity: Female Female Reproductive History Menstrual Age of Menarche: 11 Duration of menses: 3-5 days Date of last menstrual period: 08/04/24 control method: none Total pregnancies: 5 Full term: 4 Date of last pap smear: 02/09/17 (negative) History of abnormal pap smear: No Physical Exam Vital Signs: Last Vital Signs BP 126/70 08/22/24 13:51 BMI result Body Mass Index 36.8 Const General: healthy appearing, comfortable, no acute distress, well developed and alert Nutritional Appearance: average body habitus Orientation/consciousness: patient oriented x3 Limitations: no limitations HEENT Head: Yes normocephalic Neck Neck: Yes normal visual inspection Chest Chest palpation & inspection: normal inspection of the chest Breast/axilla inspection: normal inspection of the breasts and normal inspection of the axillae Breast/axilla palpation: normal palpation of the breasts and normal palpation of the axillae Resp Effort & Inspection: normal respiratory effort GI Inspection: Yes normal to inspection, No Abdominal wall edema and No distended Palpation (GI): Soft to palpation and nontender Other: External vulva within limits vagina is pink and moist multiparous cervix very clear new mucus or discharge will to other anatomy shared with patient and teaching done about anatomy cervix long close thick mobile nontender uterus small anteverted mobile nontender. Fair tone with Kegel instructed on doing Kegel's discussed why/. General: Yes bladder normal to palpation External Female Exam: normal external appearance and normal appearance of the urethra Speculum Exam - Vagina: normal appearance of the vagina, normal palpation and normal vaginal discharge Speculum Exam - Cervix: normal appearance of the cervix, normal palpation and nontender Bimanual exam- vagina & uterus: normal bimanual exam, normal palpation, uterine size normal, bladder normal to palpation, consistency normal, normal palpation, uterine mobility normal, uterine shape normal, No Cervical tenderness present, non-tender and no cervical motion tenderness Bimanual Exam- Adnexa, other: normal adnexae, no masses, normal and No adnexal tenderness Neuro General: patient oriented x3 Assessment & Plan Assessment & Plan (1) Well woman exam with routine gynecological exam: Code(s): Z01.419 - Encounter for gynecological examination (general) (routine) without abnormal findings Category: Medical (2) Cervical cancer screening: Code(s): Z12.4 - Encounter for screening for malignant neoplasm of cervix Category: Medical (3) Encounter for screening examination for sexually transmitted disease: Code(s): Z11.3 - Encounter for screening for infections with a predominantly sexual mode of transmission Category: Medical (4) control counseling: Code(s): Z30.09 - Encounter for other general counseling and advice on contraception Category: Medical Plan -----Discussed in this visit the following: healthy balanced diet, regular and consistent exercise, getting recommended health screens, doing the best she can for her particular health concerns, kegel exercises, pap smear screening and followup recommendations, mammography screening and SBE, normal changes in cycles in her life stage--- . At the end of the visit the patient shared that she has had an issue for a lot of years and she is having sex she is having sets of at the time she has a difficulty in completely ?coming but if she is by herself she does not have a problem, she is wondering what could be wrong.. I sh that I am not an expert at this abut sometimest that is the case could very well because there is some thing stopping her in the and possible issues could be lack of trust in the relationship especially given the her partner has left her and now has another partner, or fear of another . Additionally self-esteem issues can sometimes play a role She does not want another at this but she says her she would like to have twins and then have her tubes tied she would like 6 babies in all. She did not want any kind of control at this time. Orders: Orders CT NG by PCR Today N89.8 - Other specified noninflammatory disorders of vagina, Z01.419 - Encounter for gynecological examination (general) (routine) without abnormal findings, Z11.3 - Encounter for screening for infections with a predominantly sexual mode of transmission, Z12.4 - Encounter for screening for malignant neoplasm of cervix, Z30.09 - Encounter for other general counseling and advice on contraception HIV Ab/Ag Today Z01.419 - Encounter for gynecological examination (general) (routine) without abnormal findings, Z11.3 - Encounter for screening for infections with a predominantly sexual mode of transmission, Z12.4 - Encounter for screening for malignant neoplasm of cervix, Z30.09 - Encounter for other general counseling and advice on contraception Pap Smear Today Z00.00 - Encounter for general adult medical examination without abnormal findings Bacterial Vaginosis Panel Today N89.8 - Other specified noninflammatory disorders of vagina, N94.89 - Other specified conditions associated with female genital organs and menstrual cycle, Z01.419 - Encounter for gynecological examination (general) (routine) without abnormal findings, Z11.3 - Encounter for screening for infections with a predominantly sexual mode of transmission, Z12.4 - Encounter for screening for malignant neoplasm of cervix, Z30.09 - Encounter for other general counseling and advice on contraception Hepatitis B Surface Antigen Today Z01.419 - Encounter for gynecological examination (general) (routine) without abnormal findings, Z11.3 - Encounter for screening for infections with a predominantly sexual mode of transmission, Z12.4 - Encounter for screening for malignant neoplasm of cervix, Z30.09 - Encounter for other general counseling and advice on contraception Hepatitis C Antibody Today Z01.419 - Encounter for gynecological examination (general) (routine) without abnormal findings, Z11.3 - Encounter for screening for infections with a predominantly sexual mode of transmission, Z12.4 - Encounter for screening for malignant neoplasm of cervix, Z30.09 - Encounter for other general counseling and advice on contraception Syphilis Screen Today Z01.419 - Encounter for gynecological examination (general) (routine) without abnormal findings, Z11.3 - Encounter for screening for infections with a predominantly sexual mode of transmission, Z12.4 - Encoun ter for screening for malignant neoplasm of cervix, Z30.09 - Encounter for other general counseling and advice on contraception Coding Level of Care Code Est Pt Prev Care 18-39y(45557) Diagnoses Well woman exam with routine gynecological exam Z01. Cervical cancer screening Z12.4 Encounter for screening examination for sexually transmitted disease Z11.3 control counseling Z30.09
[2024-08-22 13:51] VITALS: BP 126/70; BMI 36.8
== END 2024-08-22 14:39 | disposition home or self-care (01) ==
LOC: HO.HWSM 13:47
PROVIDERS: PCP Internal Medicine; Visit Provider Advanced Practice Midwife
DX: Z01.419 Encounter for gynecological examination (general) (routine) without abnormal findings (principal); Z12.4 Encounter for screening for malignant neoplasm of cervix; Z11.3 Encounter for screening for infections with a predominantly sexual mode of transmission; Z30.09 Encounter for other general counseling and advice on contraception
CPT/HCPCS: 99395

== ENCOUNTER 2024-08-22 13:47 | Outpatient (REF) | payer MEDICAID, SELFPAY | END 2024-08-22 13:48 | disposition home or self-care (01) | LOC: HO.LAB 13:47 | PROVIDERS: PCP Internal Medicine; Visit Provider Advanced Practice Midwife | DX: Z01.419 Encounter for gynecological examination (general) (routine) without abnormal findings (principal); N89.8 Other specified noninflammatory disorders of vagina; Z11.3 Encounter for screening for infections with a predominantly sexual mode of transmission | CPT/HCPCS: 99395 ==

== ENCOUNTER 2024-08-22 14:24 | Outpatient (REF) | payer MEDICAID, SELFPAY ==
[2024-08-23 06:47] LABS: CT PCR NOT DETECTED (Not Detect.); NG PCR NOT DETECTED (Not Detect.)
[2024-08-23 10:03] LABS: HPV 16,18/45 See PAP report
[2024-08-23 13:36] LABS: Bacterial Vaginosis PCR NEGATIVE (Negative); Candida Group PCR NOT DETECTED (Not Detect); Candida glab krusei PCR NOT DETECTED (Not Detect); Trichomonas vaginalis PCR NOT DETECTED (Not Detect)
== END 2024-08-22 14:25 | disposition home or self-care (01) ==
LOC: HO.LNP 14:24
PROVIDERS: Visit Provider Advanced Practice Midwife
DX: Z01.419 Encounter for gynecological examination (general) (routine) without abnormal findings (principal); N89.8 Other specified noninflammatory disorders of vagina; N94.89 Other specified conditions associated with female genital organs and menstrual cycle; Z11.3 Encounter for screening for infections with a predominantly sexual mode of transmission
CPT/HCPCS: 0352U; 87491; 87591; 87624; 88175

== ENCOUNTER 2024-08-23 10:22 | Emergency (ER) | payer MEDICAID, SELFPAY ==
[2024-08-23 10:48] VITALS: BP 112/74; PULSE 83; RESP 18; TEMP 36.8; O2SAT 98; BMI 38.6
[2024-08-23 11:11] LABS: MANUAL DIFF FLAG NO
[2024-08-23 11:12] LABS: Appearance Urine Clear; Color Urine Yellow; Glucose Urine UA Negative (Negative); Leukocyte Esterase Urine Negative (Negative); Nitrite Urine Negative (Negative); PH 5.5 (5.0-9.0); UPreg QC Valid YES; Urine Blood Negative (Negative); Urine Ketones Negative (Negative); Urine Protein Negative (Neg-Trace)
[2024-08-23 11:13] LABS: Urine Pregnancy NEGATIVE (NEGATIVE)
[2024-08-23 11:22] LABS: Basophils Percent Auto 0.2 % (0-2); Eosinophils Percent Auto 0.4 % (0-4); Hematocrit 38.2 % (37.0-47.0); Hemoglobin 12.7 g/dl (12.0-16.0); Imm Gran Abs Auto 0.03 X10*3/uL (0.00-0.03); Imm Gran Pct Auto 0.3 % (0.0-0.4); Lymphocytes Absolute Auto 2.3 X10*3/uL (1.2-4.9); Lymphocytes Percent Auto 22.7 % (20-40); Mean Corpuscular HGB Conc 33.2 g/dl (31.0-35.0); Mean Corpuscular Hemoglobin 30.7 pg (27.0-33.0); Mean Corpuscular Volume 92.3 fL (80.0-98.0); Mean Platelet Volume 9.3 fL (9.4-12.3); Monocytes Absolute Auto 0.4 X10*3/uL (0.1-1.2); Monocytes Percent Auto 4.3 % (2-11); Neutrophils Absolute Auto 7.3 x10*3/uL (2.0-8.3); Neutrophils Percent Auto 72.1 % (45-73); Platelet Count 425 X10*3/uL (160-400); Red Blood Count 4.14 X10*6/uL (4.20-5.50); Red Cell Distribution Width 11.8 % (11.0-16.0); White Blood Count 10.1 X10*3/uL (4.8-10.8)
[2024-08-23 11:52] LABS: Alanine Aminotransferase 26 U/L (0-31); Alkaline Phosphatase 103 U/L (39-117); Anion Gap 8 (12-20); Aspartate Amino Transferase 22 U/L (5-31); Bilirubin Direct 0.1 mg/dL (0.0-0.5); Blood Urea Nitrogen 9 mg/dL (9-16); Calcium 9.1 mg/dL (8.4-10.2); Carbon Dioxide 25 mmol/L (22-29); Chloride 110 mmol/L (96-108); Creatinine Clr Calc Pharmacy 127.8; Estimated Glomerular Filt Rate > 60; Glucose Random 98 mg/dL (60-115); Lipase 19 U/L (8-78); Sodium 139 mmol/L (135-145); Total Protein 7.8 g/dL (6.5-8.0)
[2024-08-23 12:11] LABS: Bilirubin Total 0.5 mg/dL (0.0-1.0)
--- NOTE | 2024-08-23 14:06 | ED_ITS ---
HPI - Abdominal Pain General Chief Complaint: Abdominal Pain Stated Complaint: Abd pain, difficulty breathing Time Seen by Provider: 08/23/24 14:06 Source: patient, RN notes reviewed and old records reviewed Mode of arrival: ambulatory Limitations: no limitations History of Present Illness ED Provider: Daniella Bay PA-C HPI narrative: 29 yo Moroccan speaking female history of morbid obesity, GERD, migraines, constipation who presents to the ER for evaluation of acute on chronic left- sided abdominal pain, that is worse whenever she eats. She states today when she ate bread she had severe left upper quadrant pain that radiated to the middle of her abdomen. No associated nausea, vomiting or diarrhea. She reports having normal bowel movements and is not suffering from constipation at present. She reports this pain has been going on for months. It is worse whenever she eats. She is on omeprazole. She reports the pain at times radiates to the left flank as well. No urinary symptoms. MD elicited complaint: abdominal pain and flank pain Pertinent past history: constipation Onset (ago): month(s) Pain Consistency: intermittent Location: LUQ Severity: severe Quality: stabbing Radiation: epigastric Migration to: periumbilical and L flank Exacerbating factors: eating Relieving factors: nothing Context: history of similar episodes Related Data Home Medications ?Medication ?Instructions ?Recorded ?Confirmed gsfrobffco-jcuuzmgafhmcl-ozyagzas 1 - 2 tab PO Q4H PRN Headache 09/17/22 08/22/24 50 mg-325 mg-40 mg tablet Previous Rx's ?Medication ?Instructions ?Recorded pyridoxine (vitamin B6) 25 mg 25 mg PO TID #90 tabs 11/07/20 tablet (Vitamin B-6) ibuprofen 400 mg tablet 400 mg PO Q6H #20 tabs 09/18/23 linaclotide 145 mcg capsule 290 mcg (2 x 145 mcg) PO QAM 30 06/02/24 (Linzess) days #60 caps omeprazole 20 mg capsule,delayed 20 mg PO BID 30 days #60 caps 06/02/24 release lubiprostone 24 mcg capsule 24 mcg PO BID 30 days #60 caps 07/26/24 (Amitiza) Allergies Allergy/AdvReac Type Severity Reaction Status Date / Time No Known Allergies Allergy Verified 08/23/24 10:50 Review of Systems Review of Systems Yes all other systems are reviewed and are negative PMFSH Past Medical History Medical History Constipation Migraines GERD (gastroesophageal reflux disease) Morbid obesity Anxiety Surgical History Hx of dilation and curettage History of cholecystectomy Family History Family History Mother Arthritis Fibromyalgia Father Diabetes Hypertension Social History Social History Household Members: Children Housing: Apartment Are you a primary career development engineer to a significant other at home: No Do you presently have visiting nurse or other home services: No Alcohol intake: former Patient Tobacco Use Status: Never used Tobacco Advance Directives: No Advance Directives Information Provided: Yes Advance Directives Date on File: 12/21/20 Do you have a plan to hurt others: No Plan Sexual orientation: Straight/Heterosexual Gender identity: Female Physical Exam ED Vital Signs: Vital Signs - 24 hr 08/23/24 10:48 Temperature 98.2 F Pulse Rate 83 Respiratory Rate 18 Blood Pressure 112/74 Pulse Oximetry 98 Oxygen Delivery Method Room Air BMI result Body Mass Index 38.6 Appearance: Alert. Oriented X3. No acute distress. Head: normocephalic, atraumatic. Eyes: Pupils equal, round and reactive to light. ENT: Pharynx normal. No tonsillar swelling or exudate. Neck: Normal inspection. Neck supple. CVS: Normal heart rate and rhythm. Pulses normal. Respiratory: No respiratory distress. Breath sounds normal. Abdomen: Soft and nontender. +BS x4 Skin: Skin warm and dry. Normal skin color. Normal skin turgor. No rashes. Extremities: No lower extremity edema. No joint swelling. Neuro/psych: Oriented X 3. steady gait. grossly CN II-XII intact. Grossly normal, nonfocal Medical Decision Making Medical Decision Making MDM Narrative: 29-year-old female presents to the ER for evaluation of acute on chronic left- sided abdominal pain. No associated nausea, vomiting, diarrhea. Having normal bowel movements. Intermittently radiates to the left flank but has no urinary symptoms. No CVA tenderness on exam. Urinalysis is negative for infection and . Lab work is reassuring with no anemia, normal leukocytes. LFTs and lipase are normal. Her abdominal exam is benign. Patient very upset wanted to talk with nursing project coordinator as she was not bad back to a treatment room. After waiting for nursing project coordinator, patient reports she would like to be discharged. She was informed of her reassuring workup. At this time would encourage PCP and GI referrals for further evaluation and treatment. Encouraged a bland diet and food diary. Stable for discharge. Return precautions were discussed. Differential Diagnosis Differential Diagnoses: The differential diagnosis associated with the presentation includes GERD, gastritis, inflammatory bowel disease, irritable bowel syndrome, constipation, colitis Lab Data MDM Lab Attestation statement: I reviewed the patient's lab results. No leukocytosis, normal LFTs and lipase 08/23/24 11:08/23/24 11:01 Labs: Lab Results 08/23/24 08/23/24 Range/Units 11: 11:05 WBC 10.1 (4.8-10.8) X10*3/uL RBC 4.14 L (4.20-5.50) X10*6/uL Hgb 12.7 (12.0-16.0) g/dl Hct 38.2 (37.0-47.0) % MCV 92.3 (80.0-98.0) fL MCH 30.7 (27.0-33.0) pg MCHC 33.2 (31.0-35.0) g/dl RDW 11.8 (11.0-16.0) % Plt Count 425 H (160-400) X10*3/uL MPV 9.3 L (9.4-12.3) fL Immature Gran % (Auto) 0.3 (0.0-0.4) % Neut % (Auto) 72.1 (45-73) % Lymph % (Auto) 22.7 (20-40) % [place] % (Auto) 4.3 (2-11) % Eos % (Auto) 0.4 (0-4) % Baso % (Auto) 0.2 (0-2) % Lymph # (Auto) 2.3 (1.2-4.9) X10*3/uL [place] # (Auto) 0.4 (0.1-1.2) X10*3/uL Eos # (Auto) 0.0 (0.0-0.4) X10*3/uL Baso # (Auto) 0.0 (0.0-0.2) X10*3/uL Abs Immat Gran (auto) 0.03 (0.00-0.03) X10*3/uL Absolute Neuts (auto) 7.3 (2.0-8.3) x10*3/uL Absolute Nucleated RBC 0.000 (0.0-0.012) X10*3/uL Nucleated RBC % (auto) 0.0 (0.0-0.2) /100WBC Sodium 139 (135-145) mmol/L Potassium 4.0 (3.3-5.1) mmol/L Chloride 110 H (96-108) mmol/L Carbon Dioxide 25 (22-29) mmol/L Anion Gap 8 L (12-20) BUN 9 (9-16) mg/dL Creatinine 0.61 (0.5-1.4) mg/dL Estim Creat Clear Calc 127.8 Estimated GFR > 60 Random Glucose 98 (60-115) mg/dL Calcium 9.1 (8.4-10.2) mg/dL Total Bilirubin 0.5 (0.0-1.0) mg/dL Direct Bilirubin 0.1 (0.0-0.5) mg/dL AST 22 (5-31) U/L ALT 26 (0-31) U/L Alkaline Phosphatase 103 (39-117) U/L Total Protein 7.8 (6.5-8.0) g/dL Albumin 4.0 (3.5-5.0) g/dL Lipase 19 (8-78) U/L Urine Color Yellow Urine Appearance Clear Urine pH 5.5 (5.0-9.0) Ur Specific [place] 1.020 (1.005-1.025) Urine Protein Negative (Neg-Trace) mg/dL Urine Glucose (UA) Negative (Negative) mg/dL Urine Ketones Negative (Negative) mg/dL Urine Blood Negative (Negative) Urine Nitrite Negative (Negative) Ur Leukocyte Esterase Negative (Negative) Urine Test NEGATIVE (NEGATIVE) External Record Review External record reviewed: Prior outpatient labs Tests considered The following testing was considered but not selected: Considered CT scan of her abdomen however her exam is reassuring, labs are reassuring Prescription Management I considered prescription management with: Pain Medication Chronic Conditions Patient?s care impacted by: Other (Constipation) Critical Care Time Critical Care Time Critical Care Time: No Discharge Plan Discharge Clinical Impression: Abdominal pain Qualifiers: Abdominal location: left upper quadrant Qualified Code(s): R10.12 - Left upper quadrant pain Patient Disposition: Home, Self-Care Instructions: Abdominal Pain (ED) Additional Instructions: Your labs and urine test today were normal. Recommend following up with GI for further evaluation and treatment - call for an appointment If you develop new or worsening symptoms call 911 or come back to the ER for further evaluation. Prescriptions: No Action socfcaftai-rbquhfpkemqlr-vlbw 50-325-40 mg tablet 1 - 2 tab PO Q4H PRN (Reason: Headache) ibuprofen 400 mg tablet 400 mg PO Q6H Qty: 20 0RF pyridoxine (vitamin B6) [Vitamin B-6] 25 mg tablet 25 mg PO TID Qty: 90 3RF omeprazole 20 mg capsule,delayed release(DR/EC) 20 mg PO BID 30 Days Qty: 60 3RF Linzess 145 mcg capsule 290 mcg PO QAM 30 Days Qty: 60 1RF lubiprostone [Amitiza] 24 mcg capsule 24 mcg PO BID 30 Days Qty: 60 1RF Rx Instructions: Failed linzess Referrals: [facility] Gastroenterology Services [Provider Group] (left upper abdominal pain) Print Language: Moroccan
[2024-08-23 14:11] VITALS: BP 120/71; PULSE 69; RESP 18; TEMP 36.8; O2SAT 99
== END 2024-08-23 14:15 | disposition home or self-care (01) ==
PROVIDERS: Emergency Provider Emergency Medicine
DX: R10.12 Left upper quadrant pain (principal); K21.9 Gastro-esophageal reflux disease without esophagitis; Z90.49 Acquired absence of other specified parts of digestive tract
CPT/HCPCS: 36415; 80053; 81003; 81025; 82248; 83690; 85025; 99282; 99283

== ENCOUNTER 2024-09-06 09:29 | Outpatient (REF) | payer MEDICAID, SELFPAY ==
[2024-09-06 12:15] LABS: HBS Num1 0.66 mIU/mL (0-7.99); HBsAGNum1 0.42 S/CO (0.00-0.99); HIV AB/AG Nonreactive (Nonreactive); HIV Num 1 0.06 S/CO (0.00-0.99); Hepatitis B Core Antibody Nonreactive (Nonreactive); Hepatitis B Surface Antigen Negative (Negative); ~HepC Num1 0.13 S/CO (0.00-0.79); ~Hepatitis B Surface Antibody NONREACTIVE (Nonreactive); ~Hepatitis C Antibody Nonreactive (Nonreactive)
[2024-09-06 13:34] LABS: CT PCR NOT DETECTED (Not Detect.); NG PCR NOT DETECTED (Not Detect.)
[2024-09-07 11:21] LABS: Bacterial Vaginosis PCR POSITIVE (Negative); Candida Group PCR NOT DETECTED (Not Detect); Candida glab krusei PCR NOT DETECTED (Not Detect); Trichomonas vaginalis PCR NOT DETECTED (Not Detect)
[2024-09-08 09:54] LABS: RPR Rapid Plasma Reagin NON-REACTIVE (NON-REACTIVE)
== END 2024-09-06 09:30 | disposition home or self-care (01) ==
LOC: HO.HHCL 09:29
PROVIDERS: Visit Provider Family Medicine
DX: N89.8 Other specified noninflammatory disorders of vagina (principal); Z11.3 Encounter for screening for infections with a predominantly sexual mode of transmission
CPT/HCPCS: 0352U; 86592; 86704; 86706; 86803; 87086; 87340; 87389; 87491; 87591

== ENCOUNTER 2024-10-19 09:22 | Outpatient (REF) | payer MEDICAID, SELFPAY ==
[2024-10-19 20:21] LABS: CT PCR NOT DETECTED (Not Detect.); NG PCR NOT DETECTED (Not Detect.)
[2024-10-20 17:28] LABS: Trichomonas vaginalis RNA NOT DETECTED (NOT DETECTED)
== END 2024-10-19 09:23 | disposition home or self-care (01) ==
LOC: HO.LNP 09:22
PROVIDERS: Visit Provider Advanced Practice Midwife
DX: Z11.3 Encounter for screening for infections with a predominantly sexual mode of transmission (principal)
CPT/HCPCS: 87491; 87591; 87661

== ENCOUNTER 2024-12-13 08:49 | Outpatient (AMB) | payer MEDICAID, SELFPAY ==
--- NOTE | 2024-12-13 08:51 | A.OFFVIS_ITS ---
Intake Visit Reasons: f/u colo Intake Note: Patient follow up for Constipation and Colonoscopy results. Patient cc: nauseas, abdominal pain with bloating, acid reflex with burning sensation, Constipation is much better and patient needed refill for Omeprazole. Toolroom Keeper Required: Yes Allergies No Known Allergies Allergy (Verified 12/13/24 08:49) Medication List - Last Reconciled 12/13/24 by Surya Chavira MD omjgcqgkwq-fyxsobfsdvixu-yjsl 50-325-40 mg 1 - 2 tabs PO Q4H PRN ibuprofen 400 mg PO Q6H linaclotide (Linzess) 290 mcg (2 x 145 mcg) PO QAM 30 days omeprazole 20 mg PO BID 30 days pyridoxine (vitamin B6) (Vitamin B-6) 25 mg PO TID HPI HPI f/u colo: Details: GI clinic visit for this 29 year old Indian-speaking female for follow up of chronic constipation. TODAY'S VISIT: TELEPHONE RESPIRATORY THERAPY INSTRUCTOR: Tonio # [id number] Patient follow up for Constipation and Colonoscopy results. Patient cc: nauseas, abdominal pain with bloating, acid reflex with burning sensation, Constipation is much better and patient needed refill for Omeprazole. Colonoscopy results were reviewed with the patient. Constipation is a little bit better and having strong stomach pains. Requesting refills for GI medications Doing so so Constipation is bad - only has a BM after taking medication Taking Linzess and has a BM - has a BM 2-3 days after she takes the Linzess. Dad diagnosed with Colon cancer a few months ago in his 50's Had surgery and having chemo 07/2024 COLONOSCOPY SHOWED: Colonoscopy Findings: No polyps were detected Random biopsies were obtained from right and left colon to check for microscopic colitis. small hemorrhoids on retroflexed exam. Plan: I will send a letter with biopsy results. Repeat Colonoscopy in 10 years. Above findings were reviewed with the patient and relevant handouts were given and the discharge area. BIOPSIES SHOWED: A. Colon, right, biopsy: Melanosis coli; otherwise colonic mucosa within normal limits; negative for microscopic colitis. B. Colon, left, biopsy: Melanosis coli; otherwise colonic mucosa within normal limits; negative for microscopic colitis. Letter sent to the patient advising repeat colonoscopy in 10 years. Patient was placed on the colonoscopy recall list. PAST VISIT: Patient cc: constipation with rectum pain, nauseas, abdominal pain/bloating, GERD come and go. Denies any other GI issues. Pt was last seen in 05/2022 and advised to schedule a Colonoscopy Patient follow up for chronic constipation and lab results. Patient cc: she did not do the KUB order in the last visit. Patient cc: abdominal pain/bloating, acid reflex, constipation and some swallowing difficulty. Pt is accompanied by her an infant daughter I am having a bad pain in the stomach and have to push down Has bad constipation and has a BM every 1-2 weeks Taking Linzess daily for constipation. I am not doing that good. Taking 2 pills at night for constipation. Also having some stomach ache She could have a BM the following day in the past. Now she is not having a BM the next day and worried that her body is getting us ed to the medication. She has changed her diet to help with wt loss. Complains of rectal pain and concerned about hemorrhoids. Denies rectal bleeding. Pt advised to schedule a colonoscopy Complains of constipation since childhood. Has a BM once a week or longer. Notes some rectal pain - when she tries to have a BM the poop wants to come out and it does not Has tried taking Miralax twice a day and some pills that her PCP prescribed and nothing works. Using Detox and Cleanse Colon for 2 months at night and has been helping a lot. Evaluated at age 11 yrs and was told her bowel was swollen. Notes some heartburn and denies dysphagia. Denies change in apetite. Weight fluctuates by 10 -20 lbs from 197. Looses 5 lbs over a week to 2 and regains weight very quickly. Family hx - ? great grand father of colon cancer at age 70. Multiple family members have issues with constipation. Pt is goind through a divorce and has 3 children - 10, 5 & 4 yrs. 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 Denes smoking or ETOH or drugs PFSH Medical History (Updated 08/25/24 @ 13:49 by Angeltia Bui CNM) Constipation Migraines GERD (gastroesophageal reflux disease) Morbid obesity Anxiety Surgical History Hx of colonoscopy Hx of dilation and curettage History of cholecystectomy Family History Mother Arthritis Fibromyalgia Father Diabetes Hypertension Social History Household Members: Children Both parents involved: Yes Housing: Apartment Are you a primary daycare manager to a significant other at home: No Do you presently have visiting nurse or other home services: No Alcohol intake: former Patient Tobacco Use Status: Never used Tobacco Advance Directives Date on File: 12/21/20 Sexual orientation: Straight/Heterosexual Gender identity: Female Female Reproductive History Menstrual Age of Menarche: 11 Telehealth Telehealth Telehealth Platform: Telephone Location of provider rendering services: practice address Location of patient: address on file Patient Identification confirmed using: Name, : Yes Telehealth method: voice only Patient verbally consented to treatment: Yes Patient verbally consented to billing insurance company: Yes Patient informed of any privacy concerns related to visit: Yes Minutes spent on Phone/Video with Pt.: 15 Assessment & Plan Assessment & Plan (1) Chronic constipation: Code(s): K59.09 - Other constipation Category: Medical (2) GERD (gastroesophageal reflux disease): Code(s): K21.9 - Gastro-esophageal reflux disease without esophagitis Category: Medical Plan 29 year old Indian-speaking female followed in GI for GERD and chronic constipation. Complains of constipation since childhood and has a BM once a week or longer. Symptoms are suggestive of outlet delay Has tried taking Miralax twice a day and some pills that her PCP prescribed and nothing works. Using Detox and Cleanse Colon for 2 months at night and has been helping a lot. Multiple family members have issues with constipation. Dose of Linzess increased from 145 mcg to 290 mcg daily FU in 3 weeks - fu appt scheduled on 07/07/24 Colonoscopy will be scheduled once pt is on a good bowel regimen for constipation. 07/26/24 Taking Linzess and has a BM - has a BM 2-3 days after she takes the Linzess. Pt advised to schedule a colonoscopy (family hx of colon cancer - her Dad was recently diagnosed with colon cancer). Advised to switch from Linzess to Lubiprostone 24 mcg twice a day Continues to take Linzess - ? due to insurance denial for Lubiprostone 07/2024 colonoscopy was negative except for melanosis coli. Repeat colonoscopy advised in 10 years. FU in 4 months Medications: Refilled omeprazole 20 mg PO BID 30 days 60 caps 4RF R10.10 - Upper abdominal pain, unspecified omeprazole 20 mg PO BID 30 days 60 caps 3RF R10.10 - Upper abdominal pain, unspecified linaclotide (Linzess) 290 mcg (2 x 145 mcg) PO QAM 30 days 60 caps 4RF K21.9 - Gastro-esophageal reflux disease without esophagitis, K59.09 - Other constipation Coding Level of Care Code Est Pt Level 3 (45507) Diagnoses Chronic constipation K59.09 GERD (gastroesophageal reflux disease) K21.9 Time Spent (min) 15
--- OUTSIDE RECORDS SUMMARY | 2024-12-13 09:39 | XMS_ITS | Encounter Summary ---
Author Organization [employer] Address [address] [place] [address] Care Team Providers Care Industrial Paramedic Name Role Phone Farzana Meadows MD Primary Care Provide r Reason for Visit * Reason Comments Med Refill Encounter Details Date Type Department Care Team ([facility] st Contact Info) Description 12/06/2024 Refill [facility] MED[facility]INE [address] [place], [place] [phone] Shiloh Muhammad MD [address] [place], [place] [phone] Social History Tobacco Use Types Packs/Day Years Used Date Smoking Tobacco: Never Passive Smoke Exposure: Never Smokeless Tobacco: Never Alcohol Use Standard Drinks/Week Comments Never 0 (1 standard drink = 0.6 oz pur e alcohol) Depression Answer Date Recorded Patient Health Questionnaire-9 Score 0 02/17/2023 Housing Stability Answer Date Recorded What is your housing situation today? I have massimojessa villatoro 07/23/[address] you li ve. Do you have problems with any of the following? None of the above 07/23/2023 Food Insecurity Answer Date Recorded Within the past 12 months, y ou worried that your food would run out before you got money to buy more: Never True 07/23/2023 Within the past 12 months,th e food you bought just didn't last and you didn't have enough money to get more: Never True Transportation Answer Date Recorded In the past 12 months, has l ack of transportation kept you from medical appts, meetings, work or from getting things needed for daily living? No 07/23/2023 Utilities Answer Date Recorded In the past 12 months, has t he electric, gas, oil or water [employer] threatened to shut off services in your home? Yes 12/22/2023 Depression Answer Date Recorded Patient Health Questionnaire-2 Score 0 02/17/2023 Comments Unknown Sex and Gender Information Value Date Recorded Sex Assigned at Female 08/04/2022 10:20 AM EDT Legal Sex Female 10:20 AM EDT Gender Identity Female 08/04/2022 10:20 AM EDT Sexual Orientation Choose not to disclose 2021 10:20 AM EDT documented as of this encounter Plan of Treatment Not on file documented as of this encounter Visit Diagnoses Not on filedocumented in this encounter Additional Health Concerns Assessment Noted Time PHQ-9 Depression Total Score: 0 02/18/20 23 9:02 AM EDT documented as of this encounter Care Teams Industrial Paramedic Relationship Specialty Start Date End Date Farzana Meadows MD [address] [place] [address] PCP - General Family Medicine 01/05/19 documented as of this encounter
--- OUTSIDE RECORDS SUMMARY | 2024-12-13 09:39 | XMS_ITS | Encounter Summary ---
Author Organization [employer] Address [address] [place] [address] Care Team Providers Care Adult Education Teacher Name Role Phone Farzana Meadows MD Primary Care Provide r Reason for Visit * Reason Comments Med Refill Encounter Details Date Type Department Care Team ([facility] st Contact Info) Description 06/02/2024 Refill [facility] MEDICINE [address] [place], [place] [phone] Farzana Meadows MD [address] [place], [place] [phone] Class 3 severe obesity due to excess calories without serious comorbidity with body mass index (BMI) of 40.0 to 44.9 in adult (CMS/HCC) Social History Tobacco Use Types Packs/Day Years Used Date Smoking Tobacco: Never Passive Smoke Exposure: Never Smokeless Tobacco: Never Depression Answer Date Recorded Patient Health Questionnaire-9 Score 0 02/17/2023 Housing Stability Answer Date Recorded What is your housing situation today? I have massimo villatoro 07/23/[address] you [...] t he electric, gas, oil or water company threatened to shut off services in your [...] AM EDT documented as of this encounter Miscellaneous Notes * Telephone Encounter - Farzana Diaz MD - 06/03/2024 4:04 PM EDT Patient is already on wegovy documented in this encounter Plan of Treatment Not on file documented as of this encounter Visit Diagnoses Diagnosis Class 3 severe obesity due to excess calories without serious comorbidity with body mass index (BMI) of 40.0 to 44.9 in adult (CMS/HCC) documented in this encounter Additional Health Concerns Assessment Noted Time PHQ-9 Depression Total Score: 0 02/18/20 9:02 AM EDT documented as of this encounter Care Teams Adult Education Teacher Relationship Specialty Start Date End Date Farzana Meadows MD [address] [place] [address] PCP - General Family Medicine 01/05/19 Trang Wyman Clinical Director 08/20/23 06/29/24 documented as of this encounter
--- OUTSIDE RECORDS SUMMARY | 2024-12-13 09:39 | XMS_ITS | Encounter Summary ---
Author Organization [employer] Address [address] [place] [address] Care Team Providers Care Steel Die Press Set Up Operator Name Role Phone Farzana Meadows MD Primary Care Provide r Reason for Visit * Reason Onset Date Comments Med Refill 12/09/2023 Encounter Details Date Type Department Care Team ([facility] st Contact Info) Description 12/09/2023 Telephone [facility] MEDICINE [address] [place], [place] [phone] Farzana Meadows MD [address] [place], [place] [phone] Med Refill Social History Tobacco Use Types Packs/Day Years [...] to shut off services in your home? No 07/23/2023 Depression Answer Date Recorded Patient Health Questionnaire-2 Score 0 02/17/2023 Comments No Sex and Gender Information Value Date Recorded Sex Assigned at Female 08/04/2022 10:20 AM EDT Legal Sex Female 10:20 AM EDT Gender Identity Female 08/04/2022 10:20 AM EDT Sexual Orientation Choose not to disclose 2021 10:20 AM EDT documented as of this encounter Miscellaneous Notes * Telephone Encounter - Enid Gusman LPN - 12/09/2023 12:56 PM EST Medication pended to PCP. * Telephone Encounter - Debbie Pearl - 12/09/2023 12:07 PM EST TC from pt requesting medication refill. Medications needing refill : phentermine (Adipex-P) 37.5 MG tablet To be sent to: [facility] - [place], [place] - [address] documented in this encounter Plan of Treatment Not on file documented as of this encounter Visit Diagnoses Not on filedocumented in this encounter Additional Health Concerns Assessment Noted Time PHQ-9 Depression Total Score: 0 02/18/20 9:02 AM EDT documented as of this encounter Care Teams Steel Die Press Set Up Operator Relationship Specialty Start Date End Date Farzana Meadows MD [address] [place] [address] PCP - General Family Medicine 01/05/19 Trang Wyman Student Advisor 08/20/23 06/29/24 documented as of this encounter
--- OUTSIDE RECORDS SUMMARY | 2024-12-13 09:39 | XMS_ITS | Encounter Summary ---
Author Organization [employer] Address [address] [place] [address] Care Team Providers Care Build And Release Manager Name Role Phone Farzana Meadows MD Primary Care Provide r Encounter Details Date Type Department Care Team (Late st Contact Info) Description 09/03/2022 Orders Only [facility] [address] [place] [address] Rogelio Beth, COLLINS [address] [place] [address] Social History Tobacco Use Types Packs/Day Years Used Date Smoking Tobacco: Never Assessed Comments Unknown Sex and Gender Information Value Date Recorded Sex Assigned at Female 08/04/2022 10:20 AM EDT Legal Sex Female 10:20 AM EDT Gender Identity Female 08/04/2022 10:20 AM EDT Sexual Orientation Choose not to disclose 2021 10:20 AM EDT documented as of this encounter Plan of Treatment Not on file documented as of this encounter Procedures Procedure Name Priority Date/Time Associated Diagnosis Comments PAP SMEAR Routine 07/25/2020 12:00 AM EDT documented in this encounter Results * Pap Smear (07/25/2020 12:00 AM EDT) Swab us Historical Provider LAB CYTOLOGY ORDERABLES F inal Result [facility] [address] [place] [address] documented in this encounter Visit Diagnoses Not on filedocumented in this encounter Care Teams Build And Release Manager Relationship Specialty Start Date End Date Farzana Meadows MD [address] [place] [address] PCP - General Family Medicine 01/05/19 Trang Wyman Accounts Receivable Assistant 08/20/23 06/29/24 documented as of this encounter
--- OUTSIDE RECORDS SUMMARY | 2024-12-13 09:39 | XMS_ITS | Encounter Summary ---
Author Organization [employer] Address [address] [place] [address] Care Team Providers Care Store Planner Name Role Phone Farzana Meadows MD Primary Care Provide r Reason for Visit * Reason Onset Date Comments No Show 11/30/2024 Encounter Details Date Type Department Care Team ([facility] st Contact Info) Description 11/30/2024 Telephone [facility] MEDICINE [address] [place] [address] Beth Mercado, [facility] [address] [place] [address] No Show Social History Tobacco Use Types Packs/Day Years [...] documented as of this encounter Care Teams Store Planner Relationship Specialty Start Date End Date Farzana Meadows MD [address] [place] [address] PCP - General Family Medicine 01/05/19 documented as of this encounter
--- OUTSIDE RECORDS SUMMARY | 2024-12-13 09:39 | XMS_ITS | Encounter Summary ---
Author Organization [employer] Address [address] [place] [address] Care Team Providers Care Information Clerk Cashier Name Role Phone Farzana Meadows MD Primary Care Provide r Encounter Details Date Type Department Care Team (Late st Contact Info) Description 06/03/2024 Orders Only [facility] [address] [place], [place] [phone] Farzana Meadows MD [address] [place], [place] [phone] Social History Tobacco Use Types Packs/Day Years [...] documented as of this encounter Care Teams Information Clerk Cashier Relationship Specialty Start Date End Date Farzana Meadows MD [address] [place] [id number] PCP - General Family Medicine 01/05/19 Trang Wyman Research Project Manager 08/20/23 06/29/24 documented as of this encounter
--- OUTSIDE RECORDS SUMMARY | 2024-12-13 09:39 | XMS_ITS | Clinical Summary ---
Author Organization [employer] Address [address] [facility] [address] [place] [address] Care Team Providers Care Trap Setter Name Role Phone Farzana Meadows MD Primary Care Provide r Allergies Active Allergy Reactions Criticality Noted Date Comments Latex 02/24/2022 Medications omeprazole OTC (PriLOSEC OTC) 20 MG EC tablet Take 1 tablet by mouth in the morning. 022 Active fluticasone (Flonase) 50 MCG/ACT nasal sprayIndication s:Seasonal allergies Administer 1-2 sprays into each nostril in the morning. Shake gently. Before first use, prime pump. After use, clean tip and replace cap. 16 g 2 023 Active Blood Pressure Monitoring (Blood Pressure Cuff) miscIndications :Elevated blood pressure reading 1 each Once daily. 1 each 024 Active cetirizine (ZyrTEC) 10 MG tabletIndicatio ns:Seasonal allergies TAKE 1 TABLET BY MOUTH EVERY MORNING 90 tablet 024 Active Semaglutide-Chris ght Management (Wegovy) 0.25 MG/0.5ML solution auto-injectorIn dications:Class 3 severe obesity due to excess calories without serious comorbidity with body mass index (BMI) of 40.0 to 44.9 in adult ([facility]) Inject 0.25 mg under the skin 1 (one) time per week. 0.5 mL 3 024 Active phentermine 37.5 MG capsuleIndicati ons:Class 3 severe obesity due to excess calories without serious comorbidity with body mass index (BMI) of 40.0 to 44.9 in adult ([facility]) Take 1 capsule (37.5 mg) by mouth before breakfast. 30 capsule 1 Active Pain Reliever Plus 250-250-65 MG tabletIndicatio ns:Migraine with aura and without status migrainosus, not intractable TAKE 1 TABLET BY MOUTH EVERY TWELVE HOURS NEEDED FOR headaches 30 tablet 1 Active ciclopirox (Penlac) 8 % solutionIndicat ions:Onychomyco sis APPLY TO THE AFFECTED AREA(S) AT BEDTIME 6.6 mL 2 024 Active Ketotifen Fumarate 0.035 % solutionIndicat ions:Seasonal allergies INSTILL 1 DROP IN EACH EYE TWICE DAILY 5 mL 1 Active ketoconazole (Nizoral) 2 % shampooIndicati ons:Seborrheic dermatitis APPLY TOPICALLY TWICE A WEEK 120 mL 1 024 Active Semaglutide-Chris ght Management (Wegovy) 0.5 MG/0.5ML solution auto-injector Inject 0.5 mg under the skin 1 (one) time per week. 0.5 mL Active albuterol 108 (90 Base) MCG/ACT inhaler Inhale 2 puffs every 4 (four) hours if needed for wheezing. 18 g 2024 Active Spacer/Aero-Hol ding Chambers (OptiChamber Adriana) misc 1 each every 4 (four) hours if needed (asthma). 1 each Active Acetaminophen 500 MG capsuleIndicati ons:Acute non-recurrent frontal sinusitis Take one to two tablets as needed for fever or pain every 6 hours 30 capsule Active ibuprofen 400 MG tablet Take 1 tablet (400 mg) by mouth every 6 (six) hours if needed for moderate pain or fever for up to 30 doses. 30 tablet Active polyethylene glycol, PEG, 3350 (Glycolax) 17 GM/SCOOP powder MIX AND DRINK 17G BY MOUTH EVERY DAY Active busPIRone (Buspar) 5 MG tablet TAKE 1 TABLET BY MOUTH THREE TIMES DAILY FOR ANXIETY Active buPROPion XL (Wellbutrin XL) 300 MG 24 hr tablet Take 300 mg by mouth Once per day. Active nystatin (Mycostatin) 102075 UNIT/GM powder Apply topically 2 times daily. 60 g 3 024 2024 Active Semaglutide-Chris ght Management (Wegovy) 1.7 MG/0.75ML solution auto-injectorIn dications:Class 3 severe obesity due to excess calories without serious comorbidity with body mass index (BMI) of 40.0 to 44.9 in adult (CMS/HCC) INJECT ONE PEN (=1.7 MG) SUBCUTANEOUSLY ONCE A WEEK 3 mL 024 Active lidocaine (Lidoderm) 5 % patch APPLY 1 PATCH TOPICALLY TO SKIN, LEAVE ON FOR 12 HOURS AND OFF FOR 12 HOURS DIRECTED 30 patch 2 024 Active linaCLOtide (Linzess) 145 MCG capsuleIndicati ons:Other constipation TAKE 1 CAPSULE BY MOUTH EVERY DAY BEFORE BREAKFAST TAKE ON AN EMPTY STOMACH. 30 capsule 2 025 Active Semaglutide-Chris ght Management (Wegovy) 2.4 MG/0.75ML solution auto-injector INJECT ONE PEN (=2.4 MG) SUBCUTANEOUSLY ONCE A WEEK 3 mL 025 Active ketoconazole (NIZOral) 2 % shampooIndicati ons:Seborrheic dermatitis Apply topically 2 (two) times a week. 120 mL 1 025 Active Tirzepatide-Chris ght Management (Zepbound) 2.5 MG/0.5ML solution auto-injectorIn dications:Class 2 obesity due to excess calories without serious comorbidity with body mass index (BMI) of 36.0 to 36.9 in adult Inject 0.5 mL (2.5 mg) under the skin 1 (one) time per week. 2 mL 025 Active Tirzepatide-Chris ght Management (Zepbound) 7.5 MG/0.5ML solution auto-injector Inject 0.5 mL (7.5 mg) under the skin every 7 (seven) days. 2 mL 025 Active Tirzepatide-Chris ght Management (Zepbound) 5 MG/0.5ML solution auto-injector Inject 0.5 mL (5 mg) under the skin 1 (one) time per week. 2 mL 025 2024 Discontinued Active Problems Problem Noted Date Diagnosed Date Class 2 obesity due to exces s calories without serious comorbidity with body mass index (BMI) of 36.0 to 36.9 in adult 10/17/2024 Assessment & Plan (10/17/2024 12:07 PM EST): Today extensive discussion was done about life style modifications I advise healthy diet (low calorie) and cardiovascular exercise I will start her on zepbound, I explain to her medication could not be prescribe if she gets , urine test today is negative, she will get her nexplanon on 10/19/24, I let her know that if she does not get her nexplanon done I will not continue her prescription, she understood and read back Colon cancer screening 10/17/2024 Dysuria 04/14/2024 Assessment & Plan (04/14/2024 4:47 PM EDT): -chem 02/09/2024 cr wnl -urine disptick today : blood large -currently w periods ,protein trace ,rest neg Pt reports urinary and vaginal symptoms ,will tx empirically for possible UTI and candidiasis from descriptions of symptoms Sending urine and vaginal samples today but may not be helpful given amount of blood from vaginal from menstrual period. From exam no CVA tenderness ,seems back pain is muscular in nature -UA w reflex to cx, ch/Gn vaginal and urine, BV test ( blood from period so unsure if test can be performed) -empiric macrobid x 5 days BID -empiric fluconazole 150 mg x1 Vaginosis 04/14/2024 Encounter for intrauterine device placement 03/06 Elevated blood pressure reading 02/16/2024 Assessment & Plan (02/16/2024 10:44 AM EDT): Patient insists she has being having high blood pressure readings and is because of her weight I advise low Na diet BP cuff prescribed RTC 2 weeks with nurse for BP check if 3 reading ore than 140/90mmhg plan is to start her on hydrochlorothiazide 12.5mg Pap smear for cervical cancer screening 02/16/20 24 Dermatitis 02/16/2024 Hair loss 02/16/2024 Class 3 severe obesity due t o excess calories without serious comorbidity with body mass index (BMI) of 40.0 to 44.9 in adult 12/30/2023 Assessment & Plan (03/29/2024 12:12 PM EDT): Does not wish to proceed with bariatric surgery Awaiting for [employer] insurance approval [facility] 5 weeks Assessment & Plan (02/16/2024 10:44 AM EDT): Continue to follow with bariatric program at [facility] Assessment & Plan (12/30/2023 4:22 PM EDT): I will prescribe semeglutide, it is my medial opinion patient will benefit and avoid complications of obesity Seborrheic dermatitis 12/30/2023 Onychomycosis 12/30/2023 Encounter for preventive care 10/16/2023 Assessment & Plan (10/17/2024 12:07 PM EST): See HPI Assessment & Plan (10/20/2023 4:42 PM EST): See HPI Visit for insertion of intrauterine device 10/16 Migraine with aura 10/16/2023 Assessment & Plan (10/20/2023 4:46 PM EST): Excedrin migraine recently prescribed I ask to let me know if medication helping I advise to avoid migraine triggers like red wine, chocolate, cheese, strong perfumes BMI 39.0-39.9,adult 10/16/2023 Assessment & Plan (10/20/2023 4:42 PM EST): Today extensive discussion was done about life style modifications I advise healthy diet (low calorie) and cardiovascular exercise Screening examination for venereal disease 10/06 Abnormal uterine bleeding 09/01/2022 Allergic conjunctivitis 09/01/2022 Chronic low back pain 09/01/2022 Constipation 09/01/2022 Assessment & Plan (07/24/2023 10:47 AM EDT): Drink more water increase fiber on diet I will renew prescription, this problem is chronic I will refer her back to GI Fatigue 09/01/2022 Hand pain 09/01/2022 Insomnia 09/01/2022 Irregular periods 09/01/2022 Missed period 09/01/2022 Assessment & Plan (10/20/2023 4:39 PM EST): Extensive counseling done about control and family planning, patient takes frequently plan B and has had unplanned pregnancies, today she agrees to be refer for IUD, I tried to provide other back up control methods until her appointment, patient declines she is very concern about weigh gain and is not interested in barrier method Migraine without aura, not refractory 09/01/2022 Assessment & Plan (03/29/2024 12:10 PM EDT): I advise to avoid migraine triggers like red wine, chocolate, cheese, strong perfumes Ibuprofen PRN Assessment & Plan (07/24/2023 10:48 AM EDT): I advise to avoid migraine triggers like red wine, chocolate, cheese, strong perfumes Patient may take ibuprofen PRN Mood disorder 09/01/2022 Obesity 09/01/2022 Seasonal allergies 09/01/2022 Skin lesion 09/01/2022 Spasm 09/01/2022 Anxiety 07/21/2012 Back pain 07/21/2012 Assessment & Plan (04/14/2024 4:47 PM EDT): Appears muscular in nature -warm compresses in back -Lidoderm patch -tylenol , NSAIDS prn Assessment & Plan (07/24/2023 10:47 AM EDT): Apply heat on affected area Nabumetone PRN Mixed anxiety and depressive disorder 07/21/2012 Encounters Date Type Department Care Team Description 12/06/2024 Refill [facility] [address] [place] [address] Shiloh Muhammad MD 11/30/2024 Telephone [facility] [address] [place] [phone] Beth Mercado CNM No Show 11/08/[address] [facility] [place] [address] Farzana Meadows MD 11/04/[address] [facility] [place] [address] Farzana Meadows MD Med Refill 11/04/[address] [address] Farzana Meadows MD Nurse Triage 10/26/2024 2:45 PM EST Office Visit [address] [phone] Elizabeth Kalpana RN CRITICAL CARE Missed period 10/26/2024 Travel 10/26/[address] [address] Farzana Meadows MD Nurse Triage 10/19/2024 9:00 AM EST Procedure Visit [address] [phone] Beth Mercado CNM Family planning counseling (Primary Dx); Dysuria; Encntr screen for infections w sexl mode of transmiss 10/19/2024 Travel 10/18/[address] [address] Farzana Meadows MD PA 10/17/2024 9:15 AM EST Office Visit [address] [address] Farzana Meadows MD Class 2 obesity due to excess calories without serious comorbidity with body mass index (BMI) of 36.0 to 36.9 in adult (Primary Dx); Encounter for preventive care; Colon cancer screening; Seborrheic dermatitis; Missed period 10/17/2024 Travel 10/10/[address] [facility] [address] [place], [place] [phone] Kirstie Lorenz, MIGUEL Appointment Request (Pt requesting ov for nexplanon - made with RN CRITICAL CARE for 10/19 at 9 AM) 10/10/2024 Orders Only [address] [phone] Farzana Meadows MD Unprotected sexual intercourse (Primary Dx); Nexplanon insertion 10/10/2024 Telephone [facility] [address] [place] [address] [phone] Farzana Meadows MD Contraception; Medication request 10/07/[address] [phone] Zaira Borges, cardiac monitor 10/07/2024 Patient Outreach [address] [phone] Farzana Meadows MD Pre-visit Planning ([facility] screening completed on 12/22/2023) 10/06/2024 Refill [facility] [address] [place] [address] [phone] Farzana Meadows MD Other constipation 10/01/[address] [phone] Farzana Self MD from Last 3 Months Immunizations Name Administration Dates Next Due DTaP 05/30/1997, 5,03/05/1994,05/22,1993 HPV, Quadrivalent 06/21/2010,02/19/2010,06/05/20 09 Hep B, Adolescent or Pediatric 03/05/1994,1992,1993 Hib (HbOC) 05/06/1994, 4,1993,04/01 IPV 05/30/1997, 5,1993,04/01 Influenza injectable quadriv alent IIV4 with preservative 12/14/2019 Influenza injectable quadriv alent preservative free 08/02/2021,08/20/2017,10/11/2015 Influenza, IIV3, injectable 09/08/2011 Influenza, Split (incl. jarod fied surface antigen) 07/19/2013 Influenza, injectable, quadr ivalent, preservative free, pediatric 12/14/2019 MMR 05/30/1997,05/08/1994 Meningococcal MCV4P ACYW-135 06/05/2009 Moderna Covid-19 Vaccine 12+ 09/18/2021,02/01/20 21,01/03/2021 Tdap 04/13/2023, 7,09/05/2015,06/05 Varicella 07/13/2009,06/05/2009 Family History Medical History Relation Name Comments Diabetes Father Relation Name Status Comments Father Social History Tobacco Use Types Packs/Day Years Used Date Smoking Tobacco: Never Passive Smoke Exposure: Never Smokeless Tobacco: Never Tobacco Cessation:Counseling Given: Not Answered Alcohol Use Standard Drinks/Week Comments Never 0 (1 standard drink = 0.6 oz pur e alcohol) Depression Answer Date Recorded Patient Health Questionnaire-9 Score 0 02/17/2023 Housing Stability Answer Date Recorded What is your housing situation today? I have massimo shauna 07/23/[address] you li [...] not to disclose 2021 10:20 AM EDT Last Filed Vital Signs Vital Sign Reading Time Taken Comments Blood Pressure 127/84 10/26/2024 2:54 PM EST Pulse 84 10/26/2024 2:54 PM EST Temperature 36.4 ??C (97.6 ??F) 10/26/2024 2:54 PM ES T Respiratory Rate 20 10/26/2024 2:54 PM EST Oxygen Saturation 99% 10/19/2024 9:11 AM EST Inhaled Oxygen Concentration - - Weight 85.1 kg (187 lb 9.6 oz) 10/26/2024 2:54 P M EST Height 149.9 cm (4' 11 ) 10/26/2024 2:54 PM EST Body Mass Index 37.89 10/26/2024 2:54 PM EST Plan of Treatment Health Maintenance Due Date Last Done Comments Alcohol/Substance Use Screening 2005 Pneumococcal Vaccine: Pediatrics (0 to 5 Years) and At-Risk Patients (6 to 49) Years) (1 of 2 - PCV) 01/25/2012 Cervical Cancer Screening 07/25/2023 HPV/Cotest 07/25/2023 Pap Smear 07/25/2023 07/25/2020 Depression Screening 02/18/2024 02/17/2023, 02/18/20 23 COVID-19 Vaccine ( season) 2024 09/18/2021, 01/31/2021, 01/03/2021 Influenza Vaccine (#1) 2024 , 12/14/2019, 12/14/2019, Additional history exists SDOH Screening 12/21/2024 12/22/2023 Family Planning (PISQ) 10/19/2025 10/19/2024 Tobacco Screening 10/28/2025 10/28/2024 Lipid Panel 02/08/2029 02/09/2024, 02/0 05/2022, 07/04/2021, Additional history exists DTaP/Tdap/Td Vaccines (10 - Td or Tdap) 04/13/2033 04/13/2023, 07/02/2017, 09/05/2015, Additional history exists Zoster Vaccines (1 of 2) 2043 RSV Patients and Patients Aged 60 years or older (1 - 1-dose 75+ series) 01/25/2068 Hepatitis B Vaccines Completed 03/05/1994, 1993, 1993 HIB Vaccines Completed 05/06/1994, 10/1993, 1993, Additional history exists IPV Vaccines Completed 05/30/1997, 12/03, 1993, Additional history exists Meningococcal Vaccine Completed 06/05/2009 HPV Vaccines Completed 06/21/2010, 02/02, 06/05/2009 HIV Screening Completed 09/06/2024, 05/2022, 11/12/2021, Additional history exists Hepatitis C Screening Discontinued 09/06/2024 , 11/12/2021, 06/13/2021, Additional history exists Hepatitis A Vaccines Aged Out No long er eligible based on patient's age to complete this topic RSV under 20 months Aged Out No longe r eligible based on patient's age to complete this topic Rotavirus Vaccines Aged Out No longer eligible based on patient's age to complete this topic Procedures Procedure Name Priority Date/Time Associated Diagnosis Comments POCT , URINE Routine 10/26/2024 3:45 PM EST Missed period CHLAMYDIA/N. GONORRHOEAE RNA, TMA, UROGENITAL Routine 10/19/2024 4:09 PM EST Encntr screen for infections w sexl mode of transmiss POCT URINALYSIS DIPSTICK Routine 10/19/2024 10:00 AM EST Dysuria MODEL MAKER INSERTION/REMOVAL OF CONTRACEPTIVE CAPSULE Routine 10/19/2024 9:30 AM EST Family planning counseling POCT , URINE Routine 10/19/2024 9:27 AM EST Family planning counseling TRICHOMONAS VAGINALIS RNA, QUALITATIVE, TMA Routine 10/19/2024 9:22 AM EST Encntr screen for infections w sexl mode of transmiss POCT URINALYSIS DIPSTICK Routine 10/17/2024 10:02 AM EST Missed period POCT , URINE Routine 10/17/2024 10:01 AM EST Missed period HEPATITIS C AB W/REFL TO HCV RNA, QN, PCR Routine 09/06/2024 9:35 AM EST Routine screening for STI (sexually transmitted infection) HIV 1/2 ANTIGEN/ANTIBODY, FOURTH GENERATION W/RFL Routine 09/06/2024 9:35 AM EST Routine screening for STI (sexually transmitted infection) LIPID PANEL, STANDARD Routine 02/09/2024 8:52 AM EDT PAP SMEAR Routine 07/25/2020 12:00 AM EDT from Last 3 Months or Most Recently Relevant to Health Maintenance Results * POCT Urine (10/26/2024 3:45 PM EST) Only the most recent of3 resultswithin the time period is included. Preg Test, Ur Negative Negative, Indeterminate, None Detected, Invalid, Specimen unsatisfactory for evaluation, Weakly Positive Urine 10/26/2024 3:45 PM EST [facility] POINT OF CARE TEST ENTER/EDIT ORDERABLES Final Result * Chlamydia/N. Gonorrhoeae RNA, TMA, Urine (10/19/2024 4:09 PM EST) CT PCR NOT DETECTED Not Detect. [facility] Comment:A not detected test result does not exclude the possibilityof infection because test results can be affected byimproper specimen collection, concurrent antibiotic therapy,or the number of organisms in the specimen which may bebelow the sensitivity of the test. As with many diagnostictests, results from the Xpert CT/NG assay should beinterpreted in conjunction with other laboratory andclinical data available to the clinician.Xpert CT/NG performance has not been evaluated in patientsless than 14 years of age. The assay should not be used forthe evaluationof suspected sexual abuse or for other medico-legalindications. Additional testing is recommended in anycircumstance when false positive or false negative resultscould lead to adverse medical, social or psychologicalconsequences. NG PCR NOT DETECTED Not Detect. [facility] Comment:A not detected test result does not exclude the possibilityof infection because test results can be affected byimproper specimen collection, concurrent antibiotic therapy,or the number of organisms in the specimen which may bebelow the sensitivity of the test. As with many diagnostictests, results from the Xpert CT/NG assay should beinterpreted in conjunction with other laboratory andclinical data available to the clinician.Xpert CT/NG performance has not been evaluated in patientsless than 14 years of age. The assay should not be used forthe evaluationof suspected sexual abuse or for other medico-legalindications. Additional testing is recommended in anycircumstance when false positive or false negative resultscould lead to adverse medical, social or psychologicalconsequences. Urine, Random 10/19/2024 4:0 9 PM EST 10/19/2024 4:09 PM EST Narrative [facility] - 10/19/2024 8:21 PM EST Urine Beth Mercado CNM LAB MICROBIOLOGY - GENERA L ORDERABLES Final Result Performing Organization Address City/State/[facility] Co de Phone Number [facility] [address] [place] [phone] * POCT Urinalysis (10/19/2024 10:00 AM EST) Only the most recent of2 resultswithin the time period is included. Color, UA Yellow Clarity, UA Clear Glucose, UA Negative Bilirubin, UA Negative Ketones, UA Negative Spec Grav, UA 1.025 Blood, UA Negative Negative, None Detected pH, UA 5.5 Protein, UA Negative Urobilinogen, UA 0.2 Leukocytes, UA Negative Negative, Rare, Trace Nitrite, UA Negative Negative, None Detected Appearance, UA yellow QC Media Lot # [id number] Lot# Expiration Date Urine 10/19/2024 10:0 0 AM EST Beth Mercado CNM POINT OF CARE TEST ENTER/ EDIT ORDERABLES Final Result * Insertion/Removal of Contraceptive Capsule (10/19/2024 9:30 AM EST) Narrative Beth Mercado CNM - 10/19/2024 9:30 AM EST Beth Mercado CNM ? 10/19/2024 10:13 AM Insertion/Removal of Contraceptive Capsule Date/Time: 10/19/2024 9:30 AM Performed by: Beth Mercado CNM Authorized by: Beth Mercado CNM ?? Confirmed correct patient, procedure, site, and patient consented: Yes ?? Participating Staff: ??Beth Mercado CNM Participating Staff: ??Elissa Marroquin RN Consent: ??Consent obtained: ??Verbal and written ??Consent given by: ??Patient ??Procedural risks and benefits discussed: Yes ?Patient questions answered: yes ?Patient agrees, verbalizes understanding, and wants to proceed: yes ?Educational handouts given: yes ?Instructions and paperwork completed: yes ?? Indication: ??Indication: insertion of non-biodegradable drug delivery implant ?? Pre-procedure: ??Pre-procedure timeout performed: yes ?Prepped with: povidone-iodine ?Local anesthetic: lidocaine 2% 2ml. ??The site was cleaned and prepped in a sterile fashion: yes ?? Procedure: ??Procedure: ??Insertion ??Small stab incision was made in arm: no ?Left/right: ??Left ??Preloaded contraceptive capsule trocar was placed subdermally: yes ?Visualization of implant was obtained: yes ?Contraceptive capsule was inserted and trocar removed: yes ?Visualization of notch in stylet and palpation of device: yes ?Palpation confirms placement by provider and patient: yes ?Site was closed with steri-strips and pressure bandage applied: yes ?? us Beth Mercado CNM IN CLINIC/BEDSIDE ORDERAB LES Final Result * Trichomonas RNA (Urine/Vaginal) (10/19/2024 9:22 AM EST) Trichomas vaginalis RNA, QL, TMA NOT DETECTED NOT DETECTED [facility] Comment:For additional infor brijesh, please refer tohttp://education.Ideacentric/faq/Trichomonastma(This link is being provided for informational/educational purposes only.)THIS TEST WAS PERFORMED AT:[facility] [place] [phone] JAMES MD Urine (Urine, Random) 10/19/2024 9:22 AM EST 10/19/2024 4:10 PM EST Beth GUADALUPE LAB BODY FLUIDS AND STOOL S ORDERABLES Final Result Performing Organization Address [facility] Co de Phone Number [facility] [address] [place] [phone] * Hepatitis C Antibody with Reflex to HCV, RNA, Quantitative, Real-Time PCR (09/06/2024 9:35 AM EST) Hepatitis C Antibody Nonreactive Nonreactive [facility] Comment:Antibodies to HCV no t detected; does not exclude early acuteHCV infection. Blood Venous blood specimen / Unknown 09/06/2024 9:35 AM EST 09/06/2024 11:31 AM EST us Enid Mccarthy DO LAB BLOOD ORDERABLES Final R esult Performing Organization Address [facility] Co de Phone Number [facility] [address] [place] [phone] * HIV-1/2 Antigen and Antibodies, Fourth Generation, with Reflexes (09/06/2024 9:35 AM EST) HIV AB/AG Nonreactive Nonreactive [facility] Comment:HIV-1 p24 Ag and/or HIV-1/HIV-2 Ab not detected.A test result that is nonreactive does not exclude thepossibility of exposure to or infection with HIV-1 and/orHIV-2. Nonreactive results in this assay for individualswith prior exposure to HIV-1 and/or HIV-2 may be due toantigen and antibody levels that are below the limit ofdetection of this assay.The [facility] HIV Ag/Ab Combo assay result andsupplemental assay results should be interpreted inconjunction with the patient's clinical presentation,history and other laboratory results. If the results areinconsistent with clinical evidence, additional testing issuggested to confirm the result. Blood Venous blood specimen / Unknown 09/06/2024 9:35 AM EST 09/06/2024 11:31 AM EST us Enid Mccarthy DO LAB BLOOD ORDERABLES Final R esult Performing Organization Address [facility] Co de Phone Number [facility] [address] [place] [phone] * (ABNORMAL) Lipid Panel, Standard (02/09/2024 8:52 AM EDT) Triglycerides 100 <150 mg/dL [facility] Comment:Desirable Triglyceri de: less than 150 mg/dLBorderline High Triglyceride 150-199 mg/dLHigh Triglyceride: 200-499 mg/dLVery High Triglyceride: greater than or equal to 5OO mg/dL Cholesterol 223(H) <200 mg/dL [facility] Comment:Desirable Cholestero l: less than 200 mg/dLBorderline High Cholesterol: 200-239 mg/dLHigh Cholesterol: greater than 239 mg/dL LDL Cholesterol Calculated 159(H) <100 mg/dL [facility] Comment:Desirable LDL: less than 100 mg/dLNear Optimal/Above Optimal LDL: 110- 129 mg/dLBorderline High LDL: 130-159 mg/dLHigh LDL: 160-189 mg/dLVery High LDL: greater than or equal to 190 mg/dL HDL Cholesterol 44 >40 mg/dL [facility] Comment:Desirable HDL: great er than 40 mg/dL Note: This HDL assay may give artificially low results in patients with liver disease. 02/09/2024 8:52 AM EDT 02/09/2024 8:52 AM EDT us Generic External Data Provider LAB BLOOD ORDERAB LES Final Result Performing Organization Address [facility] Co de Phone Number [facility] [address] [place] [phone] * Pap Smear (07/25/2020 12:00 AM EDT) Swab us Historical Provider LAB CYTOLOGY ORDERABLES F inal Result [facility] [address] [facility], [facility], [place] [address] from Last 3 Months or Most Recently Relevant to Health Maintenance Insurance [employer] C[employer] Care Teams Trap Setter Relationship Specialty Start Date End Date Farzana Meadows MD [address] [place] [address] PCP - General Family Medicine 01/05/19
--- OUTSIDE RECORDS SUMMARY | 2024-12-13 09:39 | XMS_ITS | Encounter Summary ---
Author Organization [employer] Address [address] [facility] [place] [address] Care Team Providers Care Dice Dealer Name Role Phone Farzana Meadows MD Primary Care Provide r Encounter Details Date Type Department Care Team (Late st Contact Info) Description 08/10/2024 Orders Only [facility] MEDICINE [address] [place] [address] Farzana Meadows MD [address] [place] [address] Social History Tobacco Use Types Packs/Day Years [...] documented as of this encounter Care Teams Dice Dealer Relationship Specialty Start Date End Date Farzana Meadows MD [address] [place] [phone] PCP - General Family Medicine 01/05/19 documented as of this encounter
--- OUTSIDE RECORDS SUMMARY | 2024-12-13 09:39 | XMS_ITS | Encounter Summary ---
Author Organization [employer] Address [address] [facility] [address] 7[address] [place] [address] Care Team Providers Care Local Bulk Driver Name Role Phone Farzana Meadows MD Primary Care Provide r Reason for Visit * Reason Onset Date Comments Appointment Request 12/01/2023 Encounter Details Date Type Department Care Team ([facility] st Contact Info) Description 12/01/2023 Telephone [facility] MEDICINE [address] [place], [place] [phone] Farzana Meadows MD [address] [place], [place] [phone] Appointment Request Social History Tobacco Use Types Packs/Day Years [...] encounter Miscellaneous Notes * Telephone Encounter - Debbie Pearl - 12/01/2023 2:42 PM EST Tc from pt requesting appt with PCP in regards weight management. documented in this encounter Plan of Treatment Not on file documented as of this encounter Visit Diagnoses Not on filedocumented in this encounter Additional Health Concerns Assessment Noted Time PHQ-9 Depression Total Score: 0 02/18/20 9:02 AM EDT documented as of this encounter Care Teams Local Bulk Driver Relationship Specialty Start Date End Date Farzana Meadows MD [address] [place] [address] PCP - General Family Medicine 01/05/19 Trang Wyman Weir Fisherman 08/20/23 06/29/24 documented as of this encounter
--- OUTSIDE RECORDS SUMMARY | 2024-12-13 09:39 | XMS_ITS | Encounter Summary ---
Author Organization [employer] Address [address] [facility] 7t [place] [address] Care Team Providers Care Civilian Jail Officer Name Role Phone Farzana Meadows MD Primary Care Provide r Reason for Visit * Reason Comments Med Refill Encounter Details Date Type Department Care Team ([facility] st Contact Info) Description 06/09/2024 Refill [facility] MEDICINE [address] [place], [place] [phone] Farzana Meadows MD [address] [place], [place] [phone] Class 3 severe obesity due to excess [...] documented as of this encounter Care Teams Civilian Jail Officer Relationship Specialty Start Date End Date Farzana Meadows MD [address] [place] [phone] PCP - General Family Medicine 01/05/19 Trang Wyman Shoder Filler 08/20/23 06/29/24 documented as of this encounter
--- OUTSIDE RECORDS SUMMARY | 2024-12-13 09:40 | XMS_ITS | Encounter Summary ---
Author Organization [employer] Address [address] [facility] 7t [place] [address] Care Team Providers Care Internal Medicine Physician Name Role Phone Farzana Meadows MD Primary Care Provide r Reason for Visit * Reason Comments Med Refill Encounter Details Date Type Department Care Team ([facility] st Contact Info) Description 06/14/[address] [facility] MEDICINE [address] [place], [place] [phone] Farzana Meadows MD 230 [place], [place] [phone] Class 3 severe obesity due to excess [...] documented as of this encounter Care Teams Internal Medicine Physician Relationship Specialty Start Date End Date Farzana Meadows MD [address] [place] [phone] PCP - General Family Medicine 01/05/19 Trang yWman Lime Slaker 08/20/23 06/29/24 documented as of this encounter
--- OUTSIDE RECORDS SUMMARY | 2024-12-13 09:40 | XMS_ITS | Encounter Summary ---
Author Organization [employer] Address [address] [facility] 7t [place] [address] Care Team Providers Care Hospice Case Manager Name Role Phone Farzana Meadows MD Primary Care Provide r Reason for Visit * Reason Onset Date Comments Med Refill 11/04/2024 Encounter Details Date Type Department Care Team ([facility] st Contact Info) Description 11/04/2024 Telephone [facility] MEDICINE [address] [place], [place] [phone] Farzana Meadows MD 230 [place], [place] [phone] Med Refill Social History Tobacco Use Types [...] Telephone Encounter - Enid Gusman LPN - 11/04/2024 12:17 PM EST Zepound was sent to [facility] on 10/17/[address] [place]. * Telephone Encounter - Ilene Dominguez - 11/04/2024 11:30 AM EST TC from pt requesting medication refill. Medications needing refill : Semaglutide-Weight Management (Wegovy) 2.4 MG/0.75ML solution auto-injector To be sent to: [facility] documented in this encounter Plan of Treatment Not on file documented as of this encounter Visit Diagnoses Not on filedocumented in this encounter Additional Health Concerns Assessment Noted Time PHQ-9 Depression Total Score: 0 02/18/20 23 9:02 AM EDT documented as of this encounter Care Teams Hospice Case Manager Relationship Specialty Start Date End Date Farzana Meadows MD [address] [place] [address] PCP - General Family Medicine 01/05/19 documented as of this encounter
== END 2024-12-13 09:35 | disposition home or self-care (01) ==
LOC: HO.HGI 08:49
PROVIDERS: Visit Provider Internal Medicine Gastroenterology
DX: K59.09 Other constipation (principal); K21.9 Gastro-esophageal reflux disease without esophagitis
CPT/HCPCS: 99213

== ENCOUNTER → 2024-12-13 08:49 | Outpatient (BNVA) | payer MEDICAID, SELFPAY | PROVIDERS: Visit Provider Internal Medicine Gastroenterology | DX: K59.09 Other constipation (principal); K21.9 Gastro-esophageal reflux disease without esophagitis | CPT/HCPCS: 99212 ==

== ENCOUNTER 2025-04-18 14:04 | Outpatient (REF) | payer MEDICAID, SELFPAY ==
--- OUTSIDE RECORDS SUMMARY | 2025-04-18 15:23 | XMS_ITS | Encounter Summary ---
Author Organization [employer] Address [address] [facility] 7t [place] [address] Care Team Providers Care Reduction Furnace Operator Name Role Phone Farzana Meadows MD Primary Care Provide r Reason for Visit * Reason Onset Date Comments Med Refill 04/12/2025 Encounter Details Date Type Department Care Team ([facility] st Contact Info) Description 04/12/2025 Telephone [facility] MEDICINE [address] [place], [place] [phone] Farzana Meadows MD 230 [place], [place] [phone] Med Refill Social History Tobacco Use Types [...] Telephone Encounter - Enid Gusman LPN - 04/12/2025 1:36 PM EDT Zepbound has a refill and Omeprazole isn't prescribed by PCP. * Telephone Encounter - Fito Pineda - 04/12/2025 1:26 PM EDT TC from pt requesting medication refill. Medications needing refill : Tirzepatide-Weight Management (Zepbound) 12.5 MG/0.5ML solution auto-injector omeprazole OTC (PriLOSEC OTC) 20 MG EC tablet To be sent to: [facility] - [place], [place] - [address] [place] [address] documented in this encounter Plan of Treatment Not on file documented as of this encounter Visit Diagnoses Not on filedocumented in this encounter Additional Health Concerns Assessment Noted Time PHQ-9 Depression Total Score: 0 02/18/20 23 9:02 AM EDT documented as of this encounter Care Teams Reduction Furnace Operator Relationship Specialty Start Date End Date Farzana Meadows MD [address] [facility] [place] [address] PCP - General Family Medicine 01/05/19 documented as of this encounter
[2025-04-18 16:54] LABS: Hemoglobin A1C 92.1006 umol/L; Total Hemoglobin (HGBA1C) 3459.8803 umol/L
[2025-04-18 21:59] LABS: CT PCR NOT DETECTED (Not Detect.); NG PCR NOT DETECTED (Not Detect.)
[2025-04-18 22:19] LABS: CT PCR Urine NOT DETECTED (Not Detect.); NG PCR Urine NOT DETECTED (Not Detect.)
[2025-04-19 04:01] LABS: Syphilis Screen Nonreactive (Nonreactive)
[2025-04-19 04:08] LABS: HIV Num 1 0.05 S/CO (0.00-0.99)
== END 2025-04-18 14:05 | disposition home or self-care (01) ==
LOC: HO.HHCL 14:04
PROVIDERS: PCP Internal Medicine; Visit Provider Advanced Practice Midwife
DX: Z11.3 Encounter for screening for infections with a predominantly sexual mode of transmission (principal); Z11.4 Encounter for screening for human immunodeficiency virus [HIV]; Z83.3 Family history of diabetes mellitus
CPT/HCPCS: 36415; 83036; 86780; 87389; 87491; 87591

== ENCOUNTER 2025-04-30 20:07 | Emergency (ER) | payer MEDICAID, SELFPAY ==
--- NOTE | ~2025-04-30 | CT_ITS ---
CLINICAL HISTORY: appy?? RLQ pain CT abdomen and pelvis with contrast Comparison: DX/SR - XR ABDOMEN 1 VIEW (KUB) - 07/26/24 14:27 EDT US/SR - US ABDOMEN COMPLETE WITH LIVER ELASTOGRAPHY - 03/30/24 10:30 EDT Findings: Trace bilateral effusions. Cholecystectomy. No biliary duct dilatation. Liver, spleen, pancreas, and adrenal glands are within normal limits. No hydronephrosis. Symmetric contrast enhancement of the kidneys. No urolithiasis. No bowel obstruction, pneumatosis or pneumoperitoneum. Normal appendix. Urinary bladder is underdistended. Small round intramural hyperdensities in the uterus, likely fibroids. 3.4 x 2.9 cm right ovarian cyst. The bones are intact. IMPRESSION: 1. No acute intraabdominal or pelvic pathology. 2. Trace bilateral pleural effusions. 3. Normal appendix. 4. 3.4 cm right ovarian cyst. This document has been electronically signed by: Greg Silva MD on 05/01/2025 00:49:21
[2025-04-30 20:10] VITALS: BP 131/56; PULSE 64; RESP 16; TEMP 37; O2SAT 100; BMI 37.0
[2025-04-30 20:30] LABS: MANUAL DIFF FLAG NO
[2025-04-30 20:32] LABS: Hematocrit 33.6 % (37.0-47.0); Hemoglobin 11.4 g/dl (12.0-16.0); Imm Gran Abs Auto 0.05 X10*3/uL (0.00-0.03); Imm Gran Pct Auto 0.4 % (0.0-0.4); Lymphocytes Absolute Auto 2.7 X10*3/uL (1.2-4.9); Mean Corpuscular HGB Conc 33.9 g/dl (31.0-35.0); Mean Corpuscular Hemoglobin 31.2 pg (27.0-33.0); Mean Corpuscular Volume 92.1 fL (80.0-98.0); NRBC Abs Auto 0.000 X10*3/uL (0.0-0.012); NRBC Pct Auto 0.0 /100WBC (0.0-0.2); Platelet Count 345 X10*3/uL (160-400); Red Blood Count 3.65 X10*6/uL (4.20-5.50); White Blood Count 14.1 X10*3/uL (4.8-10.8)
[2025-04-30 20:33] LABS: Appearance Urine Cloudy; Glucose Urine UA Negative (Negative); PH 7.5 (5.0-9.0); Specific Gravity - Urine 1.020 (1.005-1.025)
[2025-04-30 20:34] LABS: UPreg QC Valid YES
--- NOTE | 2025-04-30 20:35 | ED_ITS ---
HPI - General Adult General Chief complaint: Abdominal Pain Stated complaint: abd pain sent from UC/ Nausea/ 14 days no period Time Seen by Provider: 04/30/25 22:25 Source: patient Limitations: language barrier History of Present Illness ED Provider: Clarissa Mendoza PA-C HPI narrative: 30-year-old female presents with abdominal pain x 7 days. Pain across lower abdomen, right greater than left. Pain worse with movement. Unable to describe the nature of her discomfort. Associated nausea at times. Denies dysuria, hematuria, history of kidney stones, diarrhea, or constipation. Patient states her menstrual cycle is 2 weeks late, she was seen at urgent Care, she was advised to come to the emergency department for further assessment. In addition, patient complains of generalized malaise, fatigue, dry cough, headache and subjective fever. Related Data Home Medications ?Medication ?Instructions ?Recorded ?Confirmed swxsrrcnjj-fovymjfmfvnkl-xoytmsoh 1 - 2 tab PO Q4H PRN Headache 09/17/22 12/13/24 50 mg-325 mg-40 mg tablet Previous Rx's ?Medication ?Instructions ?Recorded pyridoxine (vitamin B6) 25 mg 25 mg PO TID #90 tabs tablet (Vitamin B-6) ibuprofen 400 mg tablet 400 mg PO Q6H #20 tabs 09/18 linaclotide 145 mcg capsule 290 mcg (2 x 145 mcg) PO Q AM 30 12/13/24 (Linzess) days #60 caps omeprazole 20 mg capsule,delayed 20 mg PO BID 30 days #60 caps 12/13/24 release azithromycin 250 mg tablet 250 mg PO DAILY 4 days #4 t abs 05/01/25 ketorolac 10 mg tablet 10 mg PO Q6H PRN pain #20 ta bs 05/01/25 methocarbamol 750 mg tablet 750 mg PO Q8H PRN pain, mo derate 05/01/25 #10 tabs Allergies Allergy/AdvReac Type Severity Reaction Status Date / Time No Known Allergies Allergy Verified 04/30/25 20:15 Review of Systems 2 Review of Systems: Yes all other systems are reviewed and are negative Constitutional: Constitutional: Reports fatigue, Reports fever(s) and Reports malaise Cardiovascular: Cardiovascular: Denies chest pain and Denies dyspnea Respiratory: Respiratory: Denies chest congestion, Reports cough, Denies dyspnea and Denies wheezing Gastrointestinal: Gastrointestinal: Denies constipation, Denies diarrhea, Reports nausea and Denies vomiting Genitourinary: Genitourinary: Denies dysuria, Denies pelvic pain and Denies vaginal discharge Endocrine: Endocrine: Reports fatigue Allergic/Immunologic: Allergic/Immunologic: Denies wheezing PMFSH Past Medical History Attestation statement: The following information was validated with the patient. Medical History (Updated 05/01/25 @ 01:38 by DYLAN Gao) Constipation Migraines GERD (gastroesophageal reflux disease) Morbid obesity Anxiety Surgical History Hx of colonoscopy Hx of dilation and curettage History of cholecystectomy Family History Family History Mother Arthritis Fibromyalgia Father Diabetes Hypertension Social History Social History Household Members: Children Both parents involved: Yes Housing: Apartment Are you a primary manager managed care to a significant other at home: No Do you presently have visiting nurse or other home services: No Alcohol intake: former Patient Tobacco Use Status: Never used Tobacco Advance Directives Date on File: 12/21/20 Sexual orientation: Straight/Heterosexual Gender identity: Female Physical Exam ED Exam Exam: Alert, Vital Signs: Vital Signs - 24 hr 04/30/25 20:10 04/30/25 23:58 05/01/25 01:18 Temperature 98.6 F 98.8 F 98.0 F Pulse Rate 64 58 59 Respiratory Rate 16 14 Blood Pressure 131/56 L 126/65 117/65 Pulse Oximetry 100 96 98 Oxygen Delivery Method Room Air Room Air Room Air 05/01/25 01:50 Temperature 98.0 F Pulse Rate 59 Respiratory Rate 14 Blood Pressure 117/65 Pulse Oximetry 98 Oxygen Delivery Method Room Air BMI result Body Mass Index 37.0 Const Orientation/consciousness: patient oriented x3 Resp Other: Lungs clear to auscultation no wheezing Cardio Other: Normal peripheral perfusion Skin Other: Warm dry no rash Neuro General: patient oriented x3, gait normal, no focal motor deficits and CN's II- XI intact bilaterally Psych Other: Cooperative Course Course Course Narrative: RME: 30 year old female presents to ED for lower abdominal pain headache and nausea. Patient states menstrual patient is 2 weeks late. Positive for lower gum tenderness on palpation labs UA ordered Medications Administered Discontinued Medications Generic Name Dose Route Start Last Admin Trade Name Freq PRN Reason Stop Dose Admin Azithromycin 500 mg 05/01/25 01:38 05/01/25 01:46 Azithromycin 500 Mg Tablet PO 05/01/25 01:39 500 mg ONCE ONE Administration Diazepam 2.5 mg 04/30/25 22:49 04/30/25 23:37 Diazepam 10 Mg/2 Ml Cartridge IVPUSH 04/30/25 22:50 2.5 mg STAT STA Administration Sodium Chloride 1,000 mls @ 999 mls/hr 04/30/25 23:00 05/01/25 01:16 Ns IV 05/01/25 00:00 Infused .Q1H1M JIN Infusion Acetaminophen 1,000 mg in 100 mls @ 400 mls/hr 05/01/25 00:07 05/01/25 01:17 Ofirmev IV 05/01/25 00:21 Infused ONCE ONE Infusion Iohexol 85 ml 04/30/25 23:56 04/30/25 23:58 Iohexol 350 Mg/Ml 100 Ml Infus..Btl IV 04/30/25 23:57 85 ml ONCE ONE Administration Ketorolac Tromethamine 15 mg 04/30/25 22:49 04/30/25 23:37 Ketorolac Tromethamine 15 Mg/Ml Vial IVPUSH 04/30/25 22:50 15 mg ONCE ONE Administration Medical Decision Making Medical Decision Making MDM Narrative: 30-year-old female with a history of constipation presents with abdominal pain x 7 days. Pain across lower abdomen, right greater than left. Pain worse with movement. Unable to describe the nature of her discomfort. Associated nausea at times. Denies dysuria, hematuria, history of kidney stones, diarrhea, or constipation. Patient states her menstrual cycle is 2 weeks late, she was seen at urgent Care, she was advised to come to the emergency department for further assessment. In addition, patient complains of generalized malaise, fatigue, dry cough, headache and subjective fever. No chronic issues History: Per patient I have considered the following differential diagnoses: Viral syndrome, diverticulitis, UTI, renal colic, appendicitis, constipation, TOA, STD, torsion, ovarian cyst Plan: Patient is having generalized pain across the lower abdomen, to some degree the pain is more right-sided versus the left, it is highly nonspecific. She is also not having any active GI symptoms other than nausea. We will obtain a CT scan to rule out appendicitis. To note she has no related symptoms to suggest a UTI/renal colic, or networker related pathology. Furthermore, in chart review, she was just screened for numerous STDs, her assessment was negative, labs were performed just a week ago. Doubtful to be torsion, again her pain is nonfocal it is intra-abdominal versus pelvic, and she has had symptoms for a week, I do not feel she requires a transvaginal ultrasound. I have independently reviewed the following tests: Labs: Slight leukocytosis, not anemic, no electrolyte abnormality, not , urine not infected no hematuria CT abdomen and pelvis:Findings: Trace bilateral effusions. Cholecystectomy. No biliary duct dilatation. Liver, spleen, pancreas, and adrenal glands are within normal limits. No hydronephrosis. Symmetric contrast enhancement of the kidneys. No urolithiasis. No bowel obstruction, pneumatosis or pneumoperitoneum. Normal appendix. Urinary bladder is underdistended. Small round intramural hyperdensities in the uterus, likely fibroids. 3.4 x 2.9 cm right ovarian cyst. The bones are intact. IMPRESSION: 1. No acute intraabdominal or pelvic pathology. 2. Trace bilateral pleural effusions. 3. Normal appendix. 4. 3.4 cm right ovarian cyst. Given patient's overall malaise with subjective fever and a cough, now with trace pleural effusions, pneumonia can not be excluded, we will treat her for walking pneumonia, sending with azithromycin Lab Data 04/30/25 20:24 04/30/25 20:24 Labs: Lab Results 04/30/25 04/30/25 Range/Units 20:23 20:24 WBC 14.1 H (4.8-10.8) X10*3/uL RBC 3.65 L (4.20-5.50) X10*6/uL Hgb 11.4 L (12.0-16.0) g/dl Hct 33.6 L (37.0-47.0) % MCV 92.1 (80.0-98.0) fL MCH 31.2 (27.0-33.0) pg MCHC 33.9 (31.0-35.0) g/dl RDW 12.6 (11.0-16.0) % Plt Count 345 (160-400) X10*3/uL MPV 9.2 L (9.4-12.3) fL Immature Gran % (Auto) 0.4 (0.0-0.4) % Neut % (Auto) 75.6 H (45-73) % Lymph % (Auto) 18.8 L (20-40) % [place] % (Auto) 4.2 (2-11) % Eos % (Auto) 0.8 (0-4) % Baso % (Auto) 0.2 (0-2) % Lymph # (Auto) 2.7 (1.2-4.9) X10*3/uL [place] # (Auto) 0.6 (0.1-1.2) X10*3/uL Eos # (Auto) 0.1 (0.0-0.4) X10*3/uL Baso # (Auto) 0.0 (0.0-0.2) X10*3/uL Abs Immat Gran (auto) 0.05 H (0.00-0.03) X10*3/uL Absolute Neuts (auto) 10.7 H (2.0-8.3) x10*3/uL Absolute Nucleated RBC 0.000 (0.0-0.012) X10*3/uL Nucleated RBC % (auto) 0.0 (0.0-0.2) /100WBC Sodium 141 (135-145) mmol/L Potassium 3.8 (3.3-5.1) mmol/L Chloride 108 (96-108) mmol/L Carbon Dioxide 25 (22-29) mmol/L Anion Gap 12 (12-20) BUN 15 (9-16) mg/dL Creatinine 0.47 L (0.5-1.4) mg/dL Estim Creat Clear Calc 160.5 Estimated GFR > 60 Random Glucose 93 (60-115) mg/dL Calcium 8.7 (8.4-10.2) mg/dL Total Bilirubin 0.2 (0.0-1.0) mg/dL AST 21 (5-31) U/L ALT 35 H (0-31) U/L Alkaline Phosphatase 87 (39-117) U/L Total Protein 6.9 (6.5-8.0) g/dL Albumin 3.8 (3.5-5.0) g/dL Lipase 24 (8-78) U/L Beta HCG, Quant < 2 mIU/mL Urine Color Yellow Urine Appearance Cloudy Urine pH 7.5 (5.0-9.0) Ur Specific [place] 1.020 (1.005-1.025) Urine Protein Negative (Neg-Trace) mg/dL Urine Glucose (UA) Negative (Negative) mg/dL Urine Ketones Negative (Negative) mg/dL Urine Blood Negative (Negative) Urine Nitrite Negative (Negative) Ur Leukocyte Esterase Negative (Negative) Urine Test NEGATIVE (NEGATIVE) Discharge Plan Discharge Clinical Impression: Walking pneumonia, Ovarian cyst, right Patient Disposition: Home, Self-Care Instructions: Ovarian Cyst (ED), Community Acquired Pneumonia (ED) Additional Instructions: The CT scan revealed that you have a small, 3.4 cm cyst on the right. You need to follow up with your abrasive grinder for an outpatient ultrasound to track and monitor the cyst. Call tomorrow to schedule an appointment. You can use the ketorolac as directed for your pain, take it with food. Use the methocarbamol as needed for further pain, this is a muscle relaxant, it can cause drowsiness, do not drive or operate machinery while taking this medication. You were also found to have concern for walking pneumonia. See home care instructions. Take the Z-Cortez as directed, complete the course of antibiotics. Prescriptions: New azithromycin 250 mg tablet 250 mg PO DAILY 4 Days Qty: 4 0RF Rx Instructions: start on day 2 of therapy ketorolac 10 mg tablet 10 mg PO Q6H PRN (Reason: pain) Qty: 20 0RF Rx Instructions: maximum total duration of 5 days from all oral, intranasal, or parenteral formulations, the patient received an IV dose of Toradol here in the emergency room methocarbamol 750 mg tablet 750 mg PO Q8H PRN (Reason: pain, moderate) Qty: 10 0RF No Action gotpqdlewq-ncktktqfooefq-jdlo 50-325-40 mg tablet 1 - 2 tab PO Q4H PRN (Reason: Headache) ibuprofen 400 mg tablet 400 mg PO Q6H Qty: 20 0RF pyridoxine (vitamin B6) [Vitamin B-6] 25 mg tablet 25 mg PO TID Qty: 90 3RF Linzess 145 mcg capsule 290 mcg PO QAM 30 Days Qty: 60 4RF omeprazole 20 mg capsule,delayed release(DR/EC) 20 mg PO BID 30 Days Qty: 60 4RF Interventions: ED Discharge Assessment Last Done: 05/01/25 01:50 Discharge Date/Time: 05/01/25 01:52 Print Language: South Sudanese
[2025-04-30 20:53] LABS: Alanine Aminotransferase 35 U/L (0-31); Albumin Level 3.8 g/dL (3.5-5.0); Alkaline Phosphatase 87 U/L (39-117); Anion Gap 12 (12-20); Aspartate Amino Transferase 21 U/L (5-31); Blood Urea Nitrogen 15 mg/dL (9-16); Calcium 8.7 mg/dL (8.4-10.2); Carbon Dioxide 25 mmol/L (22-29); Chloride 108 mmol/L (96-108); Creatinine Clr Calc Pharmacy 160.5; Estimated Glomerular Filt Rate > 60; Lipase 24 U/L (8-78); Potassium 3.8 mmol/L (3.3-5.1); Sodium 141 mmol/L (135-145); Total Protein 6.9 g/dL (6.5-8.0)
[2025-04-30] MEDS: diazePAM 10 MG/2 ML CARTRIDGE 2.5 MG IVPUSH (23:37)
[2025-04-30 23:58] VITALS: BP 126/65; PULSE 58; RESP 14; TEMP 37.1; O2SAT 96
[2025-04-30] MEDS: iohexoL 350 MG/ML 100 ML INFUS..BTL 85 ML IV (23:58)
--- NOTE | 2025-04-30 23:59 | PC.NURSE ---
welding machine tender utilized. pt medicated according to autumn
[2025-05-01 01:18] VITALS: BP 117/65; PULSE 59; TEMP 36.7; O2SAT 98
--- NOTE | 2025-05-01 01:27 | PC.NURSE ---
late entry- pt frequently ringing nunez states in continued pain. pt medicated according to mar for pain multiple times hernando ruth made aware pt partially self removed iv while getting dressed. iv removed in its entirety by this rn pt continuing to come up to nurses station asking about discharge paperwork. this rn made pt aware we are waiting for ruth to place discharge for pt
[2025-05-01 01:50] VITALS: BP 117/65; PULSE 59; RESP 14; TEMP 36.7; O2SAT 98
--- NOTE | 2025-05-01 01:50 | PC.NURSE ---
pt medicated according to mar
== END 2025-05-01 01:52 | disposition home or self-care (01) ==
PROVIDERS: Physician Assistant; Emergency Provider Emergency Medicine; PCP Internal Medicine
DX: J18.9 Pneumonia, unspecified organism (principal); N83.201 Unspecified ovarian cyst, right side; R10.2 Pelvic and perineal pain; R11.0 Nausea; R05.9 Cough, unspecified; R50.9 Fever, unspecified; R51.9 Headache, unspecified; Z79.899 Other long term (current) drug therapy
CPT/HCPCS: 36415; 74177; 80053; 81003; 81025; 83690; 84702; 85025; 96361; 96365; 96375; 99284; J0131; J1885; J3360; Q9967

== ENCOUNTER → 2025-04-30 22:49 | Outpatient (BNV) | payer MEDICAID, SELFPAY | PROVIDERS: PCP Internal Medicine; Visit Provider Radiology Diagnostic Radiology | DX: N83.201 Unspecified ovarian cyst, right side (principal) | CPT/HCPCS: 74177 ==

== ENCOUNTER 2025-05-03 13:18 | Outpatient (REF) | payer MEDICAID, SELFPAY ==
--- OUTSIDE RECORDS SUMMARY | 2025-05-03 13:52 | XMS_ITS | Encounter Summary ---
Author Organization [employer] Address [address] [facility] 7t [place] [address] Care Team Providers Care Functional Tester Name Role Phone Farzana Meadows MD Primary Care Provide r Reason for Visit * Reason Onset Date Comments Med Refill 04/12/2025 Encounter Details Date Type Department Care Team ([facility] st Contact Info) Description 04/12/2025 Telephone [facility] MEDICINE [address] [place], [place] [phone] Farzana Meadows MD [address] [place], [place] [phone] Med Refill Social History Tobacco Use Types [...] MG EC tablet To be sent to: [facility] - [place], [place] - [address] [place] [address] documented in this encounter Plan of Treatment Upcoming Encounters Date Type Department Care Team (Late st Contact Info) Description 06/22/2025 10:45 AM EDT Office Visit [facility] MEDICINE [address] [place] [address] Farzana Meadows MD [address] [place] [address] documented as of this encounter Visit Diagnoses Not on filedocumented in this encounter Additional Health Concerns Assessment Noted Time PHQ-9 Depression Total Score: 0 02/18/20 9:02 AM EDT documented as of this encounter Care Teams Functional Tester Relationship Specialty Start Date End Date Farzana Meadows MD [address] [place] [address] PCP - General Family Medicine 01/05/19 documented as of this encounter
== END 2025-05-03 13:19 | disposition home or self-care (01) ==
LOC: HO.HHCLNP 13:18
PROVIDERS: Visit Provider Registered Nurse
DX: R30.0 Dysuria (principal)
CPT/HCPCS: 87086

== ENCOUNTER 2025-06-22 16:21 | Outpatient (REF) | payer MEDICAID, SELFPAY ==
--- OUTSIDE RECORDS SUMMARY | 2025-06-22 10:45 | XMS_ITS | Encounter Summary ---
Author Organization [email or web address] Address [address] [place] [address] 7[address] [place] [address] Care Team Providers Care Sports Information Director Name Role Phone Farzana Meadows MD Primary Care Provide r Reason for Referral * Consultation (Routine) - Pending Review Specialty Diagnoses / Procedures Referred By Richard england Referred To Contact Physical Therapy Diagnoses Chronic low back pain, unspecified back pain laterality, unspecified whether sciatica present Farzana Meadows MD [address] [place] [phone] Phone: tel: fax: Referral ID Status Reason Start Date Expiration Date Visits Requested Visits Authorized [id number] Pending Review Specialty Services Required 06/22/2025 06/22/2026 1 1 Encounter Details Date Type Department Care Team (Late st Contact Info) Description 06/22/2025 10:45 AM EDT Office Visit [facility] MEDICINE [address] [place] [address] [phone] Farzana Meadows MD [address] [place], [place] [phone] Mild intermittent asthma with exacerbation; Class 2 severe obesity due to excess calories with serious comorbidity and body mass index (BMI) of 37.0 to 37.9 in adult (CMS/HCC); Dietary counseling; Exercise counseling; Intertrigo; Vaginal itching; Dysuria; Seasonal allergies; Chronic low back pain, unspecified back pain laterality, unspecified whether sciatica present; Nausea Social History Tobacco Use Types Packs/Day Years Used Date Smoking Tobacco: Never Passive Smoke Exposure: Never Smokeless Tobacco: Never Alcohol Use Standard Drinks/Week Comments Never 0 (1 standard drink = 0.6 oz pur e alcohol) Depression Answer Date Recorded Patient Health Questionnaire-9 Score 18 06/22/2025 Patient Health Questionnaire-9 Score 18 06/22/2025 Last PHQ-9: Questionnaire Data Not on file 0 06/22/2025 Housing Stability Answer Date Recorded What is your housing situation today? I have massimo villatoro 04/18/[address] you li ve. Do you have problems with any of the following? None of the above 04/18/2025 Food Insecurity Answer Date Recorded Within the past 12 months, y ou worried that your food would run out before you got money to buy more: Never True 04/18/2025 Within the past 12 months,th e food you bought just didn't last and you didn't have enough money to get more: Never True Transportation Answer Date Recorded In the past 12 months, has l ack of transportation kept you from medical appts, meetings, work or from getting things needed for daily living? No 04/18/2025 Utilities Answer Date Recorded In the past 12 months, has t he electric, gas, oil or water company threatened to shut off services in your home? No 04/18/2025 Depression Answer Date Recorded Patient Health Questionnaire-2 Score 4 06/22/2025 Internet Access Answer Date Recorded Internet Access Q1 Yes 04/18/2025 Internet Access Q2 Not on file 04/18/2025 Comments No Sex and Gender Information Value Date Recorded Sex Assigned at Female 08/04/2022 10:20 AM EDT Legal Sex Female 10:20 AM EDT Gender Identity Female 08/04/2022 10:20 AM EDT Sexual Orientation Choose not to disclose 2021 10:20 AM EDT documented as of this encounter Last Filed Vital Signs Vital Sign Reading Time Taken Comments Blood Pressure 114/78 06/22/2025 10:30 AM EDT Pulse 76 06/22/2025 10:30 AM EDT Temperature 36.8 C (98.3 F) 06/22/2025 10:30 AM EDT Respiratory Rate 16 06/22/2025 10:30 AM EDT Oxygen Saturation 98% 06/22/2025 10:30 AM EDT Inhaled Oxygen Concentration - - Weight 83.2 kg (183 lb 6.4 oz) 06/22/2025 10:30 AM EDT Height 149.9 cm (4' 11 ) 06/22/2025 10:30 AM EDT Body Mass Index 37.04 06/22/2025 10:30 AM EDT documented in this encounter Functional Status * Over the past 2 weeks, how often have you been bothered by any of the following problems? Question Answer Date of Assessment Author Patient Health Questionnaire-2 Score 4 06/05 11:45 AM EDT Gina Waller MA * Little interest or pleasure in doing things Answer Date of Assessment Author Nearly every day 06/22/2025 11:45 AM EDT Gina Waller MA * Feeling down, depressed, or hopeless Answer Date of Assessment Author Several days 06/22/2025 11:45 AM EDT Jeny Waller MA * Trouble falling or staying asleep, or sleeping too much Answer Date of Assessment Author Nearly every day 06/22/2025 11:45 AM EDT Gina Waller MA * Feeling tired or having little energy Answer Date of Assessment Author Nearly every day 06/22/2025 11:45 AM EDT Gina Waller MA * Poor appetite or overeating Answer Date of Assessment Author Nearly every day 06/22/2025 11:45 AM Gina Jerez MA * Feeling bad about yourself - or that you are a failure or have let yourself or your family down Answer Date of Assessment Author Several days 06/22/2025 11:45 AM EDT Jeny Waller MA * Trouble concentrating on things, such as reading the newspaper or watching television Answer Date of Assessment Author Nearly every day 06/22/2025 11:45 AM PARDEEPT Gina Waller MA * Moving or speaking so slowly that other people could have noticed? Or the opposite - being so fidgety or restless that you have been moving around a lot more than usual. Answer Date of Assessment Author Several days 06/22/2025 11:45 AM PARDEEPT Jeny Waller MA * Thoughts that you would be better off or hurting yourself in some way Answer Date of Assessment Author Not at all 06/22/2025 11:45 AM Jeny Jerez MA * Patient Health Questionnaire-9 Score Answer Date of Assessment Author 18 06/22/2025 11:45 AM Jeny Jerez MA * How difficult have these problems made it for you to do your work, take care of things at home, or get along with other people? Answer Date of Assessment Author Very difficult 06/22/2025 11:45 AM Jeny Jerez MA * Over the last 2 weeks, how often have you been bothered by any of the following problems? Question Answer Date of Assessment Author Feeling nervous, anxious, or on edge 1 06/05 11:46 AM Gina Jerez MA Not being able to stop or co ntrol worrying 3 06/22/2025 11:46 AM Gina Jerez MA Worrying too much about diff erent things 3 06/22/2025 11:46 AM Gina Jerez MA Trouble relaxing 3 06/22/2025 11:46 AM Gina Jerez MA Being so restless that it is hard to sit still 1 06/22/2025 11:46 AM Gina Jerez MA Becoming easily annoyed or irritable 3 06/05 11:46 AM Gina Jerez MA Feeling afraid as if somethi ng awful might happen 2 06/22/2025 11:46 AM Gina Jerez MA GADIEL-7 Total Score 16 06/22/2025 11:46 AM Gina Jerez MA documented as of this encounter Progress Notes * Farzana Diaz MD - 06/22/2025 10:45 AM EDT SUBJECTIVE: Jer Snowden is a 30 y.o. year old female who presents for Follow up . Patient is here for a weight doing she has been using GLP-1 and has been losing weight she was 210 pounds and went down to 175 pounds which means she went from BMI 42 to BMI 35 but then Zepbound was discontinued and she again gained some weight now she is 183 pounds. Patient tells me there is no side effects from the medication she feels good with it and is happy with results, she tells me that with the weight loss her asthma has been improving a lot Acute Concerns: Patient reports rash under her flap of her belly and itchiness Patient reports dysuria and vaginal itchiness Patient reports she has nausea every time she has her menstrual period Patient reports acute on chronic lower back pain Patient reports her asthma has been under control but she will need an inhaler just in case she hasan exacerbation episodes Social History Social History Narrative Not on file Problem List[1] Abnormal uterine bleeding Allergic conjunctivitis Anxiety Back pain Chronic low back pain Constipation Fatigue Hand pain Insomnia Irregular periods Missed period Migraine without aura, not refractory Mixed anxiety and depressive disorder Mood disorder ([facility]) Obesity Seasonal allergies Skin lesion Spasm Screening examination for venereal disease Encounter for preventive care Visit for insertion of intrauterine device Migraine with aura BMI 39.0-39.9,adult Class 3 severe obesity due to excess calories without serious comorbidity with body mass index (BMI) of 40.0 to 44.9 in adult Seborrheic dermatitis Onychomycosis Elevated blood pressure reading Pap smear for cervical cancer screening Dermatitis Hair loss Encounter for intrauterine device placement Dysuria Vaginosis Class 2 severe obesity due to excess calories with serious comorbidity and body mass index (BMI) of37.0 to 37.9 in adult ([facility]) Colon cancer screening Mild intermittent asthma with exacerbation Intertrigo Vaginal itching Nausea Family History[2] Review of Systems Constitutional: Negative. HENT: Negative. Respiratory: Negative. Cardiovascular: Negative. Genitourinary: Positive for dysuria, frequency and pelvic pain. Negative for difficulty urinating, dyspareunia, enuresis, flank pain, genital sores and hematuria. Vaginal itchiness Musculoskeletal: Positive for arthralgias, back pain and myalgias. OBJECTIVE: Vitals: 06/22/25 1030 BP: 114/78 BP Location: Left arm Patient Position: Sitting BP Cuff Size: Large adult Pulse: 76 Resp: 16 Temp: 98.3 ??F (36.8 ??C) TempSrc: Oral SpO2: 98% Weight: 183 lb 6.4 oz (83.2 kg) Height: 4' 11 (1.499 m) Physical Exam Follow Up: No follow-ups on file. Medications Ordered Prior to Encounter[3] Problem List Items Addressed This Visit Mild intermittent asthma with exacerbation Albuterol inhaler refilled done today Relevant Medications albuterol 108 (90 Base) MCG/ACT inhaler cetirizine (ZyrTEC) 10 MG tablet Class 2 severe obesity due to excess calories with serious comorbidity and body mass index (BMI) of37.0 to 37.9 in adult ([facility]) Extensive counseling about healthy diet and exercise done today I will prescribe again her Zepbound 12.5 mg weekly and I will continue to monitor her weight and side effects Relevant Medications Tirzepatide-Weight Management (Zepbound) 12.5 MG/0.5ML solution Intertrigo Maintain area dry and clean Clotrimazole with Betamethasone cream prescribed today advised not to apply it more than 2 weeks Relevant Medications fluconazole (Diflucan) 150 MG tablet clotrimazole-betamethasone (Lotrisone) cream Vaginal itching BV panel ordered today patient will be contacted with results I will treat her empirically with fluconazole 1 tablet Relevant Medications fluconazole (Diflucan) 150 MG tablet Other Relevant Orders POCT Urine (Completed) Bacterial Vaginosis Panel Chlamydia/N. Gonorrhoeae RNA, TMA, Vaginal Dysuria UA, CG and culture ordered today patient will be contacted with results Relevant Orders POCT Urinalysis (Completed) POCT Urine (Completed) Bacterial Vaginosis Panel Chlamydia/N. Gonorrhoeae RNA, TMA, Vaginal Culture, Urine, Routine Seasonal allergies Relevant Medications cetirizine (ZyrTEC) 10 MG tablet Ketotifen Fumarate (Eye Itch Relief) 0.035 % solution Chronic low back pain I will prescribe for patient Flexeril 5 mg at bedtime as needed She may continue with acetaminophen as needed I refer her to physical therapy Relevant Medications cyclobenzaprine (Flexeril) 5 MG tablet Other Relevant Orders Referral to Physical Therapy Nausea Relevant Medications ondansetron (Zofran) 4 MG tablet Other Relevant Orders POCT Urine (Completed) Other Visit Diagnoses Dietary counseling Relevant Medications Tirzepatide-Weight Management (Zepbound) 12.5 MG/0.5ML solution Exercise counseling Relevant Medications Tirzepatide-Weight Management (Zepbound) 12.5 MG/0.5ML solution [1] Patient Active Problem List Diagnosis Abnormal uterine bleeding Allergic conjunctivitis Anxiety Back pain Chronic low back pain Constipation Fatigue Hand pain Insomnia Irregular periods Missed period Migraine without aura, not refractory Mixed anxiety and depressive disorder Mood disorder ([facility]/HCC) Obesity Seasonal allergies Skin lesion Spasm Screening examination for venereal disease Encounter for preventive care Visit for insertion of intrauterine device Migraine with aura BMI 39.0-39.9,adult Class 3 severe obesity due to excess calories without serious comorbidity with body mass index (BMI) of 40.0 to 44.9 in adult Seborrheic dermatitis Onychomycosis Elevated blood pressure reading Pap smear for cervical cancer screening Dermatitis Hair loss Encounter for intrauterine device placement Dysuria Vaginosis Class 2 severe obesity due to excess calories with serious comorbidity and body mass index (BMI) of37.0 to 37.9 in adult (CMS/[facility]) Colon cancer screening Mild intermittent asthma with exacerbation Intertrigo Vaginal itching Nausea [2] Family History Problem Relation Name Age of Onset Diabetes Father [3] Current Outpatient Medications on File Prior to Visit Medication Sig Dispense Refill Acetaminophen 500 MG capsule Take one to two tablets as needed for fever or pain every 6 hours 30 capsule 0 Blood Pressure Monitoring (Blood Pressure Cuff) misc 1 each Once daily. 1 each 0 buPROPion XL (Wellbutrin XL) 300 MG 24 hr tablet Take 300 mg by mouth Once per day. busPIRone (Buspar) 5 MG tablet TAKE 1 TABLET BY MOUTH THREE TIMES DAILY FOR ANXIETY ciclopirox (Penlac) 8 % solution APPLY TO THE AFFECTED AREA(S) AT BEDTIME 6.6 mL 2 ibuprofen 400 MG tablet Take 1 tablet (400 mg) by mouth every 6 (six) hours if needed for moderate pain or fever for up to 30 doses. 30 tablet 0 ketoconazole (Nizoral) 2 % shampoo APPLY TOPICALLY TWICE A WEEK 120 mL 1 ketoconazole (NIZOral) 2 % shampoo APPLY TOPICALLY TO THE AFFECTED AREA(S) TWICE A WEEK [id number] mL 1 lidocaine (Lidoderm) 5 % patch APPLY 1 PATCH TOPICALLY TO SKIN, LEAVE ON FOR 12 HOURS AND OFF FOR 12 HOURS DIRECTED 30 patch 2 linaCLOtide (Linzess) 145 MCG capsule TAKE 1 CAPSULE BY MOUTH EVERY DAY BEFORE BREAKFAST TAKE ON ANEMPTY STOMACH. 30 capsule 2 nystatin (Mycostatin) 283294 UNIT/GM powder Apply topically 2 times daily. 60 g 3 omeprazole OTC (PriLOSEC OTC) 20 MG EC tablet Take 1 tablet by mouth in the morning. Pain Reliever Plus 250-250-65 MG tablet TAKE 1 TABLET BY MOUTH EVERY TWELVE HOURS NEEDED FOR headaches 30 tablet 1 polyethylene glycol, PEG, 3350 (Glycolax) 17 GM/SCOOP powder MIX AND DRINK 17G BY MOUTH EVERY DAY Spacer/Aero-Holding Chambers (OptiChamber Adriana) misc 1 each every 4 (four) hours if needed (asthma). 1 each 0 Tirzepatide-Weight Management (Zepbound) 10 MG/0.5ML solution auto-injector Inject 0.5 mL (10 mg) under the skin 1 (one) time per week. 2 mL 0 ulipristal (Laisha) 30 mg tablet Take one tablet by mouth up to five days after sex. Do not use more than once per menstrual cycle. If repeat dose is needed in same cycle, please contact prescriber. 1 tablet 11 Zepbound 12.5 MG/0.5ML solution auto-injector INJECT ONE PEN (=12.5MG) SUBCUTANEOUSLY ONCE A WEEK DIRECTED 2 mL 1 [DISCONTINUED] albuterol 108 (90 Base) MCG/ACT inhaler Inhale 2 puffs every 4 (four) hours if needed for wheezing. 18 g 0 [DISCONTINUED] cetirizine (ZyrTEC) 10 MG tablet TAKE 1 TABLET BY MOUTH EVERY MORNING 90 tablet 0 [DISCONTINUED] Eye Itch Relief 0.035 % solution INSTILL 1 DROP IN EACH EYE EVERY TWELVE HOURS NEEDED 5 mL 1 [DISCONTINUED] fluticasone (Flonase) 50 MCG/ACT nasal spray Administer 1-2 sprays into each nostrilin the morning. Shake gently. Before first use, prime pump. After use, clean tip and replace cap. (Patient not taking: Reported on 04/18/2025) 16 g 2 [DISCONTINUED] phentermine 37.5 MG capsule Take 1 capsule (37.5 mg) by mouth before breakfast. (Patient not taking: Reported on 04/18/2025) 30 capsule 1 No current facility-administered medications on file prior to visit. documented in this encounter Miscellaneous Notes * Assessment & Plan Note - Farzana Diaz MD - 06/22/2025 4:26 PM EDT Associated Problem(s): Intertrigo Maintain area dry and clean Clotrimazole with Betamethasone cream prescribed today advised not to apply it more than 2 weeks * Assessment & Plan Note - Farzana Diaz MD - 06/22/2025 4:26 PM EDT Associated Problem(s): Mild intermittent asthma with exacerbation Albuterol inhaler refilled done today * Assessment & Plan Note - Farzana Diaz MD - 06/22/2025 4:26 PM EDT Associated Problem(s): Chronic low back pain I will prescribe for patient Flexeril 5 mg at bedtime as needed She may continue with acetaminophen as needed I refer her to physical therapy * Assessment & Plan Note - Farzana Diaz MD - 06/22/2025 4:25 PM EDT Associated Problem(s): Vaginal itching BV panel ordered today patient will be contacted with results I will treat her empirically with fluconazole 1 tablet * Assessment & Plan Note - Farzana Diaz MD - 06/22/2025 4:25 PM EDT Associated Problem(s): Dysuria UA, CG and culture ordered today patient will be contacted with results * Assessment & Plan Note - Farzana Diaz MD - 06/22/2025 4:24 PM EDT Associated Problem(s): Class 2 severe obesity due to excess calories with serious comorbidity and body mass index (BMI) of 37.0 to 37.9 in adult ([facility]) Extensive counseling about healthy diet and exercise done today I will prescribe again her Zepbound 12.5 mg weekly and I will continue to monitor her weight and side effects documented in this encounter Plan of Treatment Scheduled Orders Name Type Priority Associated Diagnoses Orde r Schedule Bacterial Vaginosis Panel Microbiology Routine Vaginal itching Dysuria Ordered: 06/22/2025 Chlamydia/N. Gonorrhoeae RNA, TMA, Vaginal Microbiology Routine Vaginal itching Dysuria Ordered: 06/22/2025 Culture, Urine, Routine Microbiology Routine Dysuria Ordered: 06/22/2025 Scheduled Referrals Name Type Priority Associated Diagnoses Orde r Schedule Referral to Physical Therapy Outpatient Referral Routine Chronic low back pain, unspecified back pain laterality, unspecified whether sciatica present Expected: 06/22/2025 (Approximate), Expires: 06/22/2026 documented as of this encounter Procedures Procedure Name Priority Date/Time Associated Diagnosis Comments POCT , URINE Routine 06/22/2025 11:49 AM EDT Vaginal itching Dysuria Nausea POCT URINALYSIS DIPSTICK Routine 06/22/2025 11:47 AM EDT Dysuria documented in this encounter Results * POCT Urine (06/22/2025 11:49 AM EDT) Preg Test, Ur Negative Negative, Indeterminate, None Detected, Invalid, Specimen unsatisfactory for evaluation, Weakly Positive, 2+ QC Media Lot # [id number] Lot# Expiration Date [id number] Urine 06/22/2025 11:4 9 AM EDT us Farzana Diaz MD POINT OF CARE TEST EN TER/EDIT ORDERABLES Final Result * POCT Urinalysis (06/22/2025 11:47 AM EDT) Color, UA Yellow Clarity, UA Clear Glucose, UA Negative Bilirubin, UA Negative Ketones, UA Negative Spec Grav, UA 1.010 Blood, UA Negative Negative, None Detected pH, UA 5.5 Protein, UA Negative Urobilinogen, UA 0.2 Leukocytes, UA Trace Negative, Rare, Trace Nitrite, UA Negative Negative, None Detected Appearance, UA clear QC Media Lot # [id number] Lot# Expiration Date Urine 06/22/2025 11:4 7 AM EDT Farzana Diaz MD POINT OF CARE TEST EN TER/EDIT ORDERABLES Final Result documented in this encounter Visit Diagnoses Diagnosis Mild intermittent asthma with exacerbation Unspecified asthma, with exacerbation Class 2 severe obesity due to excess calories with serious comorbidity and body mass index (BMI) of 37.0 to 37.9 in adult (CMS/[facility]) Dietary counseling Dietary surveillance and counseling Exercise counseling Intertrigo Other specified erythematous condition Vaginal itching Pruritus of genital organs Dysuria Seasonal allergies Allergic rhinitis, cause unspecified Chronic low back pain, unspecified back pain laterality, unspecified whether sciatica present Nausea Nausea alone documented in this encounter Additional Health Concerns Assessment Noted Time PHQ-9 Depression Total Score: 18 025 11:45 AM EDT documented as of this encounter Care Teams Sports Information Director Relationship Specialty Start Date End Date Farzana Meadows MD [address] [place] [id number] PCP - General Family Medicine 01/05/19 documented as of this encounter
--- OUTSIDE RECORDS SUMMARY | 2025-06-22 17:20 | XMS_ITS | Encounter Summary ---
Author Organization [employer] Address [address] [facility] [address] [place] [address] Care Team Providers Care Dyeing Machine Back Tender Name Role Phone Farzana Meadows MD Primary Care Provide r Reason for Visit * Reason Onset Date Comments Med Refill 04/12/2025 Encounter Details Date Type Department Care Team ([facility] st Contact Info) Description 04/12/2025 Telephone [facility] MEDICINE [address] [place], [place] [phone] Farzana Meadows MD [address] [place], [place] [phone] Med Refill Social History Tobacco Use Types [...] MG EC tablet To be sent to: [facility] - [place], [place] - [address] [place] [address] documented in this encounter Plan of Treatment Not on file documented as of this encounter Visit Diagnoses Not on filedocumented in this encounter Additional Health Concerns Assessment Noted Time PHQ-9 Depression Total Score: 0 02/18/20 23 9:02 AM EDT documented as of this encounter Care Teams Dyeing Machine Back Tender Relationship Specialty Start Date End Date Farzana Meadows MD [address] [facility] [place] [address] PCP - General Family Medicine 01/05/19 documented as of this encounter
--- OUTSIDE RECORDS SUMMARY | 2025-06-22 17:21 | XMS_ITS | Encounter Summary ---
Author Organization [employer] Address [address] [place] [address] Care Team Providers Care Site Director Name Role Phone Farzana Meadows MD Primary Care Provide r Reason for Visit * Reason Onset Date Comments Med Refill 12/09/2023 Encounter Details Date Type Department Care Team ([facility] st Contact Info) Description 12/09/2023 Telephone [facility]INE [address] [place], [place] [phone] Farzana Meadows MD [address] [place], [place] [phone] Med Refill Social History Tobacco Use Types [...] 37.5 MG tablet To be sent to: [facility] - [place], [place] - [address] [facility] documented in this encounter Plan of Treatment Not on file documented as of this encounter Visit Diagnoses Not on filedocumented in this encounter Additional Health Concerns Assessment Noted Time PHQ-9 Depression Total Score: 0 02/18/20 9:02 AM EDT documented as of this encounter Care Teams Site Director Relationship Specialty Start Date End Date Farzana Meadows MD [address] [facility] [place] [address] PCP - General Family Medicine 01/05/19 Trang Wyman Solicitor Patent 08/20/23 06/29/24 documented as of this encounter
--- OUTSIDE RECORDS SUMMARY | 2025-06-22 17:21 | XMS_ITS | Clinical Summary ---
Author Organization [employer] Address [address] [facility] [address] [place] [address] Care Team Providers Care Conservation Educator Name Role Phone Farzana Meadows MD Primary Care Provide r Allergies Active Allergy Reactions Criticality Noted Date Comments Latex 02/24/2022 Medications omeprazole OTC (PriLOSEC OTC) 20 MG EC tablet Take 1 tablet by mouth in the morning. 022 Active Blood Pressure Monitoring (Blood Pressure Cuff) miscIndications :Elevated blood pressure reading 1 each Once daily. 1 each 024 Active Pain Reliever Plus 250-250-65 MG tabletIndicatio ns:Migraine with aura and without status migrainosus, not intractable TAKE 1 TABLET BY MOUTH EVERY TWELVE HOURS NEEDED FOR headaches 30 tablet 1 024 Active ciclopirox (Penlac) 8 % solutionIndicat ions:Onychomyco sis APPLY TO THE AFFECTED AREA(S) AT BEDTIME 6.6 mL 2 024 Active ketoconazole (Nizoral) 2 % shampooIndicati ons:Seborrheic dermatitis APPLY TOPICALLY TWICE A WEEK 120 mL 1 024 Active Spacer/Aero-Hol ding Chambers (OptiChamber Adriana) misc 1 each every 4 (four) hours if needed (asthma). 1 each 024 Active Acetaminophen 500 MG capsuleIndicati ons:Acute non-recurrent frontal sinusitis Take one to two tablets as needed for fever or pain every 6 hours 30 capsule 024 Active ibuprofen 400 MG tablet Take 1 [...] mouth Once per day. Active nystatin (Mycostatin) 671336 UNIT/GM powder Apply topically 2 times daily. 60 g 3 024 2024 Active lidocaine (Lidoderm) 5 % patch APPLY 1 PATCH TOPICALLY TO SKIN, LEAVE ON FOR 12 HOURS AND OFF FOR 12 HOURS DIRECTED 30 patch 2 Active linaCLOtide (Linzess) 145 MCG capsuleIndicati ons:Other constipation TAKE 1 CAPSULE BY MOUTH EVERY DAY BEFORE BREAKFAST TAKE ON AN EMPTY STOMACH. 30 capsule 2 025 Active Tirzepatide-Chris ght Management (Zepbound) 10 MG/0.5ML solution auto-injectorIn dications:Class 2 obesity due to excess calories without serious comorbidity with body mass index (BMI) of 36.0 to 36.9 in adult Inject 0.5 mL (10 mg) under the skin 1 (one) time per week. 2 mL 025 Active ketoconazole (NIZOral) 2 % shampooIndicati ons:Seborrheic dermatitis APPLY TOPICALLY TO THE AFFECTED AREA(S) TWICE A WEEK DIRECTED 120 mL 1 025 Active ulipristal (Laisha) 30 mg tablet Take one tablet by mouth up to five days after sex. Do not use more than once per menstrual cycle. If repeat dose is needed in same cycle, please contact prescriber. 1 tablet 11 025 Active Zepbound 12.5 MG/0.5ML solution auto-injectorIn dications:Class 3 severe obesity due to excess calories without serious comorbidity with body mass index (BMI) of 40.0 to 44.9 in adult INJECT ONE PEN (=12.5MG) SUBCUTANEOUSLY ONCE A WEEK DIRECTED 2 mL 1 025 Active Tirzepatide-Chris ght Management (Zepbound) 12.5 MG/0.5ML solutionIndicat ions:Class 2 severe obesity due to excess calories with serious comorbidity and body mass index (BMI) of 37.0 to 37.9 in adult ([facility]) Inject 12.5 mg under the skin 1 (one) time per week. 2 mL 025 Active fluconazole (Diflucan) 150 MG tabletIndicatio ns:Vaginal itching Take 1 tablet (150 mg) by mouth 1 (one) time for 1 dose. 1 tablet 025 2024 Active clotrimazole-be tamethasone (Lotrisone) creamIndication s:Intertrigo Apply topically 2 times daily for 14 days. 45 g 025 2024 Active albuterol 108 (90 Base) MCG/ACT inhalerIndicati ons:Mild intermittent asthma with exacerbation Inhale 2 puffs every 4 (four) hours if needed for wheezing. 18 g 1 025 2025 Active cetirizine (ZyrTEC) 10 MG tabletIndicatio ns:Seasonal allergies Take 1 tablet (10 mg) by mouth in the morning. 90 tablet Active cyclobenzaprine (Flexeril) 5 MG tabletIndicatio ns:Chronic low back pain, unspecified back pain laterality, unspecified whether sciatica present Take 1 tablet (5 mg) by mouth at bedtime for 10 days. 10 tablet 025 2024 Active Ketotifen Fumarate (Eye Itch Relief) 0.035 % solutionIndicat ions:Seasonal allergies Administer 1 drop into both eyes every 12 (twelve) hours if needed (for allergic conjunctivitis). 5 mL 1 025 Active ondansetron (Zofran) 4 MG tabletIndicatio ns:Nausea Take 1 tablet (4 mg) by mouth every 8 (eight) hours if needed for nausea or vomiting for up to 7 days. 20 tablet 025 2024 Active fluticasone (Flonase) 50 MCG/ACT nasal sprayIndication s:Seasonal allergies Administer 1-2 sprays into each nostril in the morning. Shake gently. Before first use, prime pump. After use, clean tip and replace cap. 16 g 2 023 2024 Discontinued cetirizine (ZyrTEC) 10 MG tabletIndicatio ns:Seasonal allergies TAKE 1 TABLET BY MOUTH EVERY MORNING 90 tablet 024 2024 Discontinued(R eorder (will not trigger notification to Pharmacy)) phentermine 37.5 MG capsuleIndicati ons:Class 3 severe obesity due to excess calories without serious comorbidity with body mass index (BMI) of 40.0 to 44.9 in adult Take 1 capsule (37.5 mg) by mouth before breakfast. 30 capsule 1 024 2024 Discontinued albuterol 108 (90 Base) MCG/ACT inhaler Inhale 2 puffs every 4 (four) hours if needed for wheezing. 18 g 024 2024 Discontinued(R eorder (will not trigger notification to Pharmacy)) Eye Itch Relief 0.035 % solutionIndicat ions:Seasonal allergies INSTILL 1 DROP IN EACH EYE EVERY TWELVE HOURS NEEDED 5 mL 1 025 2024 Discontinued(R eorder (will not trigger notification to Pharmacy)) Active Problems Problem Noted Date Diagnosed Date Mild intermittent asthma with exacerbation 06/22 Assessment & Plan (06/22/2025 4:26 PM EDT): Albuterol inhaler refilled done today Intertrigo 06/22/2025 Assessment & Plan (06/22/2025 4:26 PM EDT): Maintain area dry and clean Clotrimazole with Betamethasone cream prescribed today advised not to apply it more than 2 weeks Vaginal itching 06/22/2025 Assessment & Plan (06/22/2025 4:25 PM EDT): BV panel ordered today patient will be contacted with results I will treat her empirically with fluconazole 1 tablet Nausea 06/22/2025 Class 2 severe obesity due t o excess calories with serious comorbidity and body mass index (BMI) of 37.0 to 37.9 in adult 10/17/2024 Assessment & Plan (06/22/2025 4:24 PM EDT): Extensive counseling about healthy diet and exercise done today I will prescribe again her Zepbound 12.5 mg weekly and I will continue to monitor her weight and side effects Assessment & Plan (10/17/2024 12:07 PM EST): [...] screening 10/17/2024 Dysuria 04/14/2024 Assessment & Plan (06/22/2025 4:25 PM EDT): UA, CG and culture ordered today patient will be contacted with results Assessment & Plan (04/14/2024 4:47 PM EDT): [...] to proceed with bariatric surgery Awaiting for [employer] insurance approval [facility] 5 weeks Assessment & Plan (02/16/2024 10:44 AM EDT): Continue to follow with bariatric program at [facility] Assessment & Plan (12/30/2023 4:22 PM EDT): [...] conjunctivitis 09/01/2022 Chronic low back pain 09/01/2022 Assessment & Plan (06/22/2025 4:26 PM EDT): I will prescribe for patient Flexeril 5 mg at bedtime as needed She may continue with acetaminophen as needed I refer her to physical therapy Constipation 09/01/2022 Assessment & Plan (07/24/2023 10:47 [...] Encounters Date Type Department Care Team Description 06/22/2025 10:45 AM EDT Office Visit [address] [address] Farzana Meadows MD Mild intermittent asthma with exacerbation; Class 2 severe obesity due to excess calories with serious comorbidity and body mass index (BMI) of 37.0 to 37.9 in adult ([facility]); Dietary counseling; Exercise counseling; Intertrigo; Vaginal itching; Dysuria; Seasonal allergies; Chronic low back pain, unspecified back pain laterality, unspecified whether sciatica present; Nausea 06/22/2025 Travel 06/21/[address] [address] Farzana Meadows MD Chart Prep 06/14/2025 Patient Outreach [address] [address] Farzana Meadows MD Pre-visit Planning (SDOH screening completed on 04/18/2025) 06/09/[address] [address] Farzana Meadows MD Call Back Request 06/02/[address] [address] Farzana Meadows MD Med Refill 05/05/[address] [address] Kalpana Perez FNP Class 3 severe obesity due to excess calories without serious comorbidity with body mass index (BMI) of 40.0 to 44.9 in adult 05/03/2025 11:30 AM EDT Office Visit [address] [address] Kalpana Perez FNP Bilateral pleural effusion (Primary Dx); Cyst of right ovary; Pelvic pain; Dysuria 05/03/2025 Travel 05/03/[address] [address] Farzana Meadows MD Nurse Triage 04/30/2025 Orders Only GENERIC EXTERNAL DATA DEPARTMENT Provider, Generic External Data 04/25/2025 Telephone [facility] [address] [place] [address] Charisma Swanson, RN Results 04/25/2025 Telephone [facility] ADULT DENTAL [address] [place] [phone] Charisma Swanson RN Error (VOID this visit) 04/20/2025 Travel 04/19/2025 Results Follow-Up [address] [place] [address] Beth Mercado CNM Chlamydia/Trichomonas /Neisseria gonorrhoeae, PCR, Urine 04/18/2025 1:15 PM EDT Procedure Visit [address] [place] [address] Beth Mercado CNM Nexplanon removal (Primary Dx); Screening examination for venereal disease; Family history of diabetes mellitus (DM); Candidiasis of vulva and vagina 04/18/2025 Orders Only [facility] [address] [place] [address] Beth Mercado CNM 04/18/2025 Travel 04/17/[address] [address] Beth Mercado CNM CHART PREP 04/17/2025 Telephone [facility] [address] [place] [address] Farzana Meadows MD Prior Authorization 04/17/[address] [address] Farzana Meadows MD Call Back Request 04/13/2025 Refill [facility] [address] [place] [address] Farzana Meadows MD Seborrheic dermatitis 04/12/[address] [address] Farzana Meadows MD Med Refill 04/08/[address] [address] Farzana Meadows MD Seasonal allergies from Last 3 Months Immunizations Immunization Administration Dates Next Due DTaP 05/30/1997, 5,03/05/1994,05/22,1993 [...] Q2 Not on file 04/18/2025 Comments No Intention Date Recorded No desire to become (finding) 0 04/18/2025 Sex and Gender Information Value Date Recorded [...] Mass Index 37.04 06/22/2025 10:30 AM EDT Plan of Treatment Health Maintenance Due Date Last Done Comments Pneumococcal Vaccine: Pediatrics (0 to 5 Years) and At-Risk Patients (6 to 49) Years (1 of 2 - PCV) 01/25/2012 Cervical Cancer Screening 07/25/2023 HPV/Cotest 07/25/2023 Pap Smear 07/25/2023 07/25/2020 COVID-19 Vaccine ( - season) 2025 09/18/2021, 01/31/2021, 01/03/2021 Influenza Vaccine (#1) 2025 , 12/14/2019, 12/14/2019, Additional history exists Depression Monitoring 12/20/2025 06/22/2025, 025 Alcohol/Substance Use Screening 04/18/2026 04/18/2025 Disability Screening 04/18/2026 04/18/2025 Family Planning (PISQ) 04/18/2026 04/18/2025 SDOH Screening 04/18/2026 04/18/2025 Tobacco Screening 06/22/2026 06/22/2025 Lipid Panel 02/08/2029 02/09/2024, 05/2022, 07/04/2021, Additional history exists DTaP/Tdap/Td Vaccines [...] 06/05/2009 HPV Vaccines Completed 06/21/2010, 02/02, 06/05/2009 Hepatitis C Screening Discontinued 09/06/2024 , 11/12/2021, 06/13/2021, Additional history exists HIV Screening Completed 04/18/2025, 12/2023, 11/12/2021, Additional history exists Hepatitis A Vaccines Aged Out No long er eligible based on patient's age to complete this topic Meningococcal B Vaccine Aged Out No l onger eligible based on patient's age to complete [...] DIPSTICK Routine 06/22/2025 11:47 AM EDT Dysuria POCT URINALYSIS DIPSTICK Routine 05/03/2025 12:07 PM EDT Pelvic pain Dysuria POCT , URINE Routine 05/03/2025 12:07 PM EDT Pelvic pain CULTURE, URINE, ROUTINE Routine 05/03/2025 12:[address] ABDOMEN PELVIS W CONTRAST Routine 05/01/2025 12:49 AM EDT HCG, TOTAL, QN Routine 04/30/2025 8:24 PM EDT LIPASE Routine 04/30/2025 8:24 PM EDT COMPREHENSIVE METABOLIC PANEL Routine 04/30/2025 8:24 PM EDT CBC WITH AUTO DIFFERENTIAL Routine 04/30/2025 8:24 PM EDT URINALYSIS WITH REFLEX MICROSCOPIC Routine 04/30/2025 8:23 PM EDT HCG, QL, URINE Routine 04/30/2025 8:23 PM EDT CHLAMYDIA/TRICHOMONAS/ NEISSERIA GONORRHOEAE, PCR, URINE Routine 04/18/2025 2:07 PM EDT SYPHILIS SCREEN Routine 04/18/2025 2:07 PM EDT Screening examination for venereal disease HEMOGLOBIN A1C Routine 04/18/2025 2:07 PM EDT Family history of diabetes mellitus (DM) POCT WET MOUNT/JUSTINO Routine 04/18/2025 2: 06 PM EDT Candidiasis of vulva and vagina CHLAMYDIA/N. GONORRHOEAE RNA, TMA, UROGENITAL Routine 04/18/2025 1:56 PM EDT Screening examination for venereal disease SD REMOVAL NON-BIODEGRADABLE DRUG DELIVERY IMPLANT Routine 04/18/2025 1:20 PM EDT Nexplanon removal HIV 1/2 ANTIGEN/ANTIBODY, FOURTH GENERATION W/RFL Routine 04/18/2025 1:07 PM EDT Screening examination for venereal disease HEPATITIS C AB W/REFL TO HCV RNA, QN, PCR Routine 09/06/2024 9:35 AM EST Routine screening for STI (sexually transmitted infection) LIPID PANEL, STANDARD Routine 02/09/2024 8:52 AM EDT PAP SMEAR Routine 07/25/2020 12:00 AM EDT from Last 3 Months or Most Recently Relevant to Health Maintenance Results * POCT Urine (06/22/2025 11:49 AM EDT) Only the most recent of2 resultswithin the time period is included. Preg Test, Ur Negative Negative, Indeterminate, None Detected, Invalid, Specimen unsatisfactory for evaluation, Weakly Positive, 2+ QC Media Lot # [id number] Lot# Expiration Date [id number] Urine 06/22/2025 11:4 9 AM EDT Farzana Diaz MD POINT OF CARE TEST EN TER/EDIT ORDERABLES Final Result * POCT Urinalysis (06/22/2025 11:47 AM EDT) Only the most recent of2 resultswithin the [...] TEST EN TER/EDIT ORDERABLES Final Result * Culture, Urine, Routine (05/03/2025 12:02 PM EDT) Urine Urine specimen obtained by clean catch procedure / Unknown 05/03/2025 12:02 PM EDT 05/03/2025 1:19 PM EDT Comment:UACC Narrative [facility] - 05/04/2025 11:29 AM EDT Urine Culture No growth. Specimen Source: Urine clean catch [facility] MICROBIOLOGY - GENERAL OR DERABLES Final Result [facility] [address] [place] [phone] * CT Abdomen Pelvis w/ Contrast (05/01/2025 12:49 AM EDT) Anatomical Region Laterality Modality Body, Pelvis, Abdomen Computed T omography 05/01/2025 12:4 9 AM EDT Narrative 05/01/2025 12:50 AM EDT [address] [address] [address] Scan Report Signed Patient: Marylou Snowden MR#: [id number] 117 : 1995 Acct:[id number] Age/Sex: 30 / F ADM Date: 04/30/25 Loc: HO.ED Attending Dr: Ordering Physician: Clarissa Mendoza Date of Service: 04/30/25 Procedure(s): CT abdomen pelvis w IV con Accession Number(s): [id number] cc: Farzana Meadows MD; Clarissa Mendoza Report Number: [id number]: Total DLP = 736.00 mGy-cm CLINICAL HISTORY: appy?? RLQ pain CT abdomen and pelvis with contrast Comparison: DX/SR - XR ABDOMEN 1 VIEW (KUB) - 07/26/24 14:27 EDT US/SR - US ABDOMEN COMPLETE WITH LIVER ELASTOGRAPHY - 03/30/24 10:30 EDT Findings: Trace bilateral effusions. Cholecystectomy. No biliary duct dilatation. Liver, spleen, pancreas, and adrenal glands are within normal limits. No hydronephrosis. Symmetric contrast enhancement of the kidneys. No urolithiasis. No bowel obstruction, pneumatosis or pneumoperitoneum. Normal appendix. Urinary bladder is underdistended. Small round intramural hyperdensities in the uterus, likely fibroids. 3.4 x 2.9 cm right ovarian cyst. The bones are intact. IMPRESSION: 1. No acute intraabdominal or pelvic pathology. 2. Trace bilateral pleural effusions. 3. Normal appendix. 4. 3.4 cm right ovarian cyst. This document has been electronically signed by: Greg Silva MD on 05/01/2025 00:49:21 Dictated By: Greg Silva MD Signed By: <Electronically signed by Greg Silva MD in OV> 05/01/25 0050 DD/ 0049 TD/TT: 05/01/25 0049 Account Maintenance Representative: Procedure Note Donotuseinterpreter, Image - 05/01/[address] [place] [address] [address] Scan Report Signed [id number] 117 : 1995Acct:[id number] Age/Sex: 30 / FADM Date: 04/30/25 Loc: HO.ED Attending Dr: Ordering Physician: Clarissa Mendoza Date of Service: 04/30/25 Procedure(s): CT abdomen pelvis w IV con Accession Number(s): [id number] cc: Farzana Meadows MD; Clarissa Mendoza Report Number: [id number]: Total DLP = 736.00 mGy-cm CLINICAL HISTORY: appy?? RLQ pain CT abdomen and pelvis with contrast Comparison: DX/SR - XR ABDOMEN 1 VIEW (KUB) - 07/26/24 14:27 EDT US/SR - US ABDOMEN COMPLETE WITH LIVER ELASTOGRAPHY - 03/30/24 10:30 EDT Findings: Trace bilateral effusions. Cholecystectomy. No biliary duct dilatation. Liver, spleen, pancreas, and adrenal glands are within normal limits. No hydronephrosis. Symmetric contrast enhancement of the kidneys. No urolithiasis. No bowel obstruction, pneumatosis or pneumoperitoneum. Normal appendix. Urinary bladder is underdistended. Small round intramural hyperdensities in the uterus, likely fibroids. 3.4 x 2.9 cm right ovarian cyst. The bones are intact. IMPRESSION: 1. No acute intraabdominal or pelvic pathology. 2. Trace bilateral pleural effusions. 3. Normal appendix. 4. 3.4 cm right ovarian cyst. This document has been electronically signed by: Greg Silva MD on 05/01/2025 00:49:21 Dictated By: Greg Silva MD Signed By: <Electronically signed by Greg Silva MD in OV> 05/01/25 0050 DD/ TD/TT: 05/01/2548 Account Maintenance Representative: [facility] External Provider IMG CT PROCEDURES Edited Result - Final * (ABNORMAL) CBC auto differential (04/30/2025 8:24 PM EDT) White Blood Count 14.1(H) 4.8 - 10.8 X10*3/uL [facility] Red Blood Count 3.65(L) 4.20 - 5.50 X10*6/uL [facility] Hemoglobin 11.4(L) 12.0 - 16.0 g/dl [facility] Hematocrit 33.6(L) 37.0 - 47.0 % [facility] Mean Corpuscular Volume 92.1 80.0 - 98.0 fL [facility] Mean Corpuscular Hemoglobin 31.2 27.0 - 33.0 pg [facility] Mean Corpuscular HGB Conc 33.9 31.0 - 35.0 g/dl [facility] Red Cell Distribution Width 12.6 11.0 - 16.0 % [facility] Platelet Count 345 160 - 400 X10*3/uL [facility] Mean Platelet Volume 9.2(L) 9.4 - 12.3 fL [facility] Neutrophils Percent Auto 75.6(H) 45 - 73 % [facility] Imm Gran Pct Auto 0.4 0.0 - 0.4 % [facility] Lymphocytes Percent Auto 18.8(L) 20 - 40 % [facility] Monocytes Percent Auto 4.2 2 - 11 % [facility] Eosinophils Percent Auto 0.8 0 - 4 % [facility] Basophils Percent Auto 0.2 0 - 2 % [facility] NRBC Pct Auto 0.0 0.0 - 0.2 /100WBC [facility] Neutrophils Absolute Auto 10.7(H) 2.0 - 8.3 x10*3/uL [facility] Imm Gran Abs Auto 0.05(H) 0.00 - 0.03 X10*3/uL [facility] Lymphocytes Absolute Auto 2.7 1.2 - 4.9 X10*3/uL [facility] Monocytes Absolute Auto 0.6 0.1 - 1.2 X10*3/uL [facility] Eosinophils Absolute Auto 0.1 0.0 - 0.4 X10*3/uL [facility] Basophils Absolute Auto 0.0 0.0 - 0.2 X10*3/uL [facility] NRBC Abs Auto 0.000 0.0 - 0.012 X10*3/uL [facility] 04/30/2025 8:24 PM EDT 04/30/2025 8:28 PM EDT us Generic External Data Provider LAB BLOOD ORDERAB LES Final Result Performing Organization Address [facility] Co de Phone Number [facility] [address] [place] [phone] * hCG, Total, Quantitative (04/30/2025 8:24 PM EDT) HCG Quantitative <2 mIU/mL [facility] Comment:Weeks post LMP Appr oximate hCG(Last Menstrual Period) Range (mIU/ml)3 - 4 weeks 9 - 1304 - 5 weeks 75 - 2,6005 - 6 weeks 850 - 20,8006 - 7 weeks 4000 - 100,2007 - 12 weeks 11,500 - 289,78896 - 16 weeks 18,300 - 137,59328 - 29 weeks (2nd trimester) 1,400 - 53,52805 - 41 weeks (3rd trimester) 940 - 60,000The Reich B-hCG assay is used for the early detection ofpregnancy; it cannot be used to diagnose any conditionunrelated to . If a B-hCG level is not supportedby the clinical evidence, results should be confirmed by analternative method (qualitative urine hCG, for example). 04/30/2025 8:24 PM EDT 04/30/2025 8:28 PM EDT us Generic External Data Provider LAB BLOOD ORDERAB LES Final Result Performing Organization Address [facility] Co de Phone Number [facility] [address] [place] [phone] * Lipase (04/30/2025 8:24 PM EDT) Lipase 24 8 - 78 U/L [facility] 04/30/2025 8:24 PM EDT 04/30/2025 8:28 PM EDT Generic External Data Provider LAB BLOOD ORDERAB LES Final Result Performing Organization Address [facility] Co de Phone Number [facility] [address] [place] [phone] * (ABNORMAL) Comprehensive Metabolic Panel (04/30/2025 8:24 PM EDT) Sodium 141 135 - 145 mmol/L [facility] Potassium 3.8 3.3 - 5.1 mmol/L [facility] Chloride 108 96 - 108 mmol/L [facility] Carbon Dioxide 25 22 - 29 mmol/L [facility] Anion Gap 12 12 - 20 [facility] Urea Nitrogen (BUN) 15 9 - 16 mg/dL [facility] Creatinine, Serum 0.47(L) 0.5 - 1.4 mg/dL [facility] Creatinine Clr Calc Pharmacy 160.5 [facility] Comment:Provided height and weight: 149.86 cm,83.1 kg.eGFR (calculated from the MDRD study equation) and eCrCl(calculated from the Cockcroft-Gault equation) are based ondifferent parameters and may not yield comparable results.If eCrCl result is absurd, please check patient'sheight/weight. Estimated Glomerular Filt Rate >60 [facility] Comment:Chronic Kidney Disea se: Estimated GFR < 60 mL/min/1.00h0Qpsbsq Kidney Disease: Estimated GFR < 15 mL/min/1.73m2 Glucose 93 60 - 115 mg/dL [facility] Calcium 8.7 8.4 - 10.2 mg/dL [facility] Bilirubin, Total 0.2 0.0 - 1.0 mg/dL [facility] Aspartate Amino Transferase 21 5 - 31 U/L [facility] Alanine Aminotransferase 35(H) 0 - 31 U/L [facility] Total Protein 6.9 6.5 - 8.0 g/dL [facility] Albumin Level 3.8 3.5 - 5.0 g/dL [facility] Alkaline Phosphatase 87 39 - 117 U/L [facility] 04/30/2025 8:24 PM EDT 04/30/2025 8:28 PM EDT us Generic External Data Provider LAB BLOOD ORDERAB LES Final Result Performing Organization Address City/[facility]/ZIP Co de Phone Number [facility] [address] [place] [phone] * HCG, Qualitative, Urine (04/30/2025 8:23 PM EDT) Urine NEGATIVE NEGATIVE [facility] Comment:This test was develo ped to detect early . Falsenegative results may occur after the 5th - 7th week ofpregnancy when using this test method. If clinicallyindicated, consider a serum hCG. 04/30/2025 8:23 PM EDT 04/30/2025 8:28 PM EDT us Generic External Data Provider LAB URINE ORDERAB LES Final Result Performing Organization Address [facility] Co de Phone Number [facility] [address] [place] [phone] * Urinalysis w/reflex microscopic (04/30/2025 8:23 PM EDT) Color Urine [facility] Appearance Urine Cloudy [facility] PH 7.5 5.0 - 9.0 [facility] Glucose Urine UA Negative Negative mg/dL [facility] Urine Blood Negative Negative [facility] Specific Rena Lara - Urine 1.020 1.005 - 1.025 [facility] Urine Protein Negative Neg-Trace mg/dL [facility] Urine Ketones Negative Negative mg/dL [facility] Nitrite Urine Negative Negative [facility] Leukocyte Esterase Urine Negative Negative [facility] 04/30/2025 8:2 3 PM EDT 04/30/2025 8:29 PM EDT Narrative [facility] - 04/30/2025 8:35 PM EDT 2022Urine, Clean Catch us Generic External Data Provider LAB URINE ORDERAB LES Final Result Performing Organization Address City/[facility]/ZIP Co de Phone Number [facility] [address] [place] [address] [phone] * Chlamydia/Trichomonas/Neisseria gonorrhoeae, PCR, Urine (04/18/2025 2:07 PM EDT) CT PCR, Urine NOT DETECTED Not Detect. [facility] Comment:A not detected test result does not exclude the possibilityof infection because test results can be affected byimproper specimen collection, concurrent antibiotic therapy,or the number of organisms in the specimen which may bebelow the sensitivity of the test. As with many diagnostictests, results from the Xpert CT/NG assay should beinterpreted in conjunction with other laboratory andclinical data available to the clinician.The Xpert CT/NG assay should not be used for the evaluationof suspected sexual abuse or for other medico-legalindications. Additional testing is recommended in anycircumstance when false positive or false negative resultscould lead to adverse medical, social or psychologicalconsequences. NG PCR, Urine NOT DETECTED Not Detect. [facility] Comment:A not detected test result does not exclude the possibilityof infection because test results can be affected byimproper specimen collection, concurrent antibiotic therapy,or the number of organisms in the specimen which may bebelow the sensitivity of the test. As with many diagnostictests, results from the Xpert CT/NG assay should beinterpreted in conjunction with other laboratory andclinical data available to the clinician.The Xpert CT/NG assay should not be used for the evaluationof suspected sexual abuse or for other medico-legalindications. Additional testing is recommended in anycircumstance when false positive or false negative resultscould lead to adverse medical, social or psychologicalconsequences. 04/18/2025 2:07 PM EDT 04/18/2025 4:07 PM EDT us Beth Mercado CNM LAB URINE ORDERABLES Katrin tan Result [facility] [address] [place] [address] [phone] * Syphilis Screen (04/18/2025 2:07 PM EDT) Syphilis Screen Nonreactive Nonreactive [facility] Blood Venous blood specimen / Unknown 04/18/2025 2:07 PM EDT 04/18/2025 4:19 PM EDT [facility] LAB BLOOD ORDERABLES Katrin l Result Performing Organization Address [facility]/ZIP Co de Phone Number [facility] [address] [place] [phone] * Hemoglobin A1c (04/18/2025 2:07 PM EDT) Pathologist [facility] Hemoglobin A1c 4.6 <6.0 % [facility] Comment:Hemoglobin A1C Refer ence Range Adults: 4.8 - 6.0 % Non diabetic: < 6.0 % Goal: < 7.0 %Additional Action Suggested: > 8.0 %Note: Hemoglobin A1c results are invalid for patients with abnormal amounts of HbF. Blood transfusions may impact the HbA1c concentration in the patient sample. Estimated Average Glucose 85 mg/dL [facility] Comment:eAG = Estimated ave rage glucose which is %A1C expressed asaverage glucose, using the formula of the W6A-JzkrqdaBdjcdcy Glucose study (ADAG), Diabetes Care, Vol.31,#8,May. 2007 Blood Venous blood specimen / Unknown 04/18/2025 2:07 PM EDT 04/18/2025 4:19 PM EDT [facility] LAB BLOOD ORDERABLES Katrin l Result Performing Organization Address [facility]/ZIP Co de Phone Number [facility] [address] [place] [phone] * POCT fern test, vaginal fluid manually resulted (04/18/2025 2:06 PM EDT) JUSTINO Prep Positive Comment:pH 4.5, pos hyphae, neg clue, neg trich, neg wbc, neg whiff Vaginal Fluid Vaginal structure / Unknown 04/18/2025 2:06 PM EDT Beth Mercado CNM POINT OF CARE TEST ENTER/ EDIT ORDERABLES Final Result * Chlamydia/N. Gonorrhoeae RNA, TMA, Vagina (04/18/2025 1:56 PM EDT) CT PCR NOT DETECTED Not Detect. [facility] Comment:A not detected test result does [...] psychologicalconsequences. NG PCR NOT DETECTED Not Detect. [facility] Comment:A not detected test result does [...] lead to adverse medical, social or psychologicalconsequences. Swab Vaginal structure / Unknown 04/18/2025 1:56 PM EDT 04/18/2025 4:51 PM EDT Beth GUADALUPE LAB MICROBIOLOGY - GENERA L ORDERABLES Final Result [facility] [address] [place] [address] [phone] * SD REMOVAL NON-BIODEGRADABLE DRUG DELIVERY IMPLANT (04/18/2025 1:20 PM EDT) Beth Serrano CNM - 04/18/2025 1:20 PM EDT Beth Mercado CNM 04/18/2025 2:15 PM Insertion/Removal of Contraceptive Capsule Date/Time: 04/18/2025 1:20 PM Performed by: Beth Mercado CNM Authorized by: Beth Mercado CNM Confirmed correct patient, procedure, site, and patient consented: Yes Participating Staff: Beth Mercado CNM Consent: Consent obtained: Verbal and written Consent given by: Patient Procedural risks and benefits discussed: Yes Patient questions answered: yes Instructions and paperwork completed: yes [place] Protocol: Patient states understanding of procedure being performed: yes Site marked: yes Indication: Indication: presence of non-biodegradable drug delivery implant Pre-procedure: Pre-procedure timeout performed: yes Prepped with: povidone-iodine Local anesthetic: 2ml 2% lidocaine. The site was cleaned and prepped in a sterile fashion: yes Procedure: Procedure: Removal Small stab incision was made in arm: yes Left/right: Left Site was closed with steri-strips and pressure bandage applied: yes Comments: Implant removed intact after dissection of adhesions us Beth Mercado CNM IN CLINIC/BEDSIDE ORDERAB LES Final Result * HIV-1/2 Antigen and Antibodies, Fourth Generation, with Reflexes (04/18/2025 1:07 PM EDT) HIV AB/AG Nonreactive Nonreactive [facility] Comment:HIV-1 p24 Ag and/or HIV-1/HIV-2 Ab not detected.A test result that is nonreactive does not exclude thepossibility of exposure to or infection with HIV-1 and/orHIV-2. Nonreactive results in this assay for individualswith prior exposure to HIV-1 and/or HIV-2 may be due toantigen and antibody levels that are below the limit ofdetection of this assay.The [employer] [place] HIV Ag/Ab Combo assay result andsupplemental assay results should be interpreted inconjunction with the patient's clinical presentation,history and other laboratory results. If the results areinconsistent with clinical evidence, additional testing issuggested to confirm the result. Blood Venous blood specimen / Unknown 04/18/2025 1:07 PM EDT 04/18/2025 4:23 PM EDT Beth Mercado [facility] [place] [facility] LAB BLOOD ORDERABLES Katrin l Result Performing Organization Address [facility] Co de Phone Number [facility] [address] [place] [phone] * Hepatitis C Antibody with Reflex to HCV, RNA, Quantitative, Real-Time PCR (09/06/2024 9:35 AM EST) Hepatitis C Antibody Nonreactive Nonreactive [facility] Comment:Antibodies to HCV no t detected; does not exclude early acuteHCV infection. Blood Venous blood specimen / Unknown 09/06/2024 9:35 AM EST 09/06/2024 11:31 AM EST us Enid Mccarthy DO LAB BLOOD ORDERABLES Final R esult Performing Organization Address [facility] Co de Phone Number [facility] [address] [place] [phone] * (ABNORMAL) Lipid Panel, Standard (02/09/2024 8:52 AM EDT) Triglycerides 100 <150 mg/dL [facility] Comment:Desirable Triglyceri de: less than 150 mg/dLBorderline High Triglyceride 150-199 mg/dLHigh Triglyceride: 200-499 mg/dLVery High Triglyceride: greater than or equal to 5OO mg/dL Cholesterol 223(H) <200 mg/dL [facility] Comment:Desirable Cholestero l: less than 200 mg/dLBorderline High Cholesterol: 200-239 mg/dLHigh Cholesterol: greater than 239 mg/dL LDL Cholesterol Calculated 159(H) <100 mg/dL [facility] Comment:Desirable LDL: less than 100 mg/dLNear Optimal/Above Optimal LDL: 110- 129 mg/dLBorderline High LDL: 130-159 mg/dLHigh LDL: 160-189 mg/dLVery High LDL: greater than or equal to 190 mg/dL HDL Cholesterol 44 >40 mg/dL [facility] Comment:Desirable HDL: great er than 40 mg/dL Note: This HDL assay may give artificially low results in patients with liver disease. 02/09/2024 8:52 AM EDT 02/09/2024 8:52 AM EDT Generic External Data Provider LAB BLOOD ORDERAB LES Final Result [facility] [address] [place] [phone] [phone] * Pap Smear (07/25/2020 12:00 AM EDT) Swab Historical Provider MD LAB CYTOLOGY ORDERABLES F inal Result Performing Organization Address City/[facility]/ZIP Co de Phone Number [address], [facility] [[email or web address] [place] [phone] from Last 3 Months or Most Recently Relevant to Health Maintenance Insurance [facility] C3 Care Teams Conservation Educator Relationship Specialty Start Date End Date Farzana Meadows MD [address] [place] [address] [place] [address] PCP - General Family Medicine 01/05/19
--- OUTSIDE RECORDS SUMMARY | 2025-06-22 17:21 | XMS_ITS | Encounter Summary ---
Author Organization [employer] Address [address] 7t [place] [address] Care Team Providers Care Neurology Tech Name Role Phone Farzana Meadows MD Primary Care Provide r Encounter Details Date Type Department Care Team (Late st Contact Info) Description 06/03/2024 Orders Only [facility] [address] [place], [place] [phone] Farzana Meadows MD [address] [place], [place] [phone] Social History Tobacco Use Types Packs/Day Years [...] documented as of this encounter Care Teams Neurology Tech Relationship Specialty Start Date End Date Farzana Meadows MD [address] [place] [phone] PCP - General Family Medicine 01/05/19 Trang Wyman Alumina Refinery Operator 08/20/23 06/29/24 documented as of this encounter
--- OUTSIDE RECORDS SUMMARY | 2025-06-22 17:21 | XMS_ITS | Encounter Summary ---
Author Organization [employer] Address [address] [facility] 7t [place] [address] Care Team Providers Care Child Welfare Social Worker Name Role Phone Farzana Meadows MD Primary Care Provide r Reason for Visit * Reason Onset Date Comments Appointment Request 12/01/2023 Encounter Details Date Type Department Care Team ([facility] st Contact Info) Description 12/01/[address] [facility] MEDICINE [address] [place], [place] [phone] Farzana Meadows MD [address] [place], [place] [phone] Appointment Request Social History Tobacco Use Types [...] documented as of this encounter Care Teams Child Welfare Social Worker Relationship Specialty Start Date End Date Farzana Meadows MD [address] [place] [address] PCP - General Family Medicine 01/05/19 Trang Wyman Manager Infrastructure 08/20/23 06/29/24 documented as of this encounter
--- OUTSIDE RECORDS SUMMARY | 2025-06-22 17:21 | XMS_ITS | Encounter Summary ---
Author Organization [employer] Address [address] [facility] 7t [place] [address] Care Team Providers Care Radiator Fitter Name Role Phone Farzana Meadows MD Primary Care Provide r Reason for Visit * Reason Onset Date Comments Med Refill 06/02/2025 Encounter Details Date Type Department Care Team ([facility] st Contact Info) Description 06/02/2025 Telephone [facility] MEDICINE [address] [place], [place] [phone] Farzana Meadows MD [address] [place], [place] [phone] Med Refill Social History Tobacco Use Types Packs/Day Years Used Date Smoking Tobacco: Never Passive Smoke Exposure: Never Smokeless Tobacco: Never Alcohol Use Standard Drinks/Week Comments Never 0 (1 standard drink = 0.6 oz pur e alcohol) Depression Answer Date Recorded Patient Health Questionnaire-9 Score 0 04/18/2025 Patient Health Questionnaire-9 Score 0 04/18/2025 Last PHQ-9: Questionnaire Data Not on file 0 04/18/2025 Housing Stability Answer Date Recorded What is [...] Date Recorded Patient Health Questionnaire-2 Score 0 04/18/2025 Internet Access Answer Date Recorded Internet Access [...] Telephone Encounter - Enid Gusman LPN - 06/02/2025 3:42 PM EDT Script was sent to [facility] on 05/05/25 with 1 refill. * Telephone Encounter - Amaury Serna - 06/02/2025 3:35 PM EDT TC from pt requesting medication refill. Medications needing refill: Zepbound 12.5 MG/0.5ML solution auto-injector To be sent to: [facility] - [place], [place] - [address] [facility] documented in this encounter Plan of Treatment Not on file documented as of this encounter Visit Diagnoses Not on filedocumented in this encounter Additional Health Concerns Assessment Noted Time PHQ-9 Depression Total Score: 0 04/18/20 1:17 PM EDT documented as of this encounter Care Teams Radiator Fitter Relationship Specialty Start Date End Date Farzana Meadows MD [address] [facility] [place] [address] PCP - General Family Medicine 01/05/19 documented as of this encounter
--- OUTSIDE RECORDS SUMMARY | 2025-06-22 17:21 | XMS_ITS | Encounter Summary ---
Author Organization [employer] Address [address] [facility] 7t [place] [address] Care Team Providers Care Handle Turner Name Role Phone Farzana Meadows MD Primary Care Provide r Reason for Visit * Reason Onset Date Comments Chart Prep 06/21/2025 Encounter Details Date Type Department Care Team ([facility] st Contact Info) Description 06/21/2025 Telephone [facility] MED[facility]INE [address] [place] [address] Farzana Meadows MD [address] [place] [address] Chart Prep Social History Tobacco Use Types Packs/Day Years [...] encounter Miscellaneous Notes * Telephone Encounter - Maggie Marroquin MA - 06/21/2025 3:01 PM EDT Chart Prep Labs: done Images: done Referrals: not applicable Vaccines due: Covid and Flu Screenings: pap smear and LMP Overdue care gaps: PHQ-9 and GADIEL-7 documented in this encounter Plan of Treatment Not on file documented as of this encounter Visit Diagnoses Not on filedocumented in this encounter Additional Health Concerns Assessment Noted Time PHQ-9 Depression Total Score: 0 04/18/20 25 1:17 PM EDT documented as of this encounter Care Teams Handle Turner Relationship Specialty Start Date End Date Farzana Meadows MD [address] [place] [address] PCP - General Family Medicine 01/05/19 documented as of this encounter
--- OUTSIDE RECORDS SUMMARY | 2025-06-22 17:21 | XMS_ITS | Encounter Summary ---
Author Organization [employer] Address [address] [facility] 7t [place] [address] Care Team Providers Care Skills Auditor Name Role Phone Farzana Meadows MD Primary Care Provide r Reason for Visit * Reason Comments Med Refill Encounter Details Date Type Department Care Team ([facility] st Contact Info) Description 06/09/2024 Refill [facility] 230 [place], [place] [phone] Farzana Meadows MD 230 [place], [place] [phone] Class 3 severe obesity due to excess [...] (BMI) of 40.0 to 44.9 in adult documented in this encounter Additional Health Concerns Assessment Noted Time PHQ-9 Depression Total Score: 0 02/18/20 9:02 AM EDT documented as of this encounter Care Teams Skills Auditor Relationship Specialty Start Date End Date Farzana Meadows MD [address] [place] [phone] PCP - General Family Medicine 01/05/19 Trang Wyman Camera Prototyping Engineer 08/20/23 06/29/24 documented as of this encounter
--- OUTSIDE RECORDS SUMMARY | 2025-06-22 17:21 | XMS_ITS | Encounter Summary ---
Author Organization [employer] Address [address] [facility] 7t [place] [address] Care Team Providers Care Senior Structural Engineer Name Role Phone Farzana Meadows MD Primary Care Provide r Reason for Visit * Reason Onset Date Comments Med Refill 12/14/2024 Encounter Details Date Type Department Care Team ([facility] st Contact Info) Description 12/14/2024 Telephone [facility] MED[facility]INE 230 [place], [place] [phone] Farzana Meadows MD 230 [place], [place] [phone] Med Refill Social History Tobacco Use Types [...] Telephone Encounter - Enid Gusman LPN - 12/14/2024 9:05 AM EDT Medication was sent to [facility] on 12/06/24. * Telephone Encounter - Mehran Barker - 12/14/2024 9:00 AM EDT TC from pt requesting medication refill. Medications needing refill : Tirzepatide-Weight Management (Zepbound) 7.5 MG/0.5ML solution auto-injector To be sent to: [facility] pharmacy documented in this encounter Plan of Treatment Not on file documented as of this encounter Visit Diagnoses Not on filedocumented in this encounter Additional Health Concerns Assessment Noted Time PHQ-9 Depression Total Score: 0 02/18/20 23 9:02 AM EDT documented as of this encounter Care Teams Senior Structural Engineer Relationship Specialty Start Date End Date Farzana Meadows MD [address] [place] [address] PCP - General Family Medicine 01/05/19 documented as of this encounter
--- OUTSIDE RECORDS SUMMARY | 2025-06-22 17:21 | XMS_ITS | Encounter Summary ---
Author Organization [employer] Address [address] [facility] [address] 7t [place] [address] Care Team Providers Care Mortician Helper Name Role Phone Farzana Meadows MD Primary Care Provide r Encounter Details Date Type Department Care Team (Late st Contact Info) Description 04/19/2025 Results Follow-Up [facility] MED[facility]INE [address] [place] [address] Beth Mercado, COLLINS [address] [place] [address] Chlamydia/Trichomona s/Neisseria gonorrhoeae, PCR, Urine Social History Tobacco Use Types Packs/Day Years [...] documented as of this encounter Care Teams Mortician Helper Relationship Specialty Start Date End Date Farzana Meadows MD [address] [place] [address] PCP - General Family Medicine 01/05/19 documented as of this encounter
--- OUTSIDE RECORDS SUMMARY | 2025-06-22 17:21 | XMS_ITS | Encounter Summary ---
Author Organization [employer] Address [address] [facility] 7t [place] [address] Care Team Providers Care Small Piece Cutter Name Role Phone Farzana Meadows MD Primary Care Provide r Reason for Visit * Reason Comments Med Refill Encounter Details Date Type Department Care Team ([facility] st Contact Info) Description 06/02/2024 Refill [facility] 230 [place], [place] [phone] Farzana Meadows MD [address] [place], [place] [phone] Class 3 severe obesity due to excess [...] documented as of this encounter Care Teams Small Piece Cutter Relationship Specialty Start Date End Date Farzana Meadows MD [address] [place] [address] PCP - General Family Medicine 01/05/19 Trang Wyman Sales Representative Raw Fibers 08/20/23 06/29/24 documented as of this encounter
--- OUTSIDE RECORDS SUMMARY | 2025-06-22 17:21 | XMS_ITS | Encounter Summary ---
Author Organization [employer] Address [address] [facility] 7t [place] [address] Care Team Providers Care Fbi Investigator Name Role Phone Farzana Meadows MD Primary Care Provide r Reason for Visit * Reason Onset Date Comments Med Refill 11/04/2024 Encounter Details Date Type Department Care Team ([facility] st Contact Info) Description 11/04/2024 Telephone [facility] MEDICINE [address] [place], [place] [phone] Farzana Meadows MD 230 [place], [place] [phone] Med Refill Social History Tobacco Use Types [...] 12:17 PM EST Zepound was sent to [facility] on 10/17/[address] [place]. * Telephone Encounter - Ilene Dominguez - 11/04/2024 11:30 AM EST TC from pt requesting medication refill. Medications needing refill : Semaglutide-Weight Management (Wegovy) 2.4 MG/0.75ML solution auto-injector To be sent to: [facility] documented in this encounter Plan of Treatment Not on file documented as of this encounter Visit Diagnoses Not on filedocumented in this encounter Additional Health Concerns Assessment Noted Time PHQ-9 Depression Total Score: 0 02/18/20 23 9:02 AM EDT documented as of this encounter Care Teams Fbi Investigator Relationship Specialty Start Date End Date Farzana Meadows MD [address] [place] [phone] PCP - General Family Medicine 01/05/19 documented as of this encounter
--- OUTSIDE RECORDS SUMMARY | 2025-06-22 17:21 | XMS_ITS | Encounter Summary ---
Author Organization [employer] Address [address] [facility] 7t [place] [address] Care Team Providers Care Third Shift Lieutenant Name Role Phone Farzana Meadows MD Primary Care Provide r Encounter Details Date Type Department Care Team (Late st Contact Info) Description 09/03/2022 Orders Only [facility] [address] [place] [address] Beth Mercado, COLLINS [address] [facility] [place] [address] Social History Tobacco Use Types Packs/Day Years [...] CYTOLOGY ORDERABLES F inal Result [facility] [address], [place] [phone] documented in this encounter Visit Diagnoses Not on filedocumented in this encounter Care Teams Third Shift Lieutenant Relationship Specialty Start Date End Date Farzana Meadows MD 230 [place] [address] PCP - General Family Medicine 01/05/19 Trang Wyman Joy Operator 08/20/23 06/29/24 documented as of this encounter
--- OUTSIDE RECORDS SUMMARY | 2025-06-22 17:21 | XMS_ITS | Encounter Summary ---
Author Organization [employer] Address [address] [facility] 7t [place] [address] Care Team Providers Care Supervisor [employer]ges [employer] Buildings Name Role Phone Farzana Meadows MD Primary Care Provide r Reason for Visit * Reason Comments Med Refill Encounter Details Date Type Department Care Team ([facility] st Contact Info) Description 06/14/2024 Refill [facility] MEDICINE 230 [place], [place] [phone] Farzana Meadows MD 230 [place], [place] [phone] Class 3 severe obesity due to excess [...] documented as of this encounter Care Teams Supervisor [employer] Buildings Relationship Specialty Start Date End Date Farzana Meadows MD [address] [place] [phone] PCP - General Family Medicine 01/05/19 Trang Wyman Spring Former Hand 08/20/23 06/29/24 documented as of this encounter
--- OUTSIDE RECORDS SUMMARY | 2025-06-22 17:21 | XMS_ITS | Encounter Summary ---
Author Organization [employer] Address [address] [place] [address] Care Team Providers Care Kindergarten Instructional Assistant Name Role Phone Farzana Meadows MD Primary Care Provide r Encounter Details Date Type Department Care Team (Latest Contact Info) Description 06/22/2025 Travel Social History Tobacco Use Types Packs/Day Years [...] AM EDT documented as of this encounter Functional Status * Over the past 2 weeks, how often have you been bothered by any of the following problems? Question Answer Date of Assessment Author Patient Health Questionnaire-2 Score 4 06/05 11:45 AM PARDEEPT Gina Waller MA * Little interest or pleasure in doing things Answer Date of Assessment Author Nearly every day 06/22/2025 11:45 AM Gina Jerez MA * Feeling down, depressed, or hopeless Answer Date of Assessment Author Several days 06/22/2025 11:45 AM Jeny Jerez MA * Trouble falling or staying asleep, or sleeping too much Answer Date of Assessment Author Nearly every day 06/22/2025 11:45 AM Gina Jerez MA * Feeling tired or having little energy Answer Date of Assessment Author Nearly every day 06/22/2025 11:45 AM Gina Jerez MA * Poor appetite or overeating Answer Date of Assessment Author Nearly every day 06/22/2025 11:45 AM Gina Jerez MA * Feeling bad about yourself - or that you are a failure or have let yourself or your family down Answer Date of Assessment Author Several days 06/22/2025 11:45 AM Jeny Jerez MA * Trouble concentrating on things, such as reading the newspaper or watching television Answer Date of Assessment Author Nearly every day 06/22/2025 11:45 AM Gina Jerez MA * Moving or speaking so slowly that other people could have noticed? Or the opposite - being so fidgety or restless that you have been moving around a lot more than usual. Answer Date of Assessment Author Several days 06/22/2025 11:45 AM Jeny Jerez MA * Thoughts that you would be [...] Assessment Author Very difficult 06/22/2025 11:45 AM EDT Jeny Waller MA * Over the last 2 weeks, how often have you been bothered by any of the following problems? Question Answer Date of Assessment Author Feeling nervous, anxious, or on edge 1 06/05 11:46 AM PARDEEPT Gina Waller MA Not being able to stop or co ntrol worrying 3 06/22/2025 11:46 AM PARDEEPT Gina Waller MA Worrying too much about diff erent things 3 06/22/2025 11:46 AM PARDEEPT Gina Waller MA Trouble relaxing 3 06/22/2025 11:46 AM PARDEEPT Gina Waller MA Being so restless that it is hard to sit still 1 06/22/2025 11:46 AM Gina Jerez MA Becoming easily annoyed or irritable 3 06/05 11:46 AM Gina Jerez MA Feeling afraid as if somethi ng awful might happen 2 06/22/2025 11:46 AM PARDEEPT Gina Waller MA GADIEL-7 Total Score 16 06/22/2025 11:46 AM Gina Jerez MA documented as of this encounter Plan of Treatment Not on file documented as of this encounter Visit Diagnoses Not on filedocumented in this encounter Additional Health Concerns Assessment Noted Time PHQ-9 Depression Total Score: 18 2 025 11:45 AM EDT documented as of this encounter Care Teams Kindergarten Instructional Assistant Relationship Specialty Start Date End Date Farzana Meadows MD [address] [place] [phone] PCP - General Family Medicine 01/05/19 documented as of this encounter
--- OUTSIDE RECORDS SUMMARY | 2025-06-22 17:21 | XMS_ITS | Encounter Summary ---
Author Organization [employer] Address [address] 7[address] [place] [address] Care Team Providers Care Process Control Technician Name Role Phone Farzana Meadows MD Primary Care Provide r Encounter Details Date Type Department Care Team (Late st Contact Info) Description 08/10/2024 Orders Only [facility] [address] [place] [address] Farzana Meadows MD [address] [place] [address] Social History Tobacco Use Types Packs/Day Years [...] documented as of this encounter Care Teams Process Control Technician Relationship Specialty Start Date End Date Farzana Meadows MD [address] [place] [id number] PCP - General Family Medicine 01/05/19 documented as of this encounter
[2025-06-22 22:24] LABS: Bacterial Vaginosis PCR NEGATIVE (Negative); Candida Group PCR DETECTED (Not Detect); Candida glab krusei PCR NOT DETECTED (Not Detect); Trichomonas vaginalis PCR NOT DETECTED (Not Detect)
[2025-06-22 23:51] LABS: CT PCR NOT DETECTED (Not Detect.); NG PCR NOT DETECTED (Not Detect.)
== END 2025-06-22 16:22 | disposition home or self-care (01) ==
LOC: HO.LNP 16:21
PROVIDERS: Visit Provider Internal Medicine
DX: N89.8 Other specified noninflammatory disorders of vagina (principal); R30.0 Dysuria; Z11.8 Encounter for screening for other infectious and parasitic diseases; Z11.3 Encounter for screening for infections with a predominantly sexual mode of transmission
CPT/HCPCS: 81515; 87086; 87491; 87591

== ENCOUNTER 2025-07-04 09:38 | Outpatient (REF) | payer MEDICAID, SELFPAY ==
--- OUTSIDE RECORDS SUMMARY | 2025-07-04 09:00 | XMS_ITS | Encounter Summary ---
Author Organization [employer] Address [address] [facility] 7t [place] [address] Care Team Providers Care Finished Cloth Examiner Name Role Phone Farzana Meadows MD Primary Care Provide r Reason for Visit * Reason Comments Back Pain Encounter Details Date Type Department Care Team ([facility] Contact Info) Description 07/04/2025 9:00 AM EDT Office Visit [facility] [address] [place] [address] Verónica Lemon MD [address] [place] [phone] Amenorrhea (Primary Dx); Low back pain, unspecified back pain laterality, unspecified chronicity, unspecified whether sciatica present Social History Tobacco Use Types Packs/Day Years [...] Sign Reading Time Taken Comments Blood Pressure 134/87 07/04/2025 8:58 AM EDT Pulse 85 07/04/2025 8:58 AM EDT Temperature 36.8 C (98.2 F) 07/04/2025 8:58 AM EDT Respiratory Rate 16 07/04/2025 8:58 AM EDT Oxygen Saturation 99% 07/04/2025 8:58 AM EDT Inhaled Oxygen Concentration - - Weight 81.6 kg (180 lb) 07/04/2025 8:58 AM EDT Height - - Body Mass Index 36.36 06/22/2025 10:30 AM EDT documented in this encounter Patient Instructions * Patient Instructions* Verónica Lemon MD - 07/04/2025 9:00 AM EDT To schedule your physical therapy at [facility] please call [phone]. Para programar mosqueda therapia physica m??dica en el [facility] [place], por favor llame al [phone]. documented in this encounter Progress Notes * Verónica Lemon MD - 07/04/2025 9:00 AM EDT Subjective Patient ID: Jer Snowden is a 30 y.o. female with past medical history choric low back pain who presents to walk in clinic for Back Pain. At end of visit pt states she thinks she might be . LMP 05/13/25. Took plan B 06/12/25. has nothad menses. Hcg negative via urine. Will check serum HCG. Advise do not start meds until test negative. Back Pain This is a recurrent problem. The current episode started in the past 7 days. The problem occurs constantly. The problem is unchanged. The pain is present in the thoracic spine. The quality of the pain is described as aching. The pain does not radiate. The pain is at a severity of 9/10. The pain is moderate. The pain is The same all the time. The symptoms are aggravated by standing and lying down.Stiffness is present All day. Pertinent negatives include no fever. Risk factors include obesity. She has tried nothing for the symptoms. The treatment provided no relief. Prescribed cyclobenzaprine by PCP 06/22/25 and referred to physical therapy. Review of Systems Constitutional: Negative for fever. Musculoskeletal: Positive for back pain. Negative for gait problem, joint swelling, neck pain and neck stiffness. Objective Visit Vitals BP 134/87 (BP Location: Right arm, Patient Position: Sitting, BP Cuff Size: Adult) Pulse 85 Temp 98.2 ??F (36.8 ??C) (Temporal) Resp 16 Body mass index is 36.36 kg/m??. Physical Exam Assessment & Plan Low back pain, unspecified back pain laterality, unspecified chronicity, unspecified whether sciatica present Likely musculoskeletal. Non-focal, normal motor exam without neurological deficits. No back pain red-flags: bowel/bladder incontinence, IVDU, urinary retention, saddle anesthesia, and significant motor deficits. -Recommend ibuprofen and muscle relaxer prn. Physical therapy number given (referral was placed 06/22/25) -Acupuncture clinic offered -Lifting precaution sand stretching reviewed -ER precaution discussed Orders: POCT urinalysis dipstick manually resulted POCT , urine manually resulted ibuprofen 400 MG tablet; Take 1 tablet (400 mg) by mouth every 6 (six) hours if needed for moderatepain or fever for up to 30 doses. cyclobenzaprine (Flexeril) 10 MG tablet; One tab po at bedtime prn pain of muscles, do not drive with medicaion lidocaine (Lidoderm) 5 % patch; Apply 1 patch topically Once per day. Remove & discard patch within 12 hours or as directed by . Amenorrhea Pt concerned for .Urine HCG negative, agrees to serum HCG. Advised to not take Rx until negative serum test. She declines family planning/ control method. States she knows she can come back if she changes her mind. Orders: hCG, Total, Quantitative; Future documented in this encounter Miscellaneous Notes * Assessment & Plan Note - Verónica Lemon MD - 07/04/2025 9:00 AM EDT Associated Problem(s): Back pain Likely musculoskeletal. Non-focal, normal motor exam without neurological deficits. No back pain red-flags: bowel/bladder incontinence, IVDU, urinary retention, saddle anesthesia, and significant motor deficits. -Recommend ibuprofen and muscle relaxer prn. Physical therapy number given (referral was placed 06/22/25) -Acupuncture clinic offered -Lifting precaution sand stretching reviewed -ER precaution discussed Orders: POCT urinalysis dipstick manually resulted POCT , urine manually resulted ibuprofen 400 MG tablet; Take 1 tablet (400 mg) by mouth every 6 (six) hours if needed for moderatepain or fever for up to 30 doses. cyclobenzaprine (Flexeril) 10 MG tablet; One tab po at bedtime prn pain of muscles, do not drive with medicaion lidocaine (Lidoderm) 5 % patch; Apply 1 patch topically Once per day. Remove & discard patch within 12 hours or as directed by . documented in this encounter Plan of Treatment Scheduled Orders Name Type Priority Associated Diagnoses Orde r Schedule hCG, Total, Quantitative Lab Routine Amenorrhea Expected: 07/04/2025 (Approximate), Expires: 07/04/2026 documented as of this encounter Procedures Procedure Name Priority Date/Time Associated Diagnosis Comments POCT URINALYSIS DIPSTICK Routine 07/04/2025 9:07 AM EDT Low back pain, unspecified back pain laterality, unspecified chronicity, unspecified whether sciatica present POCT , URINE Routine 07/04/2025 9:06 AM EDT Low back pain, unspecified back pain laterality, unspecified chronicity, unspecified whether sciatica present documented in this encounter Results * POCT urinalysis dipstick manually resulted (07/04/2025 9:07 AM EDT) Color, UA Yellow Comment:Dark Clarity, UA Clear Glucose, UA Negative Bilirubin, UA Negative Ketones, UA Negative Spec Grav, UA 1.020 Blood, UA Negative Negative, None Detected pH, UA 6.0 Protein, UA Trace Urobilinogen, UA 0.2 Leukocytes, UA Negative Negative, Rare, Trace Nitrite, UA Negative Negative, None Detected Appearance, UA OK Urine 07/04/2025 9:07 AM EDT us Verónica Lemon MD POINT OF CARE TEST ENTER/E DIT ORDERABLES Final Result * POCT , urine manually resulted (07/04/2025 9:06 AM EDT) Preg Test, Ur Negative Negative, Indeterminate, None Detected, Invalid, Specimen unsatisfactory for evaluation, Weakly Positive, 2+ Urine 07/04/2025 9:06 AM EDT us Verónica Lemon MD POINT OF CARE TEST ENTER/E DIT ORDERABLES Final Result documented in this encounter Visit Diagnoses Diagnosis Amenorrhea- Primary Absence of menstruation Low back pain, unspecified back pain laterality, unspecified chronicity, unspecified whether sciatica present documented in this encounter Additional Health Concerns Assessment Noted Time PHQ-9 Depression Total Score: 18 025 11:45 AM EDT documented as of this encounter Care Teams Finished Cloth Examiner Relationship Specialty Start Date End Date Farzana Meadows MD [address] [place] [address] PCP - General Family Medicine 01/05/19 documented as of this encounter
--- OUTSIDE RECORDS SUMMARY | 2025-07-04 10:28 | XMS_ITS | Encounter Summary ---
Author Organization [employer] Address [address] [facility] 7t [place] [address] Care Team Providers Care Maintenance And Operations Supervisor Name Role Phone Farzana Meadows MD Primary Care Provide r Reason for Visit * Reason Onset Date Comments Med Refill 06/02/2025 Encounter Details Date Type Department Care Team ([facility] st Contact Info) Description 06/02/[address] [facility] [address] [place], [place] [phone] Farzana Meadows MD [address] [place], [place] [phone] Med Refill Social History Tobacco Use Types [...] 3:42 PM EDT Script was sent to [facility] on 05/05/25 with 1 refill. * Telephone Encounter - Amaury Serna - 06/02/2025 3:35 PM EDT TC from pt requesting medication refill. Medications needing refill: Zepbound 12.5 MG/0.5ML solution auto-injector To be sent to: [facility] - [place], [place] - [address] [facility] documented in this encounter Plan of Treatment Not on file documented as of this encounter Visit Diagnoses Not on filedocumented in this encounter Additional Health Concerns Assessment Noted Time PHQ-9 Depression Total Score: 0 04/18/20 1:17 PM EDT documented as of this encounter Care Teams Maintenance And Operations Supervisor Relationship Specialty Start Date End Date Farzana Meadows MD [address] [facility] [place] [address] PCP - General Family Medicine 01/05/19 documented as of this encounter
--- OUTSIDE RECORDS SUMMARY | 2025-07-04 10:28 | XMS_ITS | Encounter Summary ---
Author Organization [employer] Address [address] [facility] 7t [place] [address] Care Team Providers Care Airport Utility Worker Name Role Phone Farzana Meadows MD Primary Care Provide r Reason for Visit * Reason Onset Date Comments Appointment Request 12/01/2023 Encounter Details Date Type Department Care Team ([facility] st Contact Info) Description 12/01/2023 Telephone [facility] [address] [place], [place] [phone] Farzana Meadows MD [address] [place], [place] [phone] Appointment Request Social History Tobacco Use Types [...] documented as of this encounter Care Teams Airport Utility Worker Relationship Specialty Start Date End Date Farzana Meadows MD [address] [place] [address] PCP - General Family Medicine 01/05/19 Trang Wyman Coordinate Measuring Machine Operator 08/20/23 06/29/24 documented as of this encounter
--- OUTSIDE RECORDS SUMMARY | 2025-07-04 10:28 | XMS_ITS | Encounter Summary ---
Author Organization [employer] Address [address] [facility] 7t [place] [address] Care Team Providers Care Vamper Name Role Phone Farzana Meadows MD Primary Care Provide r Reason for Visit * Reason Comments Med Refill Encounter Details Date Type Department Care Team ([facility] st Contact Info) Description 06/14/2024 Refill [facility] [address] [place], [place] [phone] Farzana Meadows MD 230 [place], [place] [phone] Class 3 severe obesity due to excess [...] (BMI) of 40.0 to 44.9 in adult (HCC) documented in this encounter Additional Health Concerns Assessment Noted Time PHQ-9 Depression Total Score: 0 02/18/20 9:02 AM EDT documented as of this encounter Care Teams Vamper Relationship Specialty Start Date End Date Farzana Meadows MD [address] [place] [phone] PCP - General Family Medicine 01/05/19 Trang Wyman Civil Litigation Attorney 08/20/23 06/29/24 documented as of this encounter
--- OUTSIDE RECORDS SUMMARY | 2025-07-04 10:28 | XMS_ITS | Encounter Summary ---
Author Organization [employer] Address [address] [facility] 7t [place] [address] Care Team Providers Care Betting Clerk Name Role Phone Farzana Meadows MD Primary Care Provide r Reason for Visit * Reason Comments Med Refill Encounter Details Date Type Department Care Team ([facility] st Contact Info) Description 06/02/[address] [facility] [address] [place], [place] [phone] Farzana Meadows MD [address] [place], [place] [phone] Class 3 severe obesity due to excess [...] documented as of this encounter Care Teams Betting Clerk Relationship Specialty Start Date End Date Farzana Meadows MD [address] [place] [address] PCP - General Family Medicine 01/05/19 Trang Wyman Boatwright 08/20/23 06/29/24 documented as of this encounter
--- OUTSIDE RECORDS SUMMARY | 2025-07-04 10:28 | XMS_ITS | Encounter Summary ---
Author Organization [employer] Address [address] [address] [facility] [address] [place] [address] Care Team Providers Care Facility Practice Specialist Name Role Phone Farzana Meadows MD Primary Care Provide r Encounter Details Date Type Department Care Team (Late st Contact Info) Description 06/03/2024 Orders Only [facility] [address] [place], [place] [phone] Farzana Meadows MD 230 [place], [place] [phone] Social History Tobacco Use Types Packs/Day Years [...] documented as of this encounter Care Teams Facility Practice Specialist Relationship Specialty Start Date End Date Farzana Meadows MD [address] [place] [phone] PCP - General Family Medicine 01/05/19 Trang Wyman Family Counselor 08/20/23 06/29/24 documented as of this encounter
--- OUTSIDE RECORDS SUMMARY | 2025-07-04 10:28 | XMS_ITS | Encounter Summary ---
Author Organization [employer] Address [address] [facility] [place] [address] Care Team Providers Care Stock Associate Name Role Phone Farzana Meadows MD Primary Care Provide r Encounter Details Date Type Department Care Team (Late st Contact Info) Description 08/10/2024 Orders Only [facility] [address] [place] [address] Farzana Meadows MD [address] [place] [address] Social History Tobacco Use Types Packs/Day Years [...] documented as of this encounter Care Teams Stock Associate Relationship Specialty Start Date End Date Farzana Meadows MD [address] [place] [phone] PCP - General Family Medicine 01/05/19 documented as of this encounter
--- OUTSIDE RECORDS SUMMARY | 2025-07-04 10:28 | XMS_ITS | Clinical Summary ---
Author Organization [employer] Address [address] [facility] [address] [place] [address] Care Team Providers Care Oracle Sql Developer Name Role Phone Farzana Meadows MD Primary [...] every 6 hours 30 capsule 024 Active polyethylene glycol, PEG, 3350 (Glycolax) 17 GM/SCOOP powder MIX AND DRINK 17G BY MOUTH EVERY DAY Active busPIRone (Buspar) 5 MG tablet TAKE 1 TABLET BY MOUTH THREE TIMES DAILY FOR ANXIETY Active buPROPion XL (Wellbutrin XL) 300 MG 24 hr tablet Take 300 mg by mouth Once per day. Active nystatin (Mycostatin) 430633 UNIT/GM powder Apply topically 2 times daily. [...] of 40.0 to 44.9 in adult (HCC) INJECT ONE PEN (=12.5MG) SUBCUTANEOUSLY ONCE A WEEK DIRECTED 2 mL 1 025 Active Tirzepatide-Chris ght Management (Zepbound) 12.5 MG/0.5ML solutionIndicat ions:Class 2 severe obesity due to excess calories with serious comorbidity and body mass index (BMI) of 37.0 to 37.9 in adult Inject 12.5 mg under the skin 1 (one) time per week. 2 mL 025 Active clotrimazole-be tamethasone (Lotrisone) creamIndication s:Intertrigo Apply [...] mouth in the morning. 90 tablet Active Ketotifen Fumarate (Eye Itch Relief) 0.035 % solutionIndicat ions:Seasonal allergies Administer 1 drop into both eyes every 12 (twelve) hours if needed (for allergic conjunctivitis). 5 mL 1 Active ibuprofen 400 MG tabletIndicatio ns:Low back pain, unspecified back pain laterality, unspecified chronicity, unspecified whether sciatica present Take 1 tablet (400 mg) by mouth every 6 (six) hours if needed for moderate pain or fever for up to 30 doses. 30 tablet 025 Active cyclobenzaprine (Flexeril) 10 MG tabletIndicatio ns:Low back pain, unspecified back pain laterality, unspecified chronicity, unspecified whether sciatica present One tab po at bedtime prn pain of muscles, do not drive with medicaion 30 tablet 025 Active lidocaine (Lidoderm) 5 % patchIndication s:Low back pain, unspecified back pain laterality, unspecified chronicity, unspecified whether sciatica present Apply 1 patch topically Once per day. Remove & discard patch within 12 hours or as directed by MD. 15 patch 2 Active fluticasone (Flonase) 50 MCG/ACT nasal sprayIndication [...] of 40.0 to 44.9 in adult (HCC) Take 1 capsule (37.5 mg) by mouth before breakfast. 30 capsule 1 024 2024 Discontinued albuterol 108 (90 Base) MCG/ACT inhaler Inhale 2 puffs every 4 (four) hours if needed for wheezing. 18 g 024 2024 Discontinued(R eorder (will not trigger notification to Pharmacy)) ibuprofen 400 MG tablet Take 1 tablet (400 mg) by mouth every 6 (six) hours if needed for moderate pain or fever for up to 30 doses. 30 tablet 024 2024 Discontinued(R eorder (will not trigger notification to Pharmacy)) Eye Itch Relief 0.035 % solutionIndicat ions:Seasonal allergies INSTILL 1 DROP IN EACH EYE EVERY TWELVE HOURS NEEDED 5 mL 1 025 2024 Discontinued(R eorder (will not trigger notification to Pharmacy)) fluconazole (Diflucan) 150 MG tabletIndicatio ns:Vaginal itching Take 1 tablet (150 mg) by mouth 1 (one) time for 1 dose. 1 tablet 025 2024 cyclobenzaprine (Flexeril) 5 MG tabletIndicatio ns:Chronic low back pain, unspecified back pain laterality, unspecified whether sciatica present Take 1 tablet (5 mg) by mouth at bedtime for 10 days. 10 tablet 025 2024 ondansetron (Zofran) 4 MG tabletIndicatio ns:Nausea Take 1 tablet (4 mg) by mouth every 8 (eight) hours if needed for nausea or vomiting for up to 7 days. 20 tablet 025 2024 Active Problems Problem Noted Date Diagnosed Date Mild intermittent asthma with exacerbation 09/18 /2025 Assessment & Plan (06/22/2025 4:26 PM EDT): [...] to proceed with bariatric surgery Awaiting for [employer] insurance approval RTC 5 weeks Assessment & Plan (02/16/2024 10:44 AM EDT): Continue to follow with bariatric program at [facility] Assessment & Plan (12/30/2023 4:22 PM EDT): [...] 07/21/2012 Back pain 07/21/2012 Assessment & Plan (07/04/2025 9:32 AM EDT): Likely musculoskeletal. Non-focal, normal motor exam without [...] 12 hours or as directed by . Assessment & Plan (04/14/2024 4:47 PM EDT): Appears muscular in nature -warm compresses in back -Lidoderm patch -tylenol , NSAIDS prn Assessment & Plan (07/24/2023 10:47 AM EDT): Apply heat on affected area Nabumetone PRN Mixed anxiety and depressive disorder 07/21/2012 Encounters Date Type Department Care Team Description 07/04/2025 9:00 AM EDT Office Visit [facility] [address] [place] [phone] Verónica Lemon MD Amenorrhea (Primary Dx); Low back pain, unspecified back pain laterality, unspecified chronicity, unspecified whether sciatica present 07/04/2025 Travel 06/23/[address] [address] Farzana Meadows MD Prior Authorization ( PA: Zepbound 12.5 MG) 06/23/[address] [address] Farzana Meadows MD Prior Authorization; Durable Medical Equipment ( PA: Zepbound) 06/22/2025 10:45 AM EDT Office Visit [address] [address] Farzana Meadows MD Mild intermittent asthma with exacerbation; Class 2 severe obesity due to excess calories with serious comorbidity and body mass index (BMI) of 37.0 to 37.9 in adult (CMS/[facility]); Dietary counseling; Exercise counseling; Intertrigo; Vaginal itching; Dysuria; Seasonal allergies; Chronic low back pain, unspecified back pain laterality, unspecified whether sciatica present; Nausea 06/22/2025 Travel 06/21/[address] [address] Farzana Meadows MD Chart Prep 06/14/2025 Patient Outreach [address] [address] Farzana Meadows MD Pre-visit Planning ([facility] screening completed on 04/18/2025) 06/09/[address] [phone] Farzana Meadows MD Call Back Request 06/02/[address] [phone] Farzana Meadows MD Med Refill 05/05/[address] [phone] Ana, Kalpana, [employer] Class 3 severe obesity due to excess calories without serious comorbidity with body mass index (BMI) of 40.0 to 44.9 in adult 05/03/2025 11:30 AM EDT Office Visit [address] [address] TadKalpana moore, [employer] Bilateral pleural effusion (Primary Dx); Cyst of right ovary; Pelvic pain; Dysuria 05/03/2025 Travel 05/03/[address] [address] Farzana Meadows MD Nurse Triage 04/30/2025 Orders Only GENERIC EXTERNAL DATA DEPARTMENT Provider, Generic External Data 04/25/[address] [address] Charisma Swanson RN Results 04/25/2025 Telephone [facility] [address] [place] [phone] Charisma Swanson RN Error (VOID this visit) 04/20/2025 Travel 04/19/2025 Results Follow-Up [address] [address] Beth Mercado CNM Chlamydia/Trichomonas /Neisseria gonorrhoeae, PCR, Urine 04/18/2025 1:15 PM EDT Procedure Visit [address] [address] Beth Mercado CNM Nexplanon removal (Primary Dx); Screening examination for venereal disease; Family history of diabetes mellitus (DM); Candidiasis of vulva and vagina 04/18/2025 Orders Only [address] [address] Beth Mercado CNM 04/18/2025 Travel 04/17/[address] [address] Beth Mercado CNM CHART PREP 04/17/2025 Telephone [facility] [address] [place] [address] Farzana Meadows MD Prior Authorization 04/17/[address] [place] [address] Farzana Meadows MD Call Back Request 04/13/2025 Refill [facility] [address] [place] [address] Farzana Meadows MD Seborrheic dermatitis 04/12/2025 Telephone [facility] [address] [place], [place] [phone] Farzana Meadows MD Med Refill 04/08/2025 Refill [facility] [address] [place] [address] Farzana Meadows MD Seasonal allergies from Last 3 Months Immunizations Immunization Administration Dates Next Due DTaP 05/30/1997, 5,03/05/1994,05/22,1993 HPV, Quadrivalent 06/21/2010,02/19/2010,06/05/20 09 Hep B, Adolescent or Pediatric 03/05/1994,1992,1993 Hib (HbO) 05/06/1994, 4,1993,04/01 IPV 05/30/1997, 5,1993,04/01 Influenza injectable [...] (180 lb) 07/04/2025 8:58 AM EDT Height 149.9 cm (4' 11 ) 06/22/2025 10:30 AM EDT Body Mass Index 36.36 06/22/2025 10:30 AM EDT Plan of Treatment Health Maintenance Due Date Last Done Comments Pneumococcal Vaccine: Pediatrics (0 to 5 Years) and At-Risk Patients (6 to 49) Years (1 of 2 - PCV) 01/25/2012 Cervical Cancer Screening 07/25/2023 HPV/Cotest 07/25/2023 Pap Smear 07/25/2023 07/25/2020 COVID-19 Vaccine ( season) 2025 09/18/2021, 01/31/2021, 01/03/2021 Influenza Vaccine (#1) 2025 , 12/14/2019, 12/14/2019, Additional history exists Depression Monitoring 12/20/2025 06/22/2025, 025 Alcohol/Substance Use Screening 04/18/2026 04/18/2025 Disability Screening 04/18/2026 04/18/2025 Family Planning (PISQ) 04/18/2026 04/18/2025 SDOH Screening 04/18/2026 04/18/2025 Tobacco Screening 07/04/2026 07/04/2025 Lipid Panel 02/08/2029 02/09/2024, 02/0 05/2022, 07/04/2021, [...] whether sciatica present POCT , URINE Routine 06/22/2025 11:49 AM EDT Vaginal itching Dysuria Nausea POCT URINALYSIS DIPSTICK Routine 06/22/2025 11:47 AM EDT Dysuria CULTURE, URINE, ROUTINE Routine 06/22/2025 11:35 AM EDT Dysuria CHLAMYDIA/N. GONORRHOEAE RNA, TMA, UROGENITAL Routine 06/22/2025 11:34 AM EDT Vaginal itching Dysuria BACTERIAL VAGINOSIS PANEL Routine 06/22/2025 11:34 AM EDT Vaginal itching Dysuria POCT URINALYSIS DIPSTICK Routine 05/03/2025 12:07 [...] PM EDT Screening examination for venereal disease MN REMOVAL NON-BIODEGRADABLE DRUG DELIVERY IMPLANT Routine 04/18/2025 [...] Relevant to Health Maintenance Results * POCT urinalysis dipstick manually resulted (07/04/2025 9:07 AM EDT) Only the most recent of3 resultswithin the time period is included. Color, UA Yellow Comment:Dark Clarity, UA Clear [...] urine manually resulted (07/04/2025 9:06 AM EDT) Only the most recent of3 resultswithin the time period is included. Preg Test, Ur Negative Negative, Indeterminate, None Detected, Invalid, Specimen unsatisfactory for evaluation, Weakly Positive, 2+ Urine 07/04/2025 9:06 AM EDT us Verónica Lemon MD POINT OF CARE TEST ENTER/E DIT ORDERABLES Final Result * Culture, Urine, Routine (06/22/2025 11:35 AM EDT) Only the most recent of2 resultswithin the time period is included. Urine Urine specimen obtained by clean catch procedure / Unknown 06/22/2025 11:35 AM EDT 06/22/2025 4:22 PM EDT Comment:UACC Narrative [facility] - 06/24/2025 9:56 AM EDT Urine Culture Report Result Urine Culture 10,000 to 50,000 cfu/ml Urine Culture Mixed bacterial shahana characteristic of Urine Culture urogenital contamination. Specimen Source: Urine clean catch us Farzana Diaz MD LAB MICROBIOLOGY - GE NERAL ORDERABLES Final Result [facility] [address] [place] [phone] * (ABNORMAL) Bacterial Vaginosis Panel (06/22/2025 11:34 AM EDT) TRICHOMONAS VAGINALIS DETECTION BY PCR NOT DETECTED Not Detect [facility] BACTERIAL VAGINOSIS DETECTION BY PCR NEGATIVE Negative [facility] Comment:The BV organism targ ets of the Xpert Xpress MVP test can becommensal in women; Xpert Xpress MVP positive results forbacterial vaginosis should be considered in conjunction withother clinical and patient information to determine thedisease status. Organisms that are not detected by the XpertXpress MVP test have also been reported to be associatedwith BV and aerobic vaginitis.The Xpert Xpress MVP test performance has not been evaluatedin patients under the age of 14. KIMBERLYN GROUP DETECTION BY PCR DETECTED(A) Not Detect [facility] Kimberlyn glab krusei PCR NOT DETECTED Not Detect [facility] Swab Vaginal structure / Unknown 06/22/2025 11:34 AM EDT 06/22/2025 4:34 PM EDT us Farzana Diaz MD LAB MICROBIOLOGY - GE NERAL ORDERABLES Final Result [facility] [address] [place] [address] [phone] * Chlamydia/N. Gonorrhoeae RNA, TMA, Vaginal (06/22/2025 11:34 AM EDT) Only the most recent of2 resultswithin the time period is included. CT PCR NOT DETECTED Not Detect. [facility] Comment:A not detected test result does [...] psychologicalconsequences. NG PCR NOT DETECTED Not Detect. [facility] Comment:A not detected test result does [...] to adverse medical, social or psychologicalconsequences. Swab (Vaginal Swab) 06/22/2025 11:34 AM EDT 06/22/2025 4:34 PM EDT Farzana Diaz MD LAB MICROBIOLOGY - iovox ORDERABLES Final Result [facility] [address] [place] [phone] * CT Abdomen Pelvis w/ Contrast (05/01/2025 12:49 AM EDT) Anatomical Region Laterality Modality Body, Pelvis, Abdomen Computed T omography 05/01/2025 12:4 9 AM EDT Narrative 05/01/2025 12:50 AM EDT [address] [address] [address] Scan Report Signed Patient: Marylou Snowden MR#: [id number] 117 : 1995 Acct:[id number] Age/Sex: 30 / F ADM Date: 04/30/25 Loc: HO.ED Attending Dr: Ordering Physician: Clarissa Mendoza Date of Service: 04/30/25 Procedure(s): CT abdomen pelvis w IV con Accession Number(s): [id number] cc: Farzana Meadows MD; Clarissa Mendoza Report Number: [id number]: Total DLP = 736.00 mGy-cm CLINICAL HISTORY: [...] in OV> 05/01/25 0050 DD/ TD/TT: 05/01/2548 Gaming Cashier: Procedure Note Donotuseinterpreter, Image - 05/01/[address] [place] [address] [address] Scan Report Signed Patient: Marylou Snowden LizMR#: [id number] 117 : 1995Acct:[id number] Age/Sex: 30 / FADM Date: 04/30/25 Loc: HO.ED Attending Dr: Ordering Physician: Clarissa Mendoza Date of Service: 04/30/25 Procedure(s): CT abdomen pelvis w IV con Accession Number(s): [id number] cc: Farzana Meadows MD; Clarissa Mendoza Report Number: [id number]: Total DLP = 736.00 mGy-cm CLINICAL HISTORY: [...] signed by Greg Silva MD in OV> 05/01/2549 DD/ TD/TT: 05/01/2548 Gaming Cashier: [facility] External Provider IMG CT PROCEDURES Edited Result - Final * (ABNORMAL) CBC auto differential (04/30/2025 8:24 PM EDT) White Blood Count 14.1(H) 4.8 - 10.8 X10*3/uL [facility] Red Blood Count 3.65(L) 4.20 - 5.50 X10*6/uL [facility] Hemoglobin 11.4(L) 12.0 - 16.0 g/dl [facility] Hematocrit 33.6(L) 37.0 - 47.0 % [facility] Mean Corpuscular Volume 92.1 80.0 - 98.0 fL [facility] Mean Corpuscular Hemoglobin 31.2 27.0 - 33.0 pg [facility] Mean Corpuscular HGB Conc 33.9 31.0 - 35.0 g/dl [facility] Red Cell Distribution Width 12.6 11.0 - 16.0 % [facility] Platelet Count 345 160 - 400 X10*3/uL [facility] Mean Platelet Volume 9.2(L) 9.4 - 12.3 fL [facility] Neutrophils Percent Auto 75.6(H) 45 - 73 % [facility] Imm Gran Pct Auto 0.4 0.0 - 0.4 % [facility] Lymphocytes Percent Auto 18.8(L) 20 - 40 % [facility] Monocytes Percent Auto 4.2 2 - 11 % [facility] Eosinophils Percent Auto 0.8 0 - 4 % [facility] Basophils Percent Auto 0.2 0 - 2 % [facility] NRBC Pct Auto 0.0 0.0 - 0.2 /100WBC [facility] Neutrophils Absolute Auto 10.7(H) 2.0 - 8.3 x10*3/uL [facility] Imm Gran Abs Auto 0.05(H) 0.00 - 0.03 X10*3/uL [facility] Lymphocytes Absolute Auto 2.7 1.2 - 4.9 X10*3/uL [facility] Monocytes Absolute Auto 0.6 0.1 - 1.2 X10*3/uL [facility] Eosinophils Absolute Auto 0.1 0.0 - 0.4 X10*3/uL [facility] Basophils Absolute Auto 0.0 0.0 - 0.2 X10*3/uL [facility] NRBC Abs Auto 0.000 0.0 - 0.012 X10*3/uL [facility] 04/30/2025 8:24 PM EDT 04/30/2025 8:28 PM EDT us Generic External Data Provider LAB BLOOD ORDERAB LES Final Result Performing Organization Address City/State/[facility] Co de Phone Number [facility] [address] [place] [phone] * hCG, Total, Quantitative (04/30/2025 8:24 PM EDT) HCG Quantitative <2 mIU/mL [facility] Comment:Weeks post LMP Appro ximate hCG(Last Menstrual Period) Range (mIU/ml)3 - 4 weeks 9 - 1304 - 5 weeks 75 - 2,6005 - 6 weeks 850 - 20,8006 - 7 weeks 4000 - 100,2007 - 12 weeks 11,500 - 289,24473 - 16 weeks 18,300 - 137,09860 - 29 weeks (2nd trimester) 1,400 - 53,19896 - 41 weeks (3rd trimester) 940 - 60,000The Reich B- hCG assay is used for the early detection ofpregnancy; it cannot be used to diagnose any conditionunrelated to . If a B-hCG level is not supportedby the clinical evidence, results should be confirmed by analternative method (qualitative urine hCG, for example). 04/30/2025 8:2 4 PM EDT 04/30/2025 8:28 PM EDT us Generic External Data Provider LAB BLOOD ORDERAB LES Final Result Performing Organization Address City/[facility]/ZIP Co de Phone Number [facility] [address] [place] [phone] [phone] * Lipase (04/30/2025 8:24 PM EDT) Lipase 24 8 - 78 U/L [facility] 04/30/2025 8:24 PM EDT 04/30/2025 8:28 PM EDT Generic External Data Provider LAB BLOOD ORDERAB LES Final Result Performing Organization Address [facility] de Phone Number [facility] [address] [place] [phone] * (ABNORMAL) Comprehensive Metabolic Panel (04/30/2025 8:24 PM EDT) Pathologist [facility] Sodium 141 135 - 145 mmol/L [facility] Potassium 3.8 3.3 - 5.1 mmol/L [facility] Chloride 108 96 - 108 mmol/L [facility] Carbon Dioxide 25 22 - 29 mmol/L [facility] Anion Gap 12 12 - 20 [facility] Urea Nitrogen (BUN) 15 9 - 16 mg/dL [facility] Creatinine, Serum 0.47(L) 0.5 - 1.4 mg/dL [facility] Creatinine Clr Calc Pharmacy 160.5 [facility] Comment:Provided height and weight: 149.86 cm,83.1 kg.eGFR (calculated from the MDRD study equation) and eCrCl(calculated from the Cockcroft-Gault equation) are based ondifferent parameters and may not yield comparable results.If eCrCl result is absurd, please check patient'sheight/weight. Estimated Glomerular Filt Rate >60 [facility] Comment:Chronic Kidney Disea se: Estimated GFR < 60 mL/min/[id number] Kidney Disease: Estimated GFR < 15 mL/min/1.73m2 Glucose 93 60 - 115 mg/dL [facility] Calcium 8.7 8.4 - 10.2 mg/dL [facility] Bilirubin, Total 0.2 0.0 - 1.0 mg/dL [facility] Aspartate Amino Transferase 21 5 - 31 U/L [facility] Alanine Aminotransferase 35(H) 0 - 31 U/L [facility] Total Protein 6.9 6.5 - 8.0 g/dL [facility] Albumin Level 3.8 3.5 - 5.0 g/dL [facility] Alkaline Phosphatase 87 39 - 117 U/L [facility] 04/30/2025 8:24 PM EDT 04/30/2025 8:28 PM EDT us Generic External Data Provider LAB BLOOD ORDERAB LES Final Result Performing Organization Address [facility]/ZIP Co de Phone Number [facility] [address] [place] [phone] * HCG, Qualitative, Urine (04/30/2025 8:23 PM EDT) Urine NEGATIVE NEGATIVE [facility] Comment:This test was develo ped to detect early . Falsenegative results may occur after the 5th - 7th week ofpregnancy when using this test method. If clinicallyindicated, consider a serum hCG. 04/30/2025 8:23 PM EDT 04/30/2025 8:28 PM EDT us Generic External Data Provider LAB URINE ORDERAB LES Final Result Performing Organization Address City/[facility]/ZIP Co de Phone Number [facility] [address] [place] [phone] * Urinalysis w/reflex microscopic (04/30/2025 8:23 PM EDT) Color Urine Yellow [facility] Appearance Urine Cloudy [facility] PH 7.5 5.0 - 9.0 [facility] Glucose Urine UA Negative Negative mg/dL [facility] Urine Blood Negative Negative [facility] Specific [place] - Urine 1.020 1.005 - 1.025 [facility] Urine Protein Negative Neg-Trace mg/dL [facility] Urine Ketones Negative Negative mg/dL [facility] Nitrite Urine Negative Negative [facility] Leukocyte Esterase Urine Negative Negative [facility] 04/30/2025 8:23 PM EDT 04/30/2025 8:29 PM EDT Narrative [facility] - 04/30/2025 8:35 PM EDT 2022Urine, Clean Catch us Generic External Data Provider LAB URINE ORDERAB LES Final Result [facility] [address] [place] [phone] [phone] * Chlamydia/Trichomonas/Neisseria gonorrhoeae, PCR, Urine (04/18/2025 2:07 PM EDT) CT PCR, Urine NOT DETECTED Not Detect. [facility] Comment:A not detected test result does [...] NG PCR, Urine NOT DETECTED Not Detect. [facility] Comment:A not detected test result does [...] 2:07 PM EDT 04/18/2025 4:07 PM EDT [facility] URINE ORDERABLES Katrin l Result Performing Organization Address [facility]/ZIP Co de Phone Number [facility] [address] [place] [phone] * Syphilis Screen (04/18/2025 2:07 PM EDT) Syphilis Screen Nonreactive Nonreactive [facility] Blood Venous blood specimen / Unknown 04/18/2025 2:07 PM EDT 04/18/2025 4:19 PM EDT [facility] LAB BLOOD ORDERABLES Katrin l Result Performing Organization Address [facility] Co de Phone Number [facility] [address] [place] [phone] * Hemoglobin A1c (04/18/2025 2:07 PM EDT) Hemoglobin A1c 4.6 <6.0 % [facility] Comment:Hemoglobin A1C Refer ence Range Adults: 4.8 - 6.0 % Non diabetic: < 6.0 % Goal: < 7.0 %Additional Action Suggested: > 8.0 %Note: Hemoglobin A1c results are invalid for patients with abnormal amounts of HbF. Blood transfusions may impact the HbA1c concentration in the patient sample. Estimated Average Glucose 85 mg/dL [facility] Comment:eAG = Estimated ave rage glucose which is %A1C expressed asaverage glucose, using the formula of the G9F-[id number] Glucose study (ADAG), Diabetes Care, Vol.31,#8,2007 Blood Venous blood specimen / Unknown 04/18/2025 2:07 PM EDT 04/18/2025 4:19 PM EDT Beth Mercado CNM LAB BLOOD ORDERABLES Katrin l Result [facility] [address] [place] [phone] * POCT fern test, vaginal fluid manually resulted (04/18/2025 2:06 PM EDT) JUSTINO Prep Positive Comment:pH 4.5, pos hyphae, neg clue, neg trich, neg wbc, neg whiff Vaginal Fluid Vaginal structure / Unknown 04/18/2025 2:06 PM EDT Beth Mercado CNM POINT OF CARE TEST ENTER/ EDIT ORDERABLES Final Result * [place] REMOVAL NON-BIODEGRADABLE DRUG DELIVERY IMPLANT (04/18/2025 1:20 [...] answered: yes Instructions and paperwork completed: yes [place] Protocol: Patient states understanding of procedure being [...] Implant removed intact after dissection of adhesions Beth Mercado CNM IN CLINIC/BEDSIDE ORDERAB LES Final Result * HIV-1/2 Antigen and Antibodies, Fourth Generation, with Reflexes (04/18/2025 1:07 PM EDT) HIV AB/AG Nonreactive Nonreactive [facility] Comment:HIV-1 p24 Ag and/or HIV-1/HIV-2 Ab not detected.A test result that is nonreactive does not exclude thepossibility of exposure to or infection with HIV-1 and/orHIV-2. Nonreactive results in this assay for individualswith prior exposure to HIV-1 and/or HIV-2 may be due toantigen and antibody levels that are below the limit ofdetection of this assay.[facility] [employer] [facility] HIV Ag/Ab Combo assay result andsupplemental assay results should be interpreted inconjunction with the patient's clinical presentation,history and other laboratory results. If the results areinconsistent with clinical evidence, additional testing issuggested to confirm the result. Blood Venous blood specimen / Unknown 04/18/2025 1:07 PM EDT 04/18/2025 4:23 PM EDT Beth Mercado CNM LAB BLOOD ORDERABLES Katrin l Result [facility] [address] [place] [phone] * Hepatitis C Antibody with Reflex to HCV, RNA, Quantitative, Real-Time PCR (09/06/2024 9:35 AM EST) Hepatitis C Antibody Nonreactive Nonreactive [facility] Comment:Antibodies to HCV no t detected; does not exclude early acuteHCV infection. Blood Venous blood specimen / Unknown 09/06/2024 9:35 AM EST 09/06/2024 11:31 AM EST us Enid Mccarthy DO LAB BLOOD ORDERABLES Final R esult Performing Organization Address City/[facility]/ZIP Co de Phone Number [facility] [address] [place] [phone] [phone] * (ABNORMAL) Lipid Panel, Standard (02/09/2024 8:52 AM EDT) Triglycerides 100 <150 mg/dL [facility] Comment:Desirable Triglyceri de: less than 150 mg/dLBorderline High Triglyceride 150-199 mg/dLHigh Triglyceride: 200-499 mg/dLVery High Triglyceride: greater than or equal to 5OO mg/dL Cholesterol 223(H) <200 mg/dL [facility] Comment:Desirable Cholestero l: less than 200 mg/dLBorderline High Cholesterol: 200-239 mg/dLHigh Cholesterol: greater than 239 mg/dL LDL Cholesterol Calculated 159(H) <100 mg/dL [facility] Comment:Desirable LDL: less than 100 mg/dLNear Optimal/Above Optimal LDL: 110- 129 mg/dLBorderline High LDL: 130-159 mg/dLHigh LDL: 160-189 mg/dLVery High LDL: greater than or equal to 190 mg/dL HDL Cholesterol 44 >40 mg/dL [facility] Comment:Desirable HDL: great er than 40 mg/dL Note: This HDL assay may give artificially low results in patients with liver disease. 02/09/2024 8:52 AM EDT 02/09/2024 8:52 AM EDT us Generic External Data Provider LAB BLOOD ORDERAB LES Final Result Performing Organization Address [facility]/ZIP Co de Phone Number [facility] [address] [place] [phone] [phone] * Pap Smear (07/25/2020 12:00 AM EDT) Swab us Historical Provider LAB CYTOLOGY ORDERABLES F inal Result [address], [place] [address] from Last 3 Months or Most Recently Relevant to Health Maintenance Insurance [facility] C3 Care Teams Oracle Sql Developer Relationship Specialty Start Date End Date Farzana Meadows MD [address] [place] [phone] PCP - General Family Medicine 01/05/19
--- OUTSIDE RECORDS SUMMARY | 2025-07-04 10:28 | XMS_ITS | Encounter Summary ---
Author Organization [employer] Address [address] [facility] 7t [place] [address] Care Team Providers Care Weed Eradicator Name Role Phone Farzana Meadows MD Primary Care Provide r Reason for Visit * Reason Onset Date Comments Med Refill 12/09/2023 Encounter Details Date Type Department Care Team ([facility] st Contact Info) Description 12/09/2023 Telephone [facility] [address] [place], [place] [phone] Farzana Meadows MD [address] [place], [place] [phone] Med Refill Social History Tobacco Use Types [...] 37.5 MG tablet To be sent to: [facility] - [place], [place] - [address] [facility] documented in this encounter Plan of Treatment Not on file documented as of this encounter Visit Diagnoses Not on filedocumented in this encounter Additional Health Concerns Assessment Noted Time PHQ-9 Depression Total Score: 0 02/18/20 9:02 AM EDT documented as of this encounter Care Teams Weed Eradicator Relationship Specialty Start Date End Date Farzana Meadows MD [address] [facility] [place] [address] PCP - General Family Medicine 01/05/19 Trang Wyman Glass Worker 08/20/23 06/29/24 documented as of this encounter
--- OUTSIDE RECORDS SUMMARY | 2025-07-04 10:28 | XMS_ITS | Encounter Summary ---
Author Organization [employer] Address [address] [facility] 7t [place] [address] Care Team Providers Care Sharepoint Consultant Name Role Phone Farzana Meadows MD Primary Care Provide r Reason for Visit * Reason Comments Med Refill Encounter Details Date Type Department Care Team ([facility] st Contact Info) Description 06/09/2024 Refill [facility] [address] [place], [place] [phone] Farzana Meadows MD [address] [place], [place] [phone] Class 3 severe obesity due to excess [...] documented as of this encounter Care Teams Sharepoint Consultant Relationship Specialty Start Date End Date Farzana Meadows MD [address] [place] [id number] PCP - General Family Medicine 01/05/19 Trang Wyman Resp Therapist 08/20/23 06/29/24 documented as of this encounter
--- OUTSIDE RECORDS SUMMARY | 2025-07-04 10:28 | XMS_ITS | Encounter Summary ---
Author Organization [employer] Address [address] [facility] 7t [place] [address] Care Team Providers Care Inpatient Nursing Aide Name Role Phone Farzana Meadows MD Primary Care Provide r Encounter Details Date Type Department Care Team (Late st Contact Info) Description 09/03/2022 Orders Only [facility] [address] [place] [address] Beth Mercado, COLLINS [address] [place] [address] Social History Tobacco Use Types Packs/Day Years [...] CYTOLOGY ORDERABLES F inal Result [facility] [address], [place] [address] documented in this encounter Visit Diagnoses Not on filedocumented in this encounter Care Teams Inpatient Nursing Aide Relationship Specialty Start Date End Date Farzana Meadows MD [address] [place] [address] PCP - General Family Medicine 01/05/19 Trang Wyman Wastewater Treatment Operator 08/20/23 06/29/24 documented as of this encounter
--- OUTSIDE RECORDS SUMMARY | 2025-07-04 10:28 | XMS_ITS | Encounter Summary ---
Author Organization [employer] Address [address] [facility] [address]t [place] [address] Care Team Providers Care Electrical Troubleshooter Name Role Phone Farzana Meadows MD Primary Care Provide r Reason for Visit * Reason Onset Date Comments Med Refill 12/14/2024 Encounter Details Date Type Department Care Team ([facility] st Contact Info) Description 12/14/2024 Telephone [facility] [address] [place], [place] [phone] Farzana Meadows MD [address] [place], [place] [phone] Med Refill Social History Tobacco Use Types [...] 9:05 AM EDT Medication was sent to [facility] on 12/06/24. * Telephone Encounter - Mehran Barker - 12/14/2024 9:00 AM EDT TC from pt requesting medication refill. Medications needing refill : Tirzepatide-Weight Management (Zepbound) 7.5 MG/0.5ML solution auto-injector To be sent to: [facility] pharmacy documented in this encounter Plan of Treatment Not on file documented as of this encounter Visit Diagnoses Not on filedocumented in this encounter Additional Health Concerns Assessment Noted Time PHQ-9 Depression Total Score: 0 02/18/20 23 9:02 AM EDT documented as of this encounter Care Teams Electrical Troubleshooter Relationship Specialty Start Date End Date Farzana Meadows MD [address] [place] [phone] PCP - General Family Medicine 01/05/19 documented as of this encounter
--- OUTSIDE RECORDS SUMMARY | 2025-07-04 10:28 | XMS_ITS | Encounter Summary ---
Author Organization [email or web address] Address [address] [facility] 7t [place] [address] Care Team Providers Care Industrial Controls Technician Name Role Phone Farzana Meadows MD Primary Care Provide r Reason for Visit * Reason Onset Date Comments Med Refill 11/04/2024 Encounter Details Date Type Department Care Team ([facility] st Contact Info) Description 11/04/2024 Telephone [facility] MEDICINE [address] [place], [place] [phone] Farzana Meadows MD [address] [place], [place] [phone] Med Refill Social History Tobacco Use Types [...] 12:17 PM EST Zepound was sent to [facility] on 10/17/[address] [place]. * Telephone Encounter - Ilene Dominguez - 11/04/2024 11:30 AM EST TC from pt requesting medication refill. Medications needing refill : Semaglutide-Weight Management (Wegovy) 2.4 MG/0.75ML solution auto-injector To be sent to: [facility] documented in this encounter Plan of Treatment Not on file documented as of this encounter Visit Diagnoses Not on filedocumented in this encounter Additional Health Concerns Assessment Noted Time PHQ-9 Depression Total Score: 0 02/18/20 23 9:02 AM EDT documented as of this encounter Care Teams Industrial Controls Technician Relationship Specialty Start Date End Date Farzana Meadows MD [address] [place] [phone] PCP - General Family Medicine 01/05/19 documented as of this encounter
--- OUTSIDE RECORDS SUMMARY | 2025-07-04 10:28 | XMS_ITS | Encounter Summary ---
Author Organization [employer] Address [address] [facility] [address] [place] [address] Care Team Providers Care Companion Name Role Phone Farzana Meadows MD Primary Care Provide r Encounter Details Date Type Department Care Team (Latest Contact Info) Description 07/04/2025 Travel Social History Tobacco Use Types Packs/Day [...] Noted Time PHQ-9 Depression Total Score: 18 06/22/2 025 11:45 AM EDT documented as of this encounter Care Teams Companion Relationship Specialty Start Date End Date Farzana Meadows MD [address] [place] [address] PCP - General Family Medicine 01/05/19 documented as of this encounter
--- OUTSIDE RECORDS SUMMARY | 2025-07-04 10:28 | XMS_ITS | Encounter Summary ---
Author Organization [employer] Address [address] [facility] [address]t [place] [address] Care Team Providers Care Track Worker Name Role Phone Farzana Meadows MD Primary Care Provide r Reason for Visit * Reason Onset Date Comments Med Refill 04/12/2025 Encounter Details Date Type Department Care Team ([facility] st Contact Info) Description 04/12/2025 Telephone [facility] [address] [place], [place] [phone] Farzana Meadows MD [address] [place], [place] [phone] Med Refill Social History Tobacco Use Types [...] MG EC tablet To be sent to: [facility] - [place], [place] - [address] [place] [address] documented in this encounter Plan of Treatment Not on file documented as of this encounter Visit Diagnoses Not on filedocumented in this encounter Additional Health Concerns Assessment Noted Time PHQ-9 Depression Total Score: 0 02/18/20 23 9:02 AM EDT documented as of this encounter Care Teams Track Worker Relationship Specialty Start Date End Date Farzana Meadows MD [address] [facility] [place] [address] PCP - General Family Medicine 01/05/19 documented as of this encounter
[2025-07-04 13:04] LABS: HBsAGNum1 0.29 S/CO (0.00-0.99); HIV Num 1 0.05 S/CO (0.00-0.99); Hepatitis B Surface Antigen Negative (Negative); Syphilis Screen Nonreactive (Nonreactive); ~HepC Num1 0.12 S/CO (0.00-0.79); ~Hepatitis C Antibody Nonreactive (Nonreactive)
== END 2025-07-04 09:39 | disposition home or self-care (01) ==
LOC: HO.HHCL 09:38
PROVIDERS: Advanced Practice Midwife; PCP Internal Medicine; Visit Provider Family Medicine
DX: Z11.3 Encounter for screening for infections with a predominantly sexual mode of transmission (principal); Z12.4 Encounter for screening for malignant neoplasm of cervix; Z11.59 Encounter for screening for other viral diseases; Z11.4 Encounter for screening for human immunodeficiency virus [HIV]; N91.2 Amenorrhea, unspecified
CPT/HCPCS: 36415; 84702; 86780; 86803; 87340; 87389